=== PATIENT | female | born 1980 | race Caucasian/White ===

== ENCOUNTER 2019-10-28 11:46 | Emergency (ER) | payer SELFPAY | END 2019-10-28 14:07 | disposition home or self-care (01) | PROVIDERS: Family Provider Family Medicine | DX: H83.09 Labyrinthitis, unspecified ear (principal); I10 Essential (primary) hypertension; M19.90 Unspecified osteoarthritis, unspecified site; Z88.0 Allergy status to penicillin ==

== ENCOUNTER 2019-12-07 14:37 | Inpatient (IN) | payer OTHER, SELFPAY ==
[2019-12-07] VITALS (12 sets, daily range): BP systolic 110–148; BP diastolic 74–91; PULSE 87–94; RESP 16–18; TEMP 36.4–36.9; O2SAT 96–98; BMI 43.2
--- NOTE | 2019-12-07 14:44 | ED_ITS ---
Entered by Lupe Burrows, acting as scribe for Salma Traylor HPI - Anxiety General: Chief Complaint: Anxiety Stated Complaint: ANXIETY; SOB Time Seen by Provider: 12/07/19 14:39 Source: patient Limitations: no limitations History of Present Illness: HPI narrative: 39 yo Female presents to ED with complaint of anxiety. Pt states that she is about 6 weeks and was told to stop taking all of her medications, including Effexor, on Sunday. Pt states that she got a sharp pain in her side yesterday and then she started having increased anxiety. Pt states that she is having dizziness which is making her feel sick. MD complaint: anxiety and shortness of breath Onset (ago): day(s) Quality: intermittent Place: home History of similar episodes: No Provoking factors: medication change Relieving factors: nothing Exacerbating factors: nothing Associated symptoms: Reports nausea and short of breath; Deny chest pain, chills, confusion, diaphoresis, fever(s), headache(s), malaise, palpitations or syncope Review of Systems General: Reports: other (negative unless marked) Const: Denies: fever, chills, body aches, fatigue, malaise or diaphoresis Eyes: Denies: change in vision or blurry vision ENMT: Denies: throat pain, painful swallowing, hoarseness, ear pain, ear discharge, Change in hearing or nasal discharge Card: Denies: chest pain, palpitations, irregular heart rhythm, syncope, pre- syncope, shortness of breath on exertion or shortness of breath when lying down Resp: Reports: shortness of breath; Denies: productive cough, non-productive cough, wheezing, coughing up blood or chest congestion GI: Reports: nausea : Denies: flank pain, painful urination, urinary frequency, urinary urgency, decreased urine ouput, urinary incontinence or blood in urine Musc: Denies: neck pain, back pain, extremity pain, extremity swelling, joint pain, joint swelling, joint warmth or joint stiffness Skin/Breast: Denies: rash, skin tenderness or yellow skin Neuro: Denies: headache, numbness in extremities, weakness in extremities, changes in sensation, lack of coordination, difficulty walking, dizziness, vertigo or confusion Psych: Reports: anxiety Endo: Denies: excessive thirst, tired all the time, cold intolerance, excessive sweating, flushing or hot flashes Jasper/Lymph: Denies: easy bruising, easy bleeding, petechiae or enlarged lymph nodes All/Imm: Denies: hives, throat swelling, tongue swelling, facial swelling or acute wheezing PFSH ED PFSH: Statuses (acute, chronic, etc) shown below reflect problem list status as previously entered and may not be historically accurate Social History Smoking and tobacco status: never smoked Alcohol intake: unknown Desire information about alcohol rehabilitation?: No Substance/Drug Use: never Adopted: No Caregiver/support person: No Lives independently: Yes Household members: spouse and children Marital status: Number of children: 3 Highest education level completed: High School Graduate service: No Current occupational status: unemployed Current occupational exposures/hazards: No Pets and animals: Yes History of recent travel: No Sexually active: Yes Cherrie/Yazidi: Adventism Agree to transfusion: Yes Financial difficulty paying for basics: Somewhat Hard Physical Exam Const: COMMON NORMALS: no apparent distress, oriented x3, no limitations, healthy appearing and well nourished EXAM LIMITATIONS: no altered mental status GENERAL APPEARANCE: cooperative, well kempt and well developed ORIENTATION/CONSCIOUSNESS: Yes awake HENMT: COMMON NORMALS: normocephalic, head/scalp atraumatic, hearing grossly normal bilaterally, external ears normal, EAC's normal, external nose normal and moist oral mucous membranes HEAD & SCALP: normal to inspection, normocephalic and atraumatic FACE & SINUS: normal facial exam and face symmetric NOSE: external nose normal and nares normal EXTERNAL EAR: Yes external ears normal EXTERNAL AUDITORY CANAL: EAC's normal MOUTH: oral and palatal mucosa normal and tongue normal Eye: COMMON NORMALS: PERRL, EOMs intact bilaterally, conjunctivae normal and no scleral icterus GENERAL EYE: normal appearance of both eyes and normal light reflex CONJUNCTIVA: Yes conjunctivae normal SCLERA: sclerae normal CORNEA: Yes corneas normal PUPIL: Yes PERRL DIRECT OPHTHALMOSCOPY: Yes normal light reflex Neck/C-Spine: COMMON NORMALS: full ROM, no lymphadenopathy, supple, no meningeal signs and no JVD GENERAL: Yes normal visual inspection and Yes trachea midline CERVICAL SPINE: Yes cervical ROM normal Chest: COMMONS NORMALS: inspection of chest normal and palpation of chest normal Resp: COMMON NORMALS: normal respiratory effort, no retractions, no use of accessory muscles and clear to auscultation bilaterally EFFORT & INSPECTION: Yes able to speak in complete sentences AUSCULTATION: clear to auscultation bilaterally Cardio: COMMON NORMALS: no JVD, regular rate, regular rhythm, S1 normal heart sound, S2 normal heart sound, no gallops, no clicks, no murmurs and no rub JUGULAR VENOUS DISTENTION: no JVD RATE: regular rate RHYTHM: regular rhythm HEART SOUNDS: S1 normal and S2 normal GI: COMMON NORMALS: soft to palpation, non-tender, no hepatosplenomegaly and no masses INSPECTION: Yes normal to inspection PALPATION: Yes soft and Yes no hepatosplenomegaly : COMMON NORMALS: Yes no CVA tenderness BLADDER/KIDNEY EXAM: Yes no CVA tenderness Back/Pelvis: COMMON NORMALS: no CVA tenderness, thoracic and lumbar spine normal to inspection, no thoracic nor lumbar tenderness and thoraco-lumbar ROM normal Extremity: COMMON NORMALS: normal to inspection, full ROM, normal capillary refill, no joint enlargement, no clubbing, cyanosis or edema and no calf tenderness Neuro: COMMON NORMALS: oriented x3, CN's II-XII intact bilaterally, moves all extremities, no focal motor deficits and no sensory deficits noted MENINGEAL SIGNS: Yes no meningeal signs Psych: COMMON NORMALS: mental status grossly normal, thought process normal, cooperative, affect normal, speech normal and activity/motor behavior normal APPEARANCE: Yes well kempt SPEECH: Yes normal speech THOUGHT PROCESS: normal thought process Skin: COMMON NORMALS: no rashes or lesions noted, skin turgor normal, no jaundice, no petechiae and no mottling GENERAL SKIN EXAM: no rashes or lesions noted and turgor normal Course Vital Signs: Vital signs: Vital Signs Temperature 98.5 F 12/07/19 20:27 Pulse Rate 92 12/07/19 20:27 Respiratory Rate 18 12/07/19 20:27 Blood Pressure 146/90 12/07/19 20:27 Pulse Oximetry 96 12/07/19 20:27 MDM - Anxiety MDM Narrative: Medical decision making narrative: Mirna is a very nice 39-year-old female who comes in complaining of right lower quadrant right flank pain. Her catheter specimen shows a large amount of red cells. There was q uestionable infection on her for specimen. Appendicitis as well as kidney stone are still a possibility. I believe more likely kidney stone is the cause for her symptoms as she has had this in the past. The patient was seen and evaluated by Dr. Otero who will admit. He will follow her clinically. The patient is refused CT scan to rule valuate for appendicitis. We will continue to follow her clinically at this time. Imaging Data^: US: Radiologist's impression: [address] [place] [address] Ultrasound Report Signed Patient: Arely Valerio #: [id number] : 1980Acct#:[id number] Age/Sex: 39 / FADM Date: 12/07/19 Loc: ERRoom/Bed: Attending Dr: Ordering Provider/Ordering MD: Salma Traylor DO Date of Service: 12/07/19 Procedure(s): US pelvic with transvaginal Accession Number(s): [id number] Report Number: [id number] PROCEDURE INFORMATION: Exam: US Pelvis Complete, Transabdominal Exam date and time: 12/07/2019 2:56 PM Age: 39 years old Clinical indication: Pelvic pain; Patient HX: Patient states possible 6 weeks . No results done here yet. TECHNIQUE: Imaging protocol: Real-time transabdominal pelvic ultrasound with image documentation. Complete exam. COMPARISON: CT Abdomen/Pelvis Renal [id number] 03/04/2018 2:47 PM FINDINGS: Estimated gestational age: Gestational sac measures 5 mm with an EGA of 5 weeks and 2 days. pole not visualized. Estimated gestational age by ultrasound is 5 weeks and 2 days. Uterus/cervix: The uterus measures 10.7 x 4.9 x 5.3 cm and is normal in echogenicity. There are incidental nabothian cysts. Right adnexa: Not visualized. Left adnexa: Not visualized. Free fluid: None. Bladder: Normal. US/US pelvic with transvaginal IMPRESSION: There is an intrauterine gestational sac measuring 5 mm. EGA based on ultrasound is 5 weeks and 2 days. pole not yet visualized. Dictated By:Nisreen Zarate MD Signed By:Nisreen Zarate MDSigned Date/Time:12/07/19 1603 DD/ 1602 Other Imaging: Radiologist's impression: Ultrasound renal -no hydronephrosis, no stone visualized. No stone or bladder. Lab Data: Labs: Lab Results 12/07/19 12/07/19 12/07/19 Range/Units 15:05 15:05 15:05 WBC 8.1 (4.0-10.0) 10^3/ uL RBC 3.99 L (4.1-5.3) 10^6/u L Hgb 10.6 L (11.5-15.3) g/dL Hct 34.9 L (37.0-47.0) % MCV 87.5 (81-99) fL MCH 26.6 L (28.0-34.0) pg MCHC 30.4 (30.0-36.0) g/dL RDW 14.4 (12.1-15.1) % Plt Count 369 (130-400) 10^3/c mm MPV 8.5 (7.4-10.4) fL Neut % (Auto) 65.5 % Lymph % (Auto) 23.3 % Oldham % (Auto) 7.0 % Eos % (Auto) 3.6 % Baso % (Auto) 0.4 % Neut # (Auto) 5.3 (1.8-7.7) 10^3/u L Lymph # (Auto) 1.9 (0.8-4.8) 10^3/u L Oldham # (Auto) 0.6 (0.2-0.9) 10^3/u L Eos # (Auto) 0.3 (0.0-0.8) 10^3/u L Baso # (Auto) 0.0 (0.0-0.1) 10^3/u L Nucleated RBC % (a uto) 0 % Nucleated RBCs # 0.0 /100WBC Sodium 140 (136-145) mmol/L Potassium 3.9 (3.5-5.1) mmol/L Chloride 103 (98-107) mmol/L Carbon Dioxide 26 (22-29) mmol/L Anion Gap 14.9 (5-19) BUN 13 (6-20) mg/dL Creatinine 1.0 H (0.5-0.9) mg/dL GFR Calculation 62.4 L (90-130) mL/min Glucose 114 (65-115) mg/dL Calcium 10.1 (8.5-10.5) mg/dL Total Bilirubin 0.2 (0.15-1.2) mg/dL AST 22 (0-32) U/L ALT 25 (0-33) U/L Alkaline Phosphata se 102 (35-105) IU/L Total Protein 7.2 (6.6-8.7) g/dL Albumin 3.9 (3.5-5.2) g/dL Globulin 3.3 (1.3-4.6) g/dL Ser , Dayna i-Qnt 3067.00 mIU/mL Urine Color (Yellow) Urine Appearance (CLEAR) Urine pH (5-7) Ur Specific Gravit y (1.005-1.030) Urine Protein (Negative) Urine Glucose (UA) (Normal) Urine Ketones (Negative) Urine Occult Blood (Negative) Urine Nitrate (Negative) Urine Bilirubin (NEGATIVE) Urine Urobilinogen (Negative) mg/dL Ur Leukocyte Yee ase (Negative) Urine RBC (0-2) /hpf Urine WBC (0-5) /hpf Ur Squamous Epith Cells (0-5) Urine Bacteria (NONE) 12/07/19 12/07/19 Range/Units 15:48 17:53 WBC (4.0-10.0) 10^3/ uL RBC (4.1-5.3) 10^6/u L Hgb (11.5-15.3) g/dL Hct (37.0-47.0) % MCV (81-99) fL MCH (28.0-34.0) pg MCHC (30.0-36.0) g/dL RDW (12.1-15.1) % Plt Count (130-400) 10^3/c mm MPV (7.4-10.4) fL Neut % (Auto) % Lymph % (Auto) % Oldham % (Auto) % Eos % (Auto) % Baso % (Auto) % Neut # (Auto) (1.8-7.7) 10^3/u L Lymph # (Auto) (0.8-4.8) 10^3/u L Oldham # (Auto) (0.2-0.9) 10^3/u L Eos # (Auto) (0.0-0.8) 10^3/u L Baso # (Auto) (0.0-0.1) 10^3/u L Nucleated RBC % (a uto) % Nucleated RBCs # /100WBC Sodium (136-145) mmol/L Potassium (3.5-5.1) mmol/L Chloride (98-107) mmol/L Carbon Dioxide (22-29) mmol/L Anion Gap (5-19) BUN (6-20) mg/dL Creatinine (0.5-0.9) mg/dL GFR Calculation (90-130) mL/min Glucose (65-115) mg/dL Calcium (8.5-10.5) mg/dL Total Bilirubin (0.15-1.2) mg/dL AST (0-32) U/L ALT (0-33) U/L Alkaline Phosphata se (35-105) IU/L Total Protein (6.6-8.7) g/dL Albumin (3.5-5.2) g/dL Globulin (1.3-4.6) g/dL Ser , Dayna i-Qnt mIU/mL Urine Color Yellow Yellow (Yellow) Urine Appearance Hazy A Cloudy (CLEAR) Urine pH 7 5 (5-7) Ur Specific Gravit y 1.015 1.025 (1.005-1.030) Urine Protein Neg Neg (Negative) Urine Glucose (UA) Norm Norm (Normal) Urine Ketones Negative Negative (Negative) Urine Occult Blood 2+ H 2+ H (Negative) Urine Nitrate Negative Negative (Negative) Urine Bilirubin Neg Neg (NEGATIVE) Urine Urobilinogen Norm Norm (Negative) mg/dL Ur Leukocyte Yee ase 1+ H Negative (Negative) Urine RBC 15-25 H >100 H (0-2) /hpf Urine WBC 80-100 H 0-4 H (0-5) /hpf Ur Squamous Epith Cells 5-10 H 0-4 H (0-5) Urine Bacteria 2+ H 1+ H (NONE) Discharge Plan Discharge Admit Provider: Juan Carlos Otero Discharge Date/Time: 12/07/19 20:05 Coding Level of Care Code ED Senior Interactive Developer for Chg Fwd Exam Problem Focused The documentation recorded by the Markos veras Carmen, accurately reflects the service I personally performed and the decisions made by Kymberly desai Eli N Dec 07, 2019 14:37
--- NOTE | 2019-12-07 14:49 | USR_ITS ---
PROCEDURE INFORMATION: Exam: US Pelvis Complete, Transabdominal Exam date and time: 12/07/2019 2:56 PM Age: 39 years old Clinical indication: Pelvic pain; Patient HX: Patient states possible 6 weeks . No results done here yet. TECHNIQUE: Imaging protocol: Real-time transabdominal pelvic ultrasound with image documentation. Complete exam. COMPARISON: CT Abdomen/Pelvis Renal [id number] 03/04/2018 2:47 PM FINDINGS: Estimated gestational age: Gestational sac measures 5 mm with an EGA of 5 weeks and 2 days. pole not visualized. Estimated gestational age by ultrasound is 5 weeks and 2 days. Uterus/cervix: The uterus measures 10.7 x 4.9 x 5.3 cm and is normal in echogenicity. There are incidental nabothian cysts. Right adnexa: Not visualized. Left adnexa: Not visualized. Free fluid: None. Bladder: Normal. US/US pelvic with transvaginal IMPRESSION: There is an intrauterine gestational sac measuring 5 mm. EGA based on ultrasound is 5 weeks and 2 days. pole not yet visualized.
[2019-12-07] MEDS: metoclopramide 5 mg/mL SDV 2 mL 10 MG IV ×2 (15:08→16:04)
[2019-12-07] MEDS: morphine 4 mg/mL SDV 1 mL IVP (15:09)
[2019-12-07 15:12] LABS: Basophils % 0.4 %; Eosinophils # 0.3 10^3/uL (0.0-0.8); Eosinophils % 3.6 %; Hematocrit 34.9 % (37.0-47.0); Hemoglobin 10.6 g/dL (11.5-15.3); Lymphocytes # 1.9 10^3/uL (0.8-4.8); Lymphocytes % 23.3 %; Mean Corpuscular HGB Conc 30.4 g/dL (30.0-36.0); Mean Corpuscular Hemoglobin 26.6 pg (28.0-34.0); Mean Corpuscular Volume 87.5 fL (81-99); Mean Platelet Volume 8.5 fL (7.4-10.4); Monocytes # 0.6 10^3/uL (0.2-0.9); Neutrophils # 5.3 10^3/uL (1.8-7.7); Neutrophils % 65.5 %; Nucleated Red Blood Cells % 0 %; Platelet Count 369 10^3/cmm (130-400); Red Blood Count 3.99 10^6/uL (4.1-5.3); Red Cell Distribution Width 14.4 % (12.1-15.1); White Blood Count 8.1 10^3/uL (4.0-10.0)
[2019-12-07 15:38] LABS: Alanine Aminotransferase 25 U/L (0-33); Albumin Level 3.9 g/dL (3.5-5.2); Alkaline Phosphatase 102 IU/L (35-105); Anion Gap 14.9 (5-19); Aspartate Amino Transferase 22 U/L (0-32); Blood Urea Nitrogen 13 mg/dL (6-20); Calcium 10.1 mg/dL (8.5-10.5); Carbon Dioxide 26 mmol/L (22-29); Chloride 103 mmol/L (98-107); Globulin 3.3 g/dL (1.3-4.6); Glomerular Filtration Rate 62.4 mL/min (90-130); Glucose 114 mg/dL (65-115); Potassium 3.9 mmol/L (3.5-5.1); Sodium 140 mmol/L (136-145); Total Bilirubin 0.2 mg/dL (0.15-1.2); Total Protein 7.2 g/dL (6.6-8.7)
[2019-12-07] MEDS: acetaminophen 500 mg Tablet 1000 MG PO (16:03)
[2019-12-07 16:15] LABS: Glucose Urine UA Norm (Normal); Ketones Urine Negative (Negative); Protein Urine Neg (Negative); Specific Gravity, Urine 1.015 (1.005-1.030); Urine Appearance Hazy (CLEAR); Urine Color Yellow (Yellow); pH Urine 7 (5-7)
[2019-12-07 16:16] LABS: Bilirubin Urine Neg (NEGATIVE); Blood Urine 2+ (Negative); Leukocyte Esterase Urine 1+ (Negative); Nitrate Urine Negative (Negative); Urobilinogen Urine Norm (Negative)
[2019-12-07 16:25] LABS: Add Urine Culture? Yes; Bacteria Urine 2+; RBC Urine 15-25 /hpf (0-2); WBC Urine 80-100 /hpf (0-5)
[2019-12-07 18:44] LABS: Bacteria Urine 1+; Bilirubin Urine Neg (NEGATIVE); Blood Urine 2+ (Negative); Glucose Urine UA Norm (Normal); Ketones Urine Negative (Negative); Leukocyte Esterase Urine Negative (Negative); Nitrate Urine Negative (Negative); Protein Urine Neg (Negative); RBC Urine >100 /hpf (0-2); Specific Gravity, Urine 1.025 (1.005-1.030); Squamous Epithelial Cell Urine 0-4 (0-5); Urine Appearance Cloudy (CLEAR); Urine Color Yellow (Yellow); Urobilinogen Urine Norm (Negative); WBC Urine 0-4 /hpf (0-5); pH Urine 5 (5-7)
[2019-12-07 18:46] LABS: Add Urine Culture? No
--- NOTE | 2019-12-07 18:52 | US_ITS ---
WS: [id number] RENAL ULTRASOUND HISTORY: Rt. Flank pain, hematuria. COMPARISON: None available. TECHNIQUE: 2-D and color Doppler imaging of the kidney submitted. Right kidney: 1.5 cm x 5.3 cm x 5.3 cm. Normal echogenicity with no hydronephrosis or mass. Left kidney: 12.0 cm x 4.7 cm x 5.2 cm. Normal echogenicity with no hydronephrosis or mass. Aorta: Normal. Urinary Bladder: Normal distention. US/US renal BI with bladder IMPRESSION: Normal renal ultrasound.
--- NOTE | 2019-12-07 19:03 | PC.NURSE ---
REPORT RECEIVED FROM [facility]U SULLIVAN AND CARE TRANSFERRED TO [facility]
[2019-12-07] MEDS: cefTRIAXone 1,000 MG in sodium chloride 0.9% (plus) 50 ML 100 MG IV (19:15)
[2019-12-07] MEDS: sodium chloride 0.9% 1,000 ML 999 ML IV (19:16)
--- NOTE | 2019-12-07 19:31 | PC.NURSE ---
ULTRASOUND IN ROOM WITH PATIENT
--- NOTE | 2019-12-07 20:24 | PM.OBGYHP ---
Providers/Chief Complaint Admitting Physician: Juan Carlos Otero DO Chief Complaint: RT FLANK PAIN, HPI PARTS REPRESENTATIVE History of Present Illness Arely Valerio is a 39 year old female G5, P3 Ab1 with LMP 29 September 2001 9 ultrasound today placed her 5 weeks gestation based on size of gestational sac no yolk sac visualized. Patient presented to emergency room this evening complaining of right flank pain also states that she has had some chills denies definite fever no nausea no vomiting no headaches. On evaluation in the ED she was found to have significant number of red blood cells in her urine right flank pain with consideration that this may either represent pyelonephritis versus nephrolithiasis. I was asked by attending ED doc to admit patient. Plan at this time is to admit her to the [facility] IV hydration pain control strain urines and will ask urology to see her in the a.m. Is of note that she does have a history of right-sided nephrolithiasis in her prior requiring stenting of her right ureter. She states she did have a kidney infection in her affected by nephrolithiasis otherwise unremarkable. She has had 3 vaginal deliveries uncomplicated. Denies any history of gestational diabetes. And is she denies any vaginal bleeding no adnexal discomfort. Her pain is located in her right flank some radiation down the right gutter and towards the right inguinal region. Rates 6-06/07 Present Details Date of Last Menstrual Period: 09/29/19 Calculated Date of Delivery: 07/05/20 Gestational Age Based on Last Menstrual Period: 10 Review of Systems General: Reports: 10 or more systems reviewed and unremarkable except in HPI and below Const: Reports: chills; Denies: fever, body aches, change in appetite, fatigue or malaise Eyes: Denies: change in vision ENMT: Denies: painful swallowing Card: Denies: chest pain, palpitations, irregular heart rhythm or edema Resp: Denies: shortness of breath, productive cough or non-productive cough GI: Reports: abdominal pain; Denies: vomiting, vomiting blood, difficulty swallowing, constipation or bloating : Reports: flank pain; Denies: difficulty urinating, painful urination, urinary frequency, urinary urgency, urinary dribbling, decreased urine ouput, vaginal odor, vaginal bleeding, pelvic pain or pain during intercourse Musc: Reports: back pain; Denies: extremity pain, extremity swelling or joint pain Skin/Breast: Denies: rash Neuro: Denies: headache, numbness in extremities or weakness in extremities Psych: Reports: anxiety and depression Endo: Denies: excessive urination, excessive thirst or excessive sweating Jasper/Lymph: Denies: easy bruising or easy bleeding All/Imm: Denies: hives Medications/Allergies Home Medications Medication Instructions Recorded Confirmed Last Taken Type No Known Home Medications 12/07/19 12/07/19 Unknown History Allergies Allergy/AdvReac Type Severity Reaction Status Date / Time hydrocodone Allergy ALGY-Anaphy Verified 12/07/19 14:50 laxis oxycodone Allergy ALGY-Anaphy Verified 12/07/19 14:50 laxis Penicillins Allergy ALGY-Hives Verified 12/07/19 14:49 [facility] REPRESENTATIVE Statuses (acute, chronic, etc) shown below reflect problem list status as previously entered and may not be historically accurate Medical History (Updated 12/08/19 @ 07:45 by Antonio Golden MD) Kidney stone complicating (Acute) With last required prolonged hospitalization and her 7/8 and ninth month secondary to a stone Urolithiasis (Acute) Social History Smoking and tobacco status: never smoked Alcohol intake: unknown Desire information about alcohol rehabilitation?: No Substance/Drug Use: never Adopted: No Caregiver/support person: No Lives independently: Yes Household members: spouse and children Marital status: Number of children: 3 Highest education level completed: High School Graduate service: No Current occupational status: unemployed Current occupational exposures/hazards: No Pets and animals: Yes History of recent travel: No Sexually active: Yes Cherrie/Religious: Jehovah'S Witness Agree to transfusion: Yes Financial difficulty paying for basics: Somewhat Hard History History 5 Term 3 Miscarriages/Ectopic 1 0 Living Children 3 Vitals/I&O/Wt Last Vital Signs Temp 97.5 F L 12/07/19 14:38 Pulse 87 12/07/19 19:59 Resp 16 12/07/19 19:59 BP 129/78 12/07/19 19:59 Pulse Ox 96 12/07/19 19:59 12/07/19 12/07/19 12/07/19 06:59 14:59 22:59 Intake Total 50 / 50 Balance 50 / 50 Weight last 48 hrs Weight 117.934 kg Data : 12/08/19 05:46 12/08/19 05:46 Micro: Microbiology 12/07/19 17:55 Wet Prep - Final Vaginal Attestations Medical Necessity Statement*: pyelonephritiws vs nephrolithiasa. anticipate antibiotics for 48 h Coding Level of Care Code Acute Pelletizer for [facility]
--- NOTE | 2019-12-07 20:31 | P.HP_ITS ---
Providers/Chief Complaint Admitting Physician: Juan Carlos Otero DO Chief Complaint: RT FLANK PAIN, HPI BARIATRIC COORDINATOR History of Present Illness Arely Valerio is a 39 year old female Present Details Date of Last Menstrual Period: 09/29/19 Calculated Date of Delivery: 07/05/20 Gestational Age Based on Last Menstrual Period: 9 Medications/Allergies Home Medications Medication Instructions Recorded Confirmed Last Taken Type No Known Home Medications 12/07/19 12/07/19 Unknown History Allergies Allergy/AdvReac Type Severity Reaction Status Date / Time hydrocodone Allergy ALGY-Anaphy Verified 12/07/19 14:50 laxis oxycodone Allergy ALGY-Anaphy Verified 12/07/19 14:50 laxis Penicillins Allergy ALGY-Hives Verified 12/07/19 14:49 PFSH BARIATRIC COORDINATOR Statuses (acute, chronic, etc) shown below reflect problem list status as previously entered and may not be historically accurate Social History Smoking and tobacco status: never smoked Alcohol intake: unknown Desire information about alcohol rehabilitation?: No Substance/Drug Use: never Adopted: No Caregiver/support person: No Lives independently: Yes Household members: spouse and children Marital status: Number of children: 3 Highest education level completed: High School Graduate service: No Current occupational status: unemployed Current occupational exposures/hazards: No Pets and animals: Yes History of recent travel: No Sexually active: Yes Cherrie/Zoroastrian: Buddhism Agree to transfusion: Yes Financial difficulty paying for basics: Somewhat Hard History History 5 Term 3 Miscarriages/Ectopic 1 0 Living Children 3 Vitals/I&O/Wt Last Vital Signs Temp 98.5 F 12/07/19 20:27 Pulse 92 12/07/19 20:27 Resp 18 12/07/19 20:27 BP 146/90 12/07/19 20:27 Pulse Ox 96 12/07/19 20:27 12/07/19 12/07/19 12/07/19 06:59 14:59 22:59 Intake Total 50 / 50 Balance 50 / 50 Weight last 48 hrs Weight 117.934 kg Physical Exam Narrative: EXAM NARRATIVE: Alert and oriented no acute distress obese white female. Laying in bed in emergency department. Skin is generally clear HEENT grossly normal Neck supple nontender nodes no masses Lungs clear to auscultation Heart regular sinus rhythm Abdomen obese soft nontender good bowel sounds no guarding or rebound positive right flank tenderness Pelvic exam deferred to ED physician Extremities grossly intact no edema Extremities grossly intact Psych oriented to time place and circumstance Data : 12/07/19 15:05 12/07/19 15:05 Micro: Microbiology 12/07/19 17:55 Wet Prep - Final Vaginal Attestations Medical Necessity Statement*: Patient admitted to [facility] through emergency department for IV fluids and straining of urine as well as pain control may well require 48 hours of IV antibiotics. Time Spent in Patient Care: Greater than 35 minutes 40 Other Attestations: Spent 40 minutes emergency department with patient with evaluation observation of renal ultrasound discussion with ED physician and admission of patient. Coding Level of Care Code Acute Credit Or Loans Officer for Chg Fwd History Expanded Problem Focused Exam Expanded Problem Focused Medical Decision Making Moderate Complexity Time Spent (min) 40
[2019-12-07 20:47] LABS: Estmated Average Glucose 114; Hemoglobin A1C 5.6 % (4.0-6.0)
[2019-12-07] MEDS: lactated ringers 1,000 ML 250 ML IV (22:16)
[2019-12-08] VITALS (10 sets, daily range): BP systolic 96–142; BP diastolic 57–78; PULSE 75–89; RESP 12–20; TEMP 36.8–37.1; O2SAT 96–98; BMI 49.9
[2019-12-08] MEDS: lactated ringers 1,000 ML 250 ML IV ×5 (00:24→21:03)
[2019-12-08 05:56] LABS: Basophils % 0.4 %; Eosinophils # 0.4 10^3/uL (0.0-0.8); Eosinophils % 4.8 %; Hematocrit 29.9 % (37.0-47.0); Hemoglobin 8.9 g/dL (11.5-15.3); Lymphocytes # 2.4 10^3/uL (0.8-4.8); Lymphocytes % 32.6 %; Mean Corpuscular HGB Conc 29.8 g/dL (30.0-36.0); Mean Corpuscular Hemoglobin 26.1 pg (28.0-34.0); Mean Corpuscular Volume 87.7 fL (81-99); Mean Platelet Volume 8.5 fL (7.4-10.4); Monocytes # 0.6 10^3/uL (0.2-0.9); Monocytes % 7.9 %; Neutrophils # 3.9 10^3/uL (1.8-7.7); Nucleated Red Blood Cells % 0 %; Platelet Count 280 10^3/cmm (130-400); Red Blood Count 3.41 10^6/uL (4.1-5.3); Red Cell Distribution Width 14.5 % (12.1-15.1); White Blood Count 7.3 10^3/uL (4.0-10.0)
[2019-12-08] MEDS: cefTRIAXone 1,000 MG in sodium chloride 0.9% (plus) 50 ML 100 MG IV ×2 (05:59→17:11)
[2019-12-08 06:20] LABS: Anion Gap 14.8 (5-19); Blood Urea Nitrogen 8 mg/dL (6-20); Calcium 8.9 mg/dL (8.5-10.5); Carbon Dioxide 23 mmol/L (22-29); Chloride 104 mmol/L (98-107); Glomerular Filtration Rate 94.2 mL/min (90-130); Glucose 101 mg/dL (65-115); Osmolality Calculated 282 mOsm/kg (285-295); Potassium 3.8 mmol/L (3.5-5.1); Sodium 138 mmol/L (136-145)
--- NOTE | 2019-12-08 07:16 | PM.CONSULT ---
Providers/Reason For Consult Consulting Physican/Specialty*: Urology/Golden Reason for Consult*: (5 to 6 weeks), right flank pain, history of stones Attending Physician: Juan Carlos Otero DO History of Present Illness History of Present Illness Arely Valerio is a 39 year old female known to me for history of urolithiasis. First evaluated in January 2018 with prior history of urolithiasis and possible urinary tract infection at that time. At first evaluation she was felt to have symptoms more consistent with UTI and not a stone although she may have well passed a small stone. Was continued on antibiotics and a CT scan was requested for persistence of pain. Evaluation demonstrated a 4 mm right distal ureteral stone with minimal hydronephrosis. She ultimately passed the stone. Her symptoms resolved. Was scheduled for follow-up in August 2018 but did not keep the appointment. She has not been seen in urology since then. This hospital stay was initiated after emergency department evaluation for right lower quadrant pain and microscopic hematuria. Renal ultrasound showed no evidence of hydronephrosis. White count was 8.1 Creatinine: 1.0 Normal liver functions Urinalysis: 15-25 RBCs, 80-100 white cells, 5-10 squamous epithelial cells and 2+ bacteria but nitrite negative Differential diagnosis included: Stone, appendicitis, UTI. Admitted for further evaluation and treatment. Since admission she has remained afebrile. Vital signs are stable. In review of CT scan in February 2018 she had a small LLP stone but no other stones on the right. Symptoms this visit reminded her of prior stone but just not as severe. She had significant lower abdominal pain and to a degree milder right flank pain. She wanted to pace and move to try to find a comfortable position but could not. She also has been experiencing increased urgency and frequency acutely as well. I recommended continued IV fluids, antibiotics, strain all voids, and conservative therapy in general. Further work-up will be pending her symptoms. May require repeat ultrasound for persistence of renal colicky symptoms. Review of Systems Const: Denies: fever or chills Eyes: Denies: change in vision Card: Denies: chest pain or palpitations Resp: Denies: shortness of breath or productive cough GI: Reports: abdominal pain and nausea : Denies: painful urination Musc: Denies: deformity Skin/Breast: Denies: rash Psych: Denies: anxiety, depression or difficulty concentrating Endo: Denies: excessive thirst or excessive sweating [place]asper/Lymph: Denies: easy bleeding or enlarged lymph nodes All/Imm: Denies: hives or acute wheezing Meds/Allergies Home Medications and Allergies Home Medications Medication Instructions Recorded Confirmed Type No Known Home Medications 12/07/19 12/07/19 History Allergies Allergy/AdvReac Type Severity Reaction Status Date / Time hydrocodone Allergy ALGY-Anaphy Verified 12/07/19 14:50 laxis oxycodone Allergy ALGY-Anaphy Verified 12/07/19 14:50 laxis Penicillins Allergy ALGY-Hives Verified 12/07/19 14:49 Current Medications Current Medications Generic Name Dose Route Start Last Admin Trade Name Freq PRN Reason Stop Dose Admin Lactated Ringer's 1,000 mls @ 250 mls/hr 12/07/19 19:45 12/08/19 05:59 Lactated Ringers IV 250 mls/hr .Q4H TRENT Administration Ceftriaxone Sodium 1,000 mg/ 50 mls @ 100 mls/hr 12/08/19 06:00 12/08/19 05:59 Sodium Chloride IV 100 mls/hr Q12H TRENT Administration PFSH Acute PFSH: Statuses (acute, chronic, etc) shown below reflect problem list status as previously entered and may not be historically accurate Medical History Kidney stone complicating With last required prolonged hospitalization and her 7/8 and ninth month secondary to a stone Urolithiasis Social History Smoking and tobacco status: never smoked Alcohol intake: unknown Desire information about alcohol rehabilitation?: No Substance/Drug Use: never Adopted: No Caregiver/support person: No Lives independently: Yes Household members: spouse and children Marital status: Number of children: 3 Highest education level completed: High School Graduate service: No Current occupational status: unemployed Current occupational exposures/hazards: No Pets and animals: Yes History of recent travel: No Sexually active: Yes Cherrie/Anabaptist: Amish Agree to transfusion: Yes Financial difficulty paying for basics: Somewhat Hard Female Reproductive History: Date of last menstrual period: 09/29/19 Vitals/I&O/Wt Last Vital Signs Temp 98.8 F 12/08/19 04:00 Pulse 75 12/08/19 04:00 Resp 12 12/08/19 04:00 BP 97/57 12/08/19 04:00 Pulse Ox 96 12/08/19 04:00 12/07/19 12/08/19 12/08/19 22:59 06:59 14:59 Intake Total 530 / 530 2013.333 / 2543.333 Output Total 500 / 501 Balance 529 / 529 1513.333 / 2042.333 Weight last 48 hrs Weight 300 lb 6 oz Weight 300 lb 6 oz Weight 260 lb Physical Exam Const: COMMON NORMALS: no apparent distress, alert and well nourished GENERAL APPEARANCE: well kempt and well developed NUTRITIONAL APPEARANCE: obese ORIENTATION/CONSCIOUSNESS: not confused HENMT: COMMON NORMALS: normocephalic HEAD & SCALP: normocephalic Eye: COMMON NORMALS: no scleral icterus Neck/C-Spine: COMMON NORMALS: full ROM GENERAL: Yes normal visual inspection Resp: COMMON NORMALS: normal respiratory effort EFFORT & INSPECTION: No labored and No actively coughing Extremity: COMMON NORMALS: no clubbing, cyanosis or edema Neuro: COMMON NORMALS: no focal motor deficits SENSORIUM/ORIENTATION: Yes alert Psych: COMMON NORMALS: mental status grossly normal APPEARANCE: Yes grossly normal and Yes well kempt ATTITUDE: Yes calm and Yes engaged Skin: COMMON NORMALS: no jaundice Data Micro: Micro: Microbiology 12/07/19 17:55 Wet Prep - Final Vaginal A&P Assessment and plan (1) Flank pain with history of urolithiasis: Spontaneously passed stone in 2018. CT scan February 2018 showed the right distal ureteral stone measuring 4 mm, a very small LLP renal calculus but no other stones on the right kidney. Symptoms remind her of previous stones but without as severe intensity. No clear evidence of obstructive pyelonephritis. Recommend continued conservative management with antibiotics, pain control, hydration, strain all voids etc. If she can manage pain and there is no evidence of progressive infectious picture would consider discharge for outpatient management. I would want to see her back in about a week with a ultrasound or sooner if her symptoms increase. We discussed in detail the difficulty of dealing especially the stage of with the uncertainty and the inability to safely pursue usual diagnostic imaging. She is comfortable with conservative approach at this point. Status: Acute Code(s): R10.9 - Unspecified abdominal pain; Z87.442 - Personal history of urinary calculi Consult Attestations Medical Necessity Statement: See attending Coding Level of Care Code Acute Cardiovascular Invasive Specialist for Refugio Medrano Exam Problem Focused Diagnoses Flank pain with history of urolithiasis R10.9; Z87.442
[2019-12-08] MEDS: acetaminophen 325 mg Tablet 650 MG PO ×2 (08:34→15:05)
[2019-12-08] MEDS: ibuprofen 200 mg Tablet 400 MG PO (10:42)
--- NOTE | 2019-12-08 10:47 | PC.CHAP ---
Pastoral Care Encounter/Spiritual Assessment Type of Contact [] Declined car manager visit [] Patient/Family/Request visit [] Outpatient visit [] Follow-up visit [] Physician referral [] Code/Alert [] Routine visit [] Staff referral [] Actively dying [] Patient sleeping [] Family support [] [] Out of room [] Palliative care [] [] Receiving care in room [] Pre-surgical visit [] Trauma [] Long length of stay [] ICU visit [x] Other: follow up needed Relational/Emotional Strength [] Patient feels connected with others/family/visitors/staff [] Distress [] Loneliness/isolation [] Abandonment Spirituality of Patient [] Person of Cherrie [] Attends Adventism of their Cherrie [] Believes in Prayer [] Reads Bible or Confucianism materials [] There are Spiritual issues to be addressed Log Brander Interventions [] Prayer [] Active listening [] Non-anxious presence [] Spiritual/emotional support [] Crisis/trauma care [] Spiritual counseling [] Bereavement support [] Provided bereavement packet [] Provided Bible/devotional materials [] Provided toy/stuffed animal, coloring book to patient or family member [] Provided Communion [] Anointing/[place] [] Salvation [] Completed spiritual assessment [] Other: Impact on Illness or Injury [] Angry [] Fearful [] Anxious [] Often cries [] Exhaustion [] Unable to work [] Unable to attend scientologist [] Unable to walk/stand [] Unable to read [] Unable to drive [] Unable to eat/drink [] Unable to sleep [] Unable to be with family [] Patient intubated [] Other: Summary Pt on medicated sleep Needs follow up Log Brander Claire Zavaleta Time spent with patient 2 minutes
[2019-12-08] MEDS: prochlorperazine 10 mg Tablet 5 MG PO (11:21)
--- NOTE | 2019-12-08 19:07 | P.PN_ITS ---
CHANGE RELEASE MANAGER Subjective Subjective: Interval history: do ing well this PM, passing stones?grit. states feels like it is moving down. reviewed urology consult. appreciate consult will follow recommendations. Vitals/I&O/Wt Last Vital Signs Temp 98.2 F 12/08/19 16:00 Pulse 85 12/08/19 16:00 Resp 16 12/08/19 16:00 BP 99/65 12/08/19 16:00 Pulse Ox 98 12/08/19 16:00 12/08/19 12/08/19 12/08/19 06:59 14:59 22:59 Intake Total 2063.333 / 2593.333 2720 / 2720 797.5 / 3517.5 Output Total 500 / 501 1500 / 1500 800 / 2300 Balance 1563.333 / 2092.333 1220 / 1220 -2.5 / 1217.5 Weight last 48 hrs Weight 136.248 kg Weight 136.248 kg Weight 117.934 kg Physical Exam Narrative: EXAM NARRATIVE: Alert and oriented no acute distress laying in bed Abdomen obese soft nontender no significant flank tenderness this p.m. Extremities no calf tenderness no edema Data : 12/08/19 05:46 12/08/19 05:46 Micro: Microbiology 12/07/19 15:48 Chlamydia trachomatis (ROXANA) - Final Urine Random Neisseria gonorrhoeae (ROXANA) - Final 12/07/19 17:55 Wet Prep - Final Vaginal A&P Assessment and plan (1) Acute right flank pain: Status: Acute Code(s): R10.9 - Unspecified abdominal pain Attestations Medical Necessity Statement*: Continue IV antibiotics tonight in a.m. 12/09/2019. Anticipate discharge p.m. 12/09/2019 Time Spent in Patient Care: 16 - 35 minutes (>than 50% of time spent in counselling and/or direct pt care on unit) . Coding Level of Care Code Acute Marine Fireman for Refugio Medrano Diagnoses Acute right flank pain R10.9 Time Spent (min) 15
[2019-12-09] MEDS: lactated ringers 1,000 ML 250 ML IV ×5 (01:09→14:50)
[2019-12-09 04:00] VITALS: BP 98/62; PULSE 83; RESP 12; TEMP 37.1
[2019-12-09 05:01] VITALS: BP 105/66; PULSE 91; RESP 17; TEMP 37.4; O2SAT 98
[2019-12-09] MEDS: cefTRIAXone 1,000 MG in sodium chloride 0.9% (plus) 50 ML 100 MG IV (05:08)
--- NOTE | 2019-12-09 07:25 | US_ITS ---
WS: [id number] ULTRASOUND ABDOMEN CLINICAL INFORMATION: History of stones. BILATERAL FLANK PAIN NOW. COMPARISON: None. FINDINGS: Liver Size: Enlarged Craniocaudal length: 18.9 cm. Echogenicity: Dense with fatty infiltration Surface nodularity: None. Mass (size and location): None. Bile ducts Intrahepatic ducts: Normal. Common bile duct diameter: 0.5 mm. Gallbladder Cholelithiasis Gallstones: Present Gallbladder sludge: None. Gallbladder wall thickening: None. Pericholecystic fluid: None. Sonographic Kessler sign: Absent. Pancreas Not well seen Spleen Splenomegaly: None. Craniocaudal length: 11.0 cm. Right kidney: Normal. Hydronephrosis: None. Size: 10.1 cm x 4.9 cm x 5.7 cm Left kidney: Normal. Hydronephrosis: None. Size: 12.2 cm x 4.9 cm x 5.1 cm. Abdominal aorta and IVC Visualized portions are normal. Ascites: None. US/US abdomen complete* [id number] IMPRESSION: 1. Hepatomegaly with diffuse fatty infiltration. 2. Cholelithiasis. Gallbladder otherwise unremarkable. 3. No hydronephrosis in either kidney. 4. Normal spleen.
--- NOTE | 2019-12-09 07:27 | PM.PN ---
Subjective Subjective: Interval history: States that she feels awful this morning . Mostly complaining of a headache but she also states now that she is having both RIGHT and LEFT (new) high back pain. Thinks it reminds her of stones. She still thinks she is experiencing some withdrawal type symptoms from stopping her antidepressant medication quickly. Vital signs have been stable. She has been afebrile. We reviewed options again which would include repeating ultrasound, obtaining new lab including urinalysis, CBC, CMP. In the absence of progressive hydronephrosis or clear-cut obstructive pyelonephritis I would hold off on stenting. I will come back later today and see how she is doing and with the above information shows ADDENDUM: Lab work looks good. Abdominal ultrasound shows no evidence of developing hydronephrosis. She stated that she was feeling better this afternoon and I think with that information she can be discharged home for follow-up with me next week. Medications: Reviewed: Yes Vitals/I&O/Wt Last Vital Signs Temp 99.3 F 12/09/19 05:01 Pulse 91 12/09/19 05:01 Resp 17 12/09/19 05:01 BP 105/66 12/09/19 05:01 Pulse Ox 98 12/09/19 05:01 12/08/19 12/09/19 12/09/19 22:59 06:59 14:59 Intake Total 1327.5 / 4047.5 2298.333 / 6345.833 Output Total 800 / 2300 Balance 527.5 / 1747.5 2298.333 / 4045.833 Weight last 48 hrs Weight 300 lb 6 oz Weight 300 lb 6 oz Weight 260 lb Physical Exam Const: COMMON NORMALS: alert and well nourished GENERAL APPEARANCE: well kempt and well developed ORIENTATION/CONSCIOUSNESS: not confused HENMT: COMMON NORMALS: normocephalic and head/scalp atraumatic HEAD & SCALP: normocephalic and atraumatic Eye: COMMON NORMALS: conjunctivae normal and no scleral icterus CONJUNCTIVA: Yes conjunctivae normal Neck/C-Spine: COMMON NORMALS: full ROM GENERAL: Yes normal visual inspection Resp: COMMON NORMALS: normal respiratory effort EFFORT & INSPECTION: No labored and No actively coughing Extremity: COMMON NORMALS: no clubbing, cyanosis or edema Neuro: COMMON NORMALS: no focal motor deficits SENSORIUM/ORIENTATION: Yes alert Psych: COMMON NORMALS: mental status grossly normal APPEARANCE: Yes grossly normal and Yes well kempt ATTITUDE: Yes calm and Yes engaged Skin: COMMON NORMALS: no rashes or lesions noted and no jaundice GENERAL SKIN EXAM: no rashes or lesions noted Data : 12/09/19 08:25 12/09/19 08:25 Micro: Microbiology 12/07/19 15:48 Chlamydia trachomatis (ROXANA) - Final Urine Random Neisseria gonorrhoeae (ROXANA) - Final Attestations Medical Necessity Statement*: See attending I think she is reasonable for discharge and follow-up on outpatient basis. Coding Level of Care Code Acute Career Information Specialist for Refugio Medrano
[2019-12-09 07:47] VITALS: BP 112/73; PULSE 79; RESP 18; TEMP 37.1; O2SAT 98
[2019-12-09] MEDS: acetaminophen 325 mg Tablet 650 MG PO ×2 (08:42→14:49)
[2019-12-09 08:57] LABS: Alanine Aminotransferase 22 U/L (0-33); Albumin Level 3.4 g/dL (3.5-5.2); Alkaline Phosphatase 82 IU/L (35-105); Anion Gap 16.9 (5-19); Aspartate Amino Transferase 17 U/L (0-32); Blood Urea Nitrogen 8 mg/dL (6-20); Calcium 9.4 mg/dL (8.5-10.5); Carbon Dioxide 24 mmol/L (22-29); Chloride 104 mmol/L (98-107); Globulin 3.3 g/dL (1.3-4.6); Glomerular Filtration Rate 94.2 mL/min (90-130); Glucose 104 mg/dL (65-115); Potassium 3.9 mmol/L (3.5-5.1); Sodium 141 mmol/L (136-145); Total Bilirubin 0.2 mg/dL (0.15-1.2); Total Protein 6.7 g/dL (6.6-8.7)
[2019-12-09 09:12] LABS: Basophils % 0.4 %; Eosinophils # 0.3 10^3/uL (0.0-0.8); Eosinophils % 3.6 %; Hematocrit 32.2 % (37.0-47.0); Hemoglobin 9.9 g/dL (11.5-15.3); Lymphocytes % 23.8 %; Mean Corpuscular HGB Conc 30.7 g/dL (30.0-36.0); Mean Corpuscular Hemoglobin 27.4 pg (28.0-34.0); Mean Corpuscular Volume 89.2 fL (81-99); Mean Platelet Volume 8.7 fL (7.4-10.4); Monocytes # 0.5 10^3/uL (0.2-0.9); Monocytes % 6.4 %; Neutrophils # 5.5 10^3/uL (1.8-7.7); Neutrophils % 65.6 %; Nucleated Red Blood Cells % 0 %; Platelet Count 301 10^3/cmm (130-400); Red Blood Count 3.61 10^6/uL (4.1-5.3); Red Cell Distribution Width 14.5 % (12.1-15.1); White Blood Count 8.4 10^3/uL (4.0-10.0)
[2019-12-09] MEDS: ibuprofen 200 mg Tablet 400 MG PO (10:45)
[2019-12-09 11:15] VITALS: BP 127/75; PULSE 75; RESP 18; TEMP 36.8; O2SAT 98
--- NOTE | 2019-12-09 13:06 | PC.CHAP ---
Pastoral Care Encounter/Spiritual Assessment Type of Contact [] Declined wheelage clerk visit [] Patient/Family/Request visit [] Outpatient visit [] Follow-up visit [] Physician referral [] Code/Alert [x] Routine visit [] Staff referral [] Actively dying [] Patient sleeping [] Family support [] [] Out of room [] Palliative care [] [] Receiving care in room [] Pre-surgical visit [] Trauma [] Long length of stay [] ICU visit [] Other: Relational/Emotional Strength [x] Patient feels connected with others/family/visitors/staff [] Distress [] Loneliness/isolation [] Abandonment Spirituality of Patient [x] Person of Cherrie [x] Attends Judaism of their Cherrie [x] Believes in Prayer [] Reads Bible or Judaism materials [] There are Spiritual issues to be addressed Hydroelectric Plant Electrical Engineer Interventions [x] Prayer [x] Active listening [x] Non-anxious presence [x] Spiritual/emotional support [] Crisis/trauma care [] Spiritual counseling [] Bereavement support [] Provided bereavement packet [] Provided Bible/devotional materials [] Provided toy/stuffed animal, coloring book to patient or family member [] Provided Communion [] Anointing/[place] [] Salvation [x] Completed spiritual assessment [] Other: Impact on Illness or Injury [] Angry [] Fearful [] Anxious [] Often cries [] Exhaustion [] Unable to work [] Unable to attend hinduism [] Unable to walk/stand [] Unable to read [] Unable to drive [] Unable to eat/drink [] Unable to sleep [] Unable to be with family [] Patient intubated [] Other: Summary patient worried requarding being and kidney stones Time spent with patient 15 min
[2019-12-09 15:28] VITALS: BP 125/77; PULSE 80; RESP 18; TEMP 37.1; O2SAT 98
--- NOTE | 2019-12-09 16:43 | PM.OBGYDC ---
Discharge Providers PELLET POST INSPECTOR Date of Admission: 12/07/19 18:59 Date of Discharge: 12/09/19 Attending Provider at Admission: Juan Carlos Owusu DO Attending Provider at Discharge: Juan Carlos Owusu DO Consults: urology Dr Golden Primary PELLET POST INSPECTOR: juan carlos owusu Diagnoses at Discharge Discharge Diagnosis (1) Acute right flank pain: Status: Acute Problem details: Either secondary to pyelonephritis or nephrolithiasis. Continue with IV Rocephin this p.m. and tomorrow a.m. consider change to Keflex orally with discharge. Continue with IV hydration this p.m. patient reports good pain control with Tylenol and ibuprofen. Reason for Visit Reason for Visit: Reason For Visit: RT FLANK PAIN, Hospital Course Hospital Course: Patient is was admitted to the floor through the emergency room with diagnosis of acute flank pain question for lithiasis versus pyelonephritis. She was placed on IV Rocephin and given IV hydration pain medication. Patient responded nicely to the hydration and discharge home hospital day 2. Urology was consulted Discharge Summary: See above patient did extremely well while in in hospital status straining of her urine did produce several stones. She did undergo evaluation in consultation with Dr. Golden of urology repeat ultrasound did not show any progression of obstruction of either kidney. There was an incidental finding of gallstones. Patient discharged home on hospital day 2 on simple analgesics and Keflex follow-up with me in 2 weeks Ultrasound did show a gestational sac no obvious yolk sac. By LMP patient's approximately 5 weeks will follow-up with transvaginal ultrasound when seen in 2 weeks. Physical Exam Narrative: EXAM NARRATIVE: Alert and oriented no acute distress laying in bed. Skin clear HEENT grossly normal Lungs clear to auscultation Heart regular sinus rhythm Abdomen obese soft nontender no flank tenderness Extremities unremarkable Discharge Data Data Completed and Pending: Completed Studies During Hospitalization Category Date Time Status US abdomen comple te* [id number] Routine Ultrasound 12/09/19 07:25 Completed US pelvic with tr ansvaginal Urgent Ultrasound 12/07/19 14:49 Completed US renal BI with bladder Urgent Ultrasound 12/07/19 18:52 Completed Pending at discharge Category Date Time Status Urinalysis and Mi croscopic Routine Lab 12/09/19 14:30 Received Urine Culture Sta t Lab 12/07/19 15:48 Results Urine Culture Sta t Lab 12/07/19 17:53 Results Labs from last 24 hours 12/09/19 12/09/19 08:25 08:25 WBC 8.4 RBC 3.61 L Hgb 9.9 L Hct 32.2 L MCV 89.2 MCH 27.4 L MCHC 30.7 RDW 14.5 Plt Count 301 MPV 8.7 Neut % (Auto) 65.6 Lymph % (Auto) 23.8 [place] % (Auto) 6.4 Eos % (Auto) 3.6 Baso % (Auto) 0.4 Neut # (Auto) 5.5 Lymph # (Auto) 2.0 [place] # (Auto) 0.5 Eos # (Auto) 0.3 Baso # (Auto) 0.0 Nucleated RBC % (a uto) 0 Nucleated RBCs # 0.0 Sodium 141 Potassium 3.9 Chloride 104 Carbon Dioxide 24 Anion Gap 16.9 BUN 8 Creatinine 0.7 GFR Calculation 94.2 Glucose 104 Calcium 9.4 Total Bilirubin 0.2 AST 17 ALT 22 Alkaline Phosphata se 82 Total Protein 6.7 Albumin 3.4 L Globulin 3.3 Vitals: Last Vital Signs Temp 98.7 F 12/09/19 15:28 Pulse 80 12/09/19 15:28 Resp 18 12/09/19 15:28 BP 125/77 12/09/19 15:28 Pulse Ox 98 12/09/19 15:28 Discharge Plan Discharge Patient Disposition: Home, Self-Care Condition: Stable Prescriptions: New acetaminophen 325 mg Tablet 650 mg PO Q6H MDD 3 grams PRN (Reason: Mild/Mod Pain Or Temp >/= 101) 30 Days Qty: 90 RF: 0 ibuprofen 200 mg Tablet 400 mg PO Q6H MDD 3200mg PRN (Reason: Mild/Mod Pain Or Temp >/= 101) 30 Days Qty: 90 RF: 0 bisacodyl 5 mg Tablet,Delayed Release (Dr/Ec) 10 mg PO DAILY PRN (Reason: Constipation) 30 Days Qty: 60 RF: 0 Continued No Known Home Medications RF: 0 Discharge Orders: Discharge Order (Routine); Ordered 12/09/19 Ordered By: Juan Carlos Owusu Referrals: Juan Carlos Owusu DO [Physician] - Antonio Golden MD [Physician] - 1 week (Renal ultrasound please call dr golden for appointment [phone]) Discharge Diet: Usual diet Discharge Activity: Resume usual activity Patient Instructions: Flank Pain, Urinary Tract Infection in Women (GEN), Acute Pyelonephritis (DC), Obesity (DC) Activity Restrictions/Additional Instructions: As long as her pain is well controlled it is reasonable to continue outpatient management for possible stone during . 2 ultrasounds done while you were hospitalized showed no evidence of dilation of the kidney which we will usually see when someone has a stone. We will plan on seeing her back in my office in about 1 week with a follow-up ultrasound sooner for increasing symptoms. Please have patient strain urines Discharge Attestations PELLET POST INSPECTOR Time Spent in Discharge Care*: greater than 30 min Specific Discharge Activities: Specific discharge activities: educating patient, documenting/other paperwork and evaluating patient/reviewing data Status at Discharge: Cognitive status at discharge: cognitively intact, Behavioral status at discharge: cooperative, Functional status at discharge: independent ambulation Overall status at discharge: patient is back to baseline Coding Level of Care Code Acute Resident In Diagnostic Radiology for Refugio Fwd History Expanded Problem Focused Exam Expanded Problem Focused Medical Decision Making Moderate Complexity Diagnoses Acute right flank pain R10.9 Time Spent (min) 30
[2019-12-09 16:44] VITALS: BP 125/77; PULSE 80; RESP 18; TEMP 37.1; O2SAT 98
--- NOTE | 2019-12-09 17:23 | PC.NURSE ---
Discharge information given per physician's orders. Patient verbalized understanding and did not have any further questions.
[2019-12-09 22:18] LABS: Bilirubin Urine Neg (NEGATIVE); Blood Urine Neg (Negative); Glucose Urine UA Norm (Normal); Ketones Urine Negative (Negative); Leukocyte Esterase Urine Negative (Negative); Nitrate Urine Negative (Negative); Protein Urine Neg (Negative); Sulfosalicylic Acid Urine Negative; Urine Appearance Cloudy (CLEAR); Urine Color Yellow (Yellow); Urobilinogen Urine Norm (Negative); pH Urine 8 (5-7)
[2019-12-09 22:19] LABS: Add Urine Culture? No; Amorphous Sediment Urine 1+; Bacteria Urine 1+; RBC Urine 0-4 /hpf (0-2)
== END 2019-12-09 17:06 | disposition home or self-care (01) | DRG 832 ==
LOC: ER 19:55 → MEDSURG 19:57
PROVIDERS: Urology; Admitting Provider Obstetrics & Gynecology Female Pelvic Medicine and Reconstructive Surgery; Emergency Provider Emergency Medicine; Family Provider Family Medicine; Visit Provider Obstetrics & Gynecology Female Pelvic Medicine and Reconstructive Surgery
DX: O23.01 Infections of kidney in pregnancy, first trimester (principal); N10 Acute pyelonephritis; Z3A.01 Less than 8 weeks gestation of pregnancy; O99.211 Obesity complicating pregnancy, first trimester; E66.9 Obesity, unspecified
CPT/HCPCS: 12345; 36415; 76700; 76770; 76830; 76856; 76857; 80048; 80053; 81001; 83036; 84702; 85025; 87077; 87086; 87186; 87210; 87491; 87591; 96375; 99284; A9270; J0696; J2270; J2765; J7030; Q0164

== ENCOUNTER 2020-03-15 07:57 | Outpatient (CLI) | payer OTHER, SELFPAY ==
--- NOTE | 2020-03-15 08:02 | US_ITS ---
WS: [id number] OB ultrasound, 03/15/2020 Clinical Data: SUPERVISION OF NORMAL , MULTIPAROUS Comparison: None. Findings: There is a single intrauterine in the vertex presentation. The placenta is posterior and gr edmond 0. There is a normal amount of amnionic fluid. The heart rate is 157 beats per minute. The cervix is 3.88 cm and closed Measurements of growth and development: BPD: 4.3 cm HC: 16.8 cm AC: 14.3 cm FL: 3.1 cm The estimated weight is 301 grams or approximately 11 ounces The estimated gestational age is 19w3d with an THERESA of approximately 08/06/2020. anatomy show a normal stomach, kidneys, bladder, cord insertion, three-vessel cord, entire spin e, four-chamber heart, RVOT, LVOT, lateral cerebral ventricles, cerebellum and cisterna magna. US/US OB >= 14 weeks fetus [id number] Impression: 1. Single intrauterine in vertex presentation. 2. Estimated gestational age 19w3d with an THERESA of 08/06/2020. 3. heart rate 157 beats per minute.
== END 2020-03-15 07:58 | disposition home or self-care (01) ==
PROVIDERS: Family Provider Family Medicine; Visit Provider Family Medicine
DX: Z34.82 Encounter for supervision of other normal pregnancy, second trimester (principal); Z3A.19 19 weeks gestation of pregnancy
CPT/HCPCS: 76805

== ENCOUNTER 2020-06-16 18:32 | Outpatient (CLI) | payer OTHER, SELFPAY ==
[2020-06-16 18:48] VITALS: BP 139/73; PULSE 80
[2020-06-16 19:02] VITALS: BP 106/53; PULSE 80
[2020-06-16 19:34] VITALS: BP 111/60; PULSE 80
[2020-06-16] MEDS: lactated ringers 1,000 ML 999 ML IV (19:40)
[2020-06-16 19:43] LABS: Basophils % 0.2 %; Eosinophils # 0.2 10^3/uL (0.0-0.8); Eosinophils % 1.4 %; Hematocrit 32.6 % (37.0-47.0); Hemoglobin 10.1 g/dL (11.5-15.3); Lymphocytes # 1.8 10^3/uL (0.8-4.8); Lymphocytes % 16.8 %; Mean Corpuscular Hemoglobin 29.6 pg (28.0-34.0); Mean Corpuscular Volume 95.6 fL (81-99); Mean Platelet Volume 9.1 fL (7.4-10.4); Monocytes # 0.8 10^3/uL (0.2-0.9); Monocytes % 7.7 %; Neutrophils # 7.77 10^3/uL (1.8-7.7); Neutrophils % 73.3 %; Nucleated Red Blood Cells % 0 %; Platelet Count 211 10^3/cmm (130-400); Red Blood Count 3.41 10^6/uL (4.1-5.3); Red Cell Distribution Width 15.8 % (12.1-15.1); White Blood Count 10.6 10^3/uL (4.0-10.0)
[2020-06-16] MEDS: ondansetron 2 mg/ML SDV 2 mL 4 MG IVP (19:50)
[2020-06-16] MEDS: acetaminophen 500 mg Tablet 1000 MG PO (19:51)
[2020-06-16 19:52] VITALS: BMI 54.6
[2020-06-16 19:58] LABS: Alanine Aminotransferase 9 U/L (0-33); Alkaline Phosphatase 93 IU/L (35-105); Anion Gap 13.7 (5-19); Aspartate Amino Transferase 14 U/L (0-32); Blood Urea Nitrogen 9 mg/dL (6-20); Carbon Dioxide 23 mmol/L (22-29); Chloride 103 mmol/L (98-107); Globulin 3.1 g/dL (1.3-4.6); Glomerular Filtration Rate 93.6 mL/min (90-130); Glucose 87 mg/dL (65-115); Osmolality Calculated 277 mOsm/kg (285-295); Potassium 3.7 mmol/L (3.5-5.1); Sodium 136 mmol/L (136-145); Total Bilirubin 0.2 mg/dL (0.15-1.2); Total Protein 6.1 g/dL (6.6-8.7)
[2020-06-16 20:30] LABS: Bilirubin Urine Neg (NEGATIVE); Blood Urine Neg (Negative); Glucose Urine UA Norm (Normal); Ketones Urine Negative (Negative); Leukocyte Esterase Urine Negative (Negative); Nitrate Urine Negative (Negative); Protein Urine Neg (Negative); Specific Gravity, Urine 1.015 (1.005-1.030); Sulfosalicylic Acid Urine Negative (Negative); Urine Appearance Hazy (CLEAR); Urine Color Yellow (Yellow); Urobilinogen Urine Norm (Negative); pH Urine 7 (5-7)
[2020-06-16 20:32] LABS: RBC Urine 0-4 /hpf (0-2)
[2020-06-16 20:33] LABS: Add Urine Culture? No; Bacteria Urine TRACE
[2020-06-16 20:41] VITALS: BP 124/61; PULSE 71
[2020-06-16] MEDS: tamsulosin 0.4 mg Capsule PO (20:42)
[2020-06-16 22:43] LABS: C Reactive Protein 23.6 mg/L (0.0-4.9)
== END 2020-06-16 21:03 | disposition home or self-care (01) ==
LOC: OPOB 18:33 → OBGYN 20:56
PROVIDERS: Family Provider Family Medicine; Visit Provider Family Medicine
DX: O26.899 Other specified pregnancy related conditions, unspecified trimester (principal); R11.2 Nausea with vomiting, unspecified; R42 Dizziness and giddiness; Z3A.00 Weeks of gestation of pregnancy not specified
CPT/HCPCS: 36415; 59025; 80053; 81001; 85025; 86140; 96375; 99211; J2405

== ENCOUNTER 2020-06-24 20:45 | Emergency (ER) | payer OTHER, MEDICAID, SELFPAY ==
--- NOTE | 2020-06-24 20:53 | XR_ITS ---
WS: [id number] Portable AP upright chest, 06/24/2020 Clinical Data: Dyspnea Comparison: Portable chest, 04/22/2018. Findings: No nodules, masses or effusions are seen. The heart is normal. The pulmonary vascularity is not increased. No pneumonia or pneumothorax is seen. There are orthopedic anchors in the left joyce l head. XR/XR chest 1V portable [id number] Impression: Negative chest.
[2020-06-24 21:01] VITALS: BP 127/86; PULSE 90; RESP 21; TEMP 37.3; O2SAT 98; BMI 51.2
--- NOTE | 2020-06-24 21:37 | ED_ITS ---
Documented by User: Salma Traylor 06/24/20 23:06 HPI - General Adult General: Chief complaint: General Medical Stated complaint: covid +/ / sob Time Seen by Provider: 06/24/20 20:45 Source: patient Mode of arrival: ambulatory Limitations: no limitations History of Present Illness: HPI narrative: Arely is a 40-year-old female who comes in complaining of cough, sore throat and upper respiratory congestion. Patient states that she tested positive for COVID today. She is had her symptoms for about 4 to 5 days. She states that today she became more short of breath and her cough worsened. She denies any vomiting or diarrhea. Of note the patient is 33 weeks and 6 days with her fourth . She denies any vaginal discharge or bleeding or abdominal pain. Associated symptoms: Reports malaise; Deny chest pain, confusion, diaphoresis, dyspnea, headache(s), nausea, rash, palpitations, syncope or vomiting Review of Systems Const: Reports: chills, body aches, fatigue and malaise; Denies: fever(s) or diaphoresis Eyes: Denies: change in vision, blurry vision, photophobia, eye discomfort, eye discharge or eye redness ENMT: Reports: throat pain, nasal discharge and nasal congestion; Denies: odynophagia, hoarseness, swelling of lips/tongue, ear or mastoid pain, ear discharge or change in hearing Card: Denies: chest pain, palpitations, irregular heart rhythm, edema, lightheadedness, syncope, pre-syncope, dyspnea on exertion or orthopnea Resp: Denies: dyspnea, productive cough, non-productive cough, wheezing, hemoptysis or chest congestion GI: Denies: abdominal pain, nausea, vomiting, hematemesis, coffee ground emesis, heartburn, diarrhea, constipation, GI cramping, hematochezia or melena : Denies: flank pain, dysuria, urinary frequency, urinary urgency or hematuria Musc: Denies: neck pain, back pain, extremity pain, extremity swelling, joint pain, joint swelling, joint redness, joint warmth or joint stiffness Skin/Breast: Denies: rash, pruritus, erythema or skin tenderness Neuro: Denies: headache(s), numbness in extremities, weakness in extremities, sensory changes, lack of coordination, difficulty walking, dizziness, vertigo, confusion, Slurred speech present or seizure-like activity Jasper/Lymph: Denies: easy bruising, easy bleeding, petechiae, purpura or enlarged lymph nodes All/Imm: Denies: urticaria, throat swelling, tongue swelling, facial swelling or acute wheezing PFSH ED PFSH: Medical History Flank pain with history of urolithiasis Kidney stone complicating With last required prolonged hospitalization and her 7/8 and ninth month secondary to a stone Urolithiasis Social History Smoking and tobacco status: never smoked Alcohol intake: unknown Desire information about alcohol rehabilitation?: No Adopted: No Caregiver/support person: No Lives independently: Yes Household members: spouse and children Marital status: Number of children: 3 Highest education level completed: High School Graduate service: No Current occupational status: unemployed Current occupational exposures/hazards: No Pets and animals: Yes History of recent travel: No Sexually active: Yes Cehrrie/Alevism: Anabaptism Agree to transfusion: Yes Financial difficulty paying for basics: Somewhat Hard Female Reproductive History: Date of last menstrual period: 09/29/19 Physical Exam Const: COMMON NORMALS: no acute distress, patient oriented x3, no limitations, healthy appearing and well nourished GENERAL APPEARANCE: cooperative, well kempt and well developed HENMT: COMMON NORMALS: normocephalic, atraumatic, external ears normal, EAC's normal and Normal external nose present HEAD & SCALP: normal to inspection, normocephalic and atraumatic FACE & SINUS: normal facial exam and face symmetric NOSE: Normal external nose present and Normal nares present EXTERNAL EAR: Yes external ears normal EXTERNAL AUDITORY CANAL: EAC's normal MOUTH: Normal oral and palatal mucosa present, lip normal and tongue normal Eye: COMMON NORMALS: Equal, round and reactive pupils present and conjunctivae normal GENERAL EYE: appearance normal, both eyes and all related structures ALIGNMENT: Yes alignment normal PERIORBITAL: periorbital findings normal EYELID: eyelids normal CONJUNCTIVA: Yes conjunctivae normal SCLERA: sclerae normal PUPIL: Yes Equal, round and reactive pupils present Neck/C-Spine: COMMON NORMALS: full ROM, no lymphadenopathy, supple, no meningeal signs and no JVD GENERAL: Yes normal visual inspection and Yes trachea midline Chest: COMMONS NORMALS: normal inspection of the chest and normal palpation of entire chest wall Resp: COMMON NORMALS: normal respiratory effort, No retractions, No use of accessory muscles and clear to auscultation bilaterally EFFORT & INSPECTION: Yes able to speak in complete sentences and Yes symmetric chest movement AUSCULTATION: clear to auscultation bilaterally, no crackles, no rales, no rhonchi and no wheezes Cardio: COMMON NORMALS: no JVD, regular rate, regular rhythm, S1 normal heart sound present and S2 normal heart sound present RATE: regular rate RHYTHM: regular rhythm HEART SOUNDS: S1 normal heart sound present, S2 normal heart sound present, no click, no gallops, no murmurs, no rubs and abnormal split S2 GI: COMMON NORMALS: Soft to palpation and No hepatosplenomegaly present PALPATION: Yes Soft to palpation, No Tenderness to palpation present (GI), No Guarding due to palpation present (GI), No Rigid due to palpation, Yes No hepatosplenomegaly present, No Hernia present, No Palpable mass present, No Pulsatile mass present and Yes Other GI palpation findings present (Gravid uterus present.) : COMMON NORMALS: Yes no CVA tenderness BLADDER/KIDNEY EXAM: Yes no CVA tenderness EXTERNAL FEMALE EXAM: No Hernia present Back/Pelvis: COMMON NORMALS: no CVA tenderness, thoracic and lumbar spine normal to inspection, no thoracic nor lumbar tenderness and thoraco-lumbar ROM normal Extremity: COMMON NORMALS: normal to inspection, full ROM, capillary refill normal, no joint enlargement, no clubbing, cyanosis or edema and no calf tenderness Neuro: COMMON NORMALS: patient oriented x3, CN's II-XII intact bilaterally, moves all extremities, no focal motor deficits and no sensory deficits noted MENINGEAL SIGNS: Yes no meningeal signs SPEECH: speech normal Psych: COMMON NORMALS: mental status grossly normal, Normal thought process present, cooperative, normal affect, speech normal and activity/motor behavior normal APPEARANCE: Yes well kempt SPEECH: Yes normal speech THOUGHT PROCESS: Normal thought process present Skin: COMMON NORMALS: no rashes or lesions noted, turgor normal, no jaundice, no petechiae and no mottling GENERAL SKIN EXAM: no rashes or lesions noted and turgor normal Course Vital Signs: Vital signs: Vital Signs Temperature 99.1 F 08/27/20 21:01 Pulse Rate 86 06/25/20 01:13 Respiratory Rate 20 H 06/25/20 01:13 Blood Pressure 144/69 06/25/20 01:13 Pulse Oximetry 98 06/24/20 21:01 [facility] - General Adult Lab Data: Attestation: I reviewed the patient's lab results. Labs: Lab Results 06/24/20 06/24/20 06/24/20 Range/Units 21:40 21:40 21:40 WBC 5.4 (4.0-10.0) 10^3/ uL RBC 3.50 L (4.1-5.3) 10^6/u L Hgb 10.5 L (11.5-15.3) g/dL Hct 33.3 L (37.0-47.0) % MCV 95.1 (81-99) fL MCH 30.0 (28.0-34.0) pg MCHC 31.5 (30.0-36.0) g/dL RDW 15.8 H (12.1-15.1) % Plt Count 185 (130-400) 10^3/c mm MPV 8.7 (7.4-10.4) fL Neut % (Auto) 72.6 % Lymph % (Auto) 13.4 % [place] % (Auto) 11.8 % Eos % (Auto) 1.3 % Baso % (Auto) 0.2 % Neut # (Auto) 3.89 (1.8-7.7) 10^3/u L Lymph # (Auto) 0.7 L (0.8-4.8) 10^3/u L [place] # (Auto) 0.6 (0.2-0.9) 10^3/u L Eos # (Auto) 0.1 (0.0-0.8) 10^3/u L Baso # (Auto) 0.0 (0.0-0.1) 10^3/u L Nucleated RBC % (a uto) 0 % Nucleated RBCs # 0.0 /100WBC ESR 92 H (0-15) mm/hr D-Dimer (0-0.59) ug/mIFE U Specimen Type Sample Site ABG pH (7.35-7.45) ABG pCO2 (35-45) mmHg ABG pO2 (80.0-100.0) mmH g ABG HCO3 (22-26) mmol/L ABG Base Excess (-2.0-2.0) mmol/ L Brody Test Hematocrit (37-47) % O2 Delivery Device FiO2 % Dental Sales Representative ID Sodium 133 L (136-145) mmol/L Potassium 3.8 (3.5-5.1) mmol/L Chloride 102 (98-107) mmol/L Carbon Dioxide 21 L (22-29) mmol/L Anion Gap 13.8 (5-19) BUN 6 (6-20) mg/dL Creatinine 0.7 (0.5-0.9) mg/dL GFR Calculation 93.6 (90-130) mL/min Glucose 99 (65-115) mg/dL Calculated Osmolal ity 272 L (285-295) mOsm/k g Lactic Acid (0.5-2.2) mmol/L Calcium 8.7 (8.5-10.5) mg/dL Magnesium 2.0 (1.7-2.3) mg/dL Ferritin 19 (15-150) ng/mL Total Bilirubin 0.2 (0.15-1.2) mg/dL Direct Bilirubin (0.00-0.30) mg/d L AST 17 (0-32) U/L ALT 12 (0-33) U/L Alkaline Phosphata se 110 H (35-105) IU/L Lactate Dehydrogen ase (135-214) U/L C-Reactive Protein 23.2 H (0.0-4.9) mg/L Total Protein 6.4 L (6.6-8.7) g/dL Albumin 3.1 L (3.5-5.2) g/dL Globulin 3.3 (1.3-4.6) g/dL Influenza Type A A g (Negative) Influenza Type B A g (Negative) SARS-CoV-2 Ag (Rap id) (Negative) 06/24/20 06/24/20 06/24/20 Range/Units 21:40 21:40 21:40 WBC (4.0-10.0) 10^3/ uL RBC (4.1-5.3) 10^6/u L Hgb (11.5-15.3) g/dL Hct (37.0-47.0) % MCV (81-99) fL MCH (28.0-34.0) pg MCHC (30.0-36.0) g/dL RDW (12.1-15.1) % Plt Count (130-400) 10^3/c mm MPV (7.4-10.4) fL Neut % (Auto) % Lymph % (Auto) % [place] % (Auto) % Eos % (Auto) % Baso % (Auto) % Neut # (Auto) (1.8-7.7) 10^3/u L Lymph # (Auto) (0.8-4.8) 10^3/u L [place] # (Auto) (0.2-0.9) 10^3/u L Eos # (Auto) (0.0-0.8) 10^3/u L Baso # (Auto) (0.0-0.1) 10^3/u L Nucleated RBC % (a uto) % Nucleated RBCs # /100WBC ESR (0-15) mm/hr D-Dimer 0.87 H (0-0.59) ug/mIFE U Specimen Type Sample Site ABG pH (7.35-7.45) ABG pCO2 (35-45) mmHg ABG pO2 (80.0-100.0) mmH g ABG HCO3 (22-26) mmol/L ABG Base Excess (-2.0-2.0) mmol/ L Brody Test Hematocrit (37-47) % O2 Delivery Device FiO2 % Dental Sales Representative ID Sodium (136-145) mmol/L Potassium (3.5-5.1) mmol/L Chloride (98-107) mmol/L Carbon Dioxide (22-29) mmol/L Anion Gap (5-19) BUN (6-20) mg/dL Creatinine (0.5-0.9) mg/dL GFR Calculation (90-130) mL/min Glucose (65-115) mg/dL Calculated Osmolal ity (285-295) mOsm/k g Lactic Acid 1.0 (0.5-2.2) mmol/L Calcium (8.5-10.5) mg/dL Magnesium (1.7-2.3) mg/dL Ferritin (15-150) ng/mL Total Bilirubin (0.15-1.2) mg/dL Direct Bilirubin (0.00-0.30) mg/d L AST (0-32) U/L ALT (0-33) U/L Alkaline Phosphata se (35-105) IU/L Lactate Dehydrogen ase (135-214) U/L C-Reactive Protein (0.0-4.9) mg/L Total Protein (6.6-8.7) g/dL Albumin (3.5-5.2) g/dL Globulin (1.3-4.6) g/dL Influenza Type A A g Negative (Negative) Influenza Type B A g Negative (Negative) SARS-CoV-2 Ag (Rap id) (Negative) 06/24/20 06/24/20 06/24/20 Range/Units 21:40 22:10 22:25 WBC (4.0-10.0) 10^3/ uL RBC (4.1-5.3) 10^6/u L Hgb (11.5-15.3) g/dL Hct (37.0-47.0) % MCV (81-99) fL MCH (28.0-34.0) pg MCHC (30.0-36.0) g/dL RDW (12.1-15.1) % Plt Count (130-400) 10^3/c mm MPV (7.4-10.4) fL Neut % (Auto) % Lymph % (Auto) % [place] % (Auto) % Eos % (Auto) % Baso % (Auto) % Neut # (Auto) (1.8-7.7) 10^3/u L Lymph # (Auto) (0.8-4.8) 10^3/u L [place] # (Auto) (0.2-0.9) 10^3/u L Eos # (Auto) (0.0-0.8) 10^3/u L Baso # (Auto) (0.0-0.1) 10^3/u L Nucleated RBC % (a uto) % Nucleated RBCs # /100WBC ESR (0-15) mm/hr D-Dimer (0-0.59) ug/mIFE U Specimen Type Arterial Sample Site Brachial, right ABG pH 7.44 (7.35-7.45) ABG pCO2 31.2 L (35-45) mmHg ABG pO2 97.8 (80.0-100.0) mmH g ABG HCO3 21.4 L (22-26) mmol/L ABG Base Excess -2.1 L (-2.0-2.0) mmol/ L Brody Test Pos Hematocrit 33.0 L (37-47) % O2 Delivery Device None FiO2 21.0 % Dental Sales Representative ID [id number] Sodium (136-145) mmol/L Potassium (3.5-5.1) mmol/L Chloride (98-107) mmol/L Carbon Dioxide (22-29) mmol/L Anion Gap (5-19) BUN (6-20) mg/dL Creatinine (0.5-0.9) mg/dL GFR Calculation (90-130) mL/min Glucose (65-115) mg/dL Calculated Osmolal ity (285-295) mOsm/k g Lactic Acid (0.5-2.2) mmol/L Calcium (8.5-10.5) mg/dL Magnesium (1.7-2.3) mg/dL Ferritin (15-150) ng/mL Total Bilirubin (0.15-1.2) mg/dL Direct Bilirubin 0.20 (0.00-0.30) mg/d L AST (0-32) U/L ALT (0-33) U/L Alkaline Phosphata se (35-105) IU/L Lactate Dehydrogen ase 155 (135-214) U/L C-Reactive Protein (0.0-4.9) mg/L Total Protein (6.6-8.7) g/dL Albumin (3.5-5.2) g/dL Globulin (1.3-4.6) g/dL Influenza Type A A g (Negative) Influenza Type B A g (Negative) SARS-CoV-2 Ag (Rap id) Positive H (Negative) Imaging Data^: CXR: Attestation: I personally reviewed and interpreted this imaging study as follows: My impression: No acute cardiopulmonary findings. Discharge Plan Discharge Patient Disposition: Home Clinical Impression: , COVID-19 Condition: Stable Discharge Orders: Discharge Order (Routine); Ordered 06/25/20 Ordered By: Damien Bhatt Discharge Diet: Advance as tolerated Discharge Activity: Resume usual activity Patient Instructions: (ED) Coding Level of Care Code ED Patch Machine Operator for Chg Fwd Exam Comprehensive Documented by User: Damien Bhatt MD 06/25/20 01:19 HPI - General Adult General: Chief complaint: General Medical Stated complaint: covid +/ / sob Time Seen by Provider: 06/24/20 20:45 PFSH ED PFSH: Medical History Flank pain with history of urolithiasis Kidney stone complicating With last required prolonged hospitalization and her 7/8 and ninth month secondary to a stone Urolithiasis Social History Smoking and tobacco status: never smoked Alcohol intake: unknown Desire information about alcohol rehabilitation?: No Adopted: No Caregiver/support person: No Lives independently: Yes Household members: spouse and children Marital status: Number of children: 3 Highest education level completed: High School Graduate service: No Current occupational status: unemployed Current occupational exposures/hazards: No Pets and animals: Yes History of recent travel: No Sexually active: Yes Cherrie/Alevism: Anabaptism Agree to transfusion: Yes Financial difficulty paying for basics: Somewhat Hard Course Vital Signs: Vital signs: Vital Signs Temperature 99.1 F 06/24/20 21:01 Pulse Rate 86 06/25/20 01:13 Respiratory Rate 20 H 06/25/20 01:13 Blood Pressure 144/69 06/25/20 01:13 Pulse Oximetry 98 06/24/20 21:01 MDM - General Adult MDM Narrative: Medical decision making narrative: Patient presents here with and is COVID positive. Patient does not require any oxygen and her CT chest is clear. Patient was evaluated by L&D nurse here and is not in labor. Patient is well-appearing here and in stable for discharge. 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 She understands and agrees to plan. Lab Data: Labs: Lab Results 06/24/20 06/24/20 06/24/20 Range/Units 21:40 21:40 21:40 WBC 5.4 (4.0-10.0) 10^3/ uL RBC 3.50 L (4.1-5.3) 10^6/u L Hgb 10.5 L (11.5-15.3) g/dL Hct 33.3 L (37.0-47.0) % MCV 95.1 (81-99) fL MCH 30.0 (28.0-34.0) pg MCHC 31.5 (30.0-36.0) g/dL RDW 15.8 H (12.1-15.1) % Plt Count 185 (130-400) 10^3/c mm MPV 8.7 (7.4-10.4) fL Neut % (Auto) 72.6 % Lymph % (Auto) 13.4 % [place] % (Auto) 11.8 % Eos % (Auto) 1.3 % Baso % (Auto) 0.2 % Neut # (Auto) 3.89 (1.8-7.7) 10^3/u L Lymph # (Auto) 0.7 L (0.8-4.8) 10^3/u L [place] # (Auto) 0.6 (0.2-0.9) 10^3/u L Eos # (Auto) 0.1 (0.0-0.8) 10^3/u L Baso # (Auto) 0.0 (0.0-0.1) 10^3/u L Nucleated RBC % (a uto) 0 % Nucleated RBCs # 0.0 /100WBC ESR 92 H (0-15) mm/hr D-Dimer (0-0.59) ug/mIFE U Specimen Type Sample Site ABG pH (7.35-7.45) ABG pCO2 (35-45) mmHg ABG pO2 (80.0-100.0) mmH g ABG HCO3 (22-26) mmol/L ABG Base Excess (-2.0-2.0) mmol/ L Brody Test Hematocrit (37-47) % O2 Delivery Device FiO2 % Dental Sales Representative ID Sodium 133 L (136-145) mmol/L Potassium 3.8 (3.5-5.1) mmol/L Chloride 102 (98-107) mmol/L Carbon Dioxide 21 L (22-29) mmol/L Anion Gap 13.8 (5-19) BUN 6 (6-20) mg/dL Creatinine 0.7 (0.5-0.9) mg/dL GFR Calculation 93.6 (90-130) mL/min Glucose 99 (65-115) mg/dL Calculated Osmolal ity 272 L (285-295) mOsm/k g Lactic Acid (0.5-2.2) mmol/L Calcium 8.7 (8.5-10.5) mg/dL Magnesium 2.0 (1.7-2.3) mg/dL Ferritin 19 (15-150) ng/mL Total Bilirubin 0.2 (0.15-1.2) mg/dL Direct Bilirubin (0.00-0.30) mg/d L AST 17 (0-32) U/L ALT 12 (0-33) U/L Alkaline Phosphata se 110 H (35-105) IU/L Lactate Dehydrogen ase (135-214) U/L C-Reactive Protein 23.2 H (0.0-4.9) mg/L Total Protein 6.4 L (6.6-8.7) g/dL Albumin 3.1 L (3.5-5.2) g/dL Globulin 3.3 (1.3-4.6) g/dL Influenza Type A A g (Negative) Influenza Type B A g (Negative) SARS-CoV-2 Ag (Rap id) (Negative) 06/24/20 06/24/20 06/24/20 Range/Units 21:40 21:40 21:40 WBC (4.0-10.0) 10^3/ uL RBC (4.1-5.3) 10^6/u L Hgb (11.5-15.3) g/dL Hct (37.0-47.0) % MCV (81-99) fL MCH (28.0-34.0) pg MCHC (30.0-36.0) g/dL RDW (12.1-15.1) % Plt Count (130-400) 10^3/c mm MPV (7.4-10.4) fL Neut % (Auto) % Lymph % (Auto) % [place] % (Auto) % Eos % (Auto) % Baso % (Auto) % Neut # (Auto) (1.8-7.7) 10^3/u L Lymph # (Auto) (0.8-4.8) 10^3/u L [place] # (Auto) (0.2-0.9) 10^3/u L Eos # (Auto) (0.0-0.8) 10^3/u L Baso # (Auto) (0.0-0.1) 10^3/u L Nucleated RBC % (a uto) % Nucleated RBCs # /100WBC ESR (0-15) mm/hr D-Dimer 0.87 H (0-0.59) ug/mIFE U Specimen Type Sample Site ABG pH (7.35-7.45) ABG pCO2 (35-45) mmHg ABG pO2 (80.0-100.0) mmH g ABG HCO3 (22-26) mmol/L ABG Base Excess (-2.0-2.0) mmol/ L Brody Test Hematocrit (37-47) % O2 Delivery Device FiO2 % Dental Sales Representative ID Sodium (136-145) mmol/L Potassium (3.5-5.1) mmol/L Chloride (98-107) mmol/L Carbon Dioxide (22-29) mmol/L Anion Gap (5-19) BUN (6-20) mg/dL Creatinine (0.5-0.9) mg/dL GFR Calculation (90-130) mL/min Glucose (65-115) mg/dL Calculated Osmolal ity (285-295) mOsm/k g Lactic Acid 1.0 (0.5-2.2) mmol/L Calcium (8.5-10.5) mg/dL Magnesium (1.7-2.3) mg/dL Ferritin (15-150) ng/mL Total Bilirubin (0.15-1.2) mg/dL Direct Bilirubin (0.00-0.30) mg/d L AST (0-32) U/L ALT (0-33) U/L Alkaline Phosphata se (35-105) IU/L Lactate Dehydrogen ase (135-214) U/L C-Reactive Protein (0.0-4.9) mg/L Total Protein (6.6-8.7) g/dL Albumin (3.5-5.2) g/dL Globulin (1.3-4.6) g/dL Influenza Type A A g Negative (Negative) Influenza Type B A g Negative (Negative) SARS-CoV-2 Ag (Rap id) (Negative) 06/24/20 06/24/20 06/24/20 Range/Units 21:40 22:10 22:25 WBC (4.0-10.0) 10^3/ uL RBC (4.1-5.3) 10^6/u L Hgb (11.5-15.3) g/dL Hct (37.0-47.0) % MCV (81-99) fL MCH (28.0-34.0) pg MCHC (30.0-36.0) g/dL RDW (12.1-15.1) % Plt Count (130-400) 10^3/c mm MPV (7.4-10.4) fL Neut % (Auto) % Lymph % (Auto) % [place] % (Auto) % Eos % (Auto) % Baso % (Auto) % Neut # (Auto) (1.8-7.7) 10^3/u L Lymph # (Auto) (0.8-4.8) 10^3/u L [place] # (Auto) (0.2-0.9) 10^3/u L Eos # (Auto) (0.0-0.8) 10^3/u L Baso # (Auto) (0.0-0.1) 10^3/u L Nucleated RBC % (a uto) % Nucleated RBCs # /100WBC ESR (0-15) mm/hr D-Dimer (0-0.59) ug/mIFE U Specimen Type Arterial Sample Site Brachial, right ABG pH 7.44 (7.35-7.45) ABG pCO2 31.2 L (35-45) mmHg ABG pO2 97.8 (80.0-100.0) mmH g ABG HCO3 21.4 L (22-26) mmol/L ABG Base Excess -2.1 L (-2.0-2.0) mmol/ L Brody Test Pos Hematocrit 33.0 L (37-47) % O2 Delivery Device None FiO2 21.0 % Dental Sales Representative ID [id number] Sodium (136-145) mmol/L Potassium (3.5-5.1) mmol/L Chloride (98-107) mmol/L Carbon Dioxide (22-29) mmol/L Anion Gap (5-19) BUN (6-20) mg/dL Creatinine (0.5-0.9) mg/dL GFR Calculation (90-130) mL/min Glucose (65-115) mg/dL Calculated Osmolal ity (285-295) mOsm/k g Lactic Acid (0.5-2.2) mmol/L Calcium (8.5-10.5) mg/dL Magnesium (1.7-2.3) mg/dL Ferritin (15-150) ng/mL Total Bilirubin (0.15-1.2) mg/dL Direct Bilirubin 0.20 (0.00-0.30) mg/d L AST (0-32) U/L ALT (0-33) U/L Alkaline Phosphata se (35-105) IU/L Lactate Dehydrogen ase 155 (135-214) U/L C-Reactive Protein (0.0-4.9) mg/L Total Protein (6.6-8.7) g/dL Albumin (3.5-5.2) g/dL Globulin (1.3-4.6) g/dL Influenza Type A A g (Negative) Influenza Type B A g (Negative) SARS-CoV-2 Ag (Rap id) Positive H (Negative) Imaging Data^: CT Chest: Attestation: I personally reviewed and interpreted this imaging study as follows: Radiologist's impression: [place] [address] CT Scan Report Signed Patient: Arely Valerio Unit #: [id number] : 1980 Age/Sex: 40 / F ADM Date: 06/24/20 Loc: ER Room/Bed: Attending Dr: Ordering Provider/Ordering MD: Salma Traylor DO Date of Service: 06/24/20 Procedure(s): CT angio chest PE protcl [id number] Accession Number(s): [id number] Report Number: [id number] PROCEDURE INFORMATION: Exam: CT Angiography Chest With Contrast Exam date and time: 06/24/2020 10:08 PM Age: 40 years old Clinical indication: Shortness of breath; Patient HX: PT . Scanned twice. Best images possible; Additional info: Dyspnea/positive d-dimer TECHNIQUE: Imaging protocol: Computed tomographic angiography of the chest with intravenous contrast. 3D rendering (Not supervised by radiologist): MIP and/or 3D reconstructed images were created by the technologist. Radiation optimization: All CT scans at this facility use at least one of these dose optimization techniques: automated exposure control; mA and/or kV adjustment per patient size (includes targeted exams where dose is matched to clinical indication); or iterative reconstruction. Contrast material: VISI 320; Contrast volume: 132 ml; Contrast route: INTRAVENOUS (IV); COMPARISON: CR XR chest 1V portable [id number] 06/24/2020 9:17 PM RADIATION DOSE METRICS: Total DLP (mGy-cm): 1350.45 FINDINGS: Pulmonary arteries: Normal. No pulmonary emboli. Aorta: Unremarkable. No aortic aneurysm. No aortic dissection. Lungs: Unremarkable. No consolidation. No masses. Pleural space: Unremarkable. No pneumothorax. No pleural effusion. Heart: Unremarkable. No cardiomegaly. No pericardial effusion. Lymph nodes: Unremarkable. No enlarged lymph nodes. Bones/joints: Unremarkable. No acute fracture. Soft tissues: Unremarkable. CT/CT angio chest PE protcl [id number] IMPRESSION: No acute findings. Discharge Plan Discharge Patient Disposition: Home Clinical Impression: , COVID-19 Condition: Stable Discharge Orders: Discharge Order (Routine); Ordered 06/25/20 Ordered By: Damien Bhatt Discharge Diet: Advance as tolerated Discharge Activity: Resume usual activity Patient Instructions: (ED) Coding Level of Care Code ED Patch Machine Operator for Chg Fwd Exam Comprehensive
[2020-06-24 21:48] LABS: Basophils % 0.2 %; Eosinophils # 0.1 10^3/uL (0.0-0.8); Eosinophils % 1.3 %; Hematocrit 33.3 % (37.0-47.0); Hemoglobin 10.5 g/dL (11.5-15.3); Lymphocytes # 0.7 10^3/uL (0.8-4.8); Lymphocytes % 13.4 %; Mean Corpuscular HGB Conc 31.5 g/dL (30.0-36.0); Mean Corpuscular Volume 95.1 fL (81-99); Mean Platelet Volume 8.7 fL (7.4-10.4); Monocytes # 0.6 10^3/uL (0.2-0.9); Monocytes % 11.8 %; Neutrophils # 3.89 10^3/uL (1.8-7.7); Neutrophils % 72.6 %; Nucleated Red Blood Cells % 0 %; Platelet Count 185 10^3/cmm (130-400); Red Cell Distribution Width 15.8 % (12.1-15.1); White Blood Count 5.4 10^3/uL (4.0-10.0)
[2020-06-24 22:02] LABS: D Dimer 0.87 ug/mIFEU (0-0.59)
[2020-06-24 22:05] LABS: Alanine Aminotransferase 12 U/L (0-33); Albumin Level 3.1 g/dL (3.5-5.2); Alkaline Phosphatase 110 IU/L (35-105); Anion Gap 13.8 (5-19); Aspartate Amino Transferase 17 U/L (0-32); Blood Urea Nitrogen 6 mg/dL (6-20); Calcium 8.7 mg/dL (8.5-10.5); Carbon Dioxide 21 mmol/L (22-29); Chloride 102 mmol/L (98-107); Globulin 3.3 g/dL (1.3-4.6); Glomerular Filtration Rate 93.6 mL/min (90-130); Glucose 99 mg/dL (65-115); Osmolality Calculated 272 mOsm/kg (285-295); Potassium 3.8 mmol/L (3.5-5.1); Sodium 133 mmol/L (136-145); Total Bilirubin 0.2 mg/dL (0.15-1.2); Total Protein 6.4 g/dL (6.6-8.7)
--- NOTE | 2020-06-24 22:07 | CTR_ITS ---
PROCEDURE INFORMATION: Exam: CT Angiography Chest With Contrast Exam date and time: 06/24/2020 10:08 PM Age: 40 years old Clinical indication: Shortness of breath; Patient HX: PT . Scanned twice. Best images possible; Additional info: Dyspnea/positive d-dimer TECHNIQUE: Imaging protocol: Computed tomographic angiography of the chest with intravenous contrast. 3D rendering (Not supervised by radiologist): MIP and/or 3D reconstructed images were created by the technologist. Radiation optimization: All CT scans at this facility use at least one of these dose optimization techniques: automated exposure control; mA and/or kV adjustment per patient size (includes targeted exams where dose is matched to clinical indication); or iterative reconstruction. Contrast material: VISI 320; Contrast volume: 132 ml; Contrast route: INTRAVENOUS (IV); COMPARISON: CR XR chest 1V portable [id number] 06/24/2020 9:17 PM RADIATION DOSE METRICS: Total DLP (mGy-cm): 1350.45 FINDINGS: Pulmonary arteries: Normal. No pulmonary emboli. Aorta: Unremarkable. No aortic aneurysm. No aortic dissection. Lungs: Unremarkable. No consolidation. No masses. Pleural space: Unremarkable. No pneumothorax. No pleural effusion. Heart: Unremarkable. No cardiomegaly. No pericardial effusion. Lymph nodes: Unremarkable. No enlarged lymph nodes. Bones/joints: Unremarkable. No acute fracture. Soft tissues: Unremarkable. CT/CT angio chest PE formerly [facility] [id number] IMPRESSION: No acute findings. Radiation Dose CTDIVOL = (mGy): DLP = 1350.45 (mGy-cm)
[2020-06-24] MEDS: sodium chloride 0.9% 1,000 ML 100 ML IV (22:15)
[2020-06-24 22:23] LABS: Erythrocyte Sedimentation Rate 92 mm/hr (0-15)
[2020-06-24 22:33] LABS: ABG PCO2 31.2 mmHg (35-45); ABG PH Result 7.44 (7.35-7.45); Base Excess ABG -2.1 mmol/L (-2.0-2.0); Blood Gas Allen Test Pos; Blood Gas Sample Site Brachial, right; Blood Gas Sample Type Arterial; HCO3 ABG 21.4 mmol/L (22-26); PO2 ABG 97.8 mmHg (80.0-100.0)
[2020-06-24 22:50] LABS: SARS Covid-2 Antigen Positive (Negative)
[2020-06-24 22:50] LABS: Influenza A by IFA Negative (Negative); Influenza B by IFA Negative (Negative)
[2020-06-24] MEDS: iohexol 350 mg/mL 100 mL Btl IV (22:53)
[2020-06-24 22:55] LABS: C Reactive Protein 23.2 mg/L (0.0-4.9); Ferritin 19 ng/mL (15-150)
[2020-06-24] MEDS: iodixanol 320 mg/mL 100mL Btl IV (23:00)
[2020-06-24 23:49] LABS: Lactate Dehydrogenase 155 U/L (135-214)
[2020-06-25 01:13] VITALS: BP 144/69; PULSE 86; RESP 20
--- NOTE | 2020-06-25 03:03 | PC.NURSE ---
SVE performed at 2342 1cm 50% effaced -5 station, baby ballotable. No vaginal bleeding, No leaking fluid. SVE repeated at 0042 1cm 50% effaced -5 station, baby ballotable. No vaginal bleeding or loss of fluid.
== END 2020-06-25 01:46 | disposition home or self-care (01) ==
PROVIDERS: Emergency Medicine; Emergency Provider Emergency Medicine
DX: O98.513 Other viral diseases complicating pregnancy, third trimester (principal); U07.1 COVID-19; Z3A.33 33 weeks gestation of pregnancy
CPT/HCPCS: 12345; 36600; 71045; 71275; 80053; 82248; 82728; 82803; 83605; 83615; 83735; 85025; 85378; 85651; 86140; 87040; 87426; 87804; 96360; 96361; 99283; 99284; J7030; Q9967

== ENCOUNTER 2020-07-20 08:27 | Outpatient (CLI) | payer MEDICAID, SELFPAY ==
--- NOTE | 2020-07-20 08:39 | US_ITS ---
WS: [id number] ULTRASOUND OB LIMITED TECHNIQUE: Limited ultrasound examination of the fetus. CLINICAL INFORMATION: CORONAVIRUS INFECTION/SUPERVISION HIGH RISK-3RD TRIMESTER COMPARISON: None. FINDINGS: Cervix is long and closed. Cervix measures 3.6 cm. Single interuterine gestation. presentation is vertex Placental location is anterior. Placenta grade: 0. heart rate 176 BPM. TONY 11.4 cm Anatomy: BDP: 9.2 cm = 37w1d HC: 32.8 cm = 37w2d AC: 33.6 cm = 37w4d FEMUR LENGTH: 7.4 cm = 37w4d Estimated weight: 3217 g EGA by ultrasound: 37w3d THERESA by ultrasound: 08/07/2020 Biophysical profile 8 out of 8. breathin movement: 2 tone: 2 Amniotic fluid: 2 Normal biophysical profile 8 out of 8 US/US OB lmt w/ BPP wo NST IMPRESSION: 1. Single intrauterine gestation. 2. Placenta is anterior. 3. BPP 8 out of 8. 4. Cervix appears long and closed. 5. Normal TONY.
== END 2020-07-20 08:28 | disposition home or self-care (01) ==
LOC: US 08:34
PROVIDERS: Visit Provider Family Medicine
DX: U07.1 COVID-19 (principal); O09.93 Supervision of high risk pregnancy, unspecified, third trimester
CPT/HCPCS: 76815; 76819

== ENCOUNTER 2020-08-02 09:13 | Inpatient (IN) | payer MEDICAID, SELFPAY ==
[2020-08-02] VITALS (138 sets, daily range): BP systolic 0–166; BP diastolic 0–88; PULSE 62–93; RESP 18–20; TEMP 36.4–37.1; O2SAT 92–98; BMI 55.0
[2020-08-02 10:56] LABS: Basophils % 0.2 %; Eosinophils # 0.1 10^3/uL (0.0-0.8); Eosinophils % 1.4 %; Lymphocytes # 1.2 10^3/uL (0.8-4.8); Lymphocytes % 14.4 %; Mean Corpuscular HGB Conc 32.4 g/dL (30.0-36.0); Mean Corpuscular Hemoglobin 30.7 pg (28.0-34.0); Mean Platelet Volume 9.2 fL (7.4-10.4); Monocytes # 0.5 10^3/uL (0.2-0.9); Monocytes % 5.2 %; Nucleated Red Blood Cells % 0 %; Platelet Count 200 10^3/cmm (130-400); Red Blood Count 3.58 10^6/uL (4.1-5.3); Red Cell Distribution Width 15.1 % (12.1-15.1); White Blood Count 8.6 10^3/uL (4.0-10.0)
[2020-08-02] MEDS: dextrose 5%-lactated ringers 1,000 ML 125 ML IV (11:10)
[2020-08-02 11:11] LABS: Alanine Aminotransferase 11 U/L (0-33); Albumin Level 2.9 g/dL (3.5-5.2); Alkaline Phosphatase 191 IU/L (35-105); Anion Gap 15.5 (5-19); Aspartate Amino Transferase 16 U/L (0-32); Blood Urea Nitrogen 9 mg/dL (6-20); Calcium 9.6 mg/dL (8.5-10.5); Carbon Dioxide 21 mmol/L (22-29); Chloride 100 mmol/L (98-107); Glomerular Filtration Rate 93.6 mL/min (90-130); Glucose 128 mg/dL (65-115); Osmolality Calculated 276 mOsm/kg (285-295); Potassium 3.5 mmol/L (3.5-5.1); Sodium 133 mmol/L (136-145); Total Bilirubin 0.2 mg/dL (0.15-1.2); Total Protein 5.9 g/dL (6.6-8.7); Uric Acid 5.5 mg/dL (2.4-5.7)
[2020-08-02] MEDS: oxytocin 30 UNIT/500 ML BAG 4 UNIT IV (11:15)
[2020-08-02 11:18] LABS: Urine Creatinine 88 mg/dL (28-217); Urine Protein Random 8 mg/dL
[2020-08-02 11:28] LABS: UPRO/UCREAT Ratio 0.09 mg/mg CR
--- NOTE | 2020-08-02 16:43 | P.HP_ITS ---
Providers/Chief Complaint Admitting Physician: Kanu Eastman MD Chief Complaint: induction of labor History of Present Illness Arely Valerio is a 40 year old at 39.3 weeks gestation by 5-week ultrasound. Her is complicated by kidney stones during first trimester, frequent UTI, chronic hypertension on lisinopril until 3 weeks gestation and currently off of meds, anxiety on fluoxetine, GERD, obstructive sleep apnea, history of shoulder dystocia, history of LGA , anemia, obesity, COVID-19 positive on 06/24/2020, GBS positive. The patient presents to labor and delivery triage for induction of labor secondary to history of LGA infant and prior shoulder dystocia. I discussed the option with the patient of doing a primary low transverse section due to history of shoulder dystocia and she declined. The patient is feeling well. She has not been having any contractions, shortness of breath, chest pain, cough, fever, leakage of fluid, vaginal bleeding, dysuria. Medications/Allergies Home Medications Medication Instructions Recorded Confirmed Last Taken Type Iron (ferrous sulfate) 325 mg PO DAILY 08/02/20 08/02/20 08/02/20 07:00 History fluoxetine 20 mg PO DAILY 08/02/20 08/02/20 08/02/20 07:00 History prenat.vits,sharath,wgm-pnls-nlkag 1 tab PO DAILY 08/02/20 08/02/20 08/02/20 07:00 History Allergies Allergy/AdvReac Type Severity Reaction Status Date / Time hydrocodone Allergy ALGY-Anaphy Verified 06/28/20 09:06 laxis oxycodone Allergy ALGY-Anaphy Verified 06/28/20 09:06 laxis Penicillins Allergy ALGY-Hives Verified 06/28/20 09:06 PFSH Acute PFSH: Medical History (Updated 08/02/20 @ 16:50 by Knau Eastman MD) Flank pain with history of urolithiasis History of shoulder dystocia Kidney stone complicating With last required prolonged hospitalization and her 7/8 and ninth month secondary to a stone Urolithiasis Family History (Updated 07/23/20 @ 07:45 by Alexia Knox LPN) Mother Depression Alcoholic Hypertension Father Hypertension Heart disease Social History Smoking and tobacco status: never smoked Alcohol intake: unknown Female Reproductive History: Date of last menstrual period: 09/29/19 : 5 Vitals/I&O/Wt Last Vital Signs Temp 98.7 F 08/02/20 16:00 Pulse 75 08/02/20 16:33 Resp 20 H 08/02/20 16:00 BP 133/69 08/02/20 16:33 08/02/20 08/02/20 08/02/20 06:59 14:59 22:59 Intake Total Balance Weight last 48 hrs Weight 331 lb Physical Exam Narrative: EXAM NARRATIVE: General: Alert and oriented x3 Eyes: Pupils equal round and reactive to light and accommodation Mouth: Mucous membranes moist, pharynx non-erythematous Cardiac: Regular rate and rhythm without murmurs Lungs: Clear to auscultation bilaterally without wheezes, crackles or rhonchi Abdomen: Soft, non-tender, fundus large for gestational age Extremities: +1 pitting edema in the bilateral lower extremities Data : 08/02/20 10:30 08/02/20 10:30 A&P Assessment and plan (1) Positive GBS test: Status: Acute (2) Intrauterine : Status: Acute (3) Obesity: Status: Chronic (4) COVID-19: Status: Acute Additional A&P Information Arely Valerio is a 40 year old at 39.3 weeks gestation by 5-week ultrasound. Her is complicated by kidney stones during first trimester, frequent UTI, chronic hypertension on lisinopril until 3 weeks gestation and currently off of meds, anxiety on fluoxetine, GERD, obstructive sleep apnea, history of shoulder dystocia, history of LGA , anemia, obesity, COVID-19 positive on 06/24/2020, GBS positive. The patient was found to be 3 cm upon admission by nursing and started on IV Pitocin. The patient is colette every 2 to 3 minutes. heart tones are in the mid 130s with moderate variability and good accelerations with a category 1 tracing. The patient is not making any change at this time. Upon my personal exam the patient is 3 cm on the outer os, however has tunneling and is approximately 1.5 cm on the inner os. If she is not making any change, we will plan to stop the IV Pitocin and start Cytotec. I discussed the plan of care with the patient and she is in agreement. The patient is receiving antibiotics for GBS prophylaxis. She is not having any complications at this time. We will need to continue to watch for signs of a large infant due to her history. All questions were answered. Proceed with the current plan of care. Attestations Medical Necessity Statement*: The patient will be here for greater than 2 midnights due to routine intrapartum and management of labor and delivery. Coding Level of Care Code Acute Concrete Hopper Operator for g [place] Diagnoses Positive GBS test B95.1 Intrauterine Z34.90 Obesity E66.9 COVID-19 U07.1
[2020-08-02] MEDS: ceFAZolin 1,000 MG in sodium chloride 0.9% (plus) 50 ML 100 MG IV (18:43)
[2020-08-02] MEDS: lactated ringers 1,000 ML 999 ML IV (19:04)
--- NOTE | 2020-08-02 19:35 | P.ANESASSM_ITS ---
Pre-Anesthetic Assessment Pre-Anesthetic Assessment: Height/Weight: Height 1.65 m Weight 150.139 kg Temp Pulse Resp BP 98.7 F 69 20 H 0/0 08/02/20 16:00 08/02/20 19:19 08/02/20 16:00 08/02/20 19:33 Preop Diagnosis: labor epidural Proposed Procedure: labor epidural Was Beta Jakub taken within 24 hours: N/A Last Intake: 01:03 Social: Social History: No alcohol and No tobacco Exam: Pre-Anes Outpt Exam: alert, oriented x 3 and clear to auscultation bilaterally Airway: Submandibular: WNL Cervical ROM: WNL MP: 2 Pulmonary: Pulmonary: None reported CV/HEM: CV/HEM: HTN (with ) : : None reported Hepatic: Hepatic: None reported GI: GI: GERD Metabolic: Metabolic: DM (gestational ) Musc/skel: Musc/skel: None reported Neuropsych: Neuropsych: None reported Anesthetic Plan: ASA status: 2 Anesthesia: Anesthesia Evaluation and Regional (specify below) Meds/Allergies Current Medications: Current Medications Generic Name Dose Route Start Last Admin Trade Name Freq PRN Reason Stop Dose Admin Dextrose/Lactated Ringer's 1,000 mls @ 125 m ls/hr 08/02/20 10:45 08/02/20 11:10 Dextrose 5%-Lact ated Ringers IV 125 mls/hr .Q8H TRENT Administration Cefazolin Sodium 1 ,000 mg/ 50 mls @ 100 mls/ hr 08/02/20 10:45 08/02/20 18:43 Sodium Chloride IV 100 mls/hr Q8H TRENT Administration Protocol Oxytocin 30 unit in 500 ml s @ 4 mls/hr 08/02/20 11:15 08/02/20 13:15 Pitocin IV 20 milliunit/min .Q24H TRENT 20 mls/hr Titration Protocol 4 MILLIUNIT/MIN PFSH Anesthesia PFSH: Medical History (Updated 08/02/20 @ 16:50 by Kanu Esatman MD) Flank pain with history of urolithiasis History of shoulder dystocia Kidney stone complicating With last required prolonged hospitalization and her 7/8 and ninth month secondary to a stone Urolithiasis Family History (Updated 07/23/20 @ 07:45 by Alexia Knox LPN) Mother Depression Alcoholic Hypertension Father Hypertension Heart disease Social History Smoking and tobacco status: never smoked Alcohol intake: unknown Female Reproductive History: Date of last menstrual period: 09/29/19 : 5 Data Anesthesia CBC & Chem 7: 08/02/20 10:30 08/02/20 10:30 Other Labs: Laboratory Results - last 48 hr 08/02/20 08/02/20 08/02/20 10:30 10:30 10:30 WBC 8.6 RBC 3.58 L Hgb 11.0 L Hct 34.0 L MCV 95.0 MCH 30.7 MCHC 32.4 RDW 15.1 Plt Count 200 MPV 9.2 Neut % (Auto) 78.0 Lymph % (Auto) 14.4 [place] % (Auto) 5.2 Eos % (Auto) 1.4 Baso % (Auto) 0.2 Neut # (Auto) 6.70 Lymph # (Auto) 1.2 [place] # (Auto) 0.5 Eos # (Auto) 0.1 Baso # (Auto) 0.0 Nucleated RBC % (auto) 0 Nucleated RBCs # 0.0 Sodium 133 L Potassium 3.5 Chloride 100 Carbon Dioxide 21 L Anion Gap 15.5 BUN 9 Creatinine 0.7 GFR Calculation 93.6 Glucose 128 H Calculated Osmolality 276 L Uric Acid 5.5 Calcium 9.6 Total Bilirubin 0.2 AST 16 ALT 11 Alkaline Phosphatase 191 H Total Protein 5.9 L Albumin 2.9 L Globulin 3.0 U Random Total Protein 8 Urine Creatinine 88 Protein/Creatinin Ratio 0.09 Cardiac Studies: No Data to Display Anesthesia Procedures Epidural: Time Out Performed: Yes Consents Signed: Procedure Consent Co nsent: requested by attending/covering physician Lumbar Level: L3-L4 Epidural position: sitting Epidural procedure: sterile prep of area, 1% lidocaine to numb the area, 18 g needle (L3-l4), negative for paresthesia passed , neg for paresthesia, test dose given (3 cc), 0.2% Ropivacaine bolus ml (10 ), placed PCEA and 0.2% Ropiavacaine @ mls/hr (13 mls/hr)
--- NOTE | 2020-08-02 20:38 | P.ANESASSM_ITS ---
Pre-Anesthetic Assessment Pre-Anesthetic Assessment: Height/Weight: Height 1.65 m Weight 150.139 kg Temp Pulse Resp BP Pulse Ox 98.7 F 71 20 H 127/65 97 08/02/20 16:00 08/02/20 20:35 08/02/20 16:00 08/02/20 20:35 08/02/20 20:32 Preop Diagnosis: IUP Proposed Procedure: Labor epidural Familial anesthetic complications: denies Was Beta Jakub taken within 24 hours: N/A Last Intake: 01:00 Exam: Pre-Anes Outpt Exam: alert, oriented x 3 and clear to auscultation bilaterally Airway: Submandibular: WNL Cervical ROM: WNL MP: 2 Pulmonary: Pulmonary: Sleep apnea CV/HEM: CV/HEM: HTN : : UTI (chronic UTI's and hx of kidney stones) Hepatic: Hepatic: None reported GI: GI: GERD Metabolic: Metabolic: Morbid obesity Musc/skel: Musc/skel: None reported Neuropsych: Neuropsych: None reported Anesthetic Plan: ASA status: 2 Anesthesia: Anesthesia Evaluation and Eval. for regional block Meds/Allergies Current Medications: Current Medications Generic Name Dose Route Start Last Admin Trade Name Freq PRN Reason Stop Dose Admin Dextrose/Lactated Ringer's 1,000 mls @ 125 m ls/hr 08/02/20 10:45 08/02/20 11:10 Dextrose 5%-Lact ated Ringers IV 125 mls/hr .Q8H TRENT Administration Cefazolin Sodium 1 ,000 mg/ 50 mls @ 100 mls/ hr 08/02/20 10:45 08/02/20 18:43 Sodium Chloride IV 100 mls/hr Q8H TRENT Administration Protocol Oxytocin 30 unit in 500 ml s @ 4 mls/hr 08/02/20 11:15 08/02/20 13:15 Pitocin IV 20 milliunit/min .Q24H TRENT 20 mls/hr Titration Protocol 4 MILLIUNIT/MIN Ropivacaine 200 mg in 100 mls @ 13 mls/hr 08/02/20 19:15 08/02/20 20:18 Naropin Premix EPIDURAL 1 mls/hr .Q7H42M TRENT Administration Lactated Ringer's 1,000 mls @ 999 m ls/hr 08/02/20 19:05 08/02/20 19:04 Lactated Ringers IV 999 mls/hr .Q1H1M PRN Administration See label comment s PFSH Anesthesia PFSH: Medical History (Updated 08/02/20 @ 16:50 by Kanu Eastman MD) Flank pain with history of urolithiasis History of shoulder dystocia Kidney stone complicating With last required prolonged hospitalization and her 7/8 and ninth month secondary to a stone Urolithiasis Family History (Updated 07/23/20 @ 07:45 by Alexia Knox LPN) Mother Depression Alcoholic Hypertension Father Hypertension Heart disease Social History Smoking and tobacco status: never smoked Alcohol intake: unknown Female Reproductive History: Date of last menstrual period: 09/29/19 : 5 Data Anesthesia CBC & Chem 7: 08/02/20 10:30 08/02/20 10:30 Other Labs: Laboratory Results - last 48 hr 08/02/20 08/02/20 08/02/20 10:30 10:30 10:30 WBC 8.6 RBC 3.58 L Hgb 11.0 L Hct 34.0 L MCV 95.0 MCH 30.7 MCHC 32.4 RDW 15.1 Plt Count 200 MPV 9.2 Neut % (Auto) 78.0 Lymph % (Auto) 14.4 [place] % (Auto) 5.2 Eos % (Auto) 1.4 Baso % (Auto) 0.2 Neut # (Auto) 6.70 Lymph # (Auto) 1.2 [place] # (Auto) 0.5 Eos # (Auto) 0.1 Baso # (Auto) 0.0 Nucleated RBC % (auto) 0 Nucleated RBCs # 0.0 Sodium 133 L Potassium 3.5 Chloride 100 Carbon Dioxide 21 L Anion Gap 15.5 BUN 9 Creatinine 0.7 GFR Calculation 93.6 Glucose 128 H Calculated Osmolality 276 L Uric Acid 5.5 Calcium 9.6 Total Bilirubin 0.2 AST 16 ALT 11 Alkaline Phosphatase 191 H Total Protein 5.9 L Albumin 2.9 L Globulin 3.0 U Random Total Protein 8 Urine Creatinine 88 Protein/Creatinin Ratio 0.09 Cardiac Studies: No Data to Display Anesthesia Procedures Epidural: Time Out Performed: Yes Consents Signed: Procedure Consent Consent: requested by attending/covering physician Lumbar Level: L3-L4 E pidural position: sitting Epidural procedure: sterile prep of area, 1% lidocaine to numb the area (3 cc ), 18 g needle, negative for paresthesia passed, neg for paresthesia, test dose given (1 cc ), placed PCEA (1 ml/hr ), sterile dressing applied and 0.2% Ropiavacaine @ mls/hr (1 ml/hr ) Additional Comments: tuohy needle advanced through ligament at L3-L4 interspace, CSF noted from syringe, catheter threaded without difficulty. 1 cc test given with patient bottom going instantly numb. tubing secured. pump set at 1 ml/hr. discussed with patient the potential of postdural puncture headache and treatment (lay flat, caffeine, decreased lighting, increased fluids) discussed with Vidhi RN to clamp epidural catheter after patient delivers and leave in place for 12 hours before removing. VSS at this time see OBIX system. patient states she is comfortable at this time.
[2020-08-03] VITALS (88 sets, daily range): BP systolic 0–161; BP diastolic 0–81; PULSE 59–88; RESP 16–18; TEMP 36.1–36.9; O2SAT 94–99
[2020-08-03] MEDS: ceFAZolin 1,000 MG in sodium chloride 0.9% (plus) 50 ML 100 MG IV ×2 (02:50→10:17)
[2020-08-03] MEDS: acetaminophen 325 mg Tablet 650 MG PO ×2 (07:09→12:15)
--- NOTE | 2020-08-03 07:39 | P.PN_ITS ---
Subjective Subjective: Interval history: The patient is feeling well today overall. She does have a headache associated with some sinus congestion. Otherwise she feels well. The patient denies any chest pains or shortness of breath. Her contractions are well controlled with her epidural at this time. Vitals/I&O/Wt Last Vital Signs Temp 98.0 F 08/03/20 01:00 Pulse 63 08/03/20 07:29 Resp 20 H 08/02/20 16:00 BP 123/64 08/03/20 07:29 Pulse Ox 97 08/02/20 22:22 08/02/20 08/03/20 08/03/20 22:59 06:59 14:59 Intake Total 50 / 70 Output Total 1350 / 1350 Balance 50 / 70 -1350 / -1280 Weight last 48 hrs Weight 331 lb Physical Exam Narrative: EXAM NARRATIVE: General: Alert and oriented x3 Abdomen: Soft, non-tender, fundus large for gestational age Extremities: +1 pitting edema in the bilateral lower extremities Cervical exam: /-3 Urinary Catheter Management^: Bishop: Cath Placed During This Visit: yes Reason for Continuing Indwelling Catheter: Accurate Measurement of Urinary Output in Critically Ill Patients Urinary Catheter Date of Insertion: 08/02/20 Urinary Catheter Time of Insertion: 20:00 Data : 08/02/20 10:30 08/02/20 10:30 A&P Assessment and plan (1) Positive GBS test: Status: Acute (2) Intrauterine : Status: Acute (3) Obesity: Status: Chronic (4) COVID-19: Status: Acute Additional A&P Information Arely Valerio is a 40 year old at 39.4 weeks gestation by 5-week ultrasound. Her is complicated by kidney stones during first trim zully, frequent UTI, chronic hypertension on lisinopril until 3 weeks gestation and currently off of meds, anxiety on fluoxetine, GERD, obstructive sleep apnea, history of shoulder dystocia, history of LGA infant, anemia, obesity, COVID-19 positive on 06/24/2020, GBS positive. The patient is not making good change at this time. She is 5 cm dilated. I talked with her about the potential risk of shoulder dystocia and this being a large infant and that if after AROM she is not starting to make significant change, that we will need to consider primary low transverse section to decrease risk for shoulder dystocia. The patient is in agreement with the current plan of care. Currently heart tones are in the mid 140s with moderate variability and good accelerations with a category 1 tracing. Contractions are every 2 to 3 minutes. The patient is currently on 15 units of pit. The patient did receive an epidural overnight and unfortunately it was a wet tap. We will need to watch for signs of complications related to this. Attestations Medical Necessity Statement*: The patient will be here for greater than 2 midnights due to intrapartum and management of labor and delivery. Coding Level of Care Code Acute Tracer Bullet Section Supervisor for Chg Fwd Diagnoses Positive GBS test B95.1 Intrauterine Z34.90 Obesity E66.9 COVID-19 U07.1
--- NOTE | 2020-08-03 10:21 | PM.MISC ---
Miscellaneous Note Purpose of Documentation: pain + headache Note: Called to room for pain of contractions and headache/neck ache. Patient's pump is at 2 cc/hr and she states she had increased pain after her water was broken, but that her intrathecal catheter hadn't provided much relief even before that. I aspirated catheter and aspirated 3 cc, quite easily. The catheter doesn't appear to have moved. Per patient, the procedure was very difficult and took a long time. Patient does not want to repeat the epidural. Is is possible that her csf and ropi is leaking out around the catheter or perhaps from another unrecognized puncture site. I informed patient she may continue to get suboptimal relief given from the catheter. So far she states this is maneagable and doesn't want further intervention, to include a 1 cc bolus via her catheter as she is anxious about getting too much medicine. We will continue as is for now. Patient is in agreement.
[2020-08-03] MEDS: lactated ringers 1,000 ML 999 ML IV (12:02)
[2020-08-03] MEDS: dextrose 5%-lactated ringers 1,000 ML 125 ML IV (13:03)
[2020-08-03] MEDS: clindamycin 900 MG/50 ML PREMIX 100 MG IV (13:44)
[2020-08-03] MEDS: lactated ringers 1,000 ML 125 ML IV (13:45)
--- NOTE | 2020-08-03 13:51 | PM.MISC ---
Miscellaneous Note Note: The patient was 5 cm this morning at 7:30 AM and AROM was performed. She initially started to make change and got to approximately 8 to 9 cm by noon, however she has began to regress and she is now 6-7 cm with significant swelling of the cervix from 9:00 to 3:00. The patient is no longer making progress and this is concerning especially with her history of shoulder dystocia and large for gestational age infants. I discussed this with the patient and she is in agreement to proceed with a primary low transverse section secondary to the above. Currently heart tones are in the mid 140s with moderate variability and early decelerations. Category 1 tracing present. Contractions are every 2 to 3 minutes. The patient has also been suffering with complications of a spinal headache after receiving an epidural. This is been so significant that she has not been able to sit up at all. Anesthesia has been involved with her care regarding this. We will attempt to do a spinal for anesthesia purposes, however may need to convert to a general anesthesia. I discussed this with the patient. The patient is in agreement. The patient would like to proceed with a primary low transverse section with bilateral tubal ligation at this time. All questions were answered.
--- NOTE | 2020-08-03 15:26 | PC.NURSE ---
MARCIE AGUSTIN WOOD CARVER HAND RMOVED EPIDURAL CATHETER AND IT WAS INTACT.
--- NOTE | 2020-08-03 16:53 | PM.PACU ---
PACU note PACU note: VSS, good respiratory effort, 99% O2 saturation with nasal cannula. Post-Anesthesia Exam: awake Disposition: admitted
--- NOTE | 2020-08-03 17:30 | PC.NURSE ---
Pt to room 206 from OR via bed. Oriented to room/call light. Instructed not to get out of bed without assistance of nurse, and nothing to eat or drink until cleared by nurse.
--- NOTE | 2020-08-03 19:41 | PM.OP ---
Operative Report Date of procedure: August 03, 2020 Pre-op Diagnosis: 1. Intrauterine at 39.4 weeks gestation 2. Arrest of dilation 3. Chronic hypertension that is diet-controlled 4. Anxiety on fluoxetine 5. Obstructive sleep apnea 6. History of shoulder dystocia 7. History of large for gestational age infant 8. Anemia 9. Obesity 10. COVID-19 positive on 06/24/2020 11. GBS positive 12. Kidney stones during first trimester 13. Patient desiring sterilization Post-op Diagnosis: 1. Intrauterine status post primary low transverse section with bilateral tubal ligation at 39.4 weeks gestation 2. Arrest of dilation 3. Chronic hypertension that is diet-controlled 4. Anxiety on fluoxetine 5. Obstructive sleep apnea 6. History of shoulder dystocia 7. History of large for gestational age 8. Anemia 9. Obesity 10. COVID-19 positive on 06/24/2020 11. GBS positive 12. Kidney stones during first trimester 13. Patient desiring sterilization 14. Delivery of healthy female weighing 9 pounds 2 ounces with Apgars of 4, 6 and 9 that was in the OP position. 15. Allergic reaction to Duramorph Procedure Done: Primary low transverse section with bilateral tubal ligation Specimens removed/disposition: Placenta discarded Bilateral fallopian tube segments sent to pathology Pathology: other Pathology: Bilateral tube segments sent to pathology Surgeon: Kanu Eastman Anesthesia: General and Other (Spinal converted to general anesthesia after allergic reaction) Estimated blood loss (mL): 1,000 Complications: The patient had an allergic reaction to Duramorph placement in the spinal. 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 Condition: stable Disposition: floor Brief History: Arely Valerio is a 40 year old G5 now P4 status post primary low transverse section with bilateral tubal ligation at 39.4 weeks gestation by 5-week ultrasound. Her was complicated by kidney stones during first trimester, frequent UTI, chronic hypertension on lisinopril until 3 weeks gestation and currently off of meds, anxiety on fluoxetine, GERD, obstructive sleep apnea, history of shoulder dystocia, history of LGA , anemia, obesity, COVID-19 positive on 06/24/2020, GBS positive. The patient was admitted to labor and delivery on the morning of 08/02/2020 for induction of labor at 39.3 weeks gestation secondary to measuring large for gestational age with a history of delivering an LGA baby as well as shoulder dystocia during her first . We discussed the option of doing a section due to her history, however she declined. The patient was brought in for induction to decrease risk for complications. The patient was started on IV Pitocin and made slow change. The patient had regular contractions, however the head was ballotable and I was not able to rupture membranes until the morning of 08/03/2020 at around 7:30 AM. The patient had received an epidural on the evening of 08/02/2020 and unfortunately it was a wet tap. The patient had a spinal headache secondary to this. After AROM was performed, she initially started to make change and got to approximately 8 to 9 cm by noon on 08/03/2020, however she began to regress and was only 6-7 cm dilated with significant swelling of the cervix from 9:00 to 3:00 by 1:30 PM. Multiple position changes had been done to try and turn the infant, however this was unsuccessful. Because of the patient's history of shoulder dystocia and large for gestational age infants as well as this infant measuring large, was felt best to proceed with a primary low transverse section to avoid potential complication. The patient requested to have a bilateral tubal ligation done at the same time as she had planned to have this done. heart tones were in the mid 140s with moderate variability and early decelerations and a category 1 tracing. Contractions were every 2 to 3 minutes. Procedure: After informed consent was obtained, the patient was taken to the operating room at 1400 and the patient was prepped and draped in a normal sterile fashion in the dorsal supine position. A spinal epidural was placed however she had a severe reaction to the Duramorph that was placed that caused what seemed to be diaphragmatic paralysis leading to a quick desaturation. For this reason the patient was intubated by anesthesia and placed under general anesthesia and the procedure was started emergently. At 1430 on 08/03/2020, a Pfannenstiel skin incision was made and carried through to the underlying layer of fascia using a scalpel. The fascial incision was then extended laterally using curved Mayos. The fascia was then grasped with Bri clamps and the underlying rectus muscles were dissected off taking care to avoid injury to the underlying tissues. The peritoneum was entered bluntly with one digit. It was then bluntly. The bladder blade was placed and the vesicouterine peritoneum was well below the lower uterine segment of the uterus. The uterine incision was made in the lower uterine segment in a transverse fashion with the scalpel at 1432. The amniotic membrane was entered bluntly and a small amount of clear fluid was noted. The infant's head delivered atraumatically without difficulty at 14:32 on 08/03/2020. There was no nuchal cord. The mouth and nose were suctioned. The rest of the delivered without difficulty. The infant had good tone and took of breath immediately upon delivery. The cord was clamped and cut and the was handed to the awaiting pediatric nurses. The placenta was then manually expressed. The uterus was then exteriorized from the abdomen and a wet lap was used to clear the uterus of clots and debris. An inferior extension was noted on the right uterus. The bladder blade was reinserted and the uterine incision was closed using 0 chromic in a running locking fashion. The inferior extension was closed with 0 chromic as well in 2 layers. A second layer of the same suture was used in the same manner. Excellent hemostasis was obtained. The patient's bilateral tubes were then inspected and there were large blood vessels tracking in close proximity with the tubes. A modified Phenix technique was used to carry out the tubal ligation. The right fallopian tube was held up using Babcocks and a window was made underneath the right fallopian tube using cautery. 2-0 nylon was used to tie off the right fallopian tube segment and a portion of the tube was removed using Metzenbaums. The exposed tube was cauterized. Excellent hemostasis was noted. The left fallopian tube was removed in the same manner. Next the posterior cul-de-sac was inspected and was cleared of any blood. The uterus was then placed back into the abdomen. The uterine incision was again inspected and bleeding was noted coming from the inferior extension on the right. For this reason the uterus was again removed from the abdomen and 0 chromic was again used to obtain hemostasis in a running and locking fashion. The vesicouterine peritoneum was re-approximated using 2-0 chromic in a running fashion. Hemostasis was noted. The tube segments were again evaluated and noted to have good hemostasis. The uterus was placed back in the abdomen. The gutters were cleared of any further clots and debris and hemostasis was again noted. The subfascial tissue was inspected for hemostasis and the peritoneum was re-approximated using 2-0 plain in a running fashion. The fascia was then re-approximated using 0 Vicryl in a running fashion. The subcutaneous tissue was inspected for hemostasis. Rosa's fascia was then re-approximated using 3-0 plain in a running fashion. Good hemostasis was noted. The subcutaneous tissue was then re-approximated using a subcuticular stitch. The patient awakened from anesthesia and was recovered in stable condition. Estimated blood loss was 1000 mL. Urine in the Bishop catheter was clear.
[2020-08-03] MEDS: ketorolac 30 mg/mL INJ IVP (22:02)
[2020-08-04] MEDS: dextrose 5%-lactated ringers 1,000 ML 125 ML IV (01:03)
[2020-08-04] MEDS: ketorolac 30 mg/mL INJ IVP ×2 (05:25→13:41)
[2020-08-04 07:15] VITALS: BP 141/79; PULSE 80; RESP 16; TEMP 36.9
[2020-08-04 07:56] LABS: Hematocrit 29.7 % (37.0-47.0); Hemoglobin 9.7 g/dL (11.5-15.3); Mean Corpuscular HGB Conc 32.7 g/dL (30.0-36.0); Mean Corpuscular Hemoglobin 30.9 pg (28.0-34.0); Mean Corpuscular Volume 94.6 fL (81-99); Mean Platelet Volume 9.1 fL (7.4-10.4); Platelet Count 168 10^3/cmm (130-400); Red Blood Count 3.14 10^6/uL (4.1-5.3); White Blood Count 13.1 10^3/uL (4.0-10.0)
--- NOTE | 2020-08-04 08:41 | P.PN_ITS ---
Subjective Subjective: Interval history: The patient continues to have significant headaches especially with sitting up. They seem to calm down with lying down. The patient is at the point that she would like to discuss getting a blood patch. She is breast-feeding currently and is having some troubles with the infant maintaining her latch. She would like to talk with the absence management consultant. Her pain is well controlled in her abdomen at this time. She definitely does not want any opiates for concern of adverse reaction. She would also like to be able to get up out of bed, however she has had significant headache related to sitting up and for this reason has not been able to yet. Vitals/I&O/Wt Last Vital Signs Temp 98.5 F 08/04/20 07:15 Pulse 80 08/04/20 07:15 Resp 16 08/04/20 07:15 BP 141/79 08/04/20 07:15 Pulse Ox 95 08/03/20 22:15 08/03/20 08/04/20 08/04/20 22:59 06:59 14:59 Intake Total 1500 / 2500 Output Total 1400 / 1400 1100 / 1100 Balance 100 / 1100 -1100 / -1100 Weight last 48 hrs Weight 331 lb Physical Exam Narrative: EXAM NARRATIVE: General: Alert and oriented x3 Eyes: PERRLA, EOMI Cardiac: Regular rate and rhythm without murmurs Lungs: Clear to auscultation bilaterally. Abdomen: Soft, mild diffuse tenderness, fundus is firm, midline and low Extremities: +1 pitting edema in the bilateral lower extremities Urinary Catheter Management^: Bishop: Cath Placed During This Visit: yes Reason for Continuing Indwelling Catheter: Required Immobilization for Trauma or Surgery or Anesthesia Urinary Catheter Date of Insertion: 08/02/20 Urinary Catheter Time of Insertion: 20:00 Data : 08/04/20 07:50 08/02/20 10:30 A&P Assessment and plan (1) Positive GBS test: Status: Acute (2) Intrauterine : Status: Acute (3) Obesity: Status: Chronic (4) COVID-19: Status: Acute Additional A&P Information The patient is having complications at this time with what seems to be a spinal headache. She did have a wet tap for her epidural. She had associated headache with this. We will consult anesthesia to see the patient for consideration of blood patch while she is inpatient. We will work on trying to get the patient ambulatory, however it may be difficult until her headaches are improved. The patient cannot have any opiates at this time due to adverse reaction. Continue with NSAIDs for now. We discussed risk for infection in the incision site and ways to help keep this risk down. Besides the headache, the patient is doing well. Attestations Medical Necessity Statement*: The patient continues need inpatient therapy after having a primary low transverse section and her stay will cross 2 midnights. Coding Level of Care Code Acute Training Representative for Chg Fwd Diagnoses Positive GBS test B95.1 Intrauterine Z34.90 Obesity E66.9 COVID-19 U07.1
--- NOTE | 2020-08-04 08:48 | PC.NURSE ---
Dr. Chance from anesthesia notified of physician order for blood patch. Discussed with Dr. Chance that he could come when he had time available, which was also discussed with Dr. Eastman.
--- NOTE | 2020-08-04 10:20 | PC.NURSE ---
Anesthesia at patient bedside to perform blood patch procedure.
--- NOTE | 2020-08-04 10:30 | PC.NURSE ---
Dr. Chance, anesthesiologist, at patient bedside with Remi Rodriguez, ALYSON. Orders received for patient to lay completely flat for 30 minutes, and then no greater than 15 degrees for the next 2-3 hours. This service writer and the patient acknowledged understanding.
--- NOTE | 2020-08-04 10:56 | ANES.PROC ---
Anesthesia Procedures Procedure/Date: 08/04/20 Epidural: Time Out Performed: No Consents Signed: Procedure Consent Consent: requested by attending/covering physician, risks and benefits reviewed and patient agrees to proceed Lumbar Level: L3-L4 Epidural position: sitting Epidural procedure: sterile prep of area, 1% lidocaine to numb the area and neg for paresthesia Additional Comments: 20 ml of freshly drawn blood injected without difficulty.
[2020-08-04 11:05] VITALS: BP 135/83; PULSE 76; RESP 16; TEMP 37.1
--- NOTE | 2020-08-04 11:05 | PC.NURSE ---
Patient's head of bed elevated to 10 degrees. Patient tolerated well.
--- NOTE | 2020-08-04 13:44 | PC.NURSE ---
Increased patient's head of bed to 22 degrees. Patient tolerated well.
[2020-08-04] MEDS: fluoxetine 20 mg Capsule PO (14:10)
--- NOTE | 2020-08-04 14:11 | PC.NURSE ---
Entered patient's room and she had increased the elevation of her head of bed to 49 degrees. Patient stated her head was still feeling ok at this time.
[2020-08-04 16:04] VITALS: BP 119/78; PULSE 80; RESP 16; TEMP 36.9; O2SAT 96
[2020-08-04 22:30] VITALS: BP 122/76; PULSE 78; RESP 18; TEMP 36.9
--- NOTE | 2020-08-05 00:09 | PC.NURSE ---
Pt. was having difficulty getting baby to latch onto breast and requested to sit in a chair. Pt. was assisted to the chair with very little help. Pt. tolerated the transition from bed to chair very well. Pt. declines any changes in head or neck pain at this time.
[2020-08-05 06:00] VITALS: BP 113/72; PULSE 73; RESP 16; TEMP 36.9; O2SAT 96
--- NOTE | 2020-08-05 07:19 | ANE.PACU2 ---
Inpatient post-anesthesia follow up: Airway intact: Yes Vital signs: Temperature 98.4 F Pulse Rate 78 Respiratory Rate 18 Blood Pressure 122/76 Pulse Oximetry 96 Oxygen Delivery Me thod Room Air Oxygen Flow Rate 2 Fraction of Inspir ed Oxygen Hydration adequate: Yes Nausea and vomiting: No Pain level: 2 Mental status: Baseline Additional Comments: No signs of infection at spinal/intrathecal catheter/blood patch site, no weakness/numbness in lower extremities, no back pain, no further headaches
[2020-08-05] MEDS: acetaminophen 325 mg Tablet 650 MG PO (07:35)
[2020-08-05] MEDS: prenatal vitamin Capsule 1 CAP PO (07:36)
[2020-08-05] MEDS: ibuprofen 800 mg tablet PO ×3 (09:45→21:47)
[2020-08-05] MEDS: fluoxetine 20 mg Capsule PO (09:45)
[2020-08-05] MEDS: docusate sodium 100 mg Capsule PO ×2 (09:45→18:01)
--- NOTE | 2020-08-05 10:10 | PC.NURSE ---
Patient ambulated 2 laps in the hallway, tolerating well. Patient denies any dizziness, weakness or feeling lightheaded.
[2020-08-05 11:14] VITALS: BP 128/83; PULSE 75; RESP 16; TEMP 36.9; O2SAT 98
--- NOTE | 2020-08-05 16:44 | P.PN_ITS ---
Subjective Subjective: Interval history: Patient is starting to feel better today. Her headaches improved since receiving a blood patch. She has been able to tolerate food and liquids by mouth. She is ambulating, voiding and her bleeding is decreasing well. Her pain is currently well controlled. Vitals/I&O/Wt Last Vital Signs Temp 98.4 F 08/05/20 11:14 Pulse 75 08/05/20 11:14 Resp 16 08/05/20 11:14 BP 128/83 08/05/20 11:14 Pulse Ox 98 08/05/20 11:14 08/05/20 08/05/20 08/05/20 06:59 14:59 22:59 Intake Total 1000 / 2450 1999 Output Total 1600 / 4900 Balance -600 / -2450 1999 Physical Exam Narrative: EXAM NARRATIVE: General: Alert and oriented x3 Eyes: PERRLA, EOMI Cardiac: Regular rate and rhythm without murmurs Lungs: Clear to auscultation bilaterally. Abdomen: Soft, mild diffuse tenderness, fundus is firm, midline and low Extremities: +1 pitting edema in the bilateral lower extremities Urinary Catheter Management^: Bishop: Cath Placed During This Visit: yes, but has since been removed by the nurse Reason for Continuing Indwelling Catheter: Decision to DC Catheter Urinary Catheter Date of Insertion: 08/02/20 Urinary Catheter Time of Insertion: 20:00 Date Urinary Catheter Removed: 08/05/20 Time Urinary Catheter Discontinued: 10:10 Data : 08/04/20 07:50 08/02/20 10:30 A&P Assessment and plan (1) Positive GBS test: Status: Acute (2) Intrauterine : Status: Acute (3) Obesity: Status: Chronic (4) COVID-19: Status: Acute Additional A&P Information The patient is doing better today and we will encourage her to begin to ambulate more now that her headache is improving. We discussed the risks for infection in the incision site. We discussed routine post care. All questions were answered. Plan for discharge home tomorrow if she continues to do well. Attestations Medical Necessity Statement*: Patient continues need inpatient care as she recovers after having a section as well as a complication with the epidural with a spinal headache. Her care will cross 2 midnights. Coding Level of Care Code Acute Floor Steward/Stewardess for Chg Zaidad Diagnoses Positive GBS test B95.1 Intrauterine Z34.90 Obesity E66.9 COVID-19 U07.1
[2020-08-05 17:00] VITALS: BP 135/83; PULSE 74; RESP 16; TEMP 36.9
[2020-08-05 22:00] VITALS: BP 125/83; PULSE 73; RESP 18; TEMP 36.7
[2020-08-06 04:00] VITALS: BP 115/70; PULSE 75; RESP 17
[2020-08-06] MEDS: prenatal vitamin Capsule 1 CAP PO (10:19)
[2020-08-06] MEDS: ibuprofen 800 mg tablet PO (10:19)
[2020-08-06] MEDS: fluoxetine 20 mg Capsule PO (10:19)
[2020-08-06] MEDS: acetaminophen 325 mg Tablet 650 MG PO (11:25)
[2020-08-06 11:45] VITALS: BP 137/91; PULSE 71; RESP 18; TEMP 36.8; O2SAT 97
--- NOTE | 2020-08-06 12:35 | P.DS_ITS ---
Discharge Providers Date of Admission: 08/02/20 09:13 Date of Discharge: August 06, 2020 Attending Provider at Admission: Kanu Eastman MD Attending Provider at Discharge: Kanu Eastman MD Diagnoses at Discharge Discharge Diagnosis (1) Positive GBS test: Status: Acute (2) Intrauterine : Status: Acute (3) Obesity: Status: Chronic Problem details: Patient weighs 261 pounds recommended no more than 15 pound weight gain in (4) COVID-19: Status: Acute Reason for Visit Reason for Visit: induction of labor Hospital Course Hospital Course: Arely Valerio is a 40 year old G5 now P4 status post primary low transverse section with bilateral tubal ligation at 39.4 weeks gestation by 5-week ultrasound. Her was complicated by kidney stones during first trimester, frequent UTI, chronic hypertension on lisinopril until 3 weeks gestation and currently off of meds, anxiety on fluoxetine, GERD, obstructive sleep apnea, history of shoulder dystocia, history of LGA , anemia, obesity, COVID-19 positive on 06/24/2020, GBS positive. The patient was admitted to labor and delivery on the morning of 08/02/2020 for induction of labor at 39.3 weeks gestation secondary to measuring large for gestational age with a history of delivering an LGA baby as well as shoulder dystocia during her first . We discussed the option of doing a section due to her history, however she declined. The patient was brought in for induction to decrease risk for complications. The patient was started on IV Pitocin and made slow change. The patient had regular contractions, however the head was ballotable and I was not able to rupture membranes until the morning of 08/03/2020 at around 7:30 AM. The patient had received an epidural on the evening of 08/02/2020 and unfortunately it was a wet tap. The patient had a spinal headache secondary to this. After AROM was performed, she initially started to make change and got to approximately 8 to 9 cm by noon on 08/03/2020, however she began to regress and was only 6-7 cm dilated with significant swelling of the cervix from 9:00 to 3:00 by 1:30 PM. Multiple position changes had been done to try and turn the , however this was unsuccessful. Because of the patient's history of shoulder dystocia and large for gestational age infants as well as this infant measuring large, was felt best to proceed with a primary low transverse section to avoid potential complication. The patient requested to have a belle ateral tubal ligation done at the same time as she had planned to have this done. heart tones were in the mid 140s with moderate variability and early decelerations and a category 1 tracing. Contractions were every 2 to 3 minutes. The patient had a primary low transverse section with bilateral tubal ligation. This was complicated by a reaction to Duramorph in the spinal leading to what was likely paralysis of the diaphragm and near immediate hypoxia and apnea. The patient was quickly intubated and placed under general anesthesia. The patient did not have any other surgical related complications. The C- section went well and postoperatively the patient has done well overall with the exception of having a spinal headache. The patient did need to have a blood patch placed. As has cleared up her headache. The patient has not received any further opiates and I would recommend that she does not receive opiates in the future. We discussed post care and risks for infection. Routine instructions were given. All questions were answered. The patient is doing very well at this time and is ready for discharge home. The patient and her are in agreement with the current plan of care. Physical Exam Narrative: EXAM NARRATIVE: General: Alert and oriented x3 Cardiac: Regular rate and rhythm without murmurs Lungs: Clear to auscultation bilaterally. Abdomen: Soft, mild diffuse tenderness, fundus is firm, midline and low Extremities: +1 pitting edema in the bilateral lower extremities Urinary Catheter Management^: Bishop: Cath Placed During This Visit: yes, but has since been removed by the nurse Reason for Continuing Indwelling Catheter: Decision to DC Catheter Urinary Catheter Date of Insertion: 08/02/20 Urinary Catheter Time of Insertion: 20:00 Date Urinary Catheter Removed: 08/05/20 Time Urinary Catheter Discontinued: 10:10 Discharge Data Data Completed and Pending: Completed Studies During Hospitalization Category Date Time Status Pathology: Surgic al [PTH] Routine Pth 08/03/20 18:38 Completed Vitals: Last Vital Signs Temp 98.0 F 08/05/20 22:00 Pulse 75 08/06/20 04:00 Resp 17 08/06/20 04:00 BP 115/70 08/06/20 04:00 Pulse Ox 98 08/05/20 11:14 Discharge Plan Discharge Patient Disposition: Home Condition: Good Prescriptions: New ibuprofen 800 mg Tablet 800 mg PO TID Qty: 60 RF: 0 Continued fluoxetine 20 mg Tablet 20 mg PO DAILY RF: 0 Iron (ferrous sulfate) capsule 325 mg PO DAILY RF: 0 prenat.vits,sharath,xla-eayb-lwokz capsule 1 tab PO DAILY RF: 0 Discharge Orders: Discharge Order (Routine); Ordered 08/06/20 Ordered By: Kanu Eastman Referrals: Kanu Eastman MD [Physician] - 08/09/20 (Please call [facility] to schedule your appointment with Dr. Eastman on 08/09/20) Discharge Diet: Regular Discharge Activity: Limit activity as instructed Patient Instructions: Lanolin (On the skin), Caring for Your Baby (GEN), Breast Care for the Breast Feeding Mother (DC), Caring for Your Breastfed Baby (GEN), OB Discharge Report, OB Food/Drug Interaction Guide, OB Care at Home, Abnormal Bleeding Activity Restrictions/Additional Instructions: Do not lift anything heavier than your in the car seat for the next 3 weeks, then gradually increase. If you have any concern for infection in the incision site, please seek immediate medical evaluation. Nothing per vagina for 6 weeks. Discharge Attestations Time Spent in Discharge Care*: greater than 30 min Status at Discharge: Cognitive status at discharge: cognitively intact , Behavioral status at discharge: cooperative , Quality Metrics Clinical Quality Measures During this hospital stay, did patient experience: None Coding Level of Care Code Acute Poly Operator for Chg Fwd Diagnoses Positive GBS test B95.1 Intrauterine Z34.90 Obesity E66.9 COVID-19 U07.1
== END 2020-08-06 14:15 | disposition home or self-care (01) | DRG 785 ==
PROVIDERS: Admitting Provider Family Medicine; Visit Provider Family Medicine
PROC: 10D00Z1 Extraction of Products of Conception, Low, Open Approach (ICD-10-PCS; CPT 59514; principal; 2020-08-03 14:15)
DX: O99.824 Streptococcus B carrier state complicating childbirth (principal); Z3A.39 39 weeks gestation of pregnancy; Z37.0 Single live birth; O99.214 Obesity complicating childbirth; O99.344 Other mental disorders complicating childbirth; F41.9 Anxiety disorder, unspecified; Z86.19 Personal history of other infectious and parasitic diseases; O36.63X0 Maternal care for excessive fetal growth, third trimester, not applicable or unspecified; O61.0 Failed medical induction of labor; O74.5 Spinal and epidural anesthesia-induced headache during labor and delivery; O76 Abnormality in fetal heart rate and rhythm complicating labor and delivery; Z30.2 Encounter for sterilization; O10.92 Unspecified pre-existing hypertension complicating childbirth; O75.89 Other specified complications of labor and delivery; O9A.22 Injury, poisoning and certain other consequences of external causes complicating childbirth; T40.695A Adverse effect of other narcotics, initial encounter; Y92.234 Operating room of hospital as the place of occurrence of the external cause
CPT/HCPCS: 12345; 36415; 51702; 58611; 59025; 59409; 80053; 82570; 84156; 84550; 85025; 85027; 88302; 94618; 96375; 98960; 99211; J0330; J0690; J1885; J2274; J2370; J2704; J2795; J3490; J7030

== ENCOUNTER → 2021-03-24 09:12 | Outpatient (BNVA) | payer OTHER, SELFPAY | PROVIDERS: PCP Nurse Practitioner; Visit Provider Specialist | DX: M25.531 Pain in right wrist (principal); R20.0 Anesthesia of skin; R20.2 Paresthesia of skin | CPT/HCPCS: 95908 ==

== ENCOUNTER 2021-03-29 14:48 | Emergency (ER) | payer OTHER, SELFPAY ==
[2021-03-29 15:38] VITALS: BP 160/94; PULSE 80; RESP 18; TEMP 36.9; O2SAT 96; BMI 51.5
--- NOTE | 2021-03-29 15:59 | US_ITS ---
WS: [id number] ULTRASOUND ABDOMEN LIMITED CLINICAL INFORMATION: RUQ abd pain COMPARISON: None. FINDINGS: Liver Size: Enlarged Craniocaudal length: 19.3 cm. Echogenicity: Dense Surface nodularity: None. Mass (size and location): None. Bile ducts Intrahepatic ducts: Normal. Common bile duct diameter: 0.4 cm. Gallbladder Cholelithiasis Gallstones: Present Gallbladder sludge: None. Gallbladder wall thickening: Gallbladder is contracted. Pericholecystic fluid: None. Sonographic Kessler sign: Absent. Pancreas Not well visualized Right kidney: Normal. Hydronephrosis: None. Size: 12.3 cm x 4.6 cm x 3.9 cm. Abdominal aorta and IVC Visualized portions are normal. Ascites: None. US/US gall bladder [id number] IMPRESSION: 1. Hepatomegaly with diffuse fatty infiltration. 2. Cholelithiasis. Gallbladder is contracted with mild gallbladder wall thicke siena. No pericholecystic fluid. Normal common bile duct measuring 4.2 mm. 3. No hydronephrosis in the right kidney.
--- NOTE | 2021-03-29 18:10 | ED_ITS ---
HPI - Abdominal Pain General: Chief Complaint: Abdominal Pain Stated Complaint: POSS GALL BLADDER Time Seen by Provider: 03/29/21 17:50 History of Present Illness: HPI narrative: Complaining of midepigastric and right upper quadrant abdominal pain since about 1:00 last night they had grilled out she did not feel like she had anything significantly fatty but she did have to use the bathroom immediately after eating and this is happening more frequently. She says she has had issues in the same area and her gallbladder since she was which is about 7 months ago. She denies any right lower quadrant pain she is had a previous she has had some nausea but no vomiting says she has not really been able to eat today just feels like she got punched in the middle of her stomach. Patient is breast-feeding and does not want any significant medications at this time Related Data: Date of Last Menstrual Period: 09/29/19 Review of Systems Narrative: General: denies fatigue, fever or chills HEENT: denies ear pain, denies nasal congestion, denies vision changes, denies sore throat Neck: denies masses or pain Resp: denies cough, denies shortness of breath, denies pleuritic pain Cardio: denies chest pain, denies edema GI: + mid and RUQ abdominal pain, denies N/V/D, denies black/tarry or bloody stools : denies hematuria, denies dysuria Neuro: denies headache, denies dizziness, denies motor or sensory changes Musculoskeletal: denies pain, denies swelling Skin: denies rashes Psych: denies SI or HI Endocrine: denies thyroid symptoms, denies lymphadenopathy all over ROS reviewed and patient denies PFSH ED PFSH: Medical History Flank pain with history of urolithiasis History of shoulder dystocia Kidney stone complicating With last required prolonged hospitalization and her 7/8 and ninth month secondary to a stone Urolithiasis Family History Mother Depression Alcoholic Hypertension Father Hypertension Heart disease Social History Smoking and tobacco status: never smoked Alcohol intake: unknown Female Reproductive History: Date of last menstrual period: 09/29/19 Physical Exam Narrative: EXAM NARRATIVE: General: a/o/3, no distress Head: atraumatic HEENT: normal eyes, normal conjunctiva, normal hearing, normal external nose, normal mouth, mucous membranes moist Neck: FROM, trachea midline Chest: normal expansion, no gross deformities Resp: normal speech, no retractions, no accessory muscle use, CTA bilaterally Cardio: regular rate and rhythm and no murmur, no peripheral edema, normal peripheral pulses GI: soft, flat mid epigastric and RUQ tender, no guarding normal BS, denies RLQ pain : deferred Musculoskeletal: FROM, no pain or gross deformities Neuro: a/o appropriate for age, no gross motor or sensory deficits, CN II-XII grossly intact, normal coordination, normal speech Skin: no rashes Psych: cooperative, normal mood and effect Course Vital Signs: Vital signs: Vital Signs Temperature 98.5 F 03/29/21 15:38 Pulse Rate 80 03/29/21 15:38 Respiratory Rate 18 03/29/21 15:38 Blood Pressure 160/94 03/29/21 15:38 Pulse Oximetry 96 03/29/21 15:38 MDM - Abdominal Pain MDM Narrative: Medical decision making narrative: Ultrasound does show several gallstones however her common bile duct is normal discussed with patient medications however she really does not want anything significant since she is breast-feeding so we can try a GI cocktail and some Zofran. Patient was feeling better with the medications will do a prescription for some Zofran and then refer to general surgery Dr. Maxwell is machine operations supervisor we will give her his information that she needs to set up an appointment to discuss with him cholecystectomy she is to return in the meantime if worsens Lab Data: Labs: Lab Results 03/29/21 03/29/21 03/29/21 Range/Units 18:05 18:05 18:05 WBC 11.5 H (4.0-10.0) 10^3/ uL RBC 4.38 (4.1-5.3) 10^6/u L Hgb 13.3 (11.5-15.3) g/dL Hct 41.7 (37.0-47.0) % MCV 95.2 (81-99) fL MCH 30.4 (28.0-34.0) pg MCHC 31.9 (30.0-36.0) g/dL RDW 13.3 (12.1-15.1) % Plt Count 264 (130-400) 10^3/c mm MPV 8.9 (7.4-10.4) fL Neut % (Auto) 77.8 % Lymph % (Auto) 15.6 % [place] % (Auto) 4.1 % Eos % (Auto) 1.9 % Baso % (Auto) 0.3 % Neut # (Auto) 8.91 H (1.8-7.7) 10^3/u L Lymph # (Auto) 1.8 (0.8-4.8) 10^3/u L [place] # (Auto) 0.5 (0.2-0.9) 10^3/u L Eos # (Auto) 0.2 (0.0-0.8) 10^3/u L Baso # (Auto) 0.0 (0.0-0.1) 10^3/u L Nucleated RBC % (a uto) 0 % Nucleated RBCs # 0.0 /100WBC Sodium 138 (136-145) mmol/L Potassium 4.3 (3.5-5.1) mmol/L Chloride 102 (98-107) mmol/L Carbon Dioxide 25 (22-29) mmol/L Anion Gap 15.3 (5-19) BUN 12 (6-20) mg/dL Creatinine 0.6 (0.5-0.9) mg/dL GFR Calculation 111.9 (90-130) mL/min Glucose 108 (65-115) mg/dL Calculated Osmolal ity 286 (285-295) mOsm/k g Calcium 9.2 (8.5-10.5) mg/dL Total Bilirubin 0.3 (0.15-1.2) mg/dL AST 40 H (0-32) U/L ALT 68 H (0-33) U/L Alkaline Phosphata se 114 H (35-105) IU/L Total Protein 6.9 (6.6-8.7) g/dL Albumin 4.0 (3.5-5.2) g/dL Globulin 2.9 (1.3-4.6) g/dL Lipase 24 (13-60) U/L Urine Color Yellow (Yellow) Urine Appearance Cloudy (CLEAR) Urine pH 7 (5-7) Ur Specific Gravit y 1.010 (1.005-1.030) Urine Protein Neg (Negative) Urine Glucose (UA) Norm (Normal) Urine Ketones Negative (Negative) Urine Blood Trace H (Negative) Urine Nitrate Negative (Negative) Urine Bilirubin Neg (Negative) Urine Urobilinogen Norm (Negative) mg/dL Ur Leukocyte Yee ase Negative (Negative) Urine RBC 0-4 H (0-2) /hpf Urine WBC None (0-5) /hpf Ur Squamous Epith Cells 5-10 H (0-5) /hpf Ur Transition Epit h Cell None /hpf Ur Renal Epithelia l Cell None /hpf Amorphous Sediment 3+ /hpf Urine Bacteria 1+ H (NONE) /hpf Discharge Plan Discharge Patient Disposition: Home Clinical Impression: Gall stone Qualifiers: Cholecystitis presence: without cholecystitis Biliary obstruction: without biliary obstruction Qualified Code(s): K80.20 - Calculus of gallbladder without cholecystitis without obstruction Condition: Stable Prescriptions: New ondansetron HCl [Zofran] 4 mg tablet 4 mg PO Q6H PRN (Reason: nausea and vomiting) Qty: 15 RF: 0 No Action fluoxetine 20 mg Tablet 20 mg PO DAILY RF: 0 Discharge Orders: Discharge ED (Routine); Ordered 03/29/21 Ordered By: Lucrecia Brown Referrals: Oleg Maxwell MD [Physician] - (gallstones) Val Rossi FNP [Primary Care Provider] - Discharge Diet: Low Fat Discharge Activity: Resume usual activity Patient Instructions: Cholelithiasis Activity Restrictions/Additional Instructions: Low-fat diet Use the nausea medication as needed recommend you call Dr. Maxwell from general surgery for follow-up to discuss gallbladder removal return if worsening of symptoms fevers vomiting Thank you for choosing [facility] for your healthcare needs today. Please realize this is an emergency room and that we are providing you with a medical screening exam and this may not be complete and all inclusive of all the testing and or work up that you may need to determine your ailment or severity of your illness. It is very important that you follow up as instructed or that you return to the Emergency Department should you have concerns or if your condition changes or worsens in any way. Stand Alone Forms: Work/School Release Coding Level of Care Code ED Grand Scribe for Refugio Medrano
[2021-03-29 18:16] LABS: Basophils % 0.3 %; Eosinophils # 0.2 10^3/uL (0.0-0.8); Eosinophils % 1.9 %; Hematocrit 41.7 % (37.0-47.0); Hemoglobin 13.3 g/dL (11.5-15.3); Lymphocytes # 1.8 10^3/uL (0.8-4.8); Lymphocytes % 15.6 %; Mean Corpuscular HGB Conc 31.9 g/dL (30.0-36.0); Mean Corpuscular Hemoglobin 30.4 pg (28.0-34.0); Mean Corpuscular Volume 95.2 fL (81-99); Mean Platelet Volume 8.9 fL (7.4-10.4); Monocytes # 0.5 10^3/uL (0.2-0.9); Monocytes % 4.1 %; Neutrophils # 8.91 10^3/uL (1.8-7.7); Neutrophils % 77.8 %; Nucleated Red Blood Cells % 0 %; Platelet Count 264 10^3/cmm (130-400); Red Blood Count 4.38 10^6/uL (4.1-5.3); Red Cell Distribution Width 13.3 % (12.1-15.1); White Blood Count 11.5 10^3/uL (4.0-10.0)
[2021-03-29] MEDS: lidocaine 2% viscous 15 ML, aluminum-mag hydrox-simethicon 30 ML, sucralfate oral liq 1 GM PO (18:20)
[2021-03-29] MEDS: ondansetron 4 MG Tablet 8 MG PO (18:21)
[2021-03-29 18:38] LABS: Alanine Aminotransferase 68 U/L (0-33); Alkaline Phosphatase 114 IU/L (35-105); Anion Gap 15.3 (5-19); Aspartate Amino Transferase 40 U/L (0-32); Blood Urea Nitrogen 12 mg/dL (6-20); Calcium 9.2 mg/dL (8.5-10.5); Carbon Dioxide 25 mmol/L (22-29); Chloride 102 mmol/L (98-107); Globulin 2.9 g/dL (1.3-4.6); Glomerular Filtration Rate 111.9 mL/min (90-130); Glucose 108 mg/dL (65-115); Lipase 24 U/L (13-60); Osmolality Calculated 286 mOsm/kg (285-295); Potassium 4.3 mmol/L (3.5-5.1); Sodium 138 mmol/L (136-145); Total Bilirubin 0.3 mg/dL (0.15-1.2); Total Protein 6.9 g/dL (6.6-8.7)
[2021-03-29 18:55] LABS: Bilirubin Urine Neg (Negative); Blood Urine Trace (Negative); Glucose Urine UA Norm (Normal); Ketones Urine Negative (Negative); Leukocyte Esterase Urine Negative (Negative); Nitrate Urine Negative (Negative); Protein Urine Neg (Negative); Urine Appearance Cloudy (CLEAR); Urine Color Yellow (Yellow); Urobilinogen Urine Norm (Negative); pH Urine 7 (5-7)
[2021-03-29 18:58] LABS: Bacteria Urine 1+ /hpf; RBC Urine 0-4 /hpf (0-2)
[2021-03-29 19:01] LABS: Add Urine Culture? No; Amorphous Sediment Urine 3+ /hpf
[2021-03-29 19:42] VITALS: RESP 16
== END 2021-03-29 19:43 | disposition home or self-care (01) ==
PROVIDERS: Family Medicine; Emergency Provider Emergency Medicine; PCP Nurse Practitioner
DX: K80.20 Calculus of gallbladder without cholecystitis without obstruction (principal)
CPT/HCPCS: 76705; 80053; 81001; 83690; 85025; 99283; Q0162

== ENCOUNTER 2021-04-18 08:16 | Day surgery (SDC) | payer OTHER, SELFPAY ==
[2021-04-15 13:24] VITALS: BMI 48.4
[2021-04-18] VITALS (10 sets, daily range): BP systolic 120–164; BP diastolic 62–101; PULSE 54–78; RESP 12–20; TEMP 36.6–36.9; O2SAT 92–98
[2021-04-18 08:49] LABS: OR HCG Qualitative Urine Negative (Negative)
[2021-04-18] MEDS: sodium chloride 0.9% 1,000 ML 30 ML IV (08:59)
--- NOTE | 2021-04-18 09:30 | W.PM.OPSUD ---
Surgery/Procedure H&P Update DATE OF PROCEDURE: April 18, 2021 DATE H&P PERFORMED: 04/11/21 H&P UPDATE INFORMATION: I have reviewed H&P completed within last 30 days, I have examined patient prior to procedure and No changes to prior documentation PREOP DIAGNOSIS: cholelithiasis PLANNED PROCEDURE: Operation Date: 04/18/21 10:10 Proposed Procedures p Laparoscopic Possible Open Cholecystectomy K80.20 09389(Not Applicable) - Oleg Maxwell MD
--- NOTE | 2021-04-18 09:45 | ANES.PREANE2 ---
Pre-Anesthetic Assessment Pre-Anesthetic Assessment: Height/Weight: Height 1.68 m Weight 136.078 kg Temp Pulse Resp BP Pulse Ox 97.8 F 78 18 158/86 97 04/18/21 08:47 04/18/21 08:47 04/18/21 08:47 04/18/21 08:47 04/18/21 08:47 Preop Diagnosis: cholelithiasis Proposed Procedure: Operation Date: 04/18/21 10:10 Proposed Procedures p Laparoscopic Possible Open Cholecystectomy K80.20 27901(Not Applicable) - Oleg Maxwell MD Familial anesthetic complications: PDPH Was Beta Jakub taken within 24 hours: N/A Was Clonidine taken within 24 hours: N/A Last intake: Intake Last Liquid Date 04/17/21 Last Liquid Time 21:00 Last Solid Date 04/17/21 Last Solid Time 21:00 Social: Social History: No alcohol and No tobacco Exam: Pre-Anes Outpt Exam: alert, oriented x 3, clear to auscultation bilaterally and regular rate & rhythm Airway: Cervical ROM: WNL MP: 2 Dentition: Full Pulmonary: Pulmonary: Sleep apnea CV/HEM: CV/HEM: HTN GI: GI: GERD Metabolic: Metabolic: Morbid obesity Anesthetic Plan: ASA status: 2 Anesthesia: General Risk of > 500 ml blood loss (7ml/kg in children): No Meds/Allergies Current Medications: Current Medications Generic Name Dose Route Start Last Admin Trade Name Freq PRN Reason Stop Dose Admin Sodium Chloride 1,000 mls @ 30 ml s/hr 04/18/21 08:30 04/18/21 08:59 Sodium Chloride 0.9% IV 04/19/21 08:29 30 mls/hr .Q24H TRENT Administration PFSH Anesthesia PFSH: Medical History (Updated 04/11/21 @ 14:29 by Oleg Maxwell MD) GERD (gastroesophageal reflux disease) History of shoulder dystocia Urolithiasis Surgical History (Updated 04/11/21 @ 10:09 by Oleg Maxwell MD) H/O dilation and curettage 2002-Performed at [facility] in [place], [place] H/O foot surgery 2014- Performed in [facility] H/O shoulder surgery 2015- Performed in [facility] Left shoulder H/O wisdom tooth extraction 2000- Performed [employer] History of 07/2020 History of elbow surgery 2006- Performed at [facility] History of incision and drainage I&D of vulvar abscess, marsupialization procudure. 03/28/2012-Dx: right vulvar abscess Performed by Dr Garcia at [facility] in [place], [place] History of tonsillectomy 1993- Performed in [facility] [place] S/P ureteral stent placement 2006 Family History Mother Depression Alcoholic Hypertension Father Hypertension Heart disease Social History Smoking and tobacco status: never smoked Alcohol intake: unknown Female Reproductive History: Date of last menstrual period: 09/14/20 Data Anesthesia Other Labs: Laboratory Results - last 48 hr 04/18/21 08:48 Urine HCG, Qual Negative Cardiac Studies: No Data to Display
[2021-04-18] MEDS: levofloxacin-dextrose 5 % 750 MG/150 ML PREMIX 100 MG IV (10:44)
--- NOTE | 2021-04-18 11:59 | PM.OP ---
Operative Report Date of procedure: April 18, 2021 Pre-op Diagnosis: 1. cholelithiasis 2. Hepatomegaly Post-op Diagnosis: 1. Cholelithiasis 2. Hepatomegaly which may retraction difficult Procedure Done: Laparoscopic cholecystectomy Specimens removed/disposition: gallbladder Surgeon: Oleg Maxwell Anesthesia: General Estimated blood loss (mL): 50 Condition: stable Procedure: The patient was taken to the operating room and was intubated under general anesthesia. After the antibiotic had been administered, the abdomen was prepped and draped in a sterile manner. Using a #15 blade, a 1 centimeter infraumbilical curvilinear incision was made and using an open Fady technique the peritoneal cavity was entered. A 10 millimeter port was placed and 15 millimeters of pneumoperitoneum was created. A 10 millimeter, 30 degrees scope was then introduced. Three 5 millimeter ports were placed in the epigastric, midclavicular and the anterior axillary line two fingerbreadths below the costal margin on the right side under the direct visualization. Ratcheted forceps were introduced into the lateral most port and was used to retract the fundus of the gallbladder cephalad and using forceps the infundibulum of the gallbladder was retracted laterally. Patient had hepatomegaly which made retraction and exposure difficult. Using L-hook cautery the peritoneum overlying the Calot's triangle was opened medially and laterally until the cystic duct and the cystic artery were skeletonized. There was bleeding from the posterior branch of the cystic artery which was controlled with clips and divided. Dissection was carried along the body of the gallbladder and after ensuring critical view of safety, 4 clips applied on the cystic duct and 3 clips applied on the cystic artery and cut leaving, 3 clips on the remaining portion of the duct and 2 clips on the remaining portion of the artery. The rest of the gallbladder was dissected off the liver using L-hook cautery. There was no bleeding or bile leaking noted from the gallbladder fossa and the clips appeared to be in place. An EndoCatch bag was introduced to remove the gallbladder. All the ports were removed under direct visualization and there was no bleeding noted from the port sites. The fascia of the umbilicus was closed using [id number] 0 Vicryl sutures and the subcutaneous tissue was approximated using 3-0 Vicryl sutures. The skin at all four ports were closed using 4-0 Monocryl and Dermabond. A total of 10 millimeters of 0.5% Marcaine was infiltrated around the port sites. The patient was stable throughout the procedure.
[2021-04-18] MEDS: ondansetron 2 mg/ML SDV 2 mL 4 MG IVP ×2 (12:35→14:17)
[2021-04-18] MEDS: metoclopramide 5 mg/mL SDV 2 mL 10 MG IVP ×2 (12:38→12:47)
[2021-04-18] MEDS: acetaminophen-codeine 300-30mg Tablet 1 TAB PO (13:55)
--- NOTE | 2021-04-18 15:51 | ANE.PACU2 ---
Inpatient post-anesthesia follow up: Airway intact: Yes Vital signs: Temperature 98.3 F Pulse Rate 54 Respiratory Rate 16 Blood Pressure 136/82 Pulse Oximetry 92 Oxygen Delivery Me thod Room Air Oxygen Flow Rate 6 Fraction of Inspir ed Oxygen Hydration adequate: Yes Nausea and vomiting: No Pain level: 3 Mental status: Baseline
== END 2021-04-18 14:42 | disposition home or self-care (01) ==
PROVIDERS: Anesthesiology; PCP Nurse Practitioner; Visit Provider Surgery
PROC: 0FT44ZZ Resection of Gallbladder, Percutaneous Endoscopic Approach (ICD-10-PCS; CPT 47562; principal; 2021-04-18 10:10)
DX: K80.10 Calculus of gallbladder with chronic cholecystitis without obstruction (principal); G47.30 Sleep apnea, unspecified; I10 Essential (primary) hypertension; K21.9 Gastro-esophageal reflux disease without esophagitis; E66.01 Morbid (severe) obesity due to excess calories; Z68.42 Body mass index [BMI] 45.0-49.9, adult
CPT/HCPCS: 47562; 81025; 84703; 88304; 96365; J1100; J1956; J2405; J2704; J2710; J2765; J3010; J3490; J7030

== ENCOUNTER 2021-04-30 12:51 | Emergency (ER) | payer OTHER, SELFPAY ==
[2021-04-30] VITALS (10 sets, daily range): BP systolic 140–160; BP diastolic 81–98; PULSE 52–74; RESP 12–19; TEMP 36.6; O2SAT 96–100; BMI 45.1
--- NOTE | 2021-04-30 12:54 | XRR_ITS ---
PROCEDURE INFORMATION: Exam: XR Left Wrist Exam date and time: 04/30/2021 12:54 PM Age: 40 years old Clinical indication: Fall with blunt trauma involving the left wrist. Pain. Likely fracture. TECHNIQUE: Imaging protocol: XR Left wrist. Views: 1 or 2 views. COMPARISON: No relevant prior studies available. FINDINGS: There is a comminuted, displaced, intra-articular fracture involving the distal radius with posterior displacement of the dominant fracture fragments by approximately 1.2 cm. The carpus is displaced posteriorly with the dominant fracture fragments. There is a displaced fracture involving the ulnar styloid. The scapholunate and lunotriquetral intervals are maintained. No chondrocalcinosis. XR/XR wrist LT 2V [id number] IMPRESSION: 1. Comminuted, displaced, intra-articular fracture involving the distal radius. 2. Displaced fracture involving the ulnar styloid.
[2021-04-30] MEDS: sodium chloride 0.9% 1,000 ML 999 ML IV ×2 (13:34→16:44)
[2021-04-30 13:36] LABS: Basophils # 0.1 10^3/uL (0.0-0.1); Basophils % 0.7 %; Eosinophils # 0.4 10^3/uL (0.0-0.8); Eosinophils % 4.7 %; Hematocrit 38.8 % (37.0-47.0); Hemoglobin 12.4 g/dL (11.5-15.3); Lymphocytes # 1.7 10^3/uL (0.8-4.8); Lymphocytes % 18.4 %; Mean Corpuscular Hemoglobin 30.5 pg (28.0-34.0); Mean Corpuscular Volume 95.3 fL (81-99); Mean Platelet Volume 8.9 fL (7.4-10.4); Monocytes # 0.6 10^3/uL (0.2-0.9); Monocytes % 6.2 %; Neutrophils # 6.26 10^3/uL (1.8-7.7); Neutrophils % 69.3 %; Nucleated Red Blood Cells % 0 %; Platelet Count 248 10^3/cmm (130-400); Red Blood Count 4.07 10^6/uL (4.1-5.3); Red Cell Distribution Width 13.2 % (12.1-15.1)
[2021-04-30 13:50] LABS: HCG, Serum Qual Negative (Negative)
[2021-04-30 13:52] LABS: Alanine Aminotransferase 66 U/L (0-33); Albumin Level 3.9 g/dL (3.5-5.2); Alkaline Phosphatase 122 IU/L (35-105); Anion Gap 15.1 (5-19); Aspartate Amino Transferase 37 U/L (0-32); Blood Urea Nitrogen 16 mg/dL (6-20); Carbon Dioxide 25 mmol/L (22-29); Chloride 101 mmol/L (98-107); Globulin 2.8 g/dL (1.3-4.6); Glomerular Filtration Rate 80.3 mL/min (90-130); Glucose 118 mg/dL (65-115); Osmolality Calculated 286 mOsm/kg (285-295); Potassium 4.1 mmol/L (3.5-5.1); Sodium 137 mmol/L (136-145); Total Bilirubin 0.3 mg/dL (0.15-1.2); Total Protein 6.7 g/dL (6.6-8.7)
--- NOTE | 2021-04-30 14:01 | W.ED.EXTPRO ---
HPI - Extremity Problem General: Chief complaint: Extremity Injury, Upper Stated complaint: LEFT ARM PAIN S/P FALL FROM HORSE Time Seen by Provider: 04/30/21 12:54 History of Present Illness: HPI Narrative: The patient is a 40-year-old female who comes to the ER after falling off a horse. Injury to her left wrist. She has a makeshift splint on. Neurovascularly intact distal to injury. Denies previous medical problems. She was given a milligram Dilaudid intramuscular prior to arrival and tolerated it well despite her listed allergy to multiple narcotics. She says Dilaudid does not bother her. Complaint: joint swelling and joint pain Location: left and upper extremity Quality: sharp Associated symptoms: Reports no associated symptoms; Deny chest pain or rash Review of Systems General: Reports: 10 or more systems reviewed and unremarkable except in HPI and below Const: Denies: fatigue Eyes: Denies: change in vision, blurry vision or eye redness ENMT: Denies: throat pain, swelling of lips/tongue, ear or mastoid pain or nasal congestion Card: Denies: chest pain, palpitations, irregular heart rhythm, edema, dyspnea on exertion or orthopnea Resp: Denies: dyspnea, productive cough or non-productive cough GI: Denies: abdominal pain, diarrhea or GI cramping : Denies: flank pain, difficulty voiding, urinary frequency or urinary urgency Musc: Reports: joint pain; Denies: neck pain, back pain, extremity pain, joint redness, limited range of motion or muscle weakness Skin/Breast: Denies: rash, pruritus, erythema, skin pain or skin tenderness Neuro: Denies: headache(s), numbness in extremities, weakness in extremities, sensory changes, difficulty walking, dizziness, confusion or Slurred speech present Psych: Denies: anxiety or depression Endo: Denies: polyuria All/Imm: Denies: urticaria, throat swelling or tongue swelling PFSH ED PFSH: Medical History (Updated 04/30/21 @ 18:01 by Dionte Chaney MD) GERD (gastroesophageal reflux disease) History of shoulder dystocia Urolithiasis Surgical History (Updated 04/18/21 @ 11:58 by Oleg Maxwell MD) H/O dilation and curettage 2002-Performed at [facility] in [place], [place] H/O foot surgery 2014- Performed in [facility] H/O shoulder surgery 2016- Performed in [facility] Left shoulder H/O wisdom tooth extraction 2000- Performed [employer] History of 07/2020 History of elbow surgery 2006- Performed at [facility] History of incision and drainage I&D of vulvar abscess, marsupialization procudure. 03/28/2012-Dx: right vulvar abscess Performed by Dr Garcia at [facility] in [place], [place] History of [facility]illectomy 1993- [facility] 2006 Status post laparoscopic cholecystectomy (04/18/21) Family History Mother Depression Alcoholic Hypertension Father Hypertension Heart disease Social History Smoking and tobacco status: never smoked Alcohol intake: unknown Female Reproductive History: Date of last menstrual period: 09/14/20 Physical Exam Const: COMMON NORMALS: no acute distress, average body habitus, patient oriented x3, no limitations, healthy appearing, alert and well nourished GENERAL APPEARANCE: cooperative, comfortable, well kempt and well developed ORIENTATION/CONSCIOUSNESS: Yes awake, Yes oriented to person, Yes oriented to place and Yes oriented to time HENMT: COMMON NORMALS: normocephalic, external ears normal and Normal external nose present HEAD & SCALP: normal to inspection and normocephalic NOSE: Normal external nose present EXTERNAL EAR: Yes external ears normal MOUTH: Normal oral and palatal mucosa present THROAT: posterior oropharynx normal Eye: COMMON NORMALS: Equal, round and reactive pupils present and EOMs intact bilaterally GENERAL EYE: appearance normal, both eyes and all related structures PUPIL: Yes Equal, round and reactive pupils present Neck/C-Spine: COMMON NORMALS: full ROM, no lymphadenopathy, no meningeal signs and no JVD GENERAL: Yes normal visual inspection Lymph: LYMPHATIC: no lymphadenopathy noted Chest: COMMONS NORMALS: normal inspection of the chest and normal palpation of entire chest wall Resp: COMMON NORMALS: normal respiratory effort, No retractions, No use of accessory muscles, clear to auscultation bilaterally and percussion normal EFFORT & INSPECTION: Yes able to speak in complete sentences AUSCULTATION: clear to auscultation bilaterally PERCUSSION: percussion normal Cardio: COMMON NORMALS: no JVD, regular rate, regular rhythm, S1 normal heart sound present, S2 normal heart sound present and Peripheral pulses 2+ throughout RATE: regular rate RHYTHM: regular rhythm HEART SOUNDS: S1 normal heart sound present and S2 normal heart sound present PERIPHERAL PULSES: Peripheral pulses 2+ throughout GI: COMMON NORMALS: Normal to inspection, nondistended, normoactive bowel sounds present, Soft to palpation, non-tender and no masses INSPECTION: Yes normal to inspection PALPATION: Yes Soft to palpation : COMMON NORMALS: Yes no CVA tenderness BLADDER/KIDNEY EXAM: Yes no CVA tenderness Back/Pelvis: COMMON NORMALS: no CVA tenderness, thoracic and lumbar spine normal to inspection, no thoracic nor lumbar tenderness and thoraco-lumbar ROM normal Extremity: COMMON NORMALS: normal to inspection, full ROM, capillary refill normal, no joint enlargement and no pedal edema NARRATIVE EXTREMITY EXAM: Left forearm pain swelling and tenderness. Likely fracture underneath. Neurovascularly intact distal to injury. GENERAL: Yes normal exam except as noted Neuro: COMMON NORMALS: patient oriented x3, CN's II-XII intact bilaterally, moves all extremities, no focal motor deficits, no sensory deficits noted and gait normal SENSORIUM/ORIENTATION: Yes alert, Yes oriented to person, Yes oriented to place and Yes oriented to time MENINGEAL SIGNS: Yes no meningeal signs Psych: COMMON NORMALS: mental status grossly normal, Normal thought process present, cooperative, normal affect and speech normal APPEARANCE: Yes well kempt ATTITUDE: Yes calm SPEECH: Yes normal speech THOUGHT PROCESS: Normal thought process present Skin: COMMON NORMALS: no rashes or lesions noted GENERAL SKIN EXAM: no rashes or lesions noted Procedures Orthopedic Fracture Reduction Fracture #1: Time Out Performed: Yes Side: left Fracture Reduction Location: radius and ulna Analgesia: procedural sedation (Etomidate) Technique: direct manipulation and traction/counter-traction Post Reduction X-rays Demonstrate: acceptable reduction Post-reduction neuro exam: intact Post-reduction vascular exam: intact Splint Applied: Yes Patient Tolerated Procedure: well Course Vital Signs: Vital signs: Vital Signs Temperature 97.9 F 04/30/21 12:56 Pulse Rate 74 04/30/21 17:12 Respiratory Rate 18 04/30/21 17:57 Blood Pressure 145/81 04/30/21 17:12 Pulse Oximetry 100 04/30/21 16:00 MDM - Extremity (Nontraumatic) MDM Narrative: Medical decision making narrative: The patient came to the ER after a fall off a horse. She just fractured her distal radius and it is comminuted and displaced as well as her styloid process of her ulna. She was consented for moderate sedation and sedated with etomidate using 16 mg slow push to achieve adequate sedation. It was reduced and in better alignment. Discussed with Dr. Patel who will see her in clinic . Please case management consult to help her get this appointment. ER with worsening symptoms at any time. Offered her pain medication but she has reactions to hydrocodone, oxycodone, and codeine and she declined all of them. She tolerated Dilaudid well here in the ER. Lab Data: Labs: Lab Results 04/30/21 04/30/21 04/30/21 Range/Units 13:30 13:30 13:30 WBC 9.0 (4.0-10.0) 10^3/ uL RBC 4.07 L (4.1-5.3) 10^6/u L Hgb 12.4 (11.5-15.3) g/dL Hct 38.8 (37.0-47.0) % MCV 95.3 (81-99) fL MCH 30.5 (28.0-34.0) pg MCHC 32.0 (30.0-36.0) g/dL RDW 13.2 (12.1-15.1) % Plt Count 248 (130-400) 10^3/c mm MPV 8.9 (7.4-10.4) fL Neut % (Auto) 69.3 % Lymph % (Auto) 18.4 % [place] % (Auto) 6.2 % Eos % (Auto) 4.7 % Baso % (Auto) 0.7 % Neut # (Auto) 6.26 (1.8-7.7) 10^3/u L Lymph # (Auto) 1.7 (0.8-4.8) 10^3/u L [place] # (Auto) 0.6 (0.2-0.9) 10^3/u L Eos # (Auto) 0.4 (0.0-0.8) 10^3/u L Baso # (Auto) 0.1 (0.0-0.1) 10^3/u L Nucleated RBC % (a uto) 0 % Nucleated RBCs # 0.0 /100WBC Sodium 137 (136-145) mmol/L Potassium 4.1 (3.5-5.1) mmol/L Chloride 101 (98-107) mmol/L Carbon Dioxide 25 (22-29) mmol/L Anion Gap 15.1 (5-19) BUN 16 (6-20) mg/dL Creatinine 0.8 (0.5-0.9) mg/dL GFR Calculation 80.3 L (90-130) mL/min Glucose 118 H (65-115) mg/dL Calculated Osmolal ity 286 (285-295) mOsm/k g Calcium 9.0 (8.5-10.5) mg/dL Total Bilirubin 0.3 (0.15-1.2) mg/dL AST 37 H (0-32) U/L ALT 66 H (0-33) U/L Alkaline Phosphata se 122 H (35-105) IU/L Total Protein 6.7 (6.6-8.7) g/dL Albumin 3.9 (3.5-5.2) g/dL Globulin 2.8 (1.3-4.6) g/dL HCG, Qual Negative (Negative) Discharge Plan Discharge Patient Disposition: Home Clinical Impression: Distal radius fracture, left, Closed fracture of styloid process of left ulna Condition: Stable Prescriptions: No Action ondansetron HCl [Zofran] 4 mg tablet 4 mg PO Q6H PRN (Reason: nausea and vomiting) Qty: 20 RF: 0 Protonix 40 mg tablet,delayed release (DR/EC) 40 mg PO DAILY RF: 0 fluoxetine 20 mg Tablet 20 mg PO DAILY RF: 0 Discharge Orders: Discharge ED (Routine); Ordered 04/30/21 Ordered By: Dionte Chaney Referrals: Val Rossi FNP [Primary Care Provider] - Discharge Diet: Advance as tolerated Discharge Activity: Resume usual activity Patient Instructions: Wrist Fracture in Adults (ED), Opioid Safety Activity Restrictions/Additional Instructions: You came to the ER after you have broken your distal radius and ulna. We have reduced them to near alignment. Please follow-up with Dr. Patel in his clinic. Return to the ER at anytime with worsening symptoms or uncontrolled pain. Take Tylenol and ibuprofen for pain. You may use ice 20 minutes on 20 minutes off a few times a day to help with the swelling. Elevate the arm as well. Wear splint until you see the orthopedic surgeon. 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
[2021-04-30] MEDS: HYDROmorphone 1 mg/mL INJ 1 mL 0.5 MG IVP ×3 (15:21→17:57)
[2021-04-30] MEDS: LORazepam 2 mg/mL INJ 1 mL 0.5 MG IVP (15:21)
[2021-04-30] MEDS: lidocaine 1% INJ 20 mL SUBCUT (16:10)
--- NOTE | 2021-04-30 17:02 | XRR_ITS ---
PROCEDURE INFORMATION: Exam: XR Left Wrist Exam date and time: 04/30/2021 5:02 PM Age: 40 years old Clinical indication: Pain; Wrist; Left; Additional info: Post reduction TECHNIQUE: Imaging protocol: XR Left wrist. Views: 1 or 2 views. COMPARISON: CR (UP EXM, ) 04/30/2021 12:56 PM FINDINGS: There is a comminuted, intra-articular fracture involving the distal radius. There is improved alignment with approximately 0.3 cm residual posterior displacement of the dominant distal fracture fragments. A mildly displaced fracture involving the ulnar styloid is again seen. There is soft tissue swelling about the wrist. The scapholunate and lunotriquetral intervals are maintained. No chondrocalcinosis is seen. XR/XR wrist LT 2V [id number] IMPRESSION: 1. Comminuted, intra-articular fracture involving the distal radius. There is improved alignment with approximately 0.3 cm residual posterior displacement of the dominant distal fracture fragments. 2. A mildly displaced fracture involving the ulnar styloid is again seen. 3. Soft tissue swelling about the wrist.
--- NOTE | 2021-04-30 17:19 | PC.NURSE ---
moderate sedation took place. *2 ED physicians in room, *1 RT in room. *2 RN in room. Consent obtained prior to procedure. Pt had IV fluids hanging, on playground monitor, intact IV in place. Time out completed at 1653. vitals were as follows: 1653= 74HR, 100% on 2L, 19R, 145/81 1658= 61HR, 100% on 2L, 14R 1700= 87HR, 100% on 2L, 23R 1706= 76HR, 100% on 2L
--- NOTE | 2021-04-30 17:49 | PC.NURSE ---
Went to give the Dilaudid that Dr Chaney had ordered at 1606 which showed on my MAR. I acknowledged the med at 1745, when i went to pull it out of the [employer] , it was not there. I consulted with Dr Chaney and he said he had D'cd the med. Informed the pt was really hurting and needed pain med He will put in a New order.
[2021-04-30] MEDS: TRAMadol 50 mg Tablet 100 MG PO (19:40)
--- NOTE | 2021-05-03 09:46 | DCPLANNER ---
Addendum entered by Jordyn Jaimes 05/11/21 08:41: packaging manager called the ortho clinic, spoke with Lucretia. Called to confirm if a follow up appointment was scheduled for patient. packaging manager was told that when clinic called patient to schedule a follow up appointment that patient followed up with another provider, and did not want appointment at this time. Original Note: packaging manager had message to schedule a follow up appointment for patient with ortho for a radius fracture. packaging manager called the ortho clinic, spoke with Lucretia, gave clinic patients information. packaging manager was told that patients information would be printed and reviewed. Clinic will call patient with appointment information.
== END 2021-04-30 19:46 | disposition home or self-care (01) ==
PROVIDERS: Emergency Provider Family Medicine; PCP Nurse Practitioner
DX: S52.502A Unspecified fracture of the lower end of left radius, initial encounter for closed fracture (principal); S52.612A Displaced fracture of left ulna styloid process, initial encounter for closed fracture; V80.010A Animal-rider injured by fall from or being thrown from horse in noncollision accident, initial encounter
CPT/HCPCS: 25605; 73100; 80053; 84703; 85025; 96361; 96374; 96375; 96376; 99284; J1170; J2060; J3490; J7030

== ENCOUNTER 2022-02-16 09:18 | Outpatient (CLI) | payer OTHER, SELFPAY ==
--- NOTE | 2022-02-16 09:29 | FL_ITS ---
WS: [id number] Exam: FL upper GI w air* [id number] Date/Time of Exam: 02/16/2022 9:34 AM Reason For Exam: GASTROESOPHAEL REFLUX DZ Preliminary abdominal survey shows signs of prior cholecystectomy. Small solitary calcification super impose both kidneys and may represent renal stones. Swallowing function at the level of the oropharynx was normal. The esophagus is smooth in contour. Th e stomach is freely distensible. No sign of gastric mass or ulcer. No hiatal hernia was seen. No steve roesophageal reflux observed during fluoroscopy. The duodenal bulb is smooth in contour. Barium spill s freely into the proximal small bowel without obstruction. The duodenal C-loop is not widened or dis placed. Visualized proximal jejunal loops appear normal. FL/FL upper GI w air* [id number] IMPRESSION: 1. Unremarkable upper GI exam. 2. No obvious hiatal hernia. No gastroesophageal reflux observed during fluoros copy.
== END 2022-02-16 09:19 | disposition home or self-care (01) ==
LOC: RAD 09:21
PROVIDERS: PCP Nurse Practitioner; Visit Provider Surgery
DX: Z01.818 Encounter for other preprocedural examination (principal); K21.9 Gastro-esophageal reflux disease without esophagitis; E66.01 Morbid (severe) obesity due to excess calories; G47.33 Obstructive sleep apnea (adult) (pediatric)
CPT/HCPCS: 74246

== ENCOUNTER → 2022-08-26 10:32 | Outpatient (BNVA) | payer MEDICAID, SELFPAY | PROVIDERS: PCP Nurse Practitioner; Visit Provider Registered Nurse Neonatal Intensive Care | DX: J02.9 Acute pharyngitis, unspecified (principal); J30.89 Other allergic rhinitis | CPT/HCPCS: 87070; 87880 ==

== ENCOUNTER 2023-05-23 13:54 | Emergency (ER) | payer OTHER, SELFPAY ==
[2023-05-23 13:57] VITALS: BMI 34.6
[2023-05-23 14:03] VITALS: BP 112/72; PULSE 60; RESP 16; TEMP 36.8; O2SAT 100
[2023-05-23 15:06] LABS: Basophils % 0.5 %; Eosinophils # 0.1 10^3/uL (0.0-0.8); Eosinophils % 1.4 %; Hematocrit 38.7 % (37.0-47.0); Hemoglobin 12.3 g/dL (11.5-15.3); Lymphocytes # 1.7 10^3/uL (0.8-4.8); Lymphocytes % 19.8 %; Mean Corpuscular HGB Conc 31.8 g/dL (30.0-36.0); Mean Corpuscular Hemoglobin 28.9 pg (28.0-34.0); Mean Corpuscular Volume 91.1 fl (81-99); Mean Platelet Volume 9.7 fL (7.4-10.4); Monocytes # 0.7 10^3/uL (0.2-0.9); Monocytes % 7.6 %; Neutrophils # 6.21 10^3/uL (1.8-7.7); Neutrophils % 70.4 %; Nucleated Red Blood Cells % 0 %; Platelet Count 202 10^3/cmm (130-400); Red Blood Count 4.25 10^6/uL (4.1-5.3); Red Cell Distribution Width 13.5 % (12.1-15.1); White Blood Count 8.8 10^3/uL (4.0-10.0)
[2023-05-23 15:25] LABS: HCG, Serum Qual Negative (Negative)
[2023-05-23 15:31] LABS: Alanine Aminotransferase 215 U/L (0-33); Albumin Level 3.7 g/dL (3.5-5.2); Alkaline Phosphatase 165 U/L (35-105); Aspartate Amino Transferase 354 U/L (0-32); Blood Urea Nitrogen 11 mg/dL (6-20); Calcium 8.9 mg/dL (8.5-10.5); Carbon Dioxide 23 mmol/L (22-29); Chloride 104 mmol/L (98-107); Globulin 2.8 g/dL (1.3-4.6); Glomerular Filtration Rate 92.7 mL/min (90-130); Glucose 98 mg/dL (65-115); Lipase 23 U/L (13-60); Osmolality Calculated 285 mOsm/kg (285-295); Sodium 138 mmol/L (136-145); Total Bilirubin 0.7 mg/dL (0.15-1.2); Total Protein 6.5 g/dL (6.6-8.7)
--- NOTE | 2023-05-23 15:52 | CTR_ITS ---
PROCEDURE INFORMATION: Exam: CT Abdomen And Pelvis With Contrast Exam date and time: 05/23/2023 4:20 PM Age: 42 years old Clinical indication: Nausea; Additional info: N/v/abd pain, elevated lfts TECHNIQUE: Imaging protocol: Computed tomography of the abdomen and pelvis with contrast. Radiation optimization: All CT scans at this facility use at least one of these dose optimization techniques: automated exposure control; mA and/or kV adjustment per patient size (includes targeted exams where dose is matched to clinical indication); or iterative reconstruction. Contrast material: OMNI 350; Contrast volume: 100 ml; Contrast route: INTRAVENOUS (IV); REPORTING DATA: Count of CT and Cardiac NM exams in prior 12 months: This patient has received 0 known CTs and 0 known cardiac nuclear medicine studies in the 12 months prior to the current study. COMPARISON: CT kidney stone [id number] 03/04/2018 2:47 PM RADIATION DOSE METRICS: Total DLP (mGy-cm): 874.63 FINDINGS: Liver: Hepatic steatosis. Right hepatic lobe 16 mm low-density lesion with peripheral nodular enhancement likely reflecting a hemangioma. Focal fatty infiltration at the junction of the left and right hepatic lobes. Gallbladder and bile ducts: Cholecystectomy. Pancreas: Normal. No ductal dilation. Spleen: Normal. No splenomegaly. Adrenal glands: Normal. No mass. Kidneys and ureters: Left kidney nonobstructing punctate calyceal stone. Right kidney upper pole possible punctate nonobstructing calyceal stone. Stomach and bowel: Mildly prominent fluid in the small bowel without dilation may reflect an enteritis. Appendix: No evidence of appendicitis. Intraperitoneal space: Small amount of nonspecific fluid in the pelvis. Vasculature: Unremarkable. No abdominal aortic aneurysm. Lymph nodes: Unremarkable. No enlarged lymph nodes. Urinary bladder: Unremarkable as visualized. Reproductive: Right ovary 2.6 cm cyst, likely follicular. Fibroid uterus suspected. Bones/joints: Unremarkable. No acute fracture. Soft tissues: Unremarkable. CT/CT abdomen pelvis w con* [id number] IMPRESSION: 1. Mildly prominent fluid in the small bowel without dilation may reflect an enteritis. 2. Hepatic steatosis. 3. Left kidney nonobstructing punctate calyceal stone. Right kidney upper pole possible punctate nonobstructing calyceal stone. 4. Cholecystectomy. 5. Right hepatic lobe 16 mm low-density lesion with peripheral nodular enhancement likely reflecting a hemangioma. 6. Focal fatty infiltration at the junction of the left and right hepatic lobes. 7. Right ovary 2.6 cm cyst, likely follicular. 8. Fibroid uterus suspected. 9. Small amount of nonspecific fluid in the pelvis.
[2023-05-23] MEDS: iohexol 350 mg/mL 500 mL Btl (per mL) IV (16:25)
[2023-05-23 16:29] LABS: Glucose Urine UA Norm (Normal); Ketones Urine 1+ (Negative); Protein Urine Neg (Negative); Urine Appearance SL Hazy (CLEAR); Urine Color Yellow (Yellow); pH Urine 6 (5-7)
[2023-05-23 16:30] LABS: Add Urine Microscopic? YES; Bilirubin Urine 1+ (Negative); Blood Urine Neg (Negative); Leukocyte Esterase Urine Trace (Negative); Nitrate Urine Negative (Negative); Urobilinogen Urine 8 mg/dL (Negative)
[2023-05-23 16:31] LABS: RBC Urine 0-4 /hpf (0-2)
[2023-05-23 16:32] LABS: Add Urine Culture? No; Amorphous Sediment Urine 2+ /hpf; Bacteria Urine TRACE /hpf; Mucus Urine 3+ /hpf; Squamous Epithelial Cell Urine 25-40 /hpf (0-5)
--- NOTE | 2023-05-23 16:40 | W.ED.ABDPA2 ---
HPI - Abdominal Pain General: Chief Complaint: Abdominal Pain Stated Complaint: epigastric pain Time Seen by Provider: 05/23/23 15:52 History of Present Illness: Patient presents to the ER with complaints of abdominal pain. She describes his pain as a squeezing of her epigastric area. She had multiple of these episodes today. Lasting approximately 3 to 5 minutes each time. Patient has had nausea vomiting with these times as well as shortness of breath. Denies any symptoms at this moment. Patient does have a history of gastric bypass approximately a year ago and has had good fast weight loss since then. Patient does not have a gallbladder as she is already have it taken out. Patient says these does not feel like her gallbladder pains before she had her gallbladder taken out. Review of Systems General: Reports: 10 or more systems reviewed and unremarkable except in HPI and below PFSH ED PFSH: Medical History GERD (gastroesophageal reflux disease) History of shoulder dystocia Urolithiasis Surgical History H/O dilation and curettage 2002-Performed at [facility] in [place], [place] H/O foot surgery 2014- Performed in [facility] H/O shoulder surgery 2016- Performed in [place], [place] - Left shoulder H/O wisdom tooth extraction 2000- Performed [facility] History of 07/2020 History of elbow surgery 2006- [place] [facility] [place] of incision and drainage I&D of vulvar abscess, marsupialization procudure. 03/28/2012-Dx: right vulvar abscess Per[place] Dr Garcia [place] [facility] [place] History of open reduction and internal fixation (ORIF) procedure Left forearm at [place] History of tonsillectomy 1993- Performed in [facility] S/P ureteral stent placement 2006 Status post laparoscopic cholecystectomy (04/18/21) Family History Mother Depression Alcoholic Hypertension Father Hypertension Heart disease Social History Smoking and tobacco status: current every day smoker Alcohol intake: unknown Substance/Drug Use: never Do you think of yourself as: Straight/Heterosexual Physical Exam Const: COMMON NORMALS: no acute distress, average body habitus, patient oriented x3, no limitations, healthy appearing, alert and well nourished HENMT: COMMON NORMALS: normocephalic, atraumatic, hearing grossly normal bilaterally, external ears normal, Normal external nose present and moist oral mucous membranes HEAD & SCALP: normocephalic and atraumatic NOSE: Normal external nose present EXTERNAL EAR: Yes external ears normal Neck/C-Spine: COMMON NORMALS: full ROM, no lymphadenopathy, supple, no meningeal signs, no JVD and Thyroid normal THYROID: Thyroid normal Chest: COMMONS NORMALS: normal inspection of the chest and normal palpation of entire chest wall Resp: COMMON NORMALS: normal respiratory effort, No retractions, No use of accessory muscles and clear to auscultation bilaterally AUSCULTATION: clear to auscultation bilaterally Cardio: COMMON NORMALS: no JVD, regular rate, regular rhythm, S1 normal heart sound present, S2 normal heart sound present, No gallops present (Cardio), No clicks present (Cardio), No murmurs present (Cardio) and No rub (Cardio) RATE: regular rate RHYTHM: regular rhythm HEART SOUNDS: S1 normal heart sound present and S2 normal heart sound present GI: COMMON NORMALS: Normal to inspection, nondistended, normoactive bowel sounds present, Soft to palpation, No hepatosplenomegaly present and no masses; negative for non-tender (Due to palpation of right upper quadrant and epigastric region area.) PALPATION: Yes Soft to palpation and Yes No hepatosplenomegaly present : COMMON NORMALS: Yes no CVA tenderness BLADDER/KIDNEY EXAM: Yes no CVA tenderness Back/Pelvis: COMMON NORMALS: no CVA tenderness Neuro: COMMON NORMALS: patient oriented x3 SENSORIUM/ORIENTATION: Yes alert MENINGEAL SIGNS: Yes no meningeal signs Course Vital Signs: Vital signs: Vital Signs Temperature 98.2 F 05/23/23 14:03 Pulse Rate 60 05/23/23 14:03 Respiratory Rate 16 05/23/23 14:03 Blood Pressure 112/72 05/23/23 14:03 Pulse Oximetry 100 05/23/23 14:03 MDM - Abdominal Pain Medical Decision Making Presents to the ER with complaints of abdominal pain that spastic in nature comes and goes starting today. Patient did get mildly short of breath and have nausea and vomiting with this. Physical exam was performed lab work was obtained as well as abdomen and pelvis CT with contrast. All of which were fairly benign except for her elevated liver enzymes, her AST was 354, ALT 215, alk phos 165, total bilirubin 0.7 patient denied taking Tylenol, using and abusing alcohol, or ever having any type of viral hepatitis. These labs and findings was discussed with the patient in detail and patient will be referred back to the [place] where she gets her medical care taken. Patient actually has an appointment on Sunday and was told to tell her [facility] doc that she was here and discuss our findings. Differential Diagnosis Likely abdominal pain; Unlikely acute appendicitis, calculus of kidney, constipation, diverticulitis, endometriosis, gastroenteritis, pancreatitis or small bowel obstruction Medical Records I reviewed the patient's medical records. Lab Data I reviewed the patient's lab results. 05/23/23 14:56 05/23/23 14:56 Labs/Radiology: Radiology Impressions Abdomen/Pelvis CT 05/23/23 15:52 IMPRESSION: 1. Mildly prominent fluid in the small bowel without dilation may reflect an enteritis. 2. Hepatic steatosis. 3. Left kidney nonobstructing punctate calyceal stone. Right kidney upper pole possible punctate nonobstructing calyceal stone. 4. Cholecystectomy. 5. Right hepatic lobe 16 mm low-density lesion with peripheral nodular enhancement likely reflecting a hemangioma. 6. Focal fatty infiltration at the junction of the left and right hepatic lobes. 7. Right ovary 2.6 cm cyst, likely follicular. 8. Fibroid uterus suspected. 9. Small amount of nonspecific fluid in the pelvis. Laboratory Results WBC 8.8 10^3/uL (4.0-10.0) 05/23/23 14:56 RBC 4.25 10^6/uL (4.1-5.3) 05/23/23 14:56 Hgb 12.3 g/dL (11.5-15.3) 05/23/23 14:56 Hct 38.7 % (37.0-47.0) 05/23/23 14:56 MCV 91.1 fl (81-99) 05/23/23 14:56 MCH 28.9 pg (28.0-34.0) 05/23/23 14:56 MCHC 31.8 g/dL (30.0-36.0) 05/23/23 14:56 RDW 13.5 % (12.1-15.1) 05/23/23 14:56 Plt Count 202 10^3/cmm (130-400) 05/23/23 14:56 MPV 9.7 fL (7.4-10.4) 05/23/23 14:56 Neut % (Auto) 70.4 % 05/23/23 14:56 Lymph % (Auto) 19.8 % 05/23/23 14:56 [place] % (Auto) 7.6 % 05/23/23 14:56 Eos % (Auto) 1.4 % 05/23/23 14:56 Baso % (Auto) 0.5 % 05/23/23 14:56 Neut # (Auto) 6.21 10^3/uL (1.8-7.7) 05/23/23 14:56 Lymph # (Auto) 1.7 10^3/uL (0.8-4.8) 05/23/23 14:56 [place] # (Auto) 0.7 10^3/uL (0.2-0.9) 05/23/23 14:56 Eos # (Auto) 0.1 10^3/uL (0.0-0.8) 05/23/23 14:56 Baso # (Auto) 0.0 10^3/uL (0.0-0.1) 05/23/23 14:56 Nucleated RBC % (auto) 0 % 05/23/23 14:56 Nucleated RBCs # 0.0 /100WBC 05/23/23 14:56 Sodium 138 mmol/L (136-145) 05/23/23 14:56 Potassium 4.0 mmol/L (3.5-5.1) 05/23/23 14:56 Chloride 104 mmol/L (98-107) 05/23/23 14:56 Carbon Dioxide 23 mmol/L (22-29) 05/23/23 14:56 Anion Gap 15.0 (5-19) 05/23/23 14:56 BUN 11 mg/dL (6-20) 05/23/23 14:56 Creatinine 0.7 mg/dL (0.5-0.9) 05/23/23 14:56 GFR Calculation 92.7 mL/min (90-130) 05/23/23 14:56 Glucose 98 mg/dL (65-115) 05/23/23 14:56 Calculated Osmolality 285 mOsm/kg (285-295) 05/23/23 14:56 Calcium 8.9 mg/dL (8.5-10.5) 05/23/23 14:56 Total Bilirubin 0.7 mg/dL (0.15-1.2) 05/23/23 14:56 AST 354 U/L (0-32) H 05/23/23 14:56 ALT 215 U/L (0-33) H 05/23/23 14:56 Alkaline Phosphatase 165 U/L (35-105) H 05/23/23 14:56 Total Protein 6.5 g/dL (6.6-8.7) L 05/23/23 14:56 Albumin 3.7 g/dL (3.5-5.2) 05/23/23 14:56 Globulin 2.8 g/dL (1.3-4.6) 05/23/23 14:56 Lipase 23 U/L (13-60) 05/23/23 14:56 HCG, Qual Negative (Negative) 05/23/23 14:56 Urine Color Yellow (Yellow) 05/23/23 15:59 Urine Appearance Sl hazy (CLEAR) A 05/23/23 15:59 Urine pH 6 (5-7) 05/23/23 15:59 Ur Specific [place] 1.020 (1.005-1.030) 05/23/23 15:59 Urine Protein Neg (Negative) 05/23/23 15:59 Urine Glucose (UA) Norm (Normal) 05/23/23 15:59 Urine Ketones 1+ (Negative) H 05/23/23 15:59 Urine Blood Neg (Negative) 05/23/23 15:59 Urine Nitrate Negative (Negative) 05/23/23 15:59 Urine Bilirubin 1+ (Negative) H 05/23/23 15:59 Urine Urobilinogen 8 mg/dL (Negative) H 05/23/23 15:59 Ur Leukocyte Esterase Trace (Negative) H 05/23/23 15:59 Urine RBC 0-4 /hpf (0-2) H 05/23/23 15:59 Urine WBC 5-10 /hpf (0-5) H 05/23/23 15:59 Ur Squamous Epith Cells 25-40 /hpf (0-5) H 05/23/23 15:59 Amorphous Sediment 2+ /hpf 05/23/23 15:59 Urine Bacteria Trace /hpf (NONE) 05/23/23 15:59 Urine Mucus 3+ /hpf 05/23/23 15:59 Discharge Plan Discharge Patient Disposition: Home Clinical Impression: Elevated liver enzymes Abdominal pain Qualifiers: Abdominal location: unspecified location Qualified Code(s): R10.9 - Unspecified abdominal pain Condition: Stable Prescriptions: No Action omeprazole 10 mg capsule,delayed release(DR/EC) 10 mg PO DAILY venlafaxine 75 mg capsule,extended release 24hr 75 mg PO DAILY Qty: 30 5RF Discharge Orders: Discharge ED (Routine); Ordered 05/23/23 Ordered By: Carlos Bryan Referrals: Val Rossi FNP [Primary Care Provider] - 1 week Patient Instructions: Abdominal Pain (ED) Activity Restrictions/Additional Instructions: Please keep your appointment with your [facility] provider already scheduled. Please tell them about your appointment here to the ER and due to your elevated liver enzymes. They may want to discuss further evaluation and testing. Coding Level of Care Code ED [facility] Worker for Refugio Medrano
[2023-05-23 18:23] VITALS: BP 126/65; PULSE 51; O2SAT 94
== END 2023-05-23 18:25 | disposition home or self-care (01) ==
PROVIDERS: Physician Assistant; Emergency Provider Emergency Medicine; PCP Nurse Practitioner
DX: R10.13 Epigastric pain (principal); R94.5 Abnormal results of liver function studies
CPT/HCPCS: 36415; 74177; 80053; 81001; 83690; 84703; 85025; 99285; Q9967

== ENCOUNTER 2024-01-30 22:50 | Emergency (ER) | payer OTHER, SELFPAY ==
[2024-01-30 22:52] VITALS: BP 132/86; PULSE 75; RESP 18; TEMP 36.9; O2SAT 98; BMI 34.9
[2024-01-30 23:11] LABS: Basophils % 0.3 %; Eosinophils # 0.2 10^3/uL (0.0-0.8); Eosinophils % 1.5 %; Hematocrit 33.8 % (36-47); Lymphocytes # 1.2 10^3/uL (0.8-4.8); Lymphocytes % 11.7 %; Mean Corpuscular HGB Conc 29.9 g/dL (30-55); Mean Corpuscular Hemoglobin 24.9 pg (27-33); Mean Corpuscular Volume 83.3 fl (85-98); Mean Platelet Volume 9.4 fL (7.4-10.4); Monocytes # 0.6 10^3/uL (0.2-0.9); Monocytes % 6.1 %; Neutrophils # 7.84 10^3/uL (1.8-7.7); Neutrophils % 80.2 %; Nucleated Red Blood Cells % 0 %; Platelet Count 237 10^3/cmm (157-399); Red Blood Count 4.06 10^6/uL (3.85-5.65); Red Cell Distribution Width 15.4 % (12.1-15.1); White Blood Count 9.79 10^3/uL (3.29-11.43)
[2024-01-30 23:14] LABS: HCG Qualitative Urine. Negative (Negative)
--- NOTE | 2024-01-30 23:17 | ECG_ITS ---
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 Measurements Intervals [place] Rate: 69 P: 60 NM: 156 QRS: 73 QRSD: 91 T: 50 QT: 391 QTc: 419 Interpretive Statements SINUS RHYTHM No previous ECG available for comparison Electronically Signed On 01-31-2024 14:09:51 CDT by Cezar Tesfaye M.D. [id number]
--- NOTE | 2024-01-30 23:18 | CTR_ITS ---
PROCEDURE INFORMATION: Exam: CT Abdomen And Pelvis With Contrast Exam date and time: 01/30/2024 11:31 PM Age: 43 years old Clinical indication: Abdominal pain; Prior surgery; Surgery date: 6+ months; Surgery type: Hyst, gb, gastric bypass; Additional info: Epigastric pain, S/P gastric bypass TECHNIQUE: Imaging protocol: Computed tomography of the abdomen and pelvis with contrast. Radiation optimization: All CT scans at this facility use at least one of these dose optimization techniques: automated exposure control; mA and/or kV adjustment per patient size (includes targeted exams where dose is matched to clinical indication); or iterative reconstruction. Contrast material: OMNI 350; Contrast volume: 100 ml; Contrast route: INTRAVENOUS (IV); COMPARISON: CT abdomen pelvis w con* [id number] 05/23/2023 4:20 PM RADIATION DOSE METRICS: Total DLP (mGy-cm): 838.7 FINDINGS: Lungs: The lung bases are clear. Heart: Heart size is within normal limits. There is no pericardial effusion or pericardial thickening. Liver: 13 mm low-density lesion with peripheral nodular enhancement in the posterior right lobe of the liver, stable, and consistent with hemangioma. The liver is otherwise normal. Gallbladder and bile ducts: The gallbladder is surgically absent. There is no ductal dilatation. Pancreas: The pancreas is normal. Spleen: Borderline splenomegaly. The spleen measures 13 cm in length. Adrenal glands: The adrenal glands are normal. Kidneys and ureters: Stable 5 mm nonobstructing left lower pole renal calculus. Nonobstructing right mid renal calculus. There is no hydronephrosis. Stomach and bowel: Note is made of prior gastric bypass surgery. Mild retained colonic stool. There is no large or small bowel obstruction. There is no evidence of bowel wall thickening. Appendix: A normal appendix is identified. Intraperitoneal space: No inflammatory changes are identified. There is no free fluid or fluid collection seen. There is no pneumoperitoneum. Vasculature: The aorta is normal in course and caliber. No significant atherosclerotic calcifications are present. Lymph nodes: There are no enlarged retroperitoneal or mesenteric lymph nodes. Urinary bladder: The bladder is unremarkable. Reproductive: The uterus is absent. Bones/joints: No acute osseous abnormalities are seen. Soft tissues: The soft tissues are within normal limits. CT/CT abdomen pelvis w con* [id number] IMPRESSION: 1. No acute intra-abdominal or pelvic process. 2. Interval hysterectomy. 3. Other stable findings above.
--- NOTE | 2024-01-30 23:19 | W.ED.ABDPA2 ---
Documented by User: JANICE Mayes 01/31/24 10:06 HPI - Abdominal Pain General: Chief Complaint: Abdominal Pain Stated Complaint: epigastric pain Time Seen by Provider: 01/30/24 22:58 Source: patient Mode of arrival: ambulatory Limitations: no limitations History of Present Illness: Patient is a 43-year-old female presenting to the emergency department complaining of epigastric abdominal pain. Patient notes back in the fall 2022, she had an emergent total hysterectomy due to fibroids. Since then, she notes intermittent pain in the epigastric region. She notes that today it has been significantly worse, stating that she has had 7 episodes of sharp, stabbing, squeezing pain does not radiate. She does comment that she is having some associated nausea as well as some breathing difficulties when the pain is present. She states that she has a history of gastric bypass due to chronic GERD, and states that this pain feels different. She is on omeprazole daily. She denies any changes in bowel or bladder. No chest pains, vomiting, back pain, headaches, dizziness, or any other symptoms. No blood in her stool. She currently is not having the pain, but states she last had it on the way to the ED. Patient reports history of cholecystectomy. MD elicited complaint: abdominal pain Pertinent past history: other (History of gastric bypass and cholecystectomy) Pain Consistency: intermittent Location: Epigastric Severity: severe Quality: stabbing, sharp and other (Squeezing) Radiation: none Migration to: no migration Exacerbating factors: nothing Relieving factors: nothing Associated Symptoms: Reports nausea; Denies change in bowel habits, chills, constipation, diarrhea, dysuria, fever(s), hematochezia, hematemesis and vomiting Review of Systems General: Reports: 10 or more systems reviewed and unremarkable except in HPI and below Const: Denies: fever(s), chills, change in appetite, change in weight or diaphoresis ENMT: Denies: throat pain or hoarseness Card: Denies: chest pain, palpitations or lightheadedness Resp: Reports: dyspnea; Denies: productive cough or wheezing GI: Reports: abdominal pain and nausea; Denies: vomiting, hematemesis, diarrhea, constipation, change in bowel habits or hematochezia : Denies: flank pain, difficulty voiding, dysuria, urinary frequency or urinary urgency Musc: Denies: neck pain or back pain Skin/Breast: Denies: rash or new lesions Neuro: Denies: headache(s) or dizziness PFSH ED PFSH: Medical History GERD (gastroesophageal reflux disease) History of shoulder dystocia Urolithiasis Surgical History History of open reduction and internal fixation (ORIF) procedure Left forearm at [place] Status post laparoscopic cholecystectomy (04/18/21) History of 07/2020 S/P ureteral stent placement 2006 History of elbow surgery 2006- Performed at [facility] History of tonsillectomy 1993- Performed in [facility] H/O shoulder surgery 2015- Performed in [place], [place] - Left shoulder History of incision and drainage I&D of vulvar abscess, marsupialization procudure. 03/28/2012-Dx: right vulvar abscess Performed by Dr Garcia at [facility] in [place], [place] H/O dilation and curettage 2002-Performed at [facility] in [place], [place] H/O foot surgery 2014- Performed in [facility] H/O wisdom tooth extraction 2000- Performed [facility] Family History Mother Depression Alcoholic Hypertension Father Hypertension Heart disease Social History Smoking and tobacco/nicotine status: current every day tobacco/nicotine user Alcohol intake: unknown Substance/Drug Use: never Do you think of yourself as: Straight/Heterosexual Physical Exam Const: COMMON NORMALS: no acute distress, average body habitus, patient oriented x3, no limitations, healthy appearing, alert and well nourished GENERAL APPEARANCE: cooperative and comfortable ORIENTATION/CONSCIOUSNESS: Yes awake HENMT: COMMON NORMALS: normocephalic, atraumatic, hearing grossly normal bilaterally, external ears normal, Normal external nose present, Normal nasal mucous membranes and turbinates present and moist oral mucous membranes HEAD & SCALP: normocephalic and atraumatic NOSE: Normal external nose present and Normal nasal mucous membranes and turbinates present EXTERNAL EAR: Yes external ears normal Eye: COMMON NORMALS: Equal, round and reactive pupils present, EOMs intact bilaterally, conjunctivae normal and normal visual ramirez by confrontation CONJUNCTIVA: Yes conjunctivae normal PUPIL: Yes Equal, round and reactive pupils present Neck/C-Spine: COMMON NORMALS: full ROM, supple, no meningeal signs and no JVD Resp: COMMON NORMALS: normal respiratory effort, No retractions, No use of accessory muscles and clear to auscultation bilaterally AUSCULTATION: clear to auscultation bilaterally, no crackles, no rales, no rhonchi and no wheezes Cardio: COMMON NORMALS: no JVD, regular rate, regular rhythm, S1 normal heart sound present, S2 normal heart sound present, No gallops present (Cardio), No clicks present (Cardio), No murmurs present (Cardio), No rub (Cardio) and Peripheral pulses 2+ throughout RATE: regular rate RHYTHM: regular rhythm HEART SOUNDS: S1 normal heart sound present and S2 normal heart sound present PERIPHERAL PULSES: Peripheral pulses 2+ throughout GI: COMMON NORMALS: Normal to inspection, nondistended, normoactive bowel sounds present, Soft to palpation, non-tender, No hepatosplenomegaly present and no masses AUSCULTATION: Yes normoactive bowel sounds PALPATION: Yes Soft to palpation, No Guarding due to palpation present (GI), No Rigid due to palpation and Yes No hepatosplenomegaly present RECTAL EXAM: deferred : COMMON NORMALS: Yes no CVA tenderness BLADDER/KIDNEY EXAM: Yes no CVA tenderness Back/Pelvis: COMMON NORMALS: no CVA tenderness Extremity: COMMON NORMALS: normal to inspection and full ROM Neuro: COMMON NORMALS: patient oriented x3, moves all extremities, no focal motor deficits and no sensory deficits noted SENSORIUM/ORIENTATION: Yes alert MENINGEAL SIGNS: Yes no meningeal signs Psych: COMMON NORMALS: mental status grossly normal, cooperative and speech normal SPEECH: Yes normal speech Skin: COMMON NORMALS: no rashes or lesions noted GENERAL SKIN EXAM: no rashes or lesions noted Course Vital Signs: Vital signs: Vital Signs Temperature 98.5 F 01/31/24 01:13 Pulse Rate 70 01/31/24 01:13 Respiratory Rate 16 01/31/24 01:13 Blood Pressure 119/71 01/31/24 01:13 Pulse Oximetry 96 01/31/24 01:13 Oxygen Delivery Me thod Room Air 01/30/24 22:52 MDM - Abdominal Pain Medical Decision Making This patient was seen and evaluated today for abdominal pain that she reports having intermittently over the past several months. She noted 7 episodes today, most recent was on the way to the ED. She was pain free on examination. Vitals normal and have remained stable throughout her ED course. Exam essentially normal as the pain was not present nor was reproducible with palpation at the epigastrium. She does not a hx of GERD, in which she had a gastric bypass procedure performed due to refractory to multiple medications. She also reported a hx of recent total hysterectomy due to numerous symptomatic fibroids. I had ordered the urine preg prior to her informing me of this. Her CBC showed some evidence of mild anemia, which her Hgb seemingly normal a few months ago. She was not reporting any blood in stool or vomiting of blood. Her lipase was normal. Rest of blood work unremarkable aside from some minor elevation in her LFTs. Her UA did show some significant evidence of a urinary tract infection, however patient had not complained of any urinary symptoms. Her CT abd/pelvis was unremarkable for any acute abdominopelvic processes. EKG normal. I will treat the patient for an acute cystitis, and I did have a thorough conversation with the patient in regards to following up with her PCP for re-evaluation and to assess her drop in Hgb and elevation in LFTs. Return precautions are given and patient agrees with dc home. Lab Data 01/30/24 22:59 01/30/24 22:59 Labs/Radiology: Radiology Impressions Abdomen/Pelvis CT 01/30/24 23:18 IMPRESSION: 1. No acute intra-abdominal or pelvic process. 2. Interval hysterectomy. 3. Other stable findings above. Laboratory Results WBC 9.79 10^3/uL (3.29-11.43) 01/30/24 22:59 RBC 4.06 10^6/uL (3.85-5.65) 01/30/24 22:59 Hgb 10.10 g/dL (11.27-16.99) L 01/30/24 22:59 Hct 33.8 % (36-47) L 01/30/24 22:59 MCV 83.3 fl (85-98) L 01/30/24 22:59 MCH 24.9 pg (27-33) L 01/30/24 22:59 MCHC 29.9 g/dL (30-55) L 01/30/24 22:59 RDW 15.4 % (12.1-15.1) H 01/30/24 22:59 Plt Count 237 10^3/cmm (157-399) 01/30/24 22:59 MPV 9.4 fL (7.4-10.4) 01/30/24 22:59 Neut % (Auto) 80.2 % 01/30/24 22:59 Lymph % (Auto) 11.7 % 01/30/24 22:59 Tillman % (Auto) 6.1 % 01/30/24 22:59 Eos % (Auto) 1.5 % 01/30/24 22:59 Baso % (Auto) 0.3 % 01/30/24 22:59 Neut # (Auto) 7.84 10^3/uL (1.8-7.7) H 01/30/24 22:59 Lymph # (Auto) 1.2 10^3/uL (0.8-4.8) 01/30/24 22:59 Tillman # (Auto) 0.6 10^3/uL (0.2-0.9) 01/30/24 22:59 Eos # (Auto) 0.2 10^3/uL (0.0-0.8) 01/30/24 22:59 Baso # (Auto) 0.0 10^3/uL (0.0-0.1) 01/30/24 22:59 Nucleated RBC % (auto) 0 % 01/30/24 22:59 Nucleated RBCs # 0.0 /100WBC 01/30/24 22:59 Sodium 137 mmol/L (136-145) 01/30/24 22:59 Potassium 4.0 mmol/L (3.5-5.1) 01/30/24 22:59 Chloride 104 mmol/L (98-107) 01/30/24 22:59 Carbon Dioxide 23 mmol/L (22-29) 01/30/24 22:59 Anion Gap 14.0 (5-19) 01/30/24 22:59 BUN 16 mg/dL (6-20) 01/30/24 22:59 Creatinine 0.7 mg/dL (0.5-0.9) 01/30/24 22:59 GFR Calculation 92.2 mL/min (90-130) 01/30/24 22:59 Glucose 86 mg/dL (65-115) 01/30/24 22:59 Calculated Osmolality 284 mOsm/kg (285-295) L 01/30/24 22:59 Calcium 8.5 mg/dL (8.5-10.5) 01/30/24 22:59 Total Bilirubin 0.2 mg/dL (0.15-1.2) 01/30/24 22:59 AST 65 U/L (0-32) H 01/30/24 22:59 ALT 38 U/L (0-33) H 01/30/24 22:59 Alkaline Phosphatase 128 U/L (35-105) H 01/30/24 22:59 Total Protein 6.7 g/dL (6.6-8.7) 01/30/24 22:59 Albumin 3.8 g/dL (3.5-5.2) 01/30/24 22:59 Globulin 2.9 g/dL (1.3-4.6) 01/30/24 22:59 Lipase 51 U/L (13-60) 01/30/24 22:59 HCG, Qual Negative (Negative) 01/30/24 22:59 Urine Color Dark yellow (Yellow) 01/30/24 22:59 Urine Appearance Hazy (CLEAR) A 01/30/24 22:59 Urine pH 6 (5-7) 01/30/24 22:59 Ur Specific Franklin 1.020 (1.005-1.030) 01/30/24 22:59 Urine Protein Neg (Negative) 01/30/24 22:59 Urine Glucose (UA) Norm (Normal) 01/30/24 22:59 Urine Ketones Negative (Negative) 01/30/24 22:59 Urine Blood 2+ (Negative) H 01/30/24 22:59 Urine Nitrate Positive (Negative) H 01/30/24 22:59 Urine Bilirubin 1+ (Negative) H 01/30/24 22:59 Urine Urobilinogen 4 mg/dL (Negative) H 01/30/24 22:59 Ur Leukocyte Esterase Trace (Negative) H 01/30/24 22:59 Urine RBC 5-10 /hpf (0-2) H 01/30/24 22:59 Urine WBC 5-10 /hpf (0-5) H 01/30/24 22:59 Ur Squamous Epith Cells 25-40 /hpf (0-5) H 01/30/24 22:59 Amorphous Sediment Not Reportable 01/30/24 22:59 Urine Bacteria 4+ /hpf (NONE) H 01/30/24 22:59 Urine Mucus 3+ /hpf 01/30/24 22:59 All radiology interpretation(s) finalized by discharge Discharge Plan Discharge Patient Disposition: Home Clinical Impression: Urinary tract infection Qualifiers: Urinary tract infection type: site unspecified Hematuria presence: with hematuria Qualified Code(s): N39.0 - Urinary tract infection, site not specified Condition: Stable Prescriptions: New Cipro 500 mg tablet 500 mg PO BID 10 Days Qty: 20 0RF Pyridium 100 mg tablet 100 mg PO Q8H PRN (Reason: pain) Qty: 30 0RF No Action gabapentin 100 mg capsule 100 mg PO TID 30 Days Qty: 90 3RF meloxicam 15 mg tablet 15 mg PO DAILY 30 Days Qty: 30 3RF venlafaxine 75 mg capsule,extended release 24hr 75 mg PO DAILY 30 Days Qty: 30 3RF omeprazole 10 mg capsule,delayed release(DR/EC) 10 mg PO DAILY 30 Days Qty: 30 3RF Discharge Orders: Discharge ED (Routine); Ordered 01/31/24 Ordered By: Renzo Melendrez Referrals: Val Rossi FNP [Primary Care Provider] - Discharge Diet: Usual diet Discharge Activity: Increase activity as tolerated Patient Instructions: Urinary Tract Infection in Women (ED) Activity Restrictions/Additional Instructions: Cipro as prescribed. Pyridium as needed. Plenty fluids. Please follow-up with your primary doctor in the next couple of days to discuss labs and for reevaluation. Return with any new or concerning symptoms. Coding Level of Care Code ED Combatant Diver Qualified for Chg Fwd Documented by User: Benjie William DO 02/02/24 08:57 HPI - Abdominal Pain General: Chief Complaint: Abdominal Pain Stated Complaint: epigastric pain Time Seen by Provider: 01/30/24 22:58 PFSH ED PFSH: Medical History GERD (gastroesophageal reflux disease) History of shoulder dystocia Urolithiasis Surgical History History of open reduction and internal fixation (ORIF) procedure Left forearm at [place] Status post laparoscopic cholecystectomy (04/18/21) History of 07/2020 S/P ureteral stent placement 2006 History of elbow surgery 2006- Performed at [facility] History of tonsillectomy 1993- Performed in [facility] H/O shoulder surgery 2015- Performed in [place], [place] - Left shoulder History of incision and drainage I&D of vulvar abscess, marsupialization procudure. 03/28/2012-Dx: right vulvar abscess Performed by Dr Garcia at [facility] in [place], [place] H/O dilation and curettage 2002-Performed at [facility] in [place], [place] H/O foot surgery 2014- Performed in [facility] H/O wisdom tooth extraction 2000- Performed [facility] Family History Mother Depression Alcoholic Hypertension Father Hypertension Heart disease Social History Smoking and tobacco/nicotine status: current every day tobacco/nicotine user Alcohol intake: unknown Substance/Drug Use: never Do you think of yourself as: Straight/Heterosexual Course Vital Signs: Vital signs: Vital Signs Temperature 98.5 F 01/31/24 01:13 Pulse Rate 70 01/31/24 01:13 Respiratory Rate 16 01/31/24 01:13 Blood Pressure 119/71 01/31/24 01:13 Pulse Oximetry 96 01/31/24 01:13 Oxygen Delivery Me thod Room Air 01/30/24 22:52 MDM - Abdominal Pain Medical Decision Making This patient was seen and evaluated today for abdominal pain that she reports having intermittently over the past several months. She noted 7 episodes today, most recent was on the way to the ED. She was pain free on examination. Vitals normal and have remained stable throughout her ED course. Exam essentially normal as the pain was not present nor was reproducible with palpation at the epigastrium. She does not a hx of GERD, in which she had a gastric bypass procedure performed due to refractory to multiple medications. She also reported a hx of recent total hysterectomy due to numerous symptomatic fibroids. I had ordered the urine preg prior to her informing me of this. Her CBC showed some evidence of mild anemia, which her Hgb seemingly normal a few months ago. She was not reporting any blood in stool or vomiting of blood. Her lipase was normal. Rest of blood work unremarkable aside from some minor elevation in her LFTs. Her UA did show some significant evidence of a urinary tract infection, however patient had not complained of any urinary symptoms. Her CT abd/pelvis was unremarkable for any acute abdominopelvic processes. EKG normal. I will treat the patient for an acute cystitis, and I did have a thorough conversation with the patient in regards to following up with her PCP for re-evaluation and to assess her drop in Hgb and elevation in LFTs. Return precautions are given and patient agrees with dc home. Chart reviewed Lab Data 01/30/24 22:59 01/30/24 22:59 Labs/Radiology: Radiology Impressions Abdomen/Pelvis CT 01/30/24 23:18 IMPRESSION: 1. No acute intra-abdominal or pelvic process. 2. Interval hysterectomy. 3. Other stable findings above. Laboratory Results WBC 9.79 10^3/uL (3.29-11.43) 01/30/24 22:59 RBC 4.06 10^6/uL (3.85-5.65) 01/30/24 22:59 Hgb 10.10 g/dL (11.27-16.99) L 01/30/24 22:59 Hct 33.8 % (36-47) L 01/30/24 22:59 MCV 83.3 fl (85-98) L 01/30/24 22:59 MCH 24.9 pg (27-33) L 01/30/24 22:59 MCHC 29.9 g/dL (30-55) L 01/30/24 22:59 RDW 15.4 % (12.1-15.1) H 01/30/24 22:59 Plt Count 237 10^3/cmm (157-399) 01/30/24 22:59 MPV 9.4 fL (7.4-10.4) 01/30/24 22:59 Neut % (Auto) 80.2 % 01/30/24 22:59 Lymph % (Auto) 11.7 % 01/30/24 22:59 Tillman % (Auto) 6.1 % 01/30/24 22:59 Eos % (Auto) 1.5 % 01/30/24 22:59 Baso % (Auto) 0.3 % 01/30/24 22:59 Neut # (Auto) 7.84 10^3/uL (1.8-7.7) H 01/30/24 22:59 Lymph # (Auto) 1.2 10^3/uL (0.8-4.8) 01/30/24 22:59 Tillman # (Auto) 0.6 10^3/uL (0.2-0.9) 01/30/24 22:59 Eos # (Auto) 0.2 10^3/uL (0.0-0.8) 01/30/24 22:59 Baso # (Auto) 0.0 10^3/uL (0.0-0.1) 01/30/24 22:59 Nucleated RBC % (auto) 0 % 01/30/24 22:59 Nucleated RBCs # 0.0 /100WBC 01/30/24 22:59 Sodium 137 mmol/L (136-145) 01/30/24 22:59 Potassium 4.0 mmol/L (3.5-5.1) 01/30/24 22:59 Chloride 104 mmol/L (98-107) 01/30/24 22:59 Carbon Dioxide 23 mmol/L (22-29) 01/30/24 22:59 Anion Gap 14.0 (5-19) 01/30/24 22:59 BUN 16 mg/dL (6-20) 01/30/24 22:59 Creatinine 0.7 mg/dL (0.5-0.9) 01/30/24 22:59 GFR Calculation 92.2 mL/min (90-130) 01/30/24 22:59 Glucose 86 mg/dL (65-115) 01/30/24 22:59 Calculated Osmolality 284 mOsm/kg (285-295) L 01/30/24 22:59 Calcium 8.5 mg/dL (8.5-10.5) 01/30/24 22:59 Total Bilirubin 0.2 mg/dL (0.15-1.2) 01/30/24 22:59 AST 65 U/L (0-32) H 01/30/24 22:59 ALT 38 U/L (0-33) H 01/30/24 22:59 Alkaline Phosphatase 128 U/L (35-105) H 01/30/24 22:59 Total Protein 6.7 g/dL (6.6-8.7) 01/30/24 22:59 Albumin 3.8 g/dL (3.5-5.2) 01/30/24 22:59 Globulin 2.9 g/dL (1.3-4.6) 01/30/24 22:59 Lipase 51 U/L (13-60) 01/30/24 22:59 HCG, Qual Negative (Negative) 01/30/24 22:59 Urine Color Dark yellow (Yellow) 01/30/24 22:59 Urine Appearance Hazy (CLEAR) A 01/30/24 22:59 Urine pH 6 (5-7) 01/30/24 22:59 Ur Specific Franklin 1.020 (1.005-1.030) 01/30/24 22:59 Urine Protein Neg (Negative) 01/30/24 22:59 Urine Glucose (UA) Norm (Normal) 01/30/24 22:59 Urine Ketones Negative (Negative) 01/30/24 22:59 Urine Blood 2+ (Negative) H 01/30/24 22:59 Urine Nitrate Positive (Negative) H 01/30/24 22:59 Urine Bilirubin 1+ (Negative) H 01/30/24 22:59 Urine Urobilinogen 4 mg/dL (Negative) H 01/30/24 22:59 Ur Leukocyte Esterase Trace (Negative) H 01/30/24 22:59 Urine RBC 5-10 /hpf (0-2) H 01/30/24 22:59 Urine WBC 5-10 /hpf (0-5) H 01/30/24 22:59 Ur Squamous Epith Cells 25-40 /hpf (0-5) H 01/30/24 22:59 Amorphous Sediment Not Reportable 01/30/24 22:59 Urine Bacteria 4+ /hpf (NONE) H 01/30/24 22:59 Urine Mucus 3+ /hpf 01/30/24 22:59 Discharge Plan Discharge Patient Disposition: Home Clinical Impression: Urinary tract infection Qualifiers: Urinary tract infection type: site unspecified Hematuria presence: with hematuria Qualified Code(s): N39.0 - Urinary tract infection, site not specified Condition: Stable Prescriptions: New Cipro 500 mg tablet 500 mg PO BID 10 Days Qty: 20 0RF Pyridium 100 mg tablet 100 mg PO Q8H PRN (Reason: pain) Qty: 30 0RF No Action gabapentin 100 mg capsule 100 mg PO TID 30 Days Qty: 90 3RF meloxicam 15 mg tablet 15 mg PO DAILY 30 Days Qty: 30 3RF venlafaxine 75 mg capsule,extended release 24hr 75 mg PO DAILY 30 Days Qty: 30 3RF omeprazole 10 mg capsule,delayed release(DR/EC) 10 mg PO DAILY 30 Days Qty: 30 3RF Discharge Orders: Discharge ED (Routine); Ordered 01/31/24 Ordered By: Renzo Melendrez Referrals: Val Rossi FNP [Primary Care Provider] - Discharge Diet: Usual diet Discharge Activity: Increase activity as tolerated Patient Instructions: Urinary Tract Infection in Women (ED) Activity Restrictions/Additional Instructions: Cipro as prescribed. Pyridium as needed. Plenty fluids. Please follow-up with your primary doctor in the next couple of days to discuss labs and for reevaluation. Return with any new or concerning symptoms. Coding Level of Care Code ED Combatant Diver Qualified for Refugio Medrano
[2024-01-30 23:25] LABS: Alanine Aminotransferase 38 U/L (0-33); Albumin Level 3.8 g/dL (3.5-5.2); Alkaline Phosphatase 128 U/L (35-105); Aspartate Amino Transferase 65 U/L (0-32); Blood Urea Nitrogen 16 mg/dL (6-20); Calcium 8.5 mg/dL (8.5-10.5); Carbon Dioxide 23 mmol/L (22-29); Chloride 104 mmol/L (98-107); Creatinine Clr Calc Pharmacy 120.7179; Globulin 2.9 g/dL (1.3-4.6); Glomerular Filtration Rate 92.2 mL/min (90-130); Glucose 86 mg/dL (65-115); Lipase 51 U/L (13-60); Osmolality Calculated 284 mOsm/kg (285-295); Sodium 137 mmol/L (136-145); Total Bilirubin 0.2 mg/dL (0.15-1.2); Total Protein 6.7 g/dL (6.6-8.7)
[2024-01-30] MEDS: sodium chloride 0.9% 1,000 ML 999 ML IV (23:25)
[2024-01-30] MEDS: ondansetron 2 mg/ML SDV 2 mL 4 MG IVP (23:25)
[2024-01-30 23:34] LABS: Glucose Urine UA Norm (Normal); Ketones Urine Negative (Negative); Protein Urine Neg (Negative); Urine Appearance Hazy (CLEAR); Urine Color Dark Yellow (Yellow); pH Urine 6 (5-7)
[2024-01-30 23:35] LABS: Add Urine Culture? No; Add Urine Microscopic? YES; Bacteria Urine 4+ /hpf; Bilirubin Urine 1+ (Negative); Blood Urine 2+ (Negative); Leukocyte Esterase Urine Trace (Negative); Mucus Urine 3+ /hpf; Nitrate Urine Positive (Negative); Squamous Epithelial Cell Urine 25-40 /hpf (0-5); Urobilinogen Urine 4 mg/dL (Negative)
[2024-01-31] MEDS: iohexol 350 mg/mL 500 mL Btl (per mL) IV (00:03)
[2024-01-31 00:18] VITALS: BP 119/71; PULSE 70; RESP 16; O2SAT 96
[2024-01-31] MEDS: ciprofloxacin 500 mg Tablet PO (01:06)
[2024-01-31 01:13] VITALS: BP 119/71; PULSE 70; RESP 16; TEMP 36.9; O2SAT 96
== END 2024-01-31 01:15 | disposition home or self-care (01) ==
PROVIDERS: Emergency Provider Physician Assistant; PCP Nurse Practitioner
DX: N39.0 Urinary tract infection, site not specified (principal); Z72.0 Tobacco use
CPT/HCPCS: 74177; 80053; 81001; 81025; 83690; 85025; 93005; 96361; 96374; 99285; J2405; J7030; Q9967

== ENCOUNTER 2024-03-19 12:03 | Outpatient (CLI) | payer OTHER, SELFPAY ==
--- NOTE | 2024-03-19 | MM_ITS ---
NOTE: Report was unsigned for reason: System failure. Original Signature date and time was: 03/23/24 @6:58 pm BILATERAL 3D TOMOSYNTHESIS DIGITAL SCREENING MAMMOGRAPHY WITH CAD CLINICAL INFORMATION: SCREEN HISTORY: Screening mammogram. No current complaints. COMPARISON: Baseline TECHNIQUE: Bilateral CC and MLO views. FINDINGS: Scattered fibroglandular densities bilaterally. No suspicious focal mass, asymmetry, calcifications, or architectural distortion. No evidence of malignancy. IMPRESSION: BI-RADS: 1-Negative FOLLOW UP: 1 Year Follow-up Recommend return to annual screening mammography. RAMIREZ
== END 2024-03-19 12:04 | disposition home or self-care (01) ==
LOC: RAD 12:03
PROVIDERS: PCP Nurse Practitioner; Visit Provider Nurse Practitioner
DX: Z12.31 Encounter for screening mammogram for malignant neoplasm of breast (principal); R92.323 Mammographic fibroglandular density, bilateral breasts
CPT/HCPCS: 77063; 77067

== ENCOUNTER 2024-10-13 10:50 | Emergency (ER) | payer OTHER, SELFPAY ==
[2024-10-13 11:35] VITALS: BP 132/74; PULSE 69; RESP 18; TEMP 36.7; O2SAT 98; BMI 34.1
--- NOTE | 2024-10-13 11:45 | XRR_ITS ---
PROCEDURE INFORMATION: Exam: XR Right Elbow Exam date and time: 10/13/2024 11:59 AM Age: 44 years old Clinical indication: Right; Patient HX: RT elbow pain swelling no trauma; Additional info: Pain/swelling TECHNIQUE: Imaging protocol: Radiologic exam of the right elbow. Views: 3 or more views. COMPARISON: US soft tissue/extremity [id number] 08/11/2019 2:26 PM FINDINGS: Limitations: The elbow is slightly extended on the lateral view, limiting evaluation. Bones/joints: Coarse calcifications/ossifications adjacent to the medial epicondyle, measuring up to 1.5 cm. Normal anatomic alignment. No acutely displaced fractures. No joint dislocation. No aggressive osseous lesions. There is no evidence of a joint effusion. The bone density is normal for this patient's age. Soft tissues: No acute soft tissue findings. XR/XR elbow RT min 3V* [id number] IMPRESSION: 1. No acute fracture or dislocation. 2. Coarse calcifications/ossifications adjacent to the medial epicondyle, measuring up to 1.5 cm. 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
--- NOTE | 2024-10-13 12:18 | W.ED.EXTPRO ---
HPI - Extremity Problem General: Chief complaint: Extremity Problem,Nontraumatic Stated complaint: right arm unable to bend hot to touch Time Seen by Provider: 10/13/24 12:06 Source: patient Mode of arrival: ambulatory Limitations: no limitations History of Present Illness: Patient is a nice 44-year-old female presents to ED today with a complaint of right elbow pain. She states pain has been present well over a month. No known injury or trauma. Patient states she has been dealing with some neck issues and has been trying conservative therapies such as chiropractor care and cupping. She states she has been seeing her PCP through the [facility] and plan will eventually be for MRI cervical imaging. She states over the past month or so she has been having localized right elbow pain worse with range of motion and lifting. She does have a history of previous surgery on that elbow for nerve impingement. Patient has not noticed any swelling to the elbow. No redness or warmth. No fevers. MD Complaint: joint pain Onset (ago): month(s) Pain Consistency: constant Location: right and elbow Radiation: none Relieving factors: nothing Exacerbating factors: range of motion and other (lifting) Associated symptoms: Reports no associated symptoms; Deny fever(s) Related Data Home Medications Medication Instructions Recorded Confirmed gabapentin 100 mg capsule See Rx Instructions .Route .COMPLEX 09/17/24 09/19/24 Previous Rx's Medication Instructions Recorded estradiol 2 mg tablet 2 mg PO DAILY #90 tabs 09/17/24 ondansetron 8 mg disintegrating 8 mg PO BID PRN nausea and 09/17/24 tablet vomiting #30 tabs pantoprazole 40 mg tablet,delayed 40 mg PO DAILY #30 tabs 09/17/24 release (Protonix) venlafaxine 150 mg 150 mg PO DAILY 30 days #30 caps 09/17/24 capsule,extended release 24 hr hydrocodone 5 mg-acetaminophen 325 1 tab PO Q6H PRN pain 5 days #20 09/19/24 mg tablet tabs methocarbamol 750 mg tablet 750 mg PO Q8H #30 tabs 09/19/24 prednisone 20 mg tablet 60 mg (3 x 20 mg) PO DAILY 5 days 09/19/24 #15 tabs Allergies Allergy/AdvReac Type Severity Reaction Status Date / Time codeine Allergy Unknown Verified 09/19/24 15:44 hydrocodone Allergy ALGY-Anaphy Verified 09/19/24 15:44 laxis latex Allergy Unknown Verified 09/19/24 15:44 oxycodone Allergy ALGY-Anaphy Verified 09/19/24 15:44 laxis Penicillins Allergy ALGY-Hives Verified 09/19/24 15:44 morphine AdvReac Severe ALGY-Difficulty Verified 09/19/24 15:44 [From Duramorph (PF)] Breathing Review of Systems Const: Denies: fever(s), chills, body aches, fatigue or malaise Musc: Reports: joint pain (R elbow); Denies: neck pain, back pain, extremity pain, extremity swelling, joint swelling, joint redness, joint warmth or limited range of motion Neuro: Denies: numbness in extremities, weakness in extremities or sensory changes PFSH ED PFSH: Medical History GERD (gastroesophageal reflux disease) History of shoulder dystocia Urolithiasis Surgical History History of total hysterectomy History of open reduction and internal fixation (ORIF) procedure Left forearm at [place] Status post laparoscopic cholecystectomy (04/18/21) History of 07/2020 S/P ureteral stent placement 2006 History of elbow surgery 2006- [place] [facility] History of tonsillectomy 1993- Performed in [facility] H/O shoulder surgery 2015- Performed in [facility] Left shoulder History of incision and drainage I&D of vulvar abscess, marsupialization procudure. 03/28/2012-Dx: right vulvar abscess Performed by Dr Garcia at [facility] [place], [place] H/O dilation and curettage 2002-Performed at [facility] in [place], [place] H/O foot surgery 2015- Performed in [facility] H/O wisdom tooth extraction 2000- Performed [facility] Family History Mother Depression Alcoholic Hypertension Father Hypertension Heart disease Social History Smoking and tobacco/nicotine status: never used tobacco/nicotine Alcohol intake: unknown Substance/Drug Use: never Do you think of yourself as: Straight/Heterosexual Physical Exam Const: COMMON NORMALS: no acute distress, average body habitus, patient oriented x3, no limitations, healthy appearing, alert and well nourished Extremity: COMMON NORMALS: normal to inspection, full ROM, capillary refill normal, no joint enlargement and no clubbing, cyanosis or edema GENERAL: Yes normal exam except as noted RIGHT UPPER EXTREMITY: Yes elbow joint (full ROM but some discomfort elicited ) Right elbow: Yes inspection, Yes palpation (TTP along lateral epicondyle; pain with supination against resistance ), Yes neurovascular exam (normal) and Yes other (normal gross inspection; no edema, erythema or warmth) Neuro: COMMON NORMALS: patient oriented x3, moves all extremities, no focal motor deficits and no sensory deficits noted SENSORIUM/ORIENTATION: Yes alert Course Vital Signs: Vital signs: Vital Signs Temperature 98.1 F 10/13/24 11:35 Pulse Rate 62 10/13/24 12:32 Respiratory Rate 18 10/13/24 11:35 Blood Pressure 132/74 10/13/24 12:32 Pulse Oximetry 99 10/13/24 12:32 Oxygen Delivery Me thod Room Air 10/13/24 11:35 MDM - Extremity (Nontraumatic) Medical Decision Making XR showing no acute fracture or dislocation. She does have some calcifications adjacent to her medial epicondyle. Clinically she has tenderness more to her lateral elbow. Patient has been treating conservatively with chiropractor care, has tried steroids, and has followed up with her primary care and symptoms do not seem to be improving. I think she would benefit from orthopedic evaluation thus referral was placed for this. We talked about trying a brace for tendinitis. She would like to forego further steroids at this time. Return to ED precautions given. Lab Data Radiology Impressions Elbow X-Ray 10/13/24 11:45 IMPRESSION: 1. No acute fracture or dislocation. 2. Coarse calcifications/ossifications adjacent to the medial epicondyle, measuring up to 1.5 cm. 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 All radiology interpretation(s) finalized by discharge Discharge Plan Discharge Patient Disposition: Home Clinical Impression: Right elbow tendonitis Condition: Stable Prescriptions: No Action venlafaxine 150 mg capsule,extended release 24hr 150 mg PO DAILY 30 Days Qty: 30 5RF pantoprazole [Protonix] 40 mg tablet,delayed release (DR/EC) 40 mg PO DAILY Qty: 30 5RF gabapentin 100 mg capsule See Rx Instructions .ROUTE .COMPLEX Dose Instruction: TAKE 1 CAPSULE BY MOUTH THREE TIMES DAILY Rx Instructions: TAKE 1 CAPSULE BY MOUTH Daily ondansetron 8 mg tablet,disintegrating 8 mg PO BID PRN (Reason: nausea and vomiting) Qty: 30 0RF estradiol 2 mg tablet 2 mg PO DAILY Qty: 90 1RF hydrocodone-acetaminophen 5-325 mg tablet 1 tab PO Q6H PRN (Reason: pain) 5 Days Qty: 20 0RF prednisone 20 mg tablet 60 mg PO DAILY 5 Days Qty: 15 0RF methocarbamol 750 mg tablet 750 mg PO Q8H Qty: 30 0RF Discharge Orders: Discharge ED (Routine); Ordered 10/13/24 Ordered By: Stephani Seay Referrals: Val Rossi FNP [Primary Care Provider] - Patient Instructions: Tennis Elbow (ED) Activity Restrictions/Additional Instructions: As we discussed, I will have case management set you up with a follow-up appointment with orthopedics for further evaluation of your elbow pain. We spoke about tendinitis bracing to try to help with discomfort. Coding Level of Care Code ED Nail Kegger for Refugio eMdrano
[2024-10-13 12:32] VITALS: BP 132/74; PULSE 62; O2SAT 99
--- NOTE | 2024-10-14 07:26 | DCPLANNER ---
Message sent to ortho for follow up
== END 2024-10-13 12:33 | disposition home or self-care (01) ==
PROVIDERS: Emergency Provider Physician Assistant; PCP Nurse Practitioner
DX: M77.8 Other enthesopathies, not elsewhere classified (principal)
CPT/HCPCS: 73080; 99283

== ENCOUNTER → 2024-10-16 12:41 | Outpatient (BNVA) | payer OTHER, SELFPAY | PROVIDERS: PCP Nurse Practitioner; Referring Provider Nurse Practitioner; Visit Provider Specialist | DX: G62.9 Polyneuropathy, unspecified (principal); G56.01 Carpal tunnel syndrome, right upper limb | CPT/HCPCS: 95912 ==

== ENCOUNTER → 2024-11-06 08:14 | Outpatient (BNVA) | payer OTHER, SELFPAY | PROVIDERS: PCP Nurse Practitioner; Visit Provider Physician Assistant | DX: M25.521 Pain in right elbow (principal); G56.01 Carpal tunnel syndrome, right upper limb; M77.11 Lateral epicondylitis, right elbow | CPT/HCPCS: 20605; 20600; 73080; 99204; J3301; J3490 ==

== ENCOUNTER → 2024-12-09 12:34 | Outpatient (BNVA) | payer OTHER, SELFPAY | PROVIDERS: PCP Nurse Practitioner; Visit Provider Surgery | DX: R03.0 Elevated blood-pressure reading, without diagnosis of hypertension (principal); R10.9 Unspecified abdominal pain | CPT/HCPCS: 99204 ==

== ENCOUNTER 2024-12-11 05:38 | Day surgery (SDC) | payer OTHER, SELFPAY ==
[2024-12-11] VITALS (10 sets, daily range): BP systolic 102–138; BP diastolic 66–79; PULSE 55–70; RESP 12–18; TEMP 36.1–36.2; O2SAT 95–98
--- NOTE | 2024-12-11 06:03 | ANES.PREANE2 ---
Pre-Anesthetic Assessment Height/Weight: Height 5 ft 5 in Preop Diagnosis: Carpal tunnel syndrome Operation Date: 12/11/24 07:00 Proposed Procedures p Carpal Tunnel Release(Right) - Suraj Lea DO Was Beta Jakub taken within 24 hours: N/A Was Clonidine taken within 24 hours: N/A Social No alcohol and No tobacco Exam alert, oriented x 3, clear to auscultation bilaterally and regular rate & rhythm Airway Submandibular: within normal limits Cervical ROM: within normal limits Mallampati: Class I Dentition: full Anesthetic Plan ASA status: 2 Anesthesia: MAC Other: No prior issues with anesthesia NPO since yesterday evening History of GERD on Protonix States that she had prior JOLYNN but has since lost some weight and does not need CPAP anymore Denies any cardiac or pulmonary issues EKG sinus rhythm METs greater than 4 Plan for MAC anesthetic with local via surgeon Medications/Allergies Home Medications ?Medication ?Instructions ?Recorded ?Confirmed ?Last Taken ?Type estradiol 2 mg tablet 2 mg PO DAILY #90 tabs 09/17/24 12/11/24 12/10/24 Rx gabapentin 100 mg capsule 100 mg PO DAILY 09/17/24 12/11/24 12/10/24 History ondansetron 8 mg disintegrating 8 mg PO BID PRN nausea and 09/17/24 12/11/24 Unknown Rx tablet vomiting #30 tabs pantoprazole 40 mg tablet,delayed 40 mg PO DAILY #30 tabs 09/17/24 12/11/24 12/10/24 Rx release (Protonix) venlafaxine 150 mg 150 mg PO DAILY 30 days #30 caps 09/17/24 12/11/24 12/10/24 Rx capsule,extended release 24 hr Allergies Allergy/AdvReac Type Severity Reaction Status Date / Time codeine Allergy Unknown Verified 11/06/24 08:23 hydrocodone Allergy ALGY-Anaphy Verified 11/06/24 08:23 laxis latex Allergy Unknown Verified 11/06/24 08:23 oxycodone Allergy ALGY-Anaphy Verified 11/06/24 08:23 laxis Penicillins Allergy ALGY-Hives Verified 11/06/24 08:23 morphine (From Duramorph AdvReac Severe ALGY-Difficulty Verified 11/06/24 08:23 (PF)) Breathing [facility] Anesthesia Medical History GERD (gastroesophageal reflux disease) History of shoulder dystocia Urolithiasis Surgical History (Updated 12/09/24 @ 13:11 by Shahana Posada) History of total hysterectomy History of open reduction and internal fixation (ORIF) procedure Left forearm at [place] Status post laparoscopic cholecystectomy (04/18/21) History of 07/2020 S/P ureteral stent placement 2006 History of elbow surgery 2006- [place] [facility] of tonsillectomy 1993- Performed in [facility] H/O shoulder surgery 2015- Performed in [facility] Left shoulder History of incision and drainage I&D of vulvar abscess, marsupialization procudure. 03/28/2012-Dx: right vulvar abscess [place] [facility] H/O dilation and curettage 2002-Performed at [facility] in [place], [place] H/O foot surgery 2014- Performed in [facility] H/O wisdom tooth extraction 2000- Performed [facility] Family History Mother Depression Alcoholic Hypertension Father Hypertension Heart disease Social History Smoking and tobacco/nicotine status: never used tobacco/nicotine Alcohol intake: unknown Substance/Drug Use: never Do you think of yourself as: Straight/Heterosexual Data Anesthesia Cardiac Studies: No Data to Display
[2024-12-11] MEDS: sodium chloride 0.9% 1,000 ML 30 ML IV (06:15)
[2024-12-11] MEDS: ketorolac 30 mg/mL INJ IVP (06:17)
[2024-12-11] MEDS: acetaminophen 1,000 MG/100 ML PIGGYBACK 400 MG IV (06:17)
[2024-12-11] MEDS: scopolamine 1 mg PATCH 1 PATCH TRANSDERMA (06:22)
[2024-12-11] MEDS: clindamycin 900 MG/50 ML PREMIX 100 MG IV (07:00)
--- NOTE | 2024-12-11 07:00 | W.PM.OPSFHP ---
Same Day Surgery H&P Indication for Procedure/HPI DATE OF PROCEDURE: December 11, 2024 CHIEF COMPLAINT/INDICATIONFOR SURGICAL PROCEDURE: Right carpal tunnel syndrome PREOP DIAGNOSIS: Right carpal tunnel syndrome PLANNED PROCEDURE: Operation Date: 12/11/24 07:00 Proposed Procedures p Carpal Tunnel Release(Right) - Suraj Lea, DO Medications/Allergies* Home Medications ?Medication ?Instructions ?Recorded ?Confirmed ?Type gabapentin 100 mg capsule 100 mg PO DAILY 09/17/24 12/11/24 History Allergies/Adverse Reactions Allergy/AdvReac Type Severity Reaction Status Date / Time codeine Allergy Unknown Verified 11/06/24 08:23 hydrocodone Allergy ALGY-Anaphy Verified 11/06/24 08:23 laxis latex Allergy Unknown Verified 11/06/24 08:23 oxycodone Allergy ALGY-Anaphy Verified 11/06/24 08:23 laxis Penicillins Allergy ALGY-Hives Verified 11/06/24 08:23 morphine (From Duramorph AdvReac Severe ALGY-Difficulty Verified 11/06/24 08:23 (PF)) Breathing Current Medications: Generic Name Dose Route Start Last Admin Trade Name Freq PRN Reason Stop Dose Admin Sodium Chloride 1,000 mls @ 30 mls/hr 12/11/24 06:00 12/11/24 06:15 Sodium Chloride 0.9% IV 12/12/24 05:59 30 mls/hr .Q24H TRENT Administration Pertinent History/Comorbid Conditions* Medical History (Updated 11/06/24 @ 08:59 by JANICE Bourne) GERD (gastroesophageal reflux disease) History of shoulder dystocia Urolithiasis Surgical History (Updated 09/17/24 @ 10:26 by AMANDA Cerrato) History of total hysterectomy History of open reduction and internal fixation (ORIF) procedure Left forearm at [place] Status post laparoscopic cholecystectomy (04/18/21) History of 07/2020 S/P ureteral stent placement 2006 History of elbow surgery 2006- [place] [facility] [place] of tonsillectomy 1993- Performed in [facility] H/O shoulder surgery 2015- Performed in [place], [place] - Left shoulder History of incision and drainage I&D of vulvar abscess, marsupialization procudure. 03/28/2012-Dx: right vulvar abscess [place] Dr Garcia [place] [facility] H/O dilation and curettage 2002-Performed at [facility] in [place], [place] H/O foot surgery 2014- Performed in [facility] H/O wisdom tooth extraction 2000- Performed [facility] [employer] [facility] Family History (Updated 07/23/20 @ 07:45 by Alexia Knox LPN) Depression Mother Alcoholic Heart disease Father Hypertension Mother Father Social History Smoking and tobacco/nicotine status: never used tobacco/nicotine Alcohol intake: unknown Substance/Drug Use: never Do you think of yourself as: Straight/Heterosexual Pertinent Exam Findings alert, oriented x 3, operative site marked and procedure specific exam findings Please refer to detailed orthopedic examination on 11/06/2024: Right Elbow- -Full ROM of elbow, but endorses some pain with end Range of motion. -Point tenderness at the ECRB-lateral epicondyles -Pain with pronation supination of forearm -following maneuvers exacerbate pain at lateral epicondyle resisted wrist extension with elbow fully extended resisted extension of the long fingers -No intrinsic muscle weakness Right Hand -Positive Tinels sign and positive Phalens. No thenar muscle atrophy and no thenar muscle strength intact. Recommendations Surgery/Procedure today Other Plans: Of plan proceed to the OR today for right carpal tunnel release patient understands and outs procedure risk-benefit complication alternatives surgery through shared decision-making elects receive surgical invention. All questions answered at this time Coding Level of Care Code Acute Code for Keving Mitchell
[2024-12-11] MEDS: lidocaine-epi 1% 20 mL INJ INJECTION (07:25)
[2024-12-11] MEDS: ROPivacaine 0.5% SDV 30 mL 150 MG INJECTION (07:25)
--- NOTE | 2024-12-11 07:31 | W.PM.BPON ---
Date of Procedure: 12/11/2024 Surgeon: Suraj Lea DO Bone Drier Operator(s): None Procedure(s) performed: Right carpal tunnel release Findings of the procedure(s): Patient found to have right carpal tunnel syndrome underwent procedure as planned without issues or complications Estimated blood loss: 2 cc Specimen(s) removed: None Post-operative diagnosis: Right carpal tunnel syndrome
--- NOTE | 2024-12-11 07:33 | PM.OP ---
Operative Report Date of procedure: December 11, 2024 Surgeon: Suraj Lea DO Procedure: Preop Diagnosis: Right Carpal Tunnel Syndrome Post-op diagnosis: Same Procedure done: 1. Right carpal tunnel release Surgeon: Suraj Lea DO Anesthesia: MAC (Local) Estimated blood loss: 2 mL Tourniquet time 6 minutes IV fluids: See anesthesia record Complications: None Findings: See operative report narrative Condition: stable Disposition: same day Brief History: Patient is a pleasant 44 year-old female with right carpal tunnel syndrome. Patient has been worked up in the outpatient setting findings and physical examination consistent with this. Patient nerve conduction studies consistent with carpal tunnel syndrome. We detailed out patient's risk benefits complication alternatives with surgical and nonsurgical treatment options. Through shared decision making, patient agrees to proceed with surgical intervention of the right carpal tunnel release . Patient understands and agrees with current plan. All questions answered. Patient elects to proceed with surgical intervention with carpal tunnel release. Procedure: Patient seen and evaluated in the preoperative holding area. Consent was reviewed and signed with patient. Correct extremity was marked. Patient was seen evaluated by the anesthesia department once cleared for surgery was brought back to the operative suite. Patient was kept on [facility] in supine position all bony prominences were well-padded patient properly secured to the bed. Right upper extremity was then placed onto an armboard. A nonsterile tourniquet was applied to the Right upper arm. Patient underwent anesthesia per the anesthesia department. Patient's Right upper extremity was then prepped and draped in standard orthopedic fashion. Final timeout performed. Patient received appropriate preoperative antibiotics. Under sterile aseptic technique patient received local anesthesia over the preplanned carpal tunnel incision site. Esmarch was used to exsanguinate the Right upper extremity and tourniquet was insufflated to 250 mmHg. A standard mini open Right carpal tunnel incision was made. Starting distally at Garcia's cardinal line in line with the fourth ray extending proximally distal to the wrist crease centered over the carpal tunnel. Sharp scalpel incision was made through skin and subcutaneous tissue. Self-retaining retractor was placed and the palmar fascia was identified. This was then split longitudinally and direct visualization of the transverse carpal ligament was then made. I then utilizing scalpel feathered through the transverse carpal ligament until I entered the floor of the transverse carpal tunnel ligament into the carpal tunnel. Next I switched to dissection scissors and completed my release of the transverse carpal ligament distally with care to protect the recurrent motor branch. I completely released into the palmar fat and until no entrapment was noted distally. Care was made to protect the superficial palmar arch during my distal dissection. Next I utilized a nasal speculum placed on top of the transverse carpal ligament and utilize this to retract the subcutaneous fat and tissue and under direct loupe magnification was able to identify the transverse carpal ligament. Next I then protected the contents of the carpal tunnel and subsequently utilizing dissection scissors under loupe magnification completely released the transverse carpal ligament proximally into the antebrachial fascia. Care was made to protect the palmar cutaneous branch by keeping my scissors curved ulnarly. Once completely released, I then placed my Surrency and had appropriate decompression of the carpal tunnel proximally as well as distally. I then inspected the contents of the carpal tunnel which showed an hourglass shape of the median nerve showing its compression. No masses were noted. Tendons appeared healthy. Wound was then thoroughly irrigated. Tourniquet deflated. Hemostasis satisfactory with bipolar electrocautery. I then closed the incision with interrupted nylon stitches. Xeroform 4 x 4's and a bulky soft dressing was applied. Patient was then awakened from anesthesia and taken to PACU in stable condition. Patient tolerated procedure without complications. Disposition: Patient taken to PACU in stable condition recovering well. Dressing clean dry and intact. Patient will receive appropriate discharge instructions as well as pain medication postoperatively. Patient to follow-up with me in the office in 2 weeks. They understand they may be weightbearing as tolerated to the right hand. Patient should keep incision clean dry and intact. Patient understands if any questions or concerns may contact the office.
--- NOTE | 2024-12-11 07:50 | P.PCN_ITS ---
PACU note Narrative: Patient is a 44-year-old female just underwent a right carpal tunnel release. Patient transferred to PACU in stable condition. Pain is well controlled. Dressing on hand is dry and in place. Patient's fingers are warm and well- perfused. Patient is able to wiggle fingers. Patient can wiggle fingers. normal cap refill under 2 seconds. Patient has normal elbow range of motion. Sensation to fingers intact. Exam: awake Disposition: discharged
--- NOTE | 2024-12-11 09:30 | ANE.PACU2 ---
Inpatient post-anesthesia follow up: Airway intact: Yes Vital signs: Temperature 97.0 F Pulse Rate 55 Respiratory Rate 18 Blood Pressure 106/70 Pulse Oximetry 98 Oxygen Delivery Me thod Room Air Oxygen Flow Rate Fraction of Inspir ed Oxygen Hydration adequate: Yes Nausea and vomiting: No Pain level: 1 Mental status: Baseline
== END 2024-12-11 09:30 | disposition home or self-care (01) ==
PROVIDERS: PCP Nurse Practitioner; Visit Provider Student in an Organized Health Care Education/Training Program
PROC: (CPT 64721; principal; 2024-12-11 07:00)
DX: G56.01 Carpal tunnel syndrome, right upper limb (principal); K21.9 Gastro-esophageal reflux disease without esophagitis; Z79.899 Other long term (current) drug therapy; Z88.5 Allergy status to narcotic agent; Z88.2 Allergy status to sulfonamides; Z91.040 Latex allergy status
CPT/HCPCS: 64721; J0131; J1885; J2250; J2704; J2795; J3010; J3490; J7030

== ENCOUNTER 2024-12-18 10:30 | Day surgery (SDC) | payer OTHER, SELFPAY ==
[2024-12-18 10:55] VITALS: BP 127/85; PULSE 73; RESP 17; TEMP 36.1; O2SAT 98; BMI 34.9
--- NOTE | 2024-12-18 11:20 | W.PM.OPSUD ---
Surgery/Procedure H&P Update DATE OF PROCEDURE: December 18, 2024 DATE H&P PERFORMED: 12/09/24 H&P UPDATE INFORMATION: I have reviewed H&P completed within last 30 days, I have examined patient prior to procedure, No changes to prior documentation and H&P is in [facility] [place] on date indicated PLANNED PROCEDURE: Operation Date: 12/18/24 12:10 Proposed Procedures p EGD 00679, R10.9(Not Applicable) - Renzo Henriquez MD
--- NOTE | 2024-12-18 11:59 | P.ANESASSM_ITS ---
Pre-Anesthetic Assessment Height/Weight: Height 1.65 m Weight 95.254 kg Temp Pulse Resp BP Pulse Ox O2 Del Method 97.0 F L 73 17 127/85 98 Room Air 12/18/24 10:55 12/18/24 10:55 12/18/24 10:55 12/18/24 10:55 12/18/24 10:55 12/18/24 10:55 Preop Diagnosis: Abdominal Pain Operation Date: 12/18/24 12:10 Proposed Procedures p EGD 06373, R10.9(Not Applicable) - Renzo Henriquez MD Familial anesthetic complications: none Was Beta Jakub taken within 24 hours: N/A Was Clonidine taken within 24 hours: N/A Last intake: Intake Last Liquid Date 12/17/24 Last Liquid Time 19:00 Last Solid Date 12/17/24 Last Solid Time 19:00 Social No alcohol and No tobacco Exam alert, oriented x 3, clear to auscultation bilaterally and regular rate & rhythm Airway Submandibular: within normal limits Cervical ROM: within normal limits Mallampati: Class II Dentition: full Pulmonary None reported CV/HEM Anemia None reported Hepatic elevated liver enzymes patient atributes elevated levels to previous cholecystectomy with stone blockage. GI Gastroesophageal Reflux Disease previous gastric bypass procedure. Metabolic None reported Musc/skel None reported Neuropsych None reported Anesthetic Plan ASA status: 2 Anesthesia: MAC Medications/Allergies Home Medications ?Medication ?Instructions ?Recorded ?Confirmed ?Last Taken ?Type estradiol 2 mg tablet 2 mg PO DAILY #90 tabs 09/1712/18/24 12/17/24 Rx gabapentin 100 mg capsule 100 mg PO DAILY 09/17/2412/17/24 History ondansetron 8 mg disintegrating 8 mg PO BID PRN nausea and 09/17/24 12/18/24 12/17/24 Rx tablet vomiting #30 tabs pantoprazole 40 mg tablet,delayed 40 mg PO DAILY #30 t abs 09/17/24 12/18/24 12/17/24 Rx release (Protonix) venlafaxine 150 mg 150 mg PO DAILY 30 days #30 caps 09/17/24 12/18/24 12/17/24 Rx capsule,extended release 24 hr tramadol 50 mg tablet 50 mg PO Q6H PRN pain #20 ta bs 12/11/24 12/18/24 12/16/24 Rx Allergies Allergy/AdvReac Type Severity Reaction Status Date / Time codeine Allergy Unknown Verified 12/15/24 10:42 hydrocodone Allergy ALGY-Anaphy Verified 12/15/24 10:42 laxis latex Allergy Unknown Verified 12/15/24 10:42 oxycodone Allergy ALGY-Anaphy Verified 12/15/24 10:42 laxis Penicillins Allergy ALGY-Hives Verified 12/15/24 10:42 morphine (From Duramorph AdvReac Severe ALGY-Difficulty Verified 12/15/24 10:42 (PF)) Breathing [facility] Anesthesia Medical History GERD (gastroesophageal reflux disease) History of shoulder dystocia Urolithiasis Surgical History (Updated 12/09/24 @ 13:11 by Shahana Posada) History of total hysterectomy History of open reduction and internal fixation (ORIF) procedure Left forearm at [place] Status post laparoscopic cholecystectomy (04/18/21) History of 07/2020 S/P ureteral stent placement 2006 History of elbow surgery 2006- Per[place] [facility] [place] History of tonsillectomy 1993- Performed in [facility] H/O shoulder surgery 2015- Performed in [facility] Left shoulder History of incision and drainage I&D of vulvar abscess, marsupialization procudure. 03/28/2012-Dx: right vulvar abscess Performed by Dr Garcia at [facility] [place], [place] H/O dilation and curettage 2002-Performed at [facility] in [place], [place] H/O foot surgery 2014- Performed in [facility] H/O wisdom tooth extraction 2000- Performed [facility] Family History Mother Depression Alcoholic Hypertension Father Hypertension Heart disease Social History Smoking and tobacco/nicotine status: never used tobacco/nicotine Alcohol intake: unknown Substance/Drug Use: never Do you think of yourself as: Straight/Heterosexual Data Anesthesia Cardiac Studies: No Data to Display
[2024-12-18 12:53] VITALS: BP 85/43; PULSE 55; RESP 16; TEMP 36.1; O2SAT 98
[2024-12-18] MEDS: sodium chloride 0.9% 500 ML 15 ML IV (13:05)
[2024-12-18 13:09] VITALS: BP 84/47; PULSE 52; RESP 16; O2SAT 100
[2024-12-18 13:20] VITALS: BP 94/57; PULSE 57; RESP 16; O2SAT 100
[2024-12-18 13:35] VITALS: BP 94/59; PULSE 64; RESP 16; O2SAT 100
[2024-12-18 13:46] VITALS: BP 97/55; PULSE 62; RESP 16; O2SAT 98
--- NOTE | 2024-12-18 14:06 | PC.NURSE ---
Post procedure pt was hypotensive. Administered 500 ml saline bolus as ordered by ALYSON Bruce. Advised Dr. Larsen, who administered epinephrine 10 mg IVP, Dr. Larsen ok with discharging patient after instructing her to rest today. See vitals documented.
--- NOTE | 2024-12-18 14:16 | ANE.PACU2 ---
Inpatient post-anesthesia follow up: Airway intact: Yes Vital signs: Temperature 97.0 F Pulse Rate 62 Respiratory Rate 16 Blood Pressure 97/55 Pulse Oximetry 98 Oxygen Delivery Me thod Room Air Oxygen Flow Rate 2 Fraction of Inspir ed Oxygen Hydration adequate: Yes Nausea and vomiting: No Pain level: 1 Mental status: Baseline
== END 2024-12-18 14:16 | disposition home or self-care (01) ==
PROVIDERS: PCP Nurse Practitioner; Visit Provider Surgery
PROC: 0DJ08ZZ Inspection of Upper Intestinal Tract, Via Natural or Artificial Opening Endoscopic (ICD-10-PCS; principal; 2024-12-18 12:10)
DX: K44.9 Diaphragmatic hernia without obstruction or gangrene (principal); D64.9 Anemia, unspecified; K21.9 Gastro-esophageal reflux disease without esophagitis; Z98.84 Bariatric surgery status; Z90.49 Acquired absence of other specified parts of digestive tract; Z79.899 Other long term (current) drug therapy; Z88.2 Allergy status to sulfonamides; Z88.5 Allergy status to narcotic agent; Z91.040 Latex allergy status; Z90.710 Acquired absence of both cervix and uterus
CPT/HCPCS: 43239; 88305; J2704; J3490; J7040

== ENCOUNTER → 2024-12-24 14:58 | Outpatient (BNVA) | payer OTHER, SELFPAY | PROVIDERS: PCP Nurse Practitioner; Visit Provider Physician Assistant | DX: Z98.890 Other specified postprocedural states (principal) | CPT/HCPCS: 99024 ==

== ENCOUNTER → 2024-12-31 14:12 | Outpatient (BNVA) | payer OTHER, SELFPAY | PROVIDERS: PCP Nurse Practitioner; Visit Provider Surgery | DX: K44.9 Diaphragmatic hernia without obstruction or gangrene (principal); K22.2 Esophageal obstruction | CPT/HCPCS: 99214 ==

== ENCOUNTER → 2025-01-12 10:04 | Outpatient (BNVA) | payer OTHER, SELFPAY | PROVIDERS: PCP Nurse Practitioner; Visit Provider Nurse Practitioner Family | DX: R20.2 Paresthesia of skin (principal); L57.8 Other skin changes due to chronic exposure to nonionizing radiation; D22.39 Melanocytic nevi of other parts of face; L81.4 Other melanin hyperpigmentation; D48.5 Neoplasm of uncertain behavior of skin | CPT/HCPCS: 11104; 99203 ==

== ENCOUNTER 2025-02-02 10:06 | Outpatient (CLI) | payer OTHER, SELFPAY ==
--- NOTE | 2025-02-02 11:00 | FL_ITS ---
WS: [id number] Exam: FL barium swallow [id number] Date/Time of Exam: 02/02/2025 10:37 AM Reason For Exam: Fluoroscopy time: 2min [id number] minutes # of spot films: 7 Oropharyngeal phase of swallowing was normal. The esophagus is smooth in contour. No sign of esophageal mass or stricture. No motility disorder noted. The esophagus is not displaced. There may be a very small hiatal hernia. Signs of partial gastrectomy. FL/FL barium swallow [id number] IMPRESSION: 1. Probable small hiatal hernia. No gastroesophageal reflux noted. 2. No sign of esophageal stricture, mass or motility disorder. Status post steve sobeida surgery.
== END 2025-02-02 10:07 | disposition home or self-care (01) ==
PROVIDERS: PCP Nurse Practitioner; Visit Provider Surgery
DX: K44.9 Diaphragmatic hernia without obstruction or gangrene (principal); K22.4 Dyskinesia of esophagus; Z98.890 Other specified postprocedural states
CPT/HCPCS: 74220

== ENCOUNTER 2025-05-13 16:24 | Inpatient (IN) | payer OTHER, SELFPAY ==
--- OUTSIDE RECORDS SUMMARY | 2024-04-21 07:00 | XMS_ITS ---
Author Organization [address] [place] [address] [facility] Address [address] [place] [id number] Care Team Providers Care Supervisor Parking Lot Name Role Phone Non 1st Choice Provider, Provider Primary Care P wanda Unavailable POC, [address] [place] [address] Healthcare Unavailable Juan Carlos Baker [phone] REASON FOR VISIT est, has orders in chart for x-ray Encounters Encounter Location Date Provider Diagnosis [address] [place] [address] Healthcare POC [address] [id number] 04/21/2024 Juan Carlos Baker Plan Of Treatment No Information Progress Notes * Arely PETER MDOB:1980 ([age] yo F)Acc No.[id number]:04/21/2024 FaceToFace Patient: Arely SPENCER Provider: Janette Baker MD Case Label: Date Of Injury: :1980 A ge:43 Y S ex:Female Date:04/21/2024 Address:[address] [place], [place] [id number] Pcp:Provider Non [facility] Choice Provider Patient's Default Facility:[address] [place] [address] Subjective: * Chief Complaints: * 1 . Est, has orders in chart for x-ray. * Medical History: Objective: * Vitals: Assessment: Plan: * Treatment: Care Plan: * Problems: * Billing Information: * Visit Code: * Procedure Codes: * Electronic signature of Taye Baker MD on 05/13/2025 at 04:39 PM CDT Sign off status: Pending * Provider: Janette Baker MD Date: 0 04/21/2024 Generated for Tiana mckinley/Brandt/Cinthia on: 0 05/13/2025 04:39 PM CDT
--- OUTSIDE RECORDS SUMMARY | 2024-05-28 09:00 | XMS_ITS | Encounter Summary ---
Author Name [facility] [place] [facility] [place] Organization [facility] [place] [facility] [place] Address [address] [place] [address] Care Team Providers Care Early Childhood Assistant Name Role Phone ADELE ARAMBULA Primary Care Provider Unavail able Selected Encounter This section includes the information on record at [place] for the Encounter. Date/Time Encounter Type Encounter Description Reason Provider Source May 28, 2024 02:00 PM PSYTX W PT 60 [facility]ES [facility] - IND ICD-10-CM F43.10 Post-traumatic stress disorder, unspecified TERESE PUTNAM Gustavo Encounter Template Text not used by [place] Assessments - Encounter Diagnoses This section includes the primary and secondary diagnoses documented for the Encounter. Date/Time Primary/Secondary Diagnosis Diagnosis Name Provider Source May 28, 2024 02:48 PM PRIMARY Post-traumatic stress disorder, unspecified TERESE PUTNAM [facility] Plan of Treatment: Future Appointments (+ 6 months) and Future Tests (+/- 45 days) The Plan of Treatment section includes future care activities for the patient from all [place] treatmentfacilities. This section includes future appointments and future orders which are active, pending or scheduled. Future Appointments This section includes appointments that were scheduled to occur 6 months from the date of the Encounter, up to a maximum of 20 appointments. The data comes from all [place] treatment facilities. Appointment Date/Time Appointment Type Appointme nt Facility Name Jun 03, 2024 10:00 AM AMBULATORY - MEDICINE [facility] Jul 07, 2024 08:30 AM AMBULATORY - [facility]RY [facility] Jul 25, 2024 09:30 AM AMBULATORY - [facility]CHIATRY [facility] Jul 28, 2024 04:00 PM AMBULATORY - NONE [facility] Aug 04, 2024 11:00 AM AMBULATORY - MEDICINE [facility] Aug 05, 2024 10:30 AM [facility]ORY [facility]IATRY [facility] Aug 18, 2024 01:58 PM AMBULATORY - MEDICINE [facility] Aug 25, 2024 10:30 AM [facility] Sep 01, 2024 08:30 AM AMBULATORY - PSYCHIATRY [facility] Sep 15, 2024 08:30 AM [facility]ATORY - [facility]IATRY [facility] Sep 19, 2024 11:00 AM AMBULATORY - NONE [facility] Sep 24, 2024 11:00 AM AMBULATORY - MEDICINE [facility] Oct 16, 2024 01:00 PM AMBULATORY - MEDICINE [facility] Nov 06, 2024 08:00 AM AMBULATORY - MEDICINE [facility] Nov 17, 2024 02:40 PM AMBULATORY - MEDICINE [facility] [facility] Nov 24, 2024 09:30 AM AM[facility]ULATORY - PS[facility]CHIATRY [facility] Nov 24, 2024 03:30 PM AMBULATORY - MEDICINE [facility] Social History: Smoking Status (Most current) and Tobacco Use (All prior to encounter date) This section includes the most current, and the historical, smoking and tobacco- related health factors from the [place] facility where the Encounter took place. Current Smoking Status This section includes the most current smoking, or tobacco-related health factor, from the [place] facility where the Encounter took place. Date/Time Current Smoking Status Comment Skylar rocha Feb 04, 2024 09:30 AM VA-TOBACCO NEVER USED [facility] Tobacco Use History This section includes a history of the smoking, or tobacco-related health factors, that were collected on or before the date of the Encounter. The data comes from the [place] facility where the Encounter took place. Date/Time Smoking Status/Tobacco Use Comment F acility Nov 03, 2022 11:30 AM VA-TOBACCO NEVER USED [facility] Sep 29, 2021 01:30 PM VA-TOBACCO NEVER USED [facility] Oct 27, 2020 01:03 PM VA-TOBACCO NEVER USED [facility] Aug 27, 2019 01:48 PM VA-TOBACCO NEVER USED [facility] Sep 17, 2018 01:31 PM VA-TOBACCO NEVER USED [facility] Sep 09, 2009 02:32 PM LIFETIME NON-USER OF TOBACCO [facility] Sep 14, 2008 10:18 AM LIFETIME NON-USER OF TOBACCO [facility] Encounter Notes: All associated encounter notes This section contains the clinical notes associated to the Encounter. Date/Time Encounter Note(s) Provider Source May 28, 2024 02:04 PM TELEHEALTH NOTE: LOCAL TITLE: [facility] VA VIDEO CONNECT/VIDEO TO HOME STANDARD TITLE: TELEHEALTH NOTE DATE OF NOTE: MAY 28, 2024@14:04 ENTRY DATE: MAY 28, 2024@14:04:16 AUTHOR: TERESE PUTNAM COSIGNER: URGENCY: STATUS: COMPLETED VA Video Connect (VVC)/Video to home template v1.5 Visit conducted by synchronous telehealth. [place] Location/emergency number confirmed. Environment surveyed and all participants identified. Virtual conference room locked. VVC/Video to home appointment information: The following items were reviewed: - The nature of telehealth, its benefits, and risks. - Confidentiality and its limits. - The importance of having a confidential location for the service. - The emergency plan. - The appointment should be treated like an in person appointment (no smoking or driving during session, showing up fully dressed, etc.) *The Virtual Medical Room was locked for this encounter. *A survey of the environment was conducted and it is appropriate to conduct a VVC appointment. *Confirmed [place]'s Non-VA location for this appointment: 's Home [address] [place] [id number] Address and phone number verified with [place]. Address: Phone: does not have an emergency contact. *[place] was notified of right to decline Telehealth services and eligibility for other options. consented to be seen via VVC. EMERGENCY PLAN In the event of an emergency, the or family will call emergency services, if capable. The Teleprovider will remain in the virtual medical room until emergency response arrives and handoff to emergency services is complete. If is unable to make emergency call, the Teleprovider is to call the [employer] E911 service at [phone] and ask to be connected to emergency services for the [place]'s location. 's Crisis Line: Dial 988 then press 1, or text [phone] Office of Connected Care Helpdesk (OCC): [phone] or [phone] Verified Provider's location and contact information for this appointment: [facility] [address] [place] [address] x [phone] PATIENT: DELMI PETER GENDER: FEMALE AGE: 43 DATE OF : May Service Connected: Yes (30%) SNAP (Strengths, Needs, Abilities,Preferences) STRENGTHS Supportive family, Hope NEEDS Learn about my illness, Learn positive coping skills ABILITIES Listens to adults, Attends to activities of daily living (ADLs), Skills in reading, writing, Asks for help, Capacity to learn, Learns from errors, Articulates goals MEDICATION RECONCILIATION SW is a non-prescribing provider. PREFERENCES Specific therapeutic Modalities: individual VISIT DATE: Apr Relevant Changes in Mental Status: None MENTAL STATUS EVALUATION APPEARANCE Neat SPEECH Normal BEHAVIOR Appropriate, Cooperative MOOD AFFECT Appropriate THOUGHT CONTENT/DELUSIONS Normal (Logical) HALLUCINATIONS Not evident SUICIDAL (POSITIVE RESPONSE TO ONE OF THESE REQUIRES SUICIDE RISK ASSESSMENT) Denied HOMICIDAL: Patient has exhibited these warning signs: Denied COGNITION Oriented to Person, Oriented to Place, Oriented to Time, Oriented to Purpose, Alert, Normal Concentration, Normal , Insight/Judgment, Normal Memory, Normal Intelligence, Normal Abstraction, Literate Intervention/Treatment Provided(required): Provider met with for individual psychotherapy. Provided supportive and cognitive-based psychotherapy, Provided supportive and solution-focused psychotherapy. reported she had to have her son arrested on April 30. [place] described the incidents that led up to having to call the police. Provider processed veterans thoughts and emotions. felt like a shitty mom. reported she is preparing to move into a 42 foot camper so she can find some land to build on. We discussed her thoughts and emotions surrounding making the decision to move out of her home. GOAL(S)ADDRESSED IN THIS SESSION (required): Reduction of trauma symptoms No clinically significant SI/HI: [place] denies Homicidal ideation/behavior present: denies Child/elder abuse present: denies PROGRESS OF SESSION OR THERAPY TO DATE (required): Minimal progress RECOMMENDATIONS/PLAN (required): will return to clinic for individual therapy session. [place] will attend appointments for medication management. will take medications as prescribed. CHANGES IN TREATMENT PLAN: None CHANGES IN DIAGNOSIS: None DIAGNOSIS TREATED THIS VISIT: PTSD TIME SPENT WITH PATIENT: 53-67 minutes, Ind. Psychotherapy, [id number] /es/ TERESE PUTNAM Signed: 05/28/2024 16:25 TERESE PUTNAM [facility]
--- OUTSIDE RECORDS SUMMARY | 2024-06-03 05:00 | XMS_ITS | Encounter Summary ---
Author Name [facility] [place] [facility] [place] Address [address] [place] [address] Care Team Providers Care Wine Cellar Stock Clerk Name Role Phone ADELE ARAMBULA Primary Care Provider Unavail able Selected Encounter This section includes the information on record at [place] for the Encounter. Date/Time Encounter Type Encounter Description Reason Provider Source Jun 03, 2024 10:00 AM OFF/OP EST FEBRUARY X REQ PHY/QHP PRIMARY CARE/MEDICINE ICD-10-CM M79.674 Pain in right toe(s) JEFFEYR RAVI Gustavo Encounter Template Text not used by [place] Assessments - Encounter Diagnoses This section includes the primary and secondary diagnoses documented for the Encounter. Date/Time Primary/Secondary Diagnosis Diagnosis Name Provider Source Jun 03, 2024 03:43 PM PRIMARY Pain in right toe(s) JEFFERY RAVI [facility] Plan of Treatment: Future Appointments (+ 6 months) and Future Tests (+/- 45 days) The Plan of Treatment section includes future care activities for the patient from all [place] treatmentfacilities. This section includes future appointments and future orders which are active, pending or scheduled. Future Appointments This section includes appointments that were scheduled to occur 6 months from the date of the Encounter, up to a maximum of 20 appointments. The data comes from all [place] treatment facilities. Appointment Date/Time Appointment Type Appointme nt Facility Name Jul 07, 2024 08:30 AM AMBULATORY - PS[facility]CHIATRY [facility] Jul 25, 2024 09:30 AM [facility] Jul 28, 2024 04:00 PM AMBULATORY - NONE [facility] Aug 04, 2024 11:00 AM AMBULATORY - MEDICINE [facility] Aug 05, 2024 10:30 AM [facility] Aug 18, 2024 01:58 PM AMBULATORY - MEDICINE [facility] Aug 25, 2024 10:30 AM AMBULATORY - MEDICINE [facility] Sep 01, 2024 08:30 AM [facility] Sep 15, 2024 08:30 AM [facility] Sep 19, 2024 11:00 AM AMBULATORY - NONE [facility] Sep 24, 2024 11:00 AM AMBULATORY - MEDICINE [facility] Oct 16, 2024 01:00 PM AMBULATORY - MEDICINE [facility] Nov 06, 2024 08:00 AM AMBULATORY - MEDICINE [facility] [facility] Nov 17, 2024 02:40 PM AMBULATORY - MEDICINE [facility] Nov 24, 2024 09:30 AM [facility] Nov 24, 2024 03:30 PM AMBULATORY - MEDICINE [facility] Vital Signs: All taken on the encounter date This section contains inpatient and outpatient Vital Signs collected on the date of the Encounter. Date/Time Temperature Pulse Blood Pressure Respiratory Rate SP02 Pain Height Weight Body Mass Index Source Jun 03, 2024 01:14 PM 98 72 122/64 18 [facility] Social History: Smoking Status (Most current) and Tobacco Use (All prior to encounter date) This section includes the most current, and the historical, smoking and tobacco- related health factors from the [place] facility where the Encounter took place. Current Smoking Status This section includes the most current smoking, or tobacco-related health factor, from the [place] facility where the Encounter took place. Date/Time Current Smoking Status Comment Skylar rocha Feb 04, 2024 09:30 AM VA-TOBACCO NEVER USED [facility] Tobacco Use History This section includes a history of the smoking, or tobacco-related health factors, that were collected on or before the date of the Encounter. The data comes from the [place] facility where the Encounter took place. Date/Time Smoking Status/Tobacco Use Comment F acility Nov 03, 2022 11:30 AM VA-TOBACCO NEVER USED [facility] Sep 29, 2021 01:30 PM VA-TOBACCO NEVER USED [facility] Oct 27, 2020 01:03 PM VA-TOBACCO [facility] US[facility] Aug 27, 2019 01:48 PM VA-TOBACCO NEVER USED [facility] Sep 17, 2018 01:31 PM VA-TOBACCO NEVER USED [facility] Sep 09, 2009 02:32 PM LIFETIME NON-USER OF TOBACCO [facility] Sep 14, 2008 10:18 AM LIFETIME NON-USER OF TOBACCO [facility] Encounter Notes: All associated encounter notes This section contains the clinical notes associated to the Encounter. Date/Time Encounter Note(s) Provider Source Jun 03, 2024 01:13 PM NURSING PROGRESS N OTE: LOCAL TITLE: NURSING NOTE PB STANDARD TITLE: NURSING PROGRESS NOTE DATE OF NOTE: JUN 03, 2024@13:13 ENTRY DATE: JUN 03, 2024@13:14:01 AUTHOR: JEFFERY RAVI EXP COSIGNER: URGENCY: STATUS: COMPLETED NURSING NOTE PB Has ADDENDA Blood Pressure: 122/64 Pulse: 72 Respiratory Rate: 18 Temperature: 98 F (36.7 C) Pulse Oximetry: 98% CC: presents to walk in clinic for evaluation of right great toe joint. Subjective: (1) [place] states surgery to right great toe joint, now having increased pain and discomfort. Presents today to start process for consult to podiatry. Requesting [facility] consult locally if possible. (2) also states history of bariatric surgery and feels like her iron is very low as she feels symptomatic ie. fatigued. Denies shortness of breath or dizziness. (3) requesting PACT TECHNOLOGY OFFICER to send all prescriptions to [facility] [place] [facility] as [place] and it is cheaper for to fill privately. Meds requested: ONDANSETRON TAB,ORAL DISINTEGRATING 4MG TAKE ONE TABLET UNDER THE TONGUE EVERY EIGHT(8) HOURS NEEDED Quantity: 30 Refills: 3 Non-VA AMITRIPTYLINE TAB 10MG TAKE ONE TABLET BY MOUTH AT BEDTIME. Non-VA ESTRADIOL TAB 2MG TAKE ONE TABLET BY MOUTH ONCE A DAY Indication: FOR VASOMOTOR SYMPTOMS IN MENOPAUSE Non-VA GABAPENTIN (LOWER DOSE) CAP,ORAL 100MG TAKE 1 CAPSULE BY MOUTH THREE TIMES A DAY NEEDED Non-VA PANTOPRAZOLE TAB,EC 20MG TAKE ONE TABLET BY MOUTH TWICE A DAY on-VA VENLAFAXINE 24HR CAP,SA 150MG TAKE 1 CAPSULE BY MOUTH ONCE A DAY O/A: Right great toe joint assessed. No redness, swelling, or heat palpated at joint. [place] describes pain as aching sensation. Able to move great toe. Circulation normal with brisk capillary refill. Plan/ Intervention: Will discuss with DEWAYNE Arambula about podiatry consult. Will also alert her of RX request, and renewal at [facility]. Will call with any further recommendations. Encouraged to rest foot when able, use well fitting shoes. Elevate lower extremity when able and apply ice PRN pain. Reports understanding. RTC: As scheduled and as needed. /ward/ JEFFERY MILLER, CHU NEEDMORE CBKRISTIN Signed: 06/03/2024 15:40 Receipt Acknowledged By: 06/04/2024 14:35 /jorge Arambula FURNITURE DETAILERUniversity of Maryland Rehabilitation & Orthopaedic InstituteTHOMAS 06/04/2024 ADDENDUM STATUS: COMPLETED Prescriptions called in with one month supply with 11 refills except for zofran and it was @30 with 3 refills to [facility]. Prescriptions called as listed above. /AMANDA KhanUniversity of Maryland Rehabilitation & Orthopaedic InstituteTHOMAS Signed: 06/04/2024 14:36 JEFFERY RAVI [facility] THOMAS
--- OUTSIDE RECORDS SUMMARY | 2024-07-25 04:30 | XMS_ITS | Encounter Summary ---
Author Name [facility] [place] Organization [facility] [place] Address [address] [place] [address] Care Team Providers Care Steel Wheel Engraver Name Role Phone ADELE ARAMBULA Primary Care Provider Unavail able Selected Encounter This section includes the information on record at [place] for the Encounter. Date/Time Encounter Type Encounter Description Reason Provider Source Jul 25, 2024 09:30 AM PSYTX W PT 45 MINUTES [facility] - [facility] ICD-10-CM F43.10 Post-traumatic stress disorder, unspecified TERESE PUTNAM Gustavo Encounter Template Text not used by [place] Assessments - Encounter Diagnoses This section includes the primary and secondary diagnoses documented for the Encounter. Date/Time Primary/Secondary Diagnosis Diagnosis Name Provider Source Jul 25, 2024 09:57 AM PRIMARY Post-traumatic stress disorder, unspecified [facility] P[facility] Plan of Treatment: Future Appointments (+ 6 months) and Future Tests (+/- 45 days) The Plan of Treatment section includes future care activities for the patient from all [place] treatmentfacilities. This section includes future appointments and future orders which are active, pending or scheduled. Future Appointments This section includes appointments that were scheduled to occur 6 months from the date of the Encounter, up to a maximum of 20 appointments. The data comes from all [place] treatment facilities. Appointment Date/Time Appointment Type Appointme nt Facility Name Jul 28, 2024 04:00 PM AMBULATORY - NONE [facility] Aug 04, 2024 11:00 AM AMBULATORY - MEDICINE [place] [facility] Aug 05, 2024 10:30 AM AMBULATORY - PSYCHIATRY [facility] Aug 18, 2024 01:58 PM AMBULATORY - [place]IC[place] [facility] Aug 25, 2024 10:30 AM AMBULATORY - MEDICINE [facility] Sep 01, 2024 08:30 AM AMBULATORY - PSYCHIATRY [facility] Sep 15, 2024 08:30 AM AMBULATORY - PSYCHIATRY [facility] Sep 19, 2024 11:00 AM AMBULATORY - NONE [place] [facility] Sep 24, 2024 11:00 AM AMBULATORY - MEDICINE [facility] Oct 16, 2024 01:00 PM AMBULATORY - MEDICINE [place] [facility] Nov 06, 2024 08:00 AM AMBULATORY - MEDICINE [place] [facility] Nov 17, 2024 02:40 PM AMBULATORY - MEDICINE [place] [facility] Nov 24, 2024 09:30 AM AMBULATORY - PSYCHIATRY [facility] Nov 24, 2024 03:30 PM AMBULATORY - MEDICINE [facility] Dec 09, 2024 01:00 PM AMBULATORY - MEDICINE [place] [facility] Dec 11, 2024 08:00 AM AMBULATORY - MEDICINE [place] [facility] Dec 22, 2024 03:00 PM AMBULATORY - NONE [place] [facility] Dec 23, 2024 03:45 PM AMBULATORY - MEDICINE [place] [facility] Jan 03, 2025 10:48 AM AMBULATORY - MEDICINE [place] [facility] Jan 12, 2025 10:00 AM AMBULATORY - MEDICINE [place] [facility] Social History: Smoking Status (Most current) and Tobacco Use (All prior to encounter date) This section includes the most current, and the historical, smoking and tobacco- related health factors from the [place] facility where the Encounter took place. Current Smoking Status This section includes the most current smoking, or tobacco-related health factor, from the [place] facility where the Encounter took place. Date/Time Current Smoking Status Comment Skylar rocha Feb 04, 2024 09:30 AM VA-TOBACCO NEVER USED [facility] Tobacco Use History This section includes a history of the smoking, or tobacco-related health factors, that were collected on or before the date of the Encounter. The data comes from the [place] facility where the Encounter took place. Date/Time Smoking Status/Tobacco Use Comment F acility Nov 03, 2022 11:30 AM VA-TOBACCO NEVER USED [facility] Sep 29, 2021 01:30 PM VA-TOBACCO NEVER USED [facility] Oct 27, 2020 01:03 PM [...] the Encounter. Date/Time Encounter Note(s) Provider Source Jul 25, 2024 09:35 AM TELEHEALTH NOTE: LOCAL TITLE: VVC VA VIDEO CONNECT/VIDEO TO HOME STANDARD TITLE: TELEHEALTH NOTE DATE OF NOTE: JUL 25, 2024@09:35 ENTRY DATE: JUL 25, 2024@09:35:59 AUTHOR: TERESE PUTNAM COSIGNER: URGENCY: STATUS: COMPLETED VA Video Connect (VVC)/Video to home template v1.5 Visit conducted by synchronous telehealth. Location/emergency number confirmed. Environment surveyed and all [...] appropriate to conduct a VVC appointment. *Confirmed [facility] Non-[facility] location for this appointment: [facility] [address] [place] [id number] Address and phone number verified with [facility]. Address: Phone: [facility] does not have an emergency contact. * was notified of right to decline Telehealth services and eligibility for other options. consented to be seen via VVC. EMERGENCY PLAN In the event of an emergency, the or family will call emergency services, if capable. The Teleprovider will remain in the virtual medical room until emergency response arrives and handoff to emergency services is complete. If [facility] is unable to make emergency call, the Teleprovider is to call the national E911 service at [phone] and ask to be connected to emergency services for the [facility] location. [facility] Crisis Line: Dial 988 then press 1, or text [phone] Office of Connected [facility] Helpdesk (OCC): [phone] or [phone] Verified Provider's location and contact information for this appointment: [facility] [address] [place] [address] x [id number] PATIENT: DELMI PETER GENDER: FEMALE AGE: 44 DATE OF : May Service Connected: Yes (60%) SNAP (Strengths, Needs, Abilities,Preferences) STRENGTHS Supportive family, Hope NEEDS Learn about my illness, Learn positive coping skills ABILITIES Listens to adults, Attends to activities of daily living (ADLs), Skills in reading, writing, Asks for help, Capacity to learn, Learns from errors, Articulates goals MEDICATION RECONCILIATION SW is a non-prescribing provider. PREFERENCES Specific therapeutic Modalities: individual VISIT DATE: Jun Relevant Changes in Mental Status: None MENTAL [...] cognitive-based psychotherapy, Provided supportive and solution-focused psychotherapy. reports she has moved into their camper and downsized from what they were living in. [place] reports her mood has been pretty depressed, feeling overwhelmed with everything. reports it is hard for her to destress, her body hurts and has little to no interest as her physical pain really drains her. We discussed her PTSD symptoms. [place] reports, it is going crazy, the medications help however when the extra things occur it is harder for me handle. We discussed what she does on the days when she has to go to work and if she addresses the things that make it harder for her to manage. [place] reports there is an emotional distance between us right now. We discussed what led to her feeling like there is distance. [place] reported, His response is he doesn't care what I do. GOAL(S)ADDRESSED IN THIS SESSION (required): Reduction of trauma symptoms No clinically significant SI/HI: [place] denies Homicidal ideation/behavior present: denies Child/elder abuse present: denies PROGRESS OF SESSION OR THERAPY TO DATE (required): Minimal progress RECOMMENDATIONS/PLAN (required): will return to clinic for individual therapy session. will attend appointments for medication management. [facility] will take medications as prescribed. CHANGES IN TREATMENT PLAN: None CHANGES IN DIAGNOSIS: None DIAGNOSIS TREATED THIS VISIT: PTSD TIME SPENT WITH PATIENT: 38-52 minutes, Ind. Psychotherapy, [id number] [facility] Psychotherapy Tracking Today's psychotherapy session was part of a standardized episode of Other PTSD Psychotherapy (e.g. supportive therapy): Other: Supportive therapy Measurement Based Care (MBC): MBC Share During today's session we discussed the clinical symptoms and/or functioning measures collected as part of: measurement-based care, with focus on how the information reflects the [facility] experience in treatment and discussed changes in reported outcomes. MBC Act Following discussion of [facility] reported outcomes, we discussed the impact on treatment goals. As a result the treatment plan will remain the same. /ward/ TERESE PUTNAM Signed: 07/25/2024 13:45 TERESE PUTNAM [facility]
--- OUTSIDE RECORDS SUMMARY | 2024-08-05 05:30 | XMS_ITS | Encounter Summary ---
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 Date/Time Encounter Type Encounter Description Reason Pro vider Source Aug 05, 2024 10:30 AM Outpatient Encounter [facility] Encounter Template Text not used by [place] Plan of Treatment: Future Appointments (+ 6 months) and Future Tests (+/- 45 days) The Plan of Treatment section includes future care activities for the patient from all [place] treatmentfacilities. This section includes future appointments and future orders which are active, pending or scheduled. Future Appointments This section includes appointments that were scheduled to occur 6 months from the date of the Encounter, up to a maximum of 20 appointments. The data comes from all [place] treatment facilities. Appointment Date/Time Appointment Type Appointme nt Facility Name Aug 18, 2024 01:58 PM AMBULATORY - MEDICINE [facility] Aug 25, 2024 10:30 AM AMBULATORY - MEDICINE [facility] Sep 01, 2024 08:30 AM AMBULATORY - PSYCHIATRY [facility] Sep 15, 2024 08:30 AM AMBULATORY - PSYCHIATRY [facility] Sep 19, 2024 11:00 AM AMBULATORY - NONE [facility] [facility] Sep 24, 2024 11:00 AM [facility] [place] [facility] [facility] Oct 16, 2024 01:00 PM AMBULATORY - [place]IC[place] [facility] Nov 06, 2024 08:00 AM AMBULATORY - MEDICINE [place] [facility] Nov 17, 2024 02:40 PM AMBULATORY - MEDICINE [place] [facility] Nov 24, 2024 09:30 AM AMB[facility]ATORY - [facility] Nov 24, 2024 03:30 PM [facility] Dec 09, 2024 01:00 PM AMBULATORY - MEDICINE [place] [facility] Dec 11, 2024 08:00 AM AMBULATORY - MEDICINE [place] [facility] Dec 22, 2024 03:00 PM AMBULATORY - NONE [place] [facility] Dec 23, 2024 03:45 PM AMBULATORY - MEDICINE [place] [facility] Jan 03, 2025 10:48 AM AMBULATORY - MEDICINE [place] [facility] Jan 12, 2025 10:00 AM AMBULATORY - [place]ICINE [place] [facility] Jan 13, 2025 09:00 AM AMBULATORY - MEDICINE [place] [facility] Jan 27, 2025 09:30 AM AMBULATORY - MEDICINE [place] [facility] Social History: Smoking Status (Most current) and Tobacco Use (All prior to encounter date) This section includes the most current, and the historical, smoking and tobacco- related health factors from the [place] facility where the Encounter took place. Current Smoking Status This section includes the most current smoking, or tobacco-related health factor, from the [place] facility where the Encounter took place. Date/Time Current Smoking Status Comment Skylar ity Feb 04, 2024 09:30 AM VA-TOBACCO NEVER USED [facility] Tobacco Use History This section includes a history of the smoking, or tobacco-related health factors, that were collected on or before the date of the Encounter. The data comes from the [place] facility where the Encounter took place. Date/Time Smoking Status/Tobacco Use Comment F acility Nov 03, 2022 11:30 AM VA-TOBACCO NEVER USED [facility] Sep 29, 2021 01:30 PM VA-TOBACCO [place] USED [facility] Oct 27, 2020 01:03 PM VA-TOBACCO [place] USED [facility] Aug 27, 2019 01:48 PM [place] [facility] Sep 17, 2018 01:31 PM VA-TOBACCO NEVER USED [facility] Sep 09, 2009 02:32 PM LIFETIME NON-USER OF [place]BACCO [facility] [facility] Sep 14, 2008 10:18 AM LIFETIME NON-USER OF TOBACCO [facility] Encounter Notes: All associated encounter notes This section contains the clinical notes associated to the Encounter. Date/Time Encounter Note(s) Provider Source Aug 05, 2024 04:05 PM PRIMARY CARE NOTE: LOCAL TITLE: NO SHOW FOLLOW-UP PB STANDARD TITLE: PRIMARY CARE NOTE DATE OF NOTE: AUG 05, 2024@16:05 ENTRY DATE: AUG 05, 2024@16:06 AUTHOR: TERESE PUTNAM EXP COSIGNER: URGENCY: STATUS: COMPLETED NO SHOW FOLLOW-UP PB Has ADDENDA The patient failed to appear as scheduled. Provider contacted who acknowledged missed appointment due to having tooth pulled earlier this morning and unable to talk. /ward/ TERESE PUTNAM Signed: 08/05/2024 16:07 08/07/2024 ADDENDUM STATUS: COMPLETED Attempted to contact to reschedule appointment. Unable to leave voicemail. Letter mailed. /ward/ [facility] Signed: 08/07/2024 10:12 08/19/2024 ADDENDUM STATUS: COMPLETED C2, left voicemail. /ward/ [facility] Signed: 08/19/2024 16:05 TERESE PUTNAM [facility]
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
--- OUTSIDE RECORDS SUMMARY | 2024-08-25 05:30 | XMS_ITS | Encounter Summary ---
Author Name [facility] [place] [facility] [place] Address [address] [place] [address] Care Team Providers Care Director Of Medicare Name Role Phone ADELE ARAMBULA Primary Care Provider Unavail able Selected Encounter This section includes the information on record at [place] for the Encounter. Date/Time Encounter Type Encounter Description Reason Provider Source Aug 25, 2024 10:30 AM OFF/OP EST FEBRUARY X REQ PHY/QHP PRIMARY CARE/MEDICINE ICD-10-CM M54.2 Cervicalgia CUSTJEFFERY KIM Gustavo Encounter Template Text not used by [place] Assessments - Encounter Diagnoses This section includes the primary and secondary diagnoses documented for the Encounter. Date/Time Primary/Secondary Diagnosis Diagnosis Name Provider Source Aug 25, 2024 02:37 PM PRIMARY Cervicalgia JEFFERY RAVI [facility] Plan of Treatment: Future Appointments (+ 6 months) and Future Tests (+/- 45 days) The Plan of Treatment section includes future care activities for the patient from all [place] treatmentfacilities. This section includes future appointments and future orders which are active, pending or scheduled. Future Appointments This section includes appointments that were scheduled to occur 6 months from the date of the Encounter, up to a maximum of 20 appointments. The data comes from all [place] treatment facilities. Appointment Date/Time Appointment Type Appointme nt Facility Name Sep 01, 2024 08:30 AM AMBULATORY - PSYCHIATRY [facility] Sep 15, 2024 08:30 AM AMBULATORY [facility]ATRY [facility] Sep 19, 2024 11:00 AM AMBULATORY - NONE [facility] Sep 24, 2024 11:00 AM AMBULATORY - MEDICINE [facility] Oct 16, 2024 01:00 PM AMBULATORY - MEDICINE [facility] [facility] Nov 06, 2024 08:00 AM AMBULATORY - MEDICINE [facility] [facility] Nov 17, 2024 02:40 PM AMBULATORY - MEDICINE [facility] Nov 24, 2024 09:30 AM AMBULATORY - PS[facility]CHIATRY [facility] Nov 24, 2024 03:30 PM AMBULATORY - MEDICINE [facility] Dec 09, 2024 01:00 PM AMBULATORY - MEDICINE [place] Dec 11, 2024 08:00 AM AMBULATORY - MEDICINE [facility] [facility] Dec 22, 2024 03:00 PM AMBULATORY - NONE [facility] Dec 23, 2024 03:45 PM AMBULATORY - MEDICINE [facility] [facility] Jan 03, 2025 10:48 AM AMBULATORY - MEDICINE [facility] [facility] Jan 12, 2025 10:00 AM AMBULATORY - MEDICINE [place] Jan 13, 2025 09:00 AM AMBULATORY - MEDICINE [place] Jan 27, 2025 09:30 AM AMBULATORY - MEDICINE [place] Feb 09, 2025 10:36 AM AMBULATORY - MEDICINE [place] Vital Signs: All taken on the encounter date This section contains inpatient and outpatient Vital Signs collected on the date of the Encounter. Date/Time Temperature Pulse Blood Pressure Respiratory Rate SP02 Pain Height Weight Body Mass Index Source Aug 25, 2024 02:26 PM 97.8 72 116/79 [facility] Social History: Smoking Status (Most current) and Tobacco Use (All prior to encounter date) This section includes the most current, and the historical, smoking and tobacco- related health factors from the [place] facility where the Encounter took place. Current Smoking Status This section includes the most current smoking, or tobacco-related health factor, from the [place] facility where the Encounter took place. Date/Time Current Smoking Status John rocha Feb 04, 2024 09:30 AM VA-TOBACCO NEVER USED [facility] Tobacco Use History This section includes a history of the smoking, or tobacco-related health factors, that were collected on or before the date of the Encounter. The data comes from the [place] facility where the Encounter took place. Date/Time Smoking Status/Tobacco Use Comment F acility Nov 03, 2022 11:30 AM [place]BACCO [place] USED [facility] [place] [facility] Sep 29, 2021 01:30 PM VA-TOBACCO [place] USED [facility] [place] [place] [facility] Oct 27, 2020 01:03 PM VA-TOBACCO [place] USED [facility] [place] [facility] Aug 27, 2019 01:48 PM VA-TOBACCO [place] USED [facility] [place] [facility] Sep 17, 2018 01:31 PM VA-TOBACCO NEVER USED [facility] Sep 09, 2009 02:32 PM LIFETIME NON-USER OF TOBACCO [facility] [place] [facility] Sep 14, 2008 10:18 AM LIFETIME NON-USER OF TOBACCO [place] [facility] Radiology Reports: +/- 30 days of the encounter Radiology Reports For cases when an order for radiology services may have been completed prior to the date of the Encounter, the report list includes the Radiology Reports that were completed up to 30 days before dateof the Encounter. For cases when an order for radiology services may have been completed after the date of the Encounter, the report list also includes the Radiology Reports that were completed up to30 days after date of the Encounter. The data comes from all [place] treatment facilities. Date/Time Radiology Report Provider Source Sep 24, 2024 11:59 AM SPINE CERVICAL MIN 4 OR 5 VIEWS: DELMI PETER [id number] -1980 F Exm Date: SEP 24, 2024@11:59 Req Phys: ADELE ARAMBULA Loc: PB-DEEPA PACT JANETTE HAMMER ADJUSTER WH (Req Img Loc: PB-XRAY [place] Service: Unknown Screen: [place] [address] (Case [id number] COMPLETE) SPINE CERVICAL MIN 4 OR 5 VIEWS (RAD Detailed) CPT:34758 Reason for Study: cervicalgia with radiculopathy down right arm Clinical History: Report Status: Verified Date Reported: SEP 24, 2024 Date Verified: SEP 24, 2024 Hammer Adjuster E-Sig: Report: AP, lateral, oblique and odontoid views of the cervical spine reveal reversal of midcervical lordosis, compatible with paraspinous muscle spasm. There is no acute osseous abnormality. The intervertebral disc spaces and neural foramina are normal. Impression: 1. Paraspinous muscle spasm 2. No acute osseous abnormality Primary Interpreting Staff: ARTEMIO CHAO, RADIOLOGIST (Hammer Adjuster, no e-sig) /ARTEMIO [place] [facility] Encounter Notes: All associated encounter notes This section contains the clinical notes associated to the Encounter. Date/Time Encounter Note(s) Provider Source Aug 25, 2024 02:25 PM NURSING PROGRESS N OTE: LOCAL TITLE: NURSING NOTE PB STANDARD TITLE: NURSING PROGRESS NOTE DATE OF NOTE: AUG 25, 2024@14:25 ENTRY DATE: AUG 25, 2024@14:26:04 AUTHOR: JEFFERY RAVI EXP COSIGNER: URGENCY: STATUS: COMPLETED Blood Pressure: 116/79 Pulse: 72 Temperature: 97.8 F (36.6 C) Pulse Oximetry: 99% Active Outpatient Medications: Active Outpatient Medications (including Supplies): Active Outpatient Medications Status 1) BARIATRIC MULTIVITAMINS W/IRON CAP TAKE 1 CAPSULE BY ACTIVE MOUTH ONCE A DAY FOR VITAMIN SUPPLEMENTATION (NOTE CHANGE IN PRODUCT/DOSE - 1 CAPSULE PER DAY) 2) LIDOCAINE HCL 2% VISCOUS LIQUID TAKE 5 ML BY MOUTH ACTIVE FOUR TIMES A DAY NEEDED FOR ORAL PAIN SWISH AND SWALLOW 3) ONDANSETRON 4MG ORAL DISINTEGRATING TAB TAKE ONE [...] 75MG BY MOUTH ACTIVE ONCE A DAY CC: [place] reports to walk in clinic for muscle pain after massage. Subjective: [place] reports she has been having increased soreness and muscle stiffness in neck after massage and care aide. Reports some radiation of pain in right arm. States massage therapist told her she may benefit from a muscle relaxer. O/A: [place] is alert and oriented. Neck visualized and no gross anomalies noted. No tenderness on palpation. Able to do all range of motion exercises without difficulty. Plan/ Intervention: Discussed with PACT UTILITY PORTER [place]. New prescription for cyclobenzaprine written. Immediate need form also given to for pharmacy. Educated to also apply heat/ice to neck prn pain. Use tylenol extra strength as needed for pain. May use topical pain releiving gel to area also. States understanding of all instructions. states she had right foot xray during compensation evaluation and wanted to know if it was forwarded to PACT team for review. I educated that comp evals rarely get to PACT team. I do not see right foot xray. [place] reporting pain and has requested xray right foot. Will forward request to PACt UTILITY PORTER for review of appropriateness. We can call if recommended. RTC: As scheduled and as needed /ward/ JEFFERY MILLER, [facility] Signed: 08/25/2024 14:36 Receipt Acknowledged By: 08/25/2024 16:31 /ward/ AMANDA Lazcano-MICHAEL [place] TORRI J [facility] THOMAS
--- OUTSIDE RECORDS SUMMARY | 2024-09-01 03:30 | XMS_ITS | Encounter Summary ---
Author Name [facility] [place] Organization [place] Address [address] [place] [address] Care Team Providers Care Blue Crabber Name Role Phone ADELE ARAMBULA Primary Care Provider Unavail able Selected Encounter This section includes the information on record at [place] for the Encounter. Date/Time Encounter Type Encounter Description Reason Provider Source Sep 01, 2024 08:30 AM PSYTX W PT 60 MINUTES [facility] - IND ICD-10-CM F43.10 Post-traumatic stress disorder, unspecified TERESE PUTNAM Gustavo Encounter Template Text not used by [place] Assessments - Encounter Diagnoses This section includes the primary and secondary diagnoses documented for the Encounter. Date/Time Primary/Secondary Diagnosis Diagnosis Name Provider Source Sep 01, 2024 12:13 PM PRIMARY Post-traumatic stress disorder, unspecified TERESE PUTNAM ASHCAMPArmaan [facility] Plan of Treatment: Future Appointments (+ 6 months) and Future Tests (+/- 45 days) The Plan of Treatment section includes future care activities for the patient from all [place] treatmentfacilities. This section includes future appointments and future orders which are active, pending or scheduled. Future Appointments This section includes appointments that were scheduled to occur 6 months from the date of the Encounter, up to a maximum of 20 appointments. The data comes from all [place] treatment facilities. Appointment Date/Time Appointment Type Appointme nt Facility Name Sep 15, 2024 08:30 AM AMBULATORY - PS[facility]CHIATRY [facility] Sep 19, 2024 11:00 AM AMBULATORY - NONE [place] [facility] Sep 24, 2024 11:00 AM AMBULATORY - MEDICINE [facility] Oct 16, 2024 01:00 PM AMBULATORY - [place]IC[place] [facility] Nov 06, 2024 08:00 AM AMBULATORY - [place]IC[place] [facility] Nov 17, 2024 02:40 PM AMBULATORY [place] [facility] Nov 24, 2024 09:30 AM AMBULATORY - [place]IATRY [facility] [place] [place] [facility] Nov 24, 2024 03:30 PM AMBULATORY - MEDICINE [facility] Dec 09, 2024 01:00 PM AMBUL[place]ORY - [place]IC[place] [facility] Dec 11, 2024 08:00 AM AMBULATORY - [place] [facility] Dec 22, 2024 03:00 PM AMBULATORY - NONE [place] [facility] Dec 23, 2024 03:45 PM AMBULATORY - [place]IC[place] [facility] Jan 03, 2025 10:48 AM AMBULATORY [place] [facility] Jan 12, 2025 10:00 AM AMBULATORY - MEDICINE [facility] Jan 13, 2025 09:00 AM AMBUL[place]ORY - [place] [facility] Jan 27, 2025 09:30 AM AMBULATORY - [place] [facility] Feb 09, 2025 10:36 AM AMBULATORY - MEDICINE [facility] Social History: Smoking Status (Most current) and Tobacco Use (All prior to encounter date) This section includes the most current, and the historical, smoking and tobacco- related health factors from the [place] facility where the Encounter took place. Current Smoking Status This section includes the most current smoking, or tobacco-related health factor, from the [place] facility where the Encounter took place. Date/Time Current Smoking Status Comment Skylar ity Feb 04, 2024 09:30 AM VA-TOBACCO NEVER USED [facility] Tobacco Use History This section includes a history of the smoking, or tobacco-related health factors, that were collected on or before the date of the Encounter. The data comes from the [place] facility where the Encounter took place. Date/Time Smoking Status/Tobacco Use Comment F acility Nov 03, 2022 11:30 AM VA-TOBACCO NEVER USED [facility] Sep 29, 2021 01:30 PM VA-TOBACCO NEVER USED [facility] Oct 27, 2020 01:03 PM VA-[place] USED [place] [facility] Aug 27, 2019 01:48 PM VA-TOBACCO [place] USED [place] [facility] Sep 17, 2018 01:31 PM [place]-TOBACCO [place] USED [place] [facility] Sep 09, 2009 02:32 PM LIFETIME NON-USER OF [place]BACCO [place] [facility] Sep 14, 2008 10:18 AM LIFETIME NON-USER OF TOBACCO [facility] Radiology Reports: +/- 30 days of [...] the Encounter. The data comes from all [place] treatment facilities. Date/Time Radiology Report Provider Source Sep 24, 2024 11:59 AM SPINE CERVICAL MIN 4 OR 5 VIEWS: DELMI PETER [id number] -1980 F Exm Date: SEP 24, 2024@11:59 Req Phys: ADELE ARAMBULA Pat Loc: PB-DEEPA PACT [employer]RO[employer]ENTRAL SUPPLY CLERK WH (Req Img Loc: PB-XRAY [place] Service: Unknown Screen: [place] [address] (Case [id number] COMPLETE) SPINE CERVICAL MIN 4 OR 5 VIEWS (RAD Detailed) CPT:16630 Reason for Study: cervicalgia with radiculopathy down right arm Clinical History: Report Status: Verified Date Reported: SEP 24, 2024 Date Verified: SEP 24, 2024 Biofuels Engineering Manager E-Sig: Report: AP, lateral, oblique and odontoid views of the cervical spine reveal reversal of midcervical lordosis, compatible with paraspinous muscle spasm. There is no acute osseous abnormality. The intervertebral disc spaces and neural foramina are normal. Impression: 1. Paraspinous muscle spasm 2. No acute osseous abnormality Primary Interpreting Staff: ARTEMIO CHAO, RADIOLOGIST (Biofuels Engineering Manager, no e-sig) /ARTEMIO Lowery [facility] Encounter Notes: All associated encounter notes This section contains the clinical notes associated to the Encounter. Date/Time Encounter Note(s) Provider Source Oct 02, 2024 03:35 PM TELEPHONE ENCOUNTE R NOTE: LOCAL TITLE: TELEPHONE NOTE STANDARD TITLE: TELEPHONE ENCOUNTER NOTE DATE OF NOTE: OCT 02, 2024@15:35 ENTRY DATE: OCT 02, 2024@15:35:53 AUTHOR: TERESE PUTNAM EXP COSIGNER: URGENCY: STATUS: COMPLETED Provider contacted via telephone to discuss him being out of the office the month of September. reported she was okay to wait until her next scheduled appointment. [place] verbalized understanding that if she needed to be seen prior to she has the option to: Come into the clinic as a same-day access, call and set up VVC appointment with a different provider, or utilize the crisis line. /ward/ TERESE PUTNAM Signed: 10/02/2024 15:37 TERESE PUTNAM [facility] Sep 01, 2024 12:12 PM SOCIAL WORK NOTE: LOCAL TITLE: SOCIAL WORK GENERAL NOTE PB STANDARD TITLE: SOCIAL WORK NOTE DATE OF NOTE: SEP 01, 2024@12:12 ENTRY DATE: SEP 01, 2024@12:12:07 AUTHOR: TERESE PUTNAM EXP COSIGNER: URGENCY: STATUS: COMPLETED PATIENT: DELMI PETER GENDER: FEMALE AGE: 44 [...] PREFERENCES Specific therapeutic Modalities: individual VISIT DATE: Aug Relevant Changes in Mental Status: None MENTAL [...] cognitive-based psychotherapy, Provided supportive and solution-focused psychotherapy. Shiva reported July was a pretty rough month for her due to being sick and not able to take her Effexor. Shiva reports she was ready to quit her job get a divorce and moved in with her dad. We discussed how this sounds very manic and reported it had returned to normal after taking her medication for a couple days. Shiva reports she is going back in and redoing some of her disability with the [employer] and it has caused some things to come up that she had thought she dealt with. We discussed being able to process through her trauma when she is able to regulate her emotions. Shiva did reports she has good self talk and provider encouraged her to use her self talk whenever she would self sabotage or feel like the other shoe is going to drop. GOAL(S)ADDRESSED IN THIS SESSION (required): Reduction of trauma symptoms No clinically significant SI/HI: [place] denies Homicidal ideation/behavior present: [place] denies Child/elder abuse present: denies PROGRESS OF SESSION OR THERAPY TO DATE (required): Minimal progress RECOMMENDATIONS/PLAN (required): [place] will return to clinic for individual therapy session. will attend appointments for medication management. [place] will take medications as prescribed. CHANGES IN TREATMENT PLAN: None CHANGES IN DIAGNOSIS: None DIAGNOSIS TREATED THIS VISIT: PTSD TIME SPENT WITH PATIENT: 53-67 minutes, Ind. Psychotherapy, [id number] /es/ TERESE PUTNAM Signed: 09/01/2024 12:44 TERESE PUTNAM [facility] Sep 01, 2024 08:55 AM SUICIDE PREVENTION NOTE: LOCAL TITLE: [place]-SUICIDE SEVERITY RATING SCALE STANDARD TITLE: SUICIDE PREVENTION NOTE DATE OF NOTE: SEP 01, 2024@08:55 ENTRY DATE: SEP 01, 2024@08:55:44 AUTHOR: TERESE PUTNAM EXP COSIGNER: URGENCY: STATUS: COMPLETED [place]-Suicide Severity Rating Scale (C-SSRS Screener) 1. Over the past month, have you wished you were or wished you could go to sleep and not wake up? Yes 2. Over the past month, have you [...] went to the roof but didn't jump)? Yes 8. If YES, was this within the past 3 months? No I have reviewed the results of the Mental Health screens and have evaluated the patient. Based on the evaluation, the following disposition plan will be implemented: Already receiving needed treatment. Contact information and instructions for accessing emergency services provided. /ward/ TERESE PUTNAM Signed: 09/01/2024 12:45 TERESE PUTNAM [facility] Sep 01, 2024 08:34 AM PRIMARY CARE NOTE: LOCAL TITLE: DEPRESSION SCREEN PHQ9 STANDARD TITLE: PRIMARY CARE NOTE DATE OF NOTE: SEP 01, 2024@08:34 ENTRY DATE: SEP 01, 2024@08:34:49 AUTHOR: TERESE PUTNAM EXP COSIGNER: URGENCY: STATUS: COMPLETED PHQ-9 A PHQ-9 screen was performed. The score was 21 which is suggestive of severe depression. 1. Little interest or pleasure in doing things Nearly every day 2. Feeling down, depressed, or hopeless Nearly every day 3. Trouble falling or staying asleep, or sleeping too much Nearly every day 4. Feeling tired or having little energy Nearly every day 5. Poor appetite or overeating Not at all 6. Feeling bad about yourself or that you are a failure or have let yourself or your family down Nearly every day 7. Trouble concentrating on things, such as reading the newspaper or watching television Nearly every day 8. Moving or speaking so slowly that other people could have noticed. Or the opposite being so fidgety or restless that you have been moving around a lot more than usual Nearly every day 9. Thoughts that you would be better off or of hurting yourself in some way Not at all 10. If you checked off any problems, how DIFFICULT have these problems made it for you to do your work, take care of things at home or get along with other people? Extremely difficult /es/ TERESE PUTNAM Signed: 09/01/2024 12:45 TERESE PUTNAM [facility]
--- OUTSIDE RECORDS SUMMARY | 2024-09-24 06:00 | XMS_ITS | Encounter Summary ---
Author Name [facility] [place] [facility] [place] [facility] [place] Address [address] [place] [address] Care Team Providers Care Reservations Agent Name Role Phone ADELE ARAMBULA Primary Care Provider Unavail able Selected Encounter This section includes the information on record at [place] for the Encounter. Date/Time Encounter Type Encounter Description Reason Provider Source Sep 24, 2024 11:00 AM OFFICE O/P EST MOD 30 MIN PRIMARY CARE/MEDICINE ICD-10-CM M79.601 Pain in right arm DAX ARAMBULA Gustavo Encounter Template Text not used by [place] Assessments - Encounter Diagnoses This section includes the primary and secondary diagnoses documented for the Encounter. Date/Time Primary/Secondary Diagnosis Diagnosis Name Provider Source Sep 25, 2024 07:39 PM PRIMARY Pain in right arm DAX ARAMBULA [facility] Plan of Treatment: Future Appointments (+ 6 months) and Future Tests (+/- 45 days) The Plan of Treatment section includes future care activities for the patient from all [place] treatmentfacilities. This section includes future appointments and future orders which are active, pending or scheduled. Future Appointments This section includes appointments that were scheduled to occur 6 months from the date of the Encounter, up to a maximum of 20 appointments. The data comes from all [place] treatment facilities. Appointment Date/Time Appointment Type Appointme nt Facility Name Oct 16, 2024 01:00 PM AMBULATORY - MEDICINE [facility] Nov 06, 2024 08:00 AM AMBULATORY - MEDICINE [facility] Nov 17, 2024 02:40 PM AMBULATORY - [place]ICINE [facility] Nov 24, 2024 09:30 AM AM[facility]ATORY [facility]RY [facility] Nov 24, 2024 03:30 PM AMBULATORY - MEDICINE [facility] Dec 09, 2024 01:00 PM AMBULATORY - MEDICINE [facility] Dec 11, 2024 08:00 AM AMBULATORY - [facility]ICINE [facility] Dec 22, 2024 03:00 PM AMBULATORY - NONE [facility] Dec 23, 2024 03:45 PM AMBULATORY - MEDICINE [facility] Jan 03, 2025 10:48 AM AMBULATORY - MEDICINE [facility] Jan 12, 2025 10:00 AM AMBULATORY - MEDICINE [facility] Jan 13, 2025 09:00 AM AMBULATORY - MEDICINE [facility] Jan 27, 2025 09:30 AM AMBULATORY - MEDICINE [facility] Feb 09, 2025 10:36 AM AMBULATORY - MEDICINE [facility] March 10, 2025 05:58 PM AMBULATORY - MEDICINE [facility] Vital Signs: All taken on the encounter date This section contains inpatient and outpatient Vital Signs collected on the date of the Encounter. Date/Time Temperature Pulse Blood Pressure Respiratory Rate SP02 Pain Height Weight Body Mass Index Source Sep 24, 2024 11:39 AM 97.7 80 117/74 18 98 215 36 [facility] Social History: Smoking Status (Most current) and Tobacco Use (All prior to encounter date) This section includes the most current, and the historical, smoking and tobacco- related health factors from the [place] facility where the Encounter took place. Current Smoking Status This section includes the most current smoking, or tobacco-related health factor, from the [place] facility where the Encounter took place. Date/Time Current Smoking Status Comment Skylar lucasy Feb 04, 2024 09:30 AM [place]-TOBACCO NEVER USED [facility] Tobacco Use History This section includes a history of the smoking, or tobacco-related health factors, that were collected on or before the date of the Encounter. The data comes from the [place] facility where the Encounter took place. Date/Time Smoking Status/Tobacco Use Comment F acility Nov 03, 2022 11:30 AM [facility]-TOBACCO NEVER USED [facility] Sep 29, 2021 01:30 PM VA-TOBACCO NEVER USED [facility] Oct 27, 2020 01:03 PM VA-TOBACCO NEVER USED [facility] Aug 27, 2019 01:48 PM VA-TOBACCO NEVER USED [facility] Sep 17, 2018 01:31 PM VA-TOBACCO NEVER USED [facility] Sep 09, 2009 02:32 PM LIFETIME NON-USER OF TOBACCO [facility] Sep 14, 2008 10:18 AM LIFETIME NON-USER OF [place]BACCO [facility] Radiology Reports: +/- 30 days [...] the Encounter. The data comes from all [place] treatment facilities. Date/Time Radiology Report Provider Source Sep 24, 2024 11:59 AM SPINE CERVICAL MIN 4 OR 5 VIEWS: DELMI PETER [id number] [id number] [phone] Exm Date: SEP 24, 2024@11:59 Req Phys: ADELE ARAMBULA Loc: [facility] PACT [employer] [facility] (Req Img Loc: [facility]-XRAY [place] Service: Unknown Screen: [place] [address] (Case [id number] COMPLETE) SPINE CERVICAL MIN 4 OR 5 VIEWS (RAD Detailed) CPT:38742 Reason for Study: cervicalgia with radiculopathy down right arm Clinical History: Report Status: Verified Date Reported: SEP 24, 2024 Date Verified: SEP 24, 2024 Carpenter Prototype E-Sig: Report: AP, lateral, oblique and odontoid views of the cervical spine reveal reversal of midcervical lordosis, compatible with paraspinous muscle spasm. There is no acute osseous abnormality. The intervertebral disc spaces and neural foramina are normal. Impression: 1. Paraspinous muscle spasm 2. No acute osseous abnormality Primary Interpreting Staff: ARTEMIO CHAO, RADIOLOGIST (Carpenter Prototype, no e-sig) /ARTEMIO Lowery [facility] Encounter Notes: All associated encounter notes This section contains the clinical notes associated to the Encounter. Date/Time Encounter Note(s) Provider Source Oct 13, 2024 01:45 PM PHARMACY NOTE: LOCAL TITLE: MEDICATION REFILL/RENEWAL PHARMACY USE PB STANDARD TITLE: PHARMACY NOTE DATE OF NOTE: OCT 13, 2024@13:45 ENTRY DATE: OCT 13, 2024@13:45:41 AUTHOR: SHIV ROCHE COSIGNER: URGENCY: STATUS: COMPLETED PHARMACY MEDICATION REFILL/RENEWAL CLINIC DELMI PETER has contacted the pharmacy and is requesting that the following prescription(s) be renewed. The patient reports that he/she is currently LOW on his/her supply of medication. He/she is requesting a new supply be mailed by Sep. Last visit: Future visits: 10/16/24 1:00 pm [facility] [id number] 11/24/24 9:30 am -[facility] IND [phone] MEDICATION REQUESTED: Drug Name VENLAFAXINE HCL 150MG 24HR SA CAP Issue Date 04/10/2024 SIG TAKE ONE CAPSULE BY MOUTH ONCE A DAY FOR DEPRESSION WITH FOOD. DO NOT ABRUPTLY DISCONTINUE MEDICATION. Facility: [facility] Drug Name ESTRADIOL 2MG TAB Issue Date 04/10/2024 SIG TAKE ONE TABLET BY MOUTH ONCE A DAY FOR VASOMOTOR SYMPTOMS IN MENOPAUSE Facility: [facility] Drug Name PANTOPRAZOLE NA 40MG EC TAB Issue Date 04/10/2024 SIG TAKE ONE TABLET BY MOUTH ONCE A DAY FOR GASTROESOPHAGEAL REFLUX DISEASE TAKE 30 MINUTES BEFORE MEAL(S) Facility: [facility] Drug Name AMITRIPTYLINE HCL 10mg Tab SIG TAKE ONE TABLET BY MOUTH AT BEDTIME Active Medications: Active Outpatient Medications (including Supplies): Active Outpatient Medications Status 1) ONDANSETRON 4MG ORAL DISINTEGRATING TAB TAKE ONE [...] 75MG BY MOUTH ACTIVE ONCE A DAY 7 Total Medications /es/ SHIV ROCHE LPN Signed: 10/13/2024 13:46 Receipt Acknowledged By: 10/15/2024 17:10 /ward/ AMANDA Lazcano[facility], [facility] SHIV ROCHE [facility] Sep 24, 2024 11:45 AM PRIMARY CARE PROGR ESS NOTE: LOCAL TITLE: PRIMARY CARE CLINIC PROGRESS NOTE PB STANDARD TITLE: PRIMARY CARE PROGRESS NOTE DATE OF NOTE: SEP 24, 2024@11:45 ENTRY DATE: SEP 24, 2024@11:45:12 AUTHOR: ADELE ARAMBULA EXP COSIGNER: URGENCY: STATUS: COMPLETED PROVIDER ASSESSMENT DATE & TIME:Aug@11:45 CHIEF COMPLAINT: Right arm nerve pain. HISTORY OF PRESENT ILLNESS: Woodrow has some right arm nerve pain starting at the elbow and going down to the right wrist. She had an ulnar nerve surgery on this arm in the past. This does not feel like the same pain and is a constant burning. 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 states that it stays on the top of her arm. We will do an xray and nerve conduction test and refer to ortho after results. also had a chiropractor mention this pain could be coming from her neck as neuropathy but it does not go through her shoulder. We will obtain a cervical xray today. 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: 1) OCD - Obsessive-compulsive disorder (SNOMED CT 167519490) 2) Benign hypertension (SNOMED CT 97802775) 3) Neck pain (SNOMED CT 60183965) 4) Hyperlipidemia 5) Arthralgia 6) Anxiety 7) Allergic rhinitis 8) Depression 9) Posttraumatic stress disorder 10) Asthma 11) Suicide attempt 12) Adjustment disorder with depressed mood 13) Supraspinatus tear 14) Pain in left knee 15) Obesity (SNOMED CT 527386184) 16) Varicose veins of lower extremity 17) Chronic rhinitis 18) Chronic sinusitis 19) Cyst of ovary 20) Cavernous hemangioma of liver 21) Steatosis of liver 22) History of hysterectomy for benign disease 23) Exposure to potentially hazardous substance Active Outpatient Medications (including Supplies): Active Outpatient [...] ACTIVE ONCE A DAY 8 Total Medications REVIEW OF SYSTEMS: MUSCULOSKELETAL:right arm nerve pain. SKIN: No rash, lesions, or infection PSYCH: No Depression or Anxiety. Not suicidal. PHYSICAL ASSESSMENT: VITAL SIGNS Pulse: 80 (09/24/2024 11:39) Blood Pressure: 117/74 (09/24/2024 11:39) Respiratory Rate: 18 (09/24/2024 11:39) Temperature: 97.7 F [36.5 C] (09/24/2024 11:39) Weight: 215 lb [97.52 kg] (09/24/2024 11:39) Height: 65 in [165.1 cm] (10/08/2023 13:06) Pain: 4 (08/18/2024 14:10) CARDIAC: Regular rate and rhythm without murmur. No edema. RESPIRATORY: CTA, BEBS MUSCULOSKELETAL:Right arm nerve pain from top of elbow radiating down top of right arm to right wrist. FROM. Negative Phalens. Slightly decreased primary grade teacher strength right hand compared to left. SKIN: [place] without rash or lesions. NEUROLOGICAL: The Woodrow is alert and oriented without distress. Affect appropriate. IMPRESSION: Right Arm Pain-current PLAN: Cervical Xray today. Will order nerve conduction study. Will refer to Ortho after nerve conduction study if cervical xray normal. Patient is advised this primary care clinic has open access and he can make a same day appointment anytime a problem/concern arises. Patient further advised he can be seen on a walk-in basis as needed. Patient is provided clinic contact information. Medications reviewed and reconciled. Discussed diet and exercise as relevant to patient conditions. Treatment plan as noted above and the After Visit Summary was reviewed with Woodrow; opportunity provided to report concerns and ask question regarding aspects of care or treatment or services; concurrence reached and verbalized understanding. Please refer to addendum or follow up lab letter for plan of care/changes related to lab/test results not available at conclusion of appointment, if any. Discussed with patient that in the event of community imaging / testing being ordered in the future, once the imaging / testing has been completed, please notify PACT of within 1 week by a [facility] PACT member; this is due to intermittent lapses in notification of imaging completion within CPRS. All questions answered; agrees to plan of care. Follow up as listed above, annually, and as needed. Keep all completion at outside facility if not called with results appointments. Medications Reconciled. Time spent 30 minutes. /ward/ YAJAIRA Lazcano [facility] Signed: 09/25/2024 19:39 ADELE ARAMBULA Sep 24, 2024 11:40 AM PRIMARY CARE NURSI XAVI NOTE: LOCAL TITLE: PRIMARY CARE NURSING PROGRESS NOTE (TEXT) NURSING P STANDARD TITLE: PRIMARY CARE NURSING NOTE DATE OF NOTE: SEP 24, 2024@11:40 ENTRY DATE: SEP 24, 2024@11:40:39 AUTHOR: ANGEL DEY EXP COSIGNER: URGENCY: STATUS: COMPLETED Established Patient DELMI PETER IS A 44 YEAR OLD FEMALE BEING SEEN IN CLINIC SEP 24, 2024. = = REASON FOR VISIT: Woodrow requested appt Are you receiving care any where other than the [facility]? No HEALTH AND SURGICAL HISTORY: Does patient report using home oxygen? No CURRENT ACTIVE MEDICATIONS FOR REVIEW: Allergies/ADRs (Tool #5) FACILITY ALLERGY/ADR -------- [facility] PENIC[facility]IN [facility] LATEX GLOVES [facility] OXYCODONE [facility] PENICILLIN Med. Reconciliation (Tool #1) INCLUDED IN THIS LIST: Alphabetical list of active outpatient prescriptions dispensed from this [place] (local) and dispensed from another [place] or [facility] facility (remote) as well as inpatient orders (local pending and active), local clinic medications, locally documented non-VA medications, and local prescriptions that have or been discontinued in the past 90 days. Non-VA Meds Last Documented On: May 25, 2024 NOTE The display of VA prescriptions dispensed from another [place] or [facility] facility (remote) is limited to active outpatient prescription entries matched to National Drug File at the originating site and may not include some items such as investigational drugs, compounds, etc. NOT INCLUDED IN THIS LIST: Medications self-entered by the patient into personal health records (i.e. [facility]) are NOT included in this list. Non-VA medications documented outside this [place], remote inpatient orders (regardless of status) and [...] PRODUCT/DOSE - 1 CAPSULE PER DAY) Rx# [id number] Last Released: 04/10/24 Qty/Days Supply: Rx Expiration Date: 10/11/24 Refills Remainin Indication: FOR VITAMIN SUPPLEMENTATION Non-VA ESTRADIOL 2MG TAB TAKE ONE TABLET BY MOUTH ONCE A DAY VA RX: Non-VA medication recommended by VA provider Indication: FOR VASOMOTOR SYMPTOMS IN MENOPAUSE Non-VA GABAPENTIN 100MG CAP TAKE 1 CAPSULE BY MOUTH THREE TIMES A DAY NEEDED VA RX: Non-VA medication recommended by [place] provider Indication: FOR POSTHERPETIC NEURALGIA OUTPT LIDOCAINE HCL 2% VISCOUS LIQUID (Status = ) TAKE 5 ML BY MOUTH FOUR TIMES A DAY NEEDED FOR ORAL PAIN SWISH AND SWALLOW Rx# [id number] Last Released: 08/18/24 Qty/Days Supply: Rx Expiration Date: 09/17/24 Refills Remainin Indication: FOR ORAL PAIN OUTPT ONDANSETRON 4MG ORAL DISINTEGRATING TAB (Status = Active) TAKE ONE TABLET UNDER THE TONGUE EVERY EIGHT(8) HOURS NEEDED FOR NAUSEA/VOMITING Rx# [id number] Last Released: 09/17/24 Qty/Days Supply: 27/08 Rx Expiration Date: 04/11/25 Refills Remainin Indication: FOR NAUSEA/VOMITING Non-VA PANTOPRAZOLE NA 20MG EC TAB TAKE ONE TABLET BY MOUTH TWICE A DAY VA RX: Non-VA medication recommended by [place] provider Indication: FOR GASTROESOPHAGEAL REFLUX DISEASE Non-VA VENLAFAXINE HCL 150MG 24HR SA CAP TAKE 1 CAPSULE BY MOUTH ONCE A DAY VA RX: Non-VA medication recommended by VA provider Indication: FOR DEPRESSION Non-VA VENLAFAXINE HCL 75MG 24HR SA TAB TAKE ONE TABLET BY MOUTH ONCE A DAY Non-VA medication not recommended by VA provider Indication: FOR DEPRESSION SUPPLIES PHARMACY TERMS AND POSSIBLE PATIENT ACTIONS INPT = [place] inpatient order IV = [place] intravenous medication OUTPT = [place] outpatient prescription PHARMACY POSSIBLE PATIENT TERMS EXPLANATION ACTIONS -------- ---- ACTIVE A prescription that can be If you have refills, filled at the local VA pharmacy. you may request a refill of this prescription from your VA pharmacy. CLINIC A medication you received during If you have questions a visit to a VA clinic or about this medication emergency department. contact your VA healthcare team. DISCONTINUED A prescription your provider has Contact your VA stopped. It is no longer healthcare team if you available to be sent to you or need more of this picked up at the [place] pharmacy medication. window. A prescription which is too old Contact your VA to fill. This does not refer to healthcare team if you the expiration date of the need more of this medication in the container. medication. NON-VA A medication that came from If this medication someplace other than a VA information is pharmacy. This may be a incorrect or out of prescription from either the VA date, please tell your or non VA providers that was VA healthcare team. filled outside the VA. Or, it may be an [id number] (OTC), herbal, dietary supplements or sample medication. ON HOLD An active prescription that will Contact your VA not be filled until pharmacy pharmacy when you need resolves the issue. [...] An active prescription that is Contact your VA not scheduled to be filled yet. pharmacy if you need You should receive it before this medication now. you run out. Patient reports taking medications as IS PATIENT TAKING ANY OVER THE COUNTER MEDICATIONS, SUCH VITAMINS OR HERBAL SUPPLEMENTS, INCLUDING ANY MEDICATIONS PRESCRIBED BY ANOTHER PHYSICIAN? No ALLERGIES/ADVERSE REACTIONS: PENICILLIN, OXYCODONE, LATEX GLOVES Does patient have any new allergies to report since last visit? NO VITALS: TEMPERATURE: 97.7 F [36.5 C] (09/24/2024 11:39) BP: 117/74 (09/24/2024 11:39) RESP: 18 (09/24/2024 11:39) PULSE: 80 (09/24/2024 11:39) HT: 65 in [165.1 cm] (10/08/2023 13:06) WT: 215 lb [97.52 kg] (09/24/2024 11:39) BMI: 35.9 PAIN ASSESSMENT: (Most Recent Pain Score in Vitals Package: 4 (08/18/2024 14:10) ) The patient indicated that they and their close contacts have not traveled outside of the [place] in the past 21 days. The patient reports the following symptoms: No symptoms present The patient is not immunocompromised. The patient does not report having a history of Multi Drug Resistant Organism (MDRO) within the last five years. The patient does not report having been exposed to measles, chickenpox, or zoster in last 30 days. Patient reports no pain at this visit. Pain Score = 0. STRESS: Thank you for your service. Now let us serve you. At the [facility], we strive to provide you with exceptional health care that improves your health and well-being. Are you feeling sad, empty, or depressed? No Do you need to talk about things in your life that worry you or cause you stress? No Do you need to talk about personal problems, family problems, alcohol use, drug use, or mental or emotional illness? No SUICIDE SCREENING: The patient was asked, Over the past two weeks, how often have you been bothered by thoughts that you would be better off or of hurting yourself in some way? Not At All SPIRITUAL ASSESSMENT: Are there mormonism practices or spiritual concerns you want the auto specialty services manager, your physician, and other health care team members to immediately know about? No Patient advised to call the clinic for any concerns, questions, or symptoms. Patient and/or caregiver verbalized understanding of plan of care. /ward/ CHU Eagle, [facility] Signed: 09/24/2024 11:42 ANGEL DEY [facility]
--- OUTSIDE RECORDS SUMMARY | 2024-11-24 04:30 | XMS_ITS | Encounter Summary ---
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 Date/Time Encounter Type Encounter Description Reason Provider Source Nov 24, 2024 09:30 AM PSYTX W PT 60 MINUTES [facility] - [facility] ICD-10-CM F43.10 Post-traumatic stress disorder, unspecified TERESE PUTNAM Gustavo Encounter Template Text not used by [place] Assessments - Encounter Diagnoses This section includes the primary and secondary diagnoses documented for the Encounter. Date/Time Primary/Secondary Diagnosis Diagnosis Name Provider Source Nov 24, 2024 04:04 PM PRIMARY Post-traumatic stress disorder, unspecified [facility] P[facility] Plan of Treatment: Future Appointments (+ 6 months) and Future Tests (+/- 45 days) The Plan of Treatment section includes future care activities for the patient from all [place] treatmentfacilities. This section includes future appointments and future orders which are active, pending or scheduled. Future Appointments This section includes appointments that were scheduled to occur 6 months from the date of the Encounter, up to a maximum of 20 appointments. The data comes from all [place] treatment facilities. Appointment Date/Time Appointment Type Appointme nt Facility Name Dec 09, 2024 01:00 PM AMBULATORY - MEDICINE [place] [facility] Dec 11, 2024 08:00 AM AMBULATORY - MEDICINE [place] [facility] Dec 22, 2024 03:00 PM AMBULATORY - NONE [place] [facility] Dec 23, 2024 03:45 PM AMBULATORY - [place]IC[place] [facility] Jan 03, 2025 10:48 AM AMBULATORY - MEDICINE [place] [facility] Jan 12, 2025 10:00 AM AMBULATORY - MEDICINE [place] [facility] Jan 13, 2025 09:00 AM AMBULATORY - MEDICINE [place] [facility] Jan 27, 2025 09:30 AM AMBULATORY - MEDICINE [place] [facility] Feb 09, 2025 10:36 AM AMBULATORY - MEDICINE [place] [facility] March 10, 2025 05:58 PM AMBULATORY - MEDICINE [place] [facility] May 06, 2025 08:00 AM AMBULATORY - MEDICINE [place] [facility] May 11, 2025 10:00 AM AMBULATORY - MEDICINE [facility] May 20, 2025 08:00 AM AMBULATORY - MEDICINE [place] [facility] Active, Pending, and Scheduled Orders This section includes a listing of several types of active, pending, and scheduled orders, including clinic medications orders, diagnostic test orders, procedure orders and consult orders; where the start date of the order is 45 days before the date of the Encounter or 45 days after the date of theEncounter. The data comes from all [place] treatment facilities. Test Date/Time Test Type Test Details Facility Name Nov 23, 2024 12:00 AM Laboratory - Chemistry Order VITAMIN D, 25-HYDROXY GOLD/RED SST SERUM [facility] Nov 23, 2024 12:00 AM Laboratory - Chemistry Order URINALYSIS (STL-PB) URINE MARBLED [facility] Nov 23, 2024 12:00 AM Laboratory - Chemistry Order TSH (MA-PB) GOLD/RED SST SERUM [facility] Nov 23, 2024 12:00 AM Laboratory - Chemistry Order CBC BLOOD [facility] Nov 23, 2024 12:00 AM Laboratory - Chemistry Order [id number] BLOOD [facility] Nov 23, 2024 12:00 AM Laboratory - Chemistry Order CHOLESTEROL PANEL (PB) GREEN LI/HEP BLD/PLAS PLASMA [facility] Nov 23, 2024 12:00 AM Laboratory - Chemistry Order COMPREHENSIVE METABOLIC PANEL GREEN LI/HEP BLD/PLAS PLASMA SP [facility] Nov 24, 2024 04:03 PM Consult Order [facility]-DERMATOLOGY [id number] Cons Spray Machine Loader's Choice [facility] Dec 09, 2024 08:34 AM Consult Order [facility]-ORTHOPEDICS [id number] Cons Spray Machine Loader's Choice [place] [facility] Vital Signs: All taken on the encounter date This section contains inpatient and outpatient Vital Signs collected on the date of the Encounter. Date/Time Temperature Pulse Blood Pressure Respiratory Rate SP02 Pain Height Weight Body Mass Index Source Nov 24, 2024 03:51 PM 98 59 117/71 18 99 217.2 36 [facility] Social History: Smoking Status (Most current) and Tobacco Use (All prior to encounter date) This section includes the most current, and the historical, smoking and tobacco- related health factors from the [place] facility where the Encounter took place. Current Smoking Status This section includes the most current smoking, or tobacco-related health factor, from the [place] facility where the Encounter took place. Date/Time Current Smoking Status Comment Skylar ity Feb 04, 2024 09:30 AM VA-TOBACCO NEVER USED [facility] Tobacco Use History This section includes a history of the smoking, or tobacco-related health factors, that were collected on or before the date of the Encounter. The data comes from the [place] facility where the Encounter took place. Date/Time Smoking Status/Tobacco Use Comment F acpepper Nov 03, 2022 11:30 AM VA-TOBACCO NEVER [...] NON-USER OF TOBACCO [facility] Radiology Reports: +/- 30 days [...] the Encounter. The data comes from all [place] treatment facilities. Date/Time Radiology Report Provider Source Dec 22, 2024 03:09 PM MRI SPINE CERVICAL W/O CONT: DELMI PETER [id number] -[id number] F Exm Date: DEC 22, 2024@15:09 Req Phys: ADELE ARAMBULA Loc: [facility] PACT FOXROJAS PEST CONTROLLER WH (Req Img Loc: [facility]-MOBILE MRI Service: Unknown Screen: Patient answered no STEPHEN HEDYEVIN [facility] [place] [place] [address] (Case [id number] COMPLETE) MRI SPINE CERVICAL W/O CONT (MRI Detailed) CPT:55140 Reason for Study: cervicalgia with radiculopathy down right arm Clinical History: Reason for exam: radiculopathy down right arm Does the patient have: Pacemaker? NO Cochlear implants? NO Aneurysm Clip? NO Any metallic prosthesis? NO Neurotransmitter? NO Weigh over 350 lbs? NO (Note: Weight limit 350lbs but shoulder and abominal girth also a a limiting factor) Female patient: ? NO IUD? NO Is this an Urgent Request? Are you ordering more than two MRI procedures for this patient? Report Status: Verified Date Reported: DEC 22, 2024 Date Verified: DEC 22, 2024 Welding Pantograph Operator E-Sig:/ES/Vamsi Hernandez M.D. Report: EXAM: MRI of the cervical spine without contrast. FINDINGS: There is no evidence of acute osseous injury involving the cervical spine. There is very mild reversal of the normal lordosis in the upper portion of the cervical spine which may be secondary to positioning or which could indicate muscle spasm. The spinal cord has a normal diameter and normal signal intensity pattern. There is no Chiari malformation. There are osseous degenerative changes. There is a small hemangioma in the T1 vertebral body. At the C2-3 level there is no disc bulging, disc herniation, or neural impingement. At the C3-4 level there is disc bulging with a small disc herniation in the lateral aspect of the left paracentral portion of the posterior disc which is lateral to the left side of the spinal cord. The midportion of the posterior aspect of the disc may abut the anterior margin of the spinal cord but does not appear to produce impingement of the spinal cord. There are osseous degenerative changes. The left neural canal is narrowed however both the right and left C4 nerve roots appear to exit without impingement. At the C4-5 level there is very mild disc bulging with osseous degenerative change which produces no neural impingement. At the C5-6 level there is mild disc bulging with osseous degenerative change which produces no neural impingement At the C6-7 level there is very mild disc bulging with a very small area of asymmetrical bulging or broad-based disc herniation along the posterior aspect of the disc centered slightly to the left midline which produces no impingement of the spinal cord. There is very mild osseous degenerative change. The C7 nerve roots exit without impingement. At the C7-T1 there is minimal disc bulging with no disc herniation or neural impingement. Impression: 1. Degenerative changes involving the cervical spine with areas of disc bulging, asymmetrical disc bulging, disc herniation, osseous degenerative change, and neural canal narrowing as described above however there was no neural impingement identified in the cervical spine. Primary Interpreting Staff: Vamsi Hernandez M.D., Radiology (Welding Pantograph Operator) /VAMSI ARORA [facility] Encounter Notes: All associated encounter notes This section contains the clinical notes associated to the Encounter. Date/Time Encounter Note(s) Provider Source Nov 24, 2024 09:50 AM TELEHEALTH NOTE: LOCAL TITLE: VVC [facility] VIDEO CONNECT/VIDEO TO HOME STANDARD TITLE: TELEHEALTH NOTE DATE OF NOTE: NOV 24, 2024@09:50 ENTRY DATE: NOV 24, 2024@09:50:54 AUTHOR: TERESE PUTNAM COSIGNER: URGENCY: STATUS: COMPLETED VA Video Connect (VVC)/Video to home template v1.5 Visit conducted by synchronous telehealth. [place] Location/emergency number confirmed. Environment surveyed and all [...] appropriate to conduct a VVC appointment. *Confirmed Hatch's Non-VA location for this appointment: 's Home [address] [place], [place] [address] Address and phone number verified with Hatch. Address: Phone: does not have an emergency contact. *Hatch was notified of right to decline Telehealth services and eligibility for other options. Hatch consented to be seen via VVC. EMERGENCY PLAN In the event of an emergency, the Hatch or family will call emergency services, if capable. The Teleprovider will remain in the virtual medical room until emergency response arrives and handoff to emergency services is complete. If Hatch is unable to make emergency call, the Teleprovider is to call the [employer] service at [phone] and ask to be connected to emergency services for the 's location. 's Crisis Line: Dial 988 then press 1, or text [phone] Office of Connected Care Helpdesk (OCC): [phone] or [phone] Verified Provider's location and contact information for this appointment: [facility] [address] [place] [address] x [phone] PATIENT: DELMI PETER GENDER: FEMALE AGE: 44 [...] PREFERENCES Specific therapeutic Modalities: individual VISIT DATE: Oct Relevant Changes in Mental Status: None MENTAL [...] cognitive-based psychotherapy, Provided supportive and solution-focused psychotherapy. Hatch reported having had her C&P exam for her PTSD and was not asked questions or felt that she was given proper representation. reported they did not evaluate how her MST continues to effect her daily. We discussed the impact it continues to have in her marriage and how understanding her is in helping her through those difficult moments and their intimate life. GOAL(S)ADDRESSED IN THIS SESSION (required): Reduction of trauma symptoms No clinically significant SI/HI: denies Homicidal ideation/behavior present: H[place] denies Child/elder abuse present: denies PROGRESS OF SESSION OR THERAPY TO DATE (required): Minimal progress RECOMMENDATIONS/PLAN (required): will return to clinic for individual therapy session. Hatch will attend appointments for medication management. will take medications as prescribed. CHANGES IN TREATMENT PLAN: None CHANGES IN DIAGNOSIS: None DIAGNOSIS TREATED THIS VISIT: PTSD TIME SPENT WITH PATIENT: 53-67 minutes, Ind. Psychotherapy, [id number] /es/ TERESE PUTNAM Signed: 11/24/2024 16:04 TERESE PUTNAM [facility]
--- OUTSIDE RECORDS SUMMARY | 2024-11-24 10:30 | XMS_ITS | Encounter Summary ---
Author Name Department of [facility] ([place]) Organization [facility] ([place]) Address [address] [place] [address] Care Team Providers Care Bottom Brusher Name Role Phone ADELE ARAMBULA Primary Care Provider Unavail able Selected Encounter This section includes the information on record at [place] for the Encounter. Date/Time Encounter Type Encounter Description Reason Provider Source Nov 24, 2024 03:30 PM OFFICE O/P EST MOD 30 MIN PRIMARY CARE/MEDICINE ICD-10-CM N64.4 Mastodynia RAUL ARAMBULA Gustavo Encounter Template Text not used by [place] Assessments - Encounter Diagnoses This section includes the primary and secondary diagnoses documented for the Encounter. Date/Time Primary/Secondary Diagnosis Diagnosis Name Provider Source Dec 03, 2024 02:50 PM PRIMARY Mastodynia RAUL ARAMBULA [place] [facility] Dec 03, 2024 02:50 PM SECONDARY Cervicalgia RAUL ARAMBULA [place] [facility] Dec 03, 2024 02:50 PM SECONDARY Disorder of the skin and subcutaneous tissue, unspecified RAUL ARAMBULA [place] [facility] Dec 03, 2024 02:50 PM SECONDARY Gastro-esophageal reflux disease without esophagitis RAUL ARAMBULA [place] [facility] Plan of Treatment: Future Appointments (+ 6 months) and Future Tests (+/- 45 days) The Plan of Treatment section includes future care activities for the patient from all [facility] treatmentfacilities. This section includes future appointments and future orders which are active, pending or scheduled. Future Appointments This section includes appointments that were scheduled to occur 6 months from the date of the Encounter, up to a maximum of 20 appointments. The data comes from all [facility]. Appointment Date/Time Appointment Type Appointme nt Facility Name Dec 09, 2024 01:00 PM AMBULATORY - [place]IC[place] [facility] Dec 11, 2024 08:00 AM [facility] [place] [facility] Dec 22, 2024 03:00 PM AMBULATORY - NONE [place] [facility] Dec 23, 2024 03:45 PM [facility] [place]IC[place] [facility] Jan 03, 2025 10:48 AM [facility]ATORY [place] [facility] Jan 12, 2025 10:00 AM [facility]ORY [place] [facility] Jan 13, 2025 09:00 AM [facility]ORY [place] [facility] Jan 27, 2025 09:30 AM AMB[facility]ATORY - [place]IC[place] [facility] Feb 09, 2025 10:36 AM [facility]ATORY - [place]IC[place] [facility] March 10, 2025 05:58 PM AMBULATORY - [place]IC[place] [facility] May 06, 2025 08:00 AM AM[facility]ATORY - [place]IC[place] [facility] May 11, 2025 10:00 AM AMBULATORY - MEDICINE [facility] May 20, 2025 08:00 AM [facility]ORY - [place]IC[place] [facility] Active, Pending, and Scheduled Orders This section includes a listing of several types of active, pending, and scheduled orders, including clinic medications orders, diagnostic test orders, procedure orders and consult orders; where the start date of the order is 45 days before the date of the Encounter or 45 days after the date of theEncounter. The data comes from all [facility]. Test Date/Time Test Type Test Details Facility Name Nov 23, 2024 12:00 AM Laboratory - Chemistry Order URINALYSIS (STL-PB) URINE [facility] Nov 23, 2024 12:00 AM Laboratory - Chemistry Order TSH (MA-PB) GOLD/RED SST [facility] Nov 23, 2024 12:00 AM Laboratory - Chemistry Order VITAMIN D, 25-HYDROXY GOLD/RED SST [facility] Nov 23, 2024 12:00 AM Laboratory - Chemistry Order CBC BLOOD [place] [facility] Nov 23, 2024 12:00 AM Laboratory - Chemistry Order [id number] BLOOD SP [place] [facility] Nov 23, 2024 12:00 AM Laboratory - Chemistry Order CHOLESTEROL PANEL (PB) GREEN LI/HEP BLD/PLAS PLASMA SP [place] [facility] Nov 23, 2024 12:00 AM Laboratory - Chemistry Order COMPREHENSIVE METABOLIC PANEL GREEN LI/HEP BLD/PLAS PLASMA SP [place] [facility] Nov 24, 2024 04:03 PM Consult Order COMMUNITY CARE-DERMATOLOGY 657A4 Cons Online Tutor's Choice [place] [facility] Dec 09, 2024 08:34 AM Consult Order COMMUNITY CARE-ORTHOPEDICS 657A4 Cons Online Tutor's Choice [place] [facility] Vital Signs: All taken on the encounter date This section contains inpatient and outpatient Vital Signs collected on the date of the Encounter. Date/Time Temperature Pulse Blood Pressure Respiratory Rate SP02 Pain Height Weight Body Mass Index Source Nov 24, 2024 03:51 PM 98 59 117/71 18 99 217.2 36 [facility] Social History: Smoking Status (Most current) and Tobacco Use (All prior to encounter date) This section includes the most current, and the historical, smoking and tobacco- related health factors from the [place] facility where the Encounter took place. Current Smoking Status This section includes the most current smoking, or tobacco-related health factor, from the [place] facility where the Encounter took place. Date/Time Current Smoking Status Comment Skylar ity Feb 04, 2024 09:30 AM VA-TOBACCO NEVER USED [place] [facility] Tobacco Use History This section includes a history of the smoking, or tobacco-related health factors, that were collected on or before the date of the Encounter. The data comes from the [place] facility where the Encounter took place. Date/Time [...] 02:32 PM LIFETIME NON-USER OF TOBACCO [place] [facility] Sep 14, 2008 10:18 AM LIFETIME NON-USER OF TOBACCO [facility] Radiology Reports: +/- 30 days of [...] the Encounter. The data comes from all [place] treatment facilities. Date/Time Radiology Report Provider Source Dec 22, 2024 03:09 PM MRI SPINE CERVICAL W/O CONT: DELMI PETER [id number] -1980 F Exm Date: DEC 22, 2024@15:09 Req Phys: ADELE ARAMBULA Pat Loc: PB-DEEPA PACT JANETTE AMIN WH (Req Img Loc: PB-MOBILE MRI Service: Unknown Screen: Patient answered no STEPHEN NATHANAEL [facility] [place] [address] (Case [id number] COMPLETE) MRI SPINE CERVICAL W/O CONT (MRI Detailed) CPT:49801 Reason for Study: cervicalgia with radiculopathy down [...] 22, 2024 Date Verified: DEC 22, 2024 Die Cast Technician E-Sig:/ES/Vamsi Hernandez M.D. Report: EXAM: MRI of [...] Primary Interpreting Staff: Vamsi Hernandez M.D., Radiology (Die Cast Technician) /VAMSI ARORA [facility] Encounter Notes: All associated encounter notes This section contains the clinical notes associated to the Encounter. Date/Time Encounter Note(s) Provider Source Feb 04, 2025 03:52 PM ADDENDUM: LOCAL TITLE: Addendum STANDARD TITLE: ADDENDUM DATE OF NOTE: FEB 04, 2025@15:52:50 ENTRY DATE: FEB 04, 2025@15:52:51 AUTHOR: ANGEL DEY COSIGNER: URGENCY: STATUS: COMPLETED Message is already assigned to another user: SHIV ROCHE [employer] Preferences Help Contact Us View Message Reply Select Move Folder Move Message to Folder... Sent 04 Feb 2025 @ 1255 ET From [place] DELMI GIO (SSN: [id number], : 1980) To Marco, [facility] Subject Medication: Dissolvable Zofran Message ID [id number] Message Can I get a refill of the dissolvable Zofran? As much and at least an 8 mg please! /ward/ Angel Dey RN [facility], [facility] Signed: 02/04/2025 15:53 Receipt Acknowledged By: 02/04/2025 18:34 /es/ Adele Arambula, [facility] --- Original Document --- 02/04/25 TELEPHONE NOTE: Attemtped to contact Zenia to review test result letter. NO answer. Left BRADEN. /ward/ Angel Dey RN [place], [facility] Signed: 02/04/2025 08:41 ANGEL DEY [facility] [place] Feb 04, 2025 08:41 AM TELEPHONE ENCOUNTE R NOTE: LOCAL TITLE: TELEPHONE NOTE STANDARD TITLE: TELEPHONE ENCOUNTER NOTE DATE OF NOTE: FEB 04, 2025@08:41 ENTRY DATE: FEB 04, 2025@08:41:31 AUTHOR: ANGEL DEY RE EXP COSIGNER: URGENCY: STATUS: COMPLETED TELEPHONE NOTE Has ADDENDA Attemtped to contact to review test result letter. NO answer. Left . /ward/ Angel Dey RN [facility], [facility] Signed: 02/04/2025 08:41 02/04/2025 ADDENDUM STATUS: COMPLETED Message is already assigned to another user: SHIV ROCHE Secure Messaging Preferences Help Contact Us View Message Reply Select Move Folder Move Message to Folder... Sent 04 Feb 2025 @ 1255 ET From DELMI PETER (SSN: [id number], : 1980) To EthanEliseomango, [facility] Subject Medication: Dissolvable Zofran Message ID [id number] Message Can I get a refill of the dissolvable Zofran? As much and at least an 8 mg please! /ward/ Angel Dey RN [facility], [facility] Signed: 02/04/2025 15:53 Receipt Acknowledged By: * AWAITING SIGNATURE * ADELE ARAMBULA JEANNIE RENEE [facility] Jan 27, 2025 11:02 AM NURSING PROGRESS N OTE: LOCAL TITLE: NURSING NOTE PB STANDARD TITLE: NURSING PROGRESS NOTE DATE OF NOTE: JAN 27, 2025@11:02 ENTRY DATE: JAN 27, 2025@11:02:34 AUTHOR: ANGEL DEY EXP COSIGNER: URGENCY: STATUS: COMPLETED Zenia in clinic requesting immediate need for methocarbamol that was prescribed yesterday by provider for her neck pain. stated that neck pain is affecting her sleep. Reviewed with Provider. Provider advised that she will call out a short supply to [facility]. /ward/ Angel Dey RN [facility], [facility] Signed: 01/27/2025 11:04 Receipt Acknowledged By: 01/27/2025 11:06 /ward/ Adele Arambula, [facility], [facility] ANGEL DEY [facility] Jan 26, 2025 10:55 AM NURSING PROGRESS N OTE: LOCAL TITLE: NURSING NOTE PB STANDARD TITLE: NURSING PROGRESS NOTE DATE OF NOTE: JAN 26, 2025@10:55 ENTRY DATE: JAN 26, 2025@10:55:41 AUTHOR: ANGEL DEY EXP COSIGNER: URGENCY: STATUS: COMPLETED [facility] Osvaldo Sethi ordered labs and requesting results faxed to [phone] /ward/ Angel Dey RN [place] [facility], [facility] Signed: 01/26/2025 10:56 Receipt Acknowledged By: 01/27/2025 11:07 /es/ ANGEL RAMEY [facility] Dec 30, 2024 01:05 PM NURSING PROGRESS N OTE: LOCAL TITLE: NURSING NOTE PB STANDARD TITLE: NURSING PROGRESS NOTE DATE OF NOTE: DEC 30, 2024@13:05 ENTRY DATE: DEC 30, 2024@13:05:10 AUTHOR: ANGEL DEY EXP COSIGNER: URGENCY: STATUS: COMPLETED Contacted and reviewed C-Spine MRI Zenia advised that she would like to see a neurosurgeon she stated that she would like the soonest appt in [facility] or [facility]. I advised I will alert the PCP. 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 = = REASON FOR VISIT: Zenia requested appt to discuss upper Gi issues, abd pain, and neck pain Are you receiving care any where other than the PA? No HEALTH AND SURGICAL HISTORY: Does patient report using home oxygen? No CURRENT ACTIVE MEDICATIONS FOR REVIEW: Allergies/ADRs (Tool #5) FACILITY ALLERGY/ADR -------- [facility] MEDICAL [facility] DIVISION LATEX GLOVES [facility] DIVISION OXYCODONE [facility] DIVISION PENICILLIN Med. Reconciliation (Tool #1) INCLUDED IN THIS LIST: Alphabetical list of active outpatient prescriptions dispensed from this PA (local) and dispensed from another PA or [facility] facility (remote) as well as inpatient orders (local pending and active), local clinic medications, locally documented non-VA medications, and local prescriptions that have or been discontinued in the past 90 days. Non-VA Meds Last Documented On: May 25, 2024 NOTE The display of VA prescriptions dispensed from another PA or [facility] facility (remote) is limited to active outpatient prescription entries matched to National Drug File at the originating site and may not include some items such as investigational drugs, compounds, etc. NOT INCLUDED IN THIS LIST: Medications self-entered by the patient into personal health records (i.e. [employer]) are NOT included in this list. Non-VA medications documented outside this PA, remote inpatient orders (regardless of status) and remote clinic medications are NOT included in this list. The patient and provider must always discuss medications the patient is taking, regardless of where the medication was dispensed or obtained. OUTPT AMITRIPTYLINE HCL 10MG TAB (Status = Active) TAKE ONE TABLET BY MOUTH AT BEDTIME FOR DEPRESSION Rx# [id number] Last Released: 10/17/24 Qty/Days Supply: Rx Expiration Date: 10/16/25 Refills Remainin Indication: FOR DEPRESSION OUTPT BARIATRIC MULTIVITAMINS W/IRON CAP (Status = Discontinued) TAKE 1 CAPSULE BY MOUTH ONCE A DAY FOR VITAMIN SUPPLEMENTATION (NOTE CHANGE IN PRODUCT/DOSE - 1 CAPSULE PER DAY) Rx# [id number] Last Released: 04/10/24 Qty/Days Supply: Rx Expiration Date: 10/11/24 Refills Remainin Indication: FOR VITAMIN SUPPLEMENTATION OUTPT BARIATRIC MULTIVITAMINS W/IRON CAP (Status = Active) TAKE 1 CAPSULE BY MOUTH ONCE A DAY FOR VITAMIN SUPPLEMENTATION (NOTE CHANGE IN PRODUCT/DOSE - 1 CAPSULE PER DAY) Rx# [id number] Last Released: 10/15/24 Qty/Days Supply: Rx Expiration Date: 10/14/25 Refills Remainin Indication: FOR VITAMIN SUPPLEMENTATION OUTPT ESTRADIOL 2MG TAB (Status = Active) TAKE ONE TABLET BY MOUTH ONCE A DAY FOR VASOMOTOR SYMPTOMS IN MENOPAUSE Rx# [id number] Last Released: 10/16/24 Qty/Days Supply: Rx Expiration Date: 10/16/25 Refills Remainin Indication: FOR VASOMOTOR SYMPTOMS IN MENOPAUSE Non-VA GABAPENTIN 100MG CAP TAKE 1 CAPSULE BY MOUTH THREE TIMES A DAY NEEDED VA RX: Non-VA medication recommended by VA provider Indication: FOR POSTHERPETIC NEURALGIA OUTPT LIDOCAINE HCL 2% VISCOUS LIQUID (Status = ) TAKE 5 ML BY MOUTH FOUR TIMES A DAY NEEDED FOR ORAL PAIN SWISH AND SWALLOW Rx# [id number] Last Released: 08/18/24 Qty/Days Supply: Rx Expiration Date: 09/17/24 Refills Remainin Indication: FOR ORAL PAIN OUTPT ONDANSETRON 4MG ORAL DISINTEGRATING TAB (Status = Active) TAKE ONE TABLET UNDER THE TONGUE EVERY EIGHT(8) HOURS NEEDED FOR NAUSEA/VOMITING Rx# [id number] Last Released: 10/08/24 Qty/Days Supply: 27/08 Rx Expiration Date: 04/11/25 Refills Remainin Indication: FOR NAUSEA/VOMITING OUTPT PANTOPRAZOLE NA 40MG EC TAB (Status = Active) TAKE ONE TABLET BY MOUTH EVERY MORNING BEFORE A MEAL FOR GASTROESOPHAGEAL REFLUX DISEASE TAKE 30 MINUTES BEFORE MEAL(S) Rx# [id number] Last Released: 10/17/24 Qty/Days Supply: Rx Expiration Date: 10/16/25 Refills Remainin Indication: FOR GASTROESOPHAGEAL REFLUX DISEASE OUTPT VENLAFAXINE HCL 150MG 24HR SA CAP (Status = Active) TAKE ONE CAPSULE BY MOUTH ONCE A DAY FOR DEPRESSION WITH FOOD. DO NOT ABRUPTLY DISCONTINUE MEDICATION. Rx# [id number] Last Released: 10/17/24 Qty/Days Supply: Rx Expiration Date: 10/16/25 Refills Remainin Indication: FOR DEPRESSION SUPPLIES PHARMACY TERMS AND POSSIBLE PATIENT ACTIONS INPT = PA inpatient order IV = PA intravenous medication OUTPT = PA outpatient prescription PHARMACY POSSIBLE PATIENT TERMS EXPLANATION ACTIONS -------- ---- ACTIVE A prescription that can be If you have refills, filled at the local PA pharmacy. you may request a refill of this prescription from your PA pharmacy. CLINIC A medication you received during If you have questions a visit to a PA clinic or about this medication emergency department. contact your PA healthcare team. DISCONTINUED A prescription your provider has Contact your PA stopped. It is no longer healthcare team if you available to be sent to you or need more of this picked up at the PA pharmacy medication. window. A prescription which is [...] the VA. Or, it may be an caaj-lia-frhxhea (OTC), herbal, dietary supplements or sample medication. [...] An active prescription that is Contact your PA not scheduled to be filled yet. pharmacy if you need You should receive it before this medication now. you run out. Patient reports taking medications as ordered. IS PATIENT TAKING ANY OVER THE COUNTER MEDICATIONS, SUCH VITAMINS OR HERBAL SUPPLEMENTS, INCLUDING ANY MEDICATIONS PRESCRIBED BY ANOTHER PHYSICIAN? No ALLERGIES/ADVERSE REACTIONS: PENICILLIN, OXYCODONE, LATEX GLOVES Does patient have any new allergies to report since last visit? NO VITALS: TEMPERATURE: 98 F [36.7 C] (11/24/2024 15:51) BP: 117/71 (11/24/2024 15:51) RESP: 18 (11/24/2024 15:51) PULSE: 59 (11/24/2024 15:51) HT: 65 in [165.1 cm] (10/08/2023 13:06) WT: 217.2 lb [98.52 kg] (11/24/2024 15:51) BMI: 36.2 PAIN ASSESSMENT: (Most Recent Pain Score in [...] Now let us serve you. At the [facility], we strive to provide you with exceptional [...] Not At All SPIRITUAL ASSESSMENT: Are there orthodox practices or spiritual concerns you want the associate product manager, your physician, and other health care team members to immediately know about? No Patient advised to call the clinic for any concerns, questions, or symptoms. Patient and/or caregiver verbalized understanding of plan of care. Suicide Screen - V: C-SSRS Screening Steele Suicide Severity Rating Scale (C-SSRS) screener 1. [...] required due to responses to other questions. Alcohol Use Screen (AUDIT-C) - V: Alcohol Screen: SCREEN FOR ALCOHOL (AUDIT-C) An alcohol screening test (AUDIT-C) was negative (score=0). 1. How often did you have a drink containing alcohol in the past year? Consider a drink to be a 12 ounce can or bottle of regular beer, 8 ounces of malt liquor, a 5 ounce glass of table wine, or a 1.5 ounce shot of liquor (like scotch, gin, or vodka). Never 2. How many drinks containing alcohol did you have on a typical day when you were drinking in the past year? Response not required due to responses to other questions. 3. How often did you have 4 or more drinks on one occasion in the past year? Response not required due to responses to other questions. Weight Control/Nutrition Counseling: * The patient received the following counseling at this encounter: Patient was encouraged to restrict fat, especially saturated fats, in a normal diet. Benefit of a diet high in fiber was discussed. Patient was advised to include 5 or more servings of fruit and vegetables and six or more servings of grains as a well balanced diet. Sexual Orientation - CP,L,N,P,PH,PS,S,U: The patient thinks of their sexual orientation as: Straight or Heterosexual /es/ Angel Dey RN [facility], [facility] Signed: 11/24/2024 16:00 ANGEL DEY [facility] Nov 24, 2024 03:49 PM PRIMARY CARE PROGR ESS NOTE: LOCAL TITLE: PRIMARY CARE CLINIC PROGRESS NOTE PB STANDARD TITLE: PRIMARY CARE PROGRESS NOTE DATE OF NOTE: NOV 24, 2024@15:49 ENTRY DATE: NOV 24, 2024@15:49:15 AUTHOR: ADELE ARAMBULA COSIGNER: URGENCY: STATUS: COMPLETED PROVIDER ASSESSMENT DATE & TIME:Oct@15:49 CHIEF COMPLAINT: Need for EGD, Neck Pain, Derm consult and request for breast reduction. HISTORY OF PRESENT ILLNESS: Shiva is being seen for a request for an EGD. 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 Shiva states that she had her bypass surgery 3 years ago and has not had a scope since then. She states it is often very painful. She also states that she continues to have some right arm radiculopathy. She is having carpal tunnel surgery next week and they think her right elbow pain is tendonitis but they are not sure. Her chiropractor feels like it is coming from her neck. He is requesting an MRI. Shiva has multiple skin lesions on her face that are irritated and one is in her hairline that is black. Shiva has a lesion on her left mid back that she would like removed also that is irrriated by her bra line. Shiva would like a referral for a breast reduction. She has large pendulous breasts that cause an increase in her back and neck pain. She has rash underneath her breasts that worsens during the summer. She uses an anti-fungal cream under it mostly. She wears a size 36 DDD bra. She has indentions in her bilateral shoulders today from her bra straps. Shiva has seen chiropractic services for her neck and back pain, dry needling, massage therapy and has taken antiflammatory medications. Shiva will be referred for consideration. 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: 1) OCD - Obsessive-compulsive disorder (SNOMED CT 298199223) 2) Benign hypertension (SNOMED CT 17793373) 3) Neck pain (SNOMED CT 98973188) 4) Hyperlipidemia 5) Arthralgia 6) Anxiety 7) Allergic rhinitis 8) Depression 9) Posttraumatic stress disorder 10) Asthma 11) Suicide attempt 12) Adjustment disorder with depressed mood 13) Supraspinatus tear 14) Pain in left knee 15) Obesity (SNOMED CT 260579122) 16) Varicose veins of lower extremity 17) Chronic rhinitis 18) Chronic sinusitis 19) Cyst of ovary 20) Cavernous hemangioma of liver 21) Steatosis of liver 22) History of hysterectomy for benign disease 23) Exposure to potentially hazardous substance Active Outpatient Medications (including Supplies): Active Outpatient Medications Status 1) AMITRIPTYLINE HCL 10MG TAB TAKE ONE TABLET BY MOUTH AT ACTIVE BEDTIME Indication: FOR DEPRESSION 2) BARIATRIC MULTIVITAMINS W/IRON CAP TAKE 1 CAPSULE BY MOUTH ACTIVE ONCE A DAY (NOTE CHANGE IN PRODUCT/DOSE - 1 CAPSULE PER DAY) Indication: FOR VITAMIN SUPPLEMENTATION 3) ESTRADIOL 2MG TAB TAKE ONE TABLET BY MOUTH ONCE A DAY ACTIVE Indication: FOR VASOMOTOR SYMPTOMS IN MENOPAUSE 4) ONDANSETRON 4MG ORAL DISINTEGRATING TAB TAKE ONE TABLET ACTIVE UNDER THE TONGUE EVERY EIGHT(8) HOURS NEEDED Indication: FOR NAUSEA/VOMITING 5) PANTOPRAZOLE NA 40MG EC TAB TAKE ONE TABLET BY MOUTH EVERY ACTIVE MORNING BEFORE A MEAL TAKE 30 MINUTES BEFORE MEAL(S) Indication: FOR GASTROESOPHAGEAL REFLUX DISEASE 6) VENLAFAXINE HCL 150MG 24HR SA CAP TAKE ONE CAPSULE BY MOUTH ACTIVE ONCE A DAY WITH FOOD. DO NOT ABRUPTLY DISCONTINUE MEDICATION. Indication: FOR DEPRESSION Active Non-VA Medications Status 1) Non-VA GABAPENTIN 100MG CAP 100MG BY MOUTH THREE TIMES A DAY ACTIVE NEEDED Indication: FOR POSTHERPETIC NEURALGIA 7 Total Medications REVIEW OF SYSTEMS: HEENT: No Headache. No blurry vision, vision loss, eye pain, red eyes, or foreign body. No runnynose, congestion, or nose bleed. No hearing loss, ringing in the ears, or vertigo. No sore throat or dental pain. RESPIRATORY: No cough, SOA, wheezing, or sputum production. CARDIOVASCULAR: No chest pain, palpitations, tachycardia, PND, or orthopnea. GI: No nausea, vomiting, diarrhea, constipation, melena, or hematochezia. positive abdominal pain. : No dysuria, hematuria, urinary frequency, weak stream, or post-void dribbling. MUSCULOSKELETAL:No muscle or joint pain. chronic back and neck pain. SKIN: No rash, lesions, or infection PSYCH: No Depression or Anxiety. Not suicidal. PHYSICAL ASSESSMENT: VITAL SIGNS Pulse: 80 (09/24/2024 11:39) Blood Pressure: 117/74 (09/24/2024 11:39) Respiratory Rate: 18 (09/24/2024 11:39) Temperature: 97.7 F [36.5 C] (09/24/2024 11:39) Weight: 215 lb [97.52 kg] (09/24/2024 11:39) Height: 65 in [165.1 cm] (10/08/2023 13:06) Pain: 4 (08/18/2024 14:10) HEENT:PERRL, EOMI, Fundi benign, TM's clear, Pharynx not red and without exudate, tonsils normal size. NECK: Supple, no lymhadenopathy, thyroid normal. CARDIAC: Regular rate and rhythm without murmur. No edema. RESPIRATORY: CTA, BEBS GI: Abdomen soft,with ABS, no HSM, no guarding or rebound. MUSCULOSKELETAL:Chronic back and neck pain. Positive shoulder pain from mastodynia. SKIN: Erythremic fungal rash under bilateral breasts. Multiple, various flesh colored, raised, irritated skin lesions, less than 1cm diameter, on face. One black, slightly raised, irregular skin lesion on left upper hair line. Multiple various skin lesions on back, flat and brown. One skin lesion on left, mid back, slightly raised and irritated. All measure less than 1cm diameter. NEUROLOGICAL: The is alert and oriented without distress. Affect appropriate. IMPRESSION: Mastodynia-current GERD-chronic Low Back Pain-current Skin Lesion-current PLAN: Increase water intake. Continue current medications. Will place derm consult. Will place GI consult. Will place plastic surgery consult. Continue current medications. RTC as previously scheduled. Patient is advised this primary care clinic [...] the After Visit Summary was reviewed with Zenia; opportunity provided to report concerns and ask [...] 30 minutes. /ward/ YAJAIRA Lazcano CBOC Signed: 12/03/2024 14:48 ADELE ARAMBULA
--- OUTSIDE RECORDS SUMMARY | 2025-01-03 05:48 | XMS_ITS ---
Author Name [facility] [place] Organization [facility] [place] Address [address] [place] [address] Care Team Providers Care Technical Manager [employer] Name Role Phone ADELE ARAMBULA Primary Care Provider Unavail able Selected Encounter This section includes the information on record at [place] for the Encounter. Date/Time Encounter Type Encounter Description Reason Provider Source Jan 03, 2025 10:48 AM OFFICE O/P EST LOW 20 MIN URGENT CARE ICD-10-CM L03.031 Cellulitis of right toe MARRY,ISELA D IHE Encounter Template Text not used by [place] Assessments - Encounter Diagnoses This section includes the primary and secondary diagnoses documented for the Encounter. Date/Time Primary/Secondary Diagnosis Diagnosis Name Provider Source Jan 03, 2025 01:35 PM PRIMARY Cellulitis of right toe MARRY,ISELA D [place] [facility] Jan 03, 2025 01:35 PM SECONDARY Acute upper respiratory infection, unspecified MARRY,ISELA D [facility] [facility] Plan of Treatment: Future Appointments (+ 6 months) and Future Tests (+/- 45 days) The Plan of Treatment section includes future care activities for the patient from all [place] treatmentfacilities. This section includes future appointments and future orders which are active, pending or scheduled. Future Appointments This section includes appointments that were scheduled to occur 6 months from the date of the Encounter, up to a maximum of 20 appointments. The data comes from all [place] treatment facilities. Appointment Date/Time Appointment Type Appointme nt Facility Name Jan 12, 2025 10:00 AM AMBULATORY - MEDICINE [place] [facility] Jan 13, 2025 09:00 AM AMBULATORY - MEDICINE [place] [facility] Jan 27, 2025 09:30 AM AMBULATORY - MEDICINE [place] [facility] Feb 09, 2025 10:36 AM AMBULATORY - MEDIC[place] [facility] March 10, 2025 05:58 PM AMBULATORY - MEDICINE [place] [facility] May 06, 2025 08:00 AM AMBULATORY - MEDICINE [place] [facility] May 11, 2025 10:00 AM AMBULATORY - MEDICINE [facility] May 20, 2025 08:00 AM AMBULATORY - MEDICINE [place] [facility] May 29, 2025 02:00 PM AMBULATORY - PSYCHIATRY [facility] Active, Pending, and Scheduled Orders This section includes a listing of several types of active, pending, and scheduled orders, including clinic medications orders, diagnostic test orders, procedure orders and consult orders; where the start date of the order is 45 days before the date of the Encounter or 45 days after the date of theEncounter. The data comes from all [facility] facilities. Test Date/Time Test Type Test Details Facility Name Nov 23, 2024 12:00 AM Laboratory - Chemistry Order TSH (MA-PB) GOLD/RED SST SERUM [facility] Nov 23, 2024 12:00 AM Laboratory - Chemistry Order URINALYSIS (STL-PB) URINE MARBLED [facility] Nov 23, 2024 12:00 AM Laboratory - Chemistry Order VITAMIN D, 25-HYDROXY GOLD/RED SST SERUM [facility] Nov 23, 2024 12:00 AM Laboratory - Chemistry Order HGA1C BLOOD [facility] Nov 23, 2024 12:00 AM Laboratory - Chemistry Order CHOLESTEROL PANEL (PB) GREEN LI/HEP BLD/PLAS PLASMA [facility] Nov 23, 2024 12:00 AM Laboratory - Chemistry Order CBC BLOOD [facility] Nov 23, 2024 12:00 AM Laboratory - Chemistry Order COMPREHENSIVE METABOLIC PANEL GREEN LI/HEP BLD/PLAS PLASMA [facility] Nov 24, 2024 04:03 PM Consult Order [facility]-DERMATOLOGY [id number] Cons [place] Supervisor's Choice [facility] Dec 09, 2024 08:34 AM Consult Order [facility] [id number] Cons [place] Supervisor's Choice [place] [facility] Feb 09, 2025 12:00 AM Laboratory - Chemistry Order DRUG SCREEN URINE-inhouse (PB) URINE,RANDOM SP LILLIAN MENDO[facility] Lab Results: +/- 30 days of the encounter This section includes the Chemistry and Hematology Lab Results on record with [place] for the patient. Radiology Reports and Pathology Reports are provided separately, in subsequent sections. Lab Results This section contains the Chemistry/Hematology Results that were resulted 30 days before or 30 daysafter the date of the Encounter. Date/Time Source Result Type Result - Unit Interpretation Reference Range Specimen Type Comment Jan 26, 2025 10:57 AM [facility] CRP PLASMA Specimen Type: PLASMA No comment entered. Ordering Provider: ADELE ARAMBULA Report Released Date/Time: Jan 26, 2025 10:55 AM Reporting Lab: [place] [facility] [address] [place] [address] Performing Lab: [place] [facility] [address] [place] [address] CRP 0.59 mg/dL H 0-0.5 Jan 26, 2025 10:57 AM [facility] ESR,ISED-PB BLOOD Specimen Typ e: BLOOD No comment entered. Ordering Provider: ADELE ARAMBULA Report Released Date/Time: Jan 26, 2025 10:55 AM Reporting Lab: [place] [facility] [address] [place] [address] Performing Lab: [place] [facility] [address] [place] [address] ESR,ISED-PB 39 mm/h H 0-19 Jan 26, 2025 10:57 AM [facility] COMPREHENSIVE METABOLIC PANEL PLASMA Specimen Type: PLASMA No comment entered. Ordering Provider: ADELE ARAMBULA Report Released Date/Time: Jan 26, 2025 10:55 AM Reporting Lab: [place] [facility] [address] [place] [address] Performing Lab: [place] [facility] [address] [place] [address] CREATININE 0.72 mg/dL 0.6-1.1 UREA NITROGEN 14 mg/dL 9-25 GLUCOSE 95 mg/dL 72-99 SODIUM 141 meq/L 136-145 POTASSIUM 4.1 meq/L 3.5-5 CHLORIDE 108 meq/L H 98-107 CARBON DIOXIDE 23 meq/L 22-31 CALCIUM 8.9 mg/dL 8.4-10.4 PROTEIN 6.8 g/dL 6-8.6 ALBUMIN 3.9 g/dL 3.4-5 TOTAL BILIRUBIN 0.3 mg/dL 0.2-1.2 ALKALINE PHOSPHATASE 101 U/L 40-150 AST/SGOT 21 U/L 5-34 ALT/SGPT 14 U/L 8-40 EGFR (CKD-EPI 2020) 107 Jan 26, 2025 10:57 AM [facility] CBC BLOOD Specimen Type: BLOOD No comment entered. Ordering Provider: ADELE ARAMBULA Report Released Date/Time: Jan 26, 2025 10:55 AM Reporting Lab: [place] [facility] [address] [facility] [address] Performing Lab: [place] [facility] [address] [facility] [address] WBC 5.2 10*3/uL 3.6-11.2 RBC 4.14 10*6/uL 3.60-5.00 HGB 10.1 g/dL L 11.0-14.9 HCT 34.2 32.6-43.4 MCV 82.6 fL 80.0-100.0 MCH 24.4 pg L 27.0-34.0 MCHC 29.5 g/dL L 33.0-36.0 PLT 334 10*3/uL 150-400 MPV 8.8 fL 7.5-11.2 RDW 16.0 H 11.8-15.1 LYMPHOCYTES, AUTO % 29.3 MONOCYTES, AUTO % 7.8 NEUTROPHILS, AUTO % 58.6 EOSINOPHILS, AUTO % 3.3 BASOPHILS, AUTO % 0.8 LYMPHOCYTES, ABSOLUTE 1.51 10*3/uL 0.77- 4.50 MONOCYTES, ABSOLUTE 0.40 10*3/uL 0.19-0. 8 NEUTROPHILS, ABSOLUTE 3.03 10*3/uL 2.10- 8.00 EOSINOPHILS, ABSOLUTE 0.17 10*3/uL 0.00- 0.60 BASOPHILS, ABSOLUTE 0.04 10*3/uL 0.00-0. 20 IMMATURE GRANS, AUTO % 0.2 IMMATURE GRANS, AUTO ABS 0.01 10*3/uL 0. 00-0.05 Jan 03, 2025 11:05 AM [facility] COVID-19 DIAGNOSTIC (CEPHEID) NASOPHARYNX Specimen Type: NASOPHARYNX Comment: A Negative result does not preclude infection with SARS-CoV-2 and should not be used as the sole basis for treatment or other patient management decisions. Positive results do not rule out bacterial infection or co-infection with other viruses. All results must be combined with clinical observations, patient history and epidemiological information for final interpretation. A POSITIVE result is considered a positive test for COVID-19. This indicates that RNA from SARS-CoV-2 (formerly 2019-nCoV) was detected, and the patient is infected with the virus and presumed to be contagious. If requested by public health authority, specimen will be sent for additional testing. Ordering Provider: ISELA WALKER Report Released Date/Time: Jan 03, 2025 11:06 AM Reporting Lab: [facility] [address] [facility] [address] Performing Lab: [facility] [address] [facility] [address] COVID-19 (Cepheid) Negative Negative Flu A(Cepheid) Negative Negative Flu B(Cepheid) Negative Negative RSV (Cepheid) Negative Negative Vital Signs: All taken on the encounter date This section contains inpatient and outpatient Vital Signs collected on the date of the Encounter. Date/Time Temperature Pulse Blood Pressure Respiratory Rate SP02 Pain Height Weight Body Mass Index Source Jan 03, 2025 10:53 AM 97.3 65 124/84 16 99 7 210.0 35 [facility] Radiology Reports: +/- 30 days of the [...] the Encounter. The data comes from all [facility] facilities. Date/Time Radiology Report Provider Source Jan 03, 2025 11:25 AM FOOT,RIGHT,3 VIEWS OR MORE: DELMI PETER [id number] -[id number] F Exm Date: JAN 03, 2025@11:25 Req Phys: ISELA WALKER Loc: PB-UC CONTRACT (Req'g Loc) Img Loc: PB-RADIOLOGY Service: Unknown Screen: Patient answered no [facility] [place] [address] (Case [id number] COMPLETE) FOOT,RIGHT,3 VIEWS OR MORE (RAD Detailed) CPT:49429 Proc Modifiers : RIGHT Reason for Study: pain, erythema, swelling right third toe Clinical History: Report Status: Verified Date Reported: JAN 03, 2025 Date Verified: JAN 03, 2025 Security Ambassador E-Sig: Report: FOOT,RIGHT,3 VIEWS OR MORE HISTORY: pain, erythema, swelling right third toe COMPARISON: None TECHNIQUE: 3 view(s) of the right foot, submitted to the [place] National Teleradiology Program (NTP) for interpretation. FINDINGS: No acute displaced fracture. Postsurgical and/or post traumatic changes of the fifth metatarsal with the distal margin irregularly corticated, without lucency or periosteal reaction to suggest osteomyelitis. Disarticulation at the fifth MTP joint. Impression: No acute findings. Postsurgical and/or posttraumatic changes of the fifth metatarsal with disarticulation of the fifth MTP joint. READING PHYSICIAN: Mario Blankenship M.D. -[id number] 01/03/2025 10:13 [facility] National Teleradiology Program [phone] (For Medical Practitioner Use Only) Attention Patients / Veterans: If you have questions or concerns about these test results, please contact your ordering provider or primary care team. Primary Interpreting Staff: RADIOLOGY,OUTSIDE SERVICE, Staff Physician / RADIOLOGY,OUTSIDE SERVICE [place] [facility] Dec 22, 2024 03:09 PM MRI SPINE CERVICAL W/O CONT: DELMI PETER [id number] -[id number] F Exm Date: DEC 22, 2024@15:09 Req Phys: ADELE ARAMBULA Loc: PB-DEEPA PACT [place]RO[place]AS PLATT (Req Img Loc: PB-MOBILE MRI Service: Unknown Screen: Patient answered no [place] [address] (Case [id number] COMPLETE) MRI SPINE CERVICAL W/O CONT (MRI Detailed) CPT:44962 Reason for Study: cervicalgia with radiculopathy down [...] 22, 2024 Date Verified: DEC 22, 2024 Security Ambassador E-Sig:/ES/Vamsi Hernandez M.D. Report: EXAM: MRI of [...] Primary Interpreting Staff: Vamsi Hernandez M.D., Radiology (Security Ambassador) /VAMSI ARORA [facility] Encounter Notes: All associated encounter notes This section contains the clinical notes associated to the Encounter. Date/Time Encounter Note(s) Provider Source Jan 03, 2025 10:58 AM URGENT CARE NOTE: LOCAL TITLE: URGENT CARE PROVIDER GENERAL NOTE PB STANDARD TITLE: URGENT CARE NOTE DATE OF NOTE: JAN 03, 2025@10:58 ENTRY DATE: JAN 03, 2025@10:58:11 AUTHOR: ISELA WALKER EXP COSIGNER: URGENCY: STATUS: COMPLETED CHIEF COMPLAINT: right 3rd toe red & swollen; head congestion HISTORY OF PRESENT ILLNESS: right 3rd toe ?broken (did not get it xrayed) in October, stepped off a chair and twisted this toe wrong, 2 weeks red and swollen, worse, red and hot, painful; head congestion for a while , last night it was worse, 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, runny nose, ear congestion, cough, headache Active Problems: 1) OCD - Obsessive-compulsive disorder (SNOMED CT 212496793) 2) Benign hypertension (SNOMED CT 22222127) 3) Cervicalgia (SNOMED CT 45579436) 4) Hyperlipidemia 5) Arthralgia 6) Anxiety 7) Allergic rhinitis 8) Depression 9) Posttraumatic stress disorder 10) Asthma 11) Suicide attempt 12) Adjustment disorder with depressed mood 13) Supraspinatus tear 14) Pain in left knee 15) Obesity (SNOMED CT 562078036) 16) Varicose veins of lower extremity 17) Chronic rhinitis 18) Chronic sinusitis 19) Cyst of ovary 20) Cavernous hemangioma of liver 21) Steatosis of liver 22) History of hysterectomy for benign disease 23) Exposure to potentially hazardous substance ALLERGIES: PENICILLIN, OXYCODONE, LATEX GLOVES MEDICATIONS: MRT1 - Med Reconciliation INCLUDED IN THIS LIST: Alphabetical list of active outpatient prescriptions dispensed from this [place] (local) and dispensed from another [place] or [facility] facility (remote) as well as inpatient orders (local pending and active), local clinic medications, locally documented non-VA medications, and local prescriptions that have or been discontinued in the past 90 days. Non-VA Meds Last Documented On: May 25, 2024 NOTE The display of VA prescriptions dispensed from another [place] or [facility] facility (remote) is limited to active outpatient prescription entries matched to National Drug File at the originating site and may not include some items such as investigational drugs, compounds, etc. NOT INCLUDED IN THIS LIST: Medications self-entered by the patient into personal health records (i.e. [email or web address]) are NOT included in this list. Non-VA medications documented outside this [place], remote inpatient orders (regardless of status) and remote clinic medications are NOT included in this list. The patient and provider must always discuss medications the patient is taking, regardless of where the medication was dispensed or obtained. OUTPT AMITRIPTYLINE HCL 10MG TAB (Status = Active) TAKE ONE TABLET BY MOUTH AT BEDTIME FOR DEPRESSION Rx# [id number] Last Released: 12/24/24 Qty/Days Supply: Rx Expiration Date: 10/16/25 Refills Remainin Indication: FOR DEPRESSION OUTPT BARIATRIC MULTIVITAMINS W/IRON CAP (Status = Discontinued) TAKE 1 CAPSULE BY MOUTH ONCE A DAY FOR VITAMIN SUPPLEMENTATION (NOTE CHANGE IN PRODUCT/DOSE - 1 CAPSULE PER DAY) Rx# [id number] Last Released: 04/10/24 Qty/Days Supply: Rx Expiration Date: 10/11/24 Refills Remainin Indication: FOR VITAMIN SUPPLEMENTATION OUTPT BARIATRIC MULTIVITAMINS W/IRON CAP (Status = Active) TAKE 1 CAPSULE BY MOUTH ONCE A DAY FOR VITAMIN SUPPLEMENTATION (NOTE CHANGE IN PRODUCT/DOSE - 1 CAPSULE PER DAY) Rx# [id number] Last Released: 12/24/24 Qty/Days Supply: Rx Expiration Date: 10/14/25 Refills Remainin Indication: FOR VITAMIN SUPPLEMENTATION OUTPT ESTRADIOL 2MG TAB (Status = Active) TAKE ONE TABLET BY MOUTH ONCE A DAY FOR VASOMOTOR SYMPTOMS IN MENOPAUSE Rx# [id number] Last Released: 12/23/24 Qty/Days Supply: Rx Expiration Date: 10/16/25 Refills Remainin Indication: FOR VASOMOTOR SYMPTOMS IN MENOPAUSE Non-VA GABAPENTIN 100MG CAP TAKE 1 CAPSULE BY MOUTH THREE TIMES A DAY NEEDED VA RX: Non-VA medication recommended by VA provider Indication: FOR POSTHERPETIC NEURALGIA OUTPT ONDANSETRON 4MG ORAL DISINTEGRATING TAB (Status = Active) TAKE ONE TABLET UNDER THE TONGUE EVERY EIGHT(8) HOURS NEEDED FOR NAUSEA/VOMITING Rx# [id number] Last Released: 10/08/24 Qty/Days Supply: 27/08 Rx Expiration Date: 04/11/25 Refills Remainin Indication: FOR NAUSEA/VOMITING OUTPT PANTOPRAZOLE NA 40MG EC TAB (Status = Active) TAKE ONE TABLET BY MOUTH EVERY MORNING BEFORE A MEAL FOR GASTROESOPHAGEAL REFLUX DISEASE TAKE 30 MINUTES BEFORE MEAL(S) Rx# [id number] Last Released: 12/23/24 Qty/Days Supply: Rx Expiration Date: 10/16/25 Refills Remainin Indication: FOR GASTROESOPHAGEAL REFLUX DISEASE OUTPT VENLAFAXINE HCL 150MG 24HR SA CAP (Status = Active) TAKE ONE CAPSULE BY MOUTH ONCE A DAY FOR DEPRESSION WITH FOOD. DO NOT ABRUPTLY DISCONTINUE MEDICATION. Rx# [id number] Last Released: 12/27/24 Qty/Days Supply: Rx Expiration Date: 10/16/25 Refills Remainin Indication: FOR DEPRESSION SUPPLIES PHARMACY TERMS AND POSSIBLE PATIENT ACTIONS INPT = [place] inpatient order IV = [place] intravenous medication OUTPT = [place] outpatient prescription PHARMACY POSSIBLE PATIENT TERMS EXPLANATION ACTIONS -------- ---- ACTIVE A prescription that can be If you have refills, filled at the local [place] pharmacy. you may request a refill of this prescription from your VA pharmacy. CLINIC A medication you received during If you have questions a visit to a [place] clinic or about this medication emergency department. contact your [place] healthcare team. DISCONTINUED A prescription your provider has Contact your [place] stopped. It is no longer healthcare team if you available to be sent to you or need more of this picked up at the [place] pharmacy medication. window. A prescription which is [...] the VA. Or, it may be an rywo-aep-exrtscj (OTC), herbal, dietary supplements or sample medication. [...] An active prescription that is Contact your [place] not scheduled to be filled yet. pharmacy if you need You should receive it before this medication now. you run out. PHYSICAL EXAM: VITALS: BP: 124/84 (01/03/2025 10:53) Pulse: 65 (01/03/2025 10:53) Resp: 16 (01/03/2025 10:53) Weight: 210.0 lb [95.25 kg] (01/03/2025 10:53) HEAD: normocephalic, facial features symmetric without ptosis or edema. EYES/EARS/THROAT: sclera clear, no visual disturbance; ears clear bilateral, TM pearly denis, cone of light and landmarks noted, no canal erythema; throat slightly red, no exudates. Neck: Adequate range of motion. Lungs: No respiratory distress noted. CVS: Regular rate and rhythm. Abdomen: no complaints Extremities: Adequate ROM of all extremities. Psychiatric: Normal mood and affect. CASH PROCESSOR: Oriented x 4. Sensory and motor system intact. GAIT & STANCE: normal Skin: Skin in warm, dry and intact without rashes or lesions. Appropriate color for ethnicity. Nailbeds pink with no cyanosis or clubbing. *Toradol 30mg/Solumedrol 125mg IM given in UC. Sent to radiology, ambulatory. FOOT,RIGHT,3 VIEWS OR MORE (RAD Detailed) CPT:37222 Proc Modifiers : RIGHT Reason for Study: pain, erythema, swelling right third toe Clinical History: Report Status: Verified Date Reported: JAN 03, 2025 Date Verified: JAN 03, 2025 Security Ambassador E-Sig: Report: FOOT,RIGHT,3 VIEWS OR MORE HISTORY: pain, erythema, swelling right third toe COMPARISON: None TECHNIQUE: 3 view(s) of the right foot, submitted to the [place] National Teleradiology Program (NTP) for interpretation. FINDINGS: No acute displaced fracture. Postsurgical and/or post traumatic changes of the fifth metatarsal with the distal margin irregularly corticated, without lucency or periosteal reaction to suggest osteomyelitis. Disarticulation at the fifth MTP joint. Impression: No acute findings. COVID-19 DIAGNOSTIC (CEPHEID) NASOPHARYNGEAL SWAB NASOPHARYNX STAT WC ONCE LB #[id number] Collection time: Jan 03, 2025@11:05 Test Name Result Units Range --------- ------ ----- ----- COVID-19 (Cepheid) Negative Ref: Negative Flu A(Cepheid) Negative Ref: Negative Flu B(Cepheid) Negative Ref: Negative RSV (Cepheid) Negative Ref: Negative ASSESSMENT AND PLAN: Cellulitis of right toe - CLINDAMYCIN HCL CAP,ORAL 150MG TAKE THREE CAPSULES BY MOUTH EVERY 6 HOURS FOR SKIN OR SOFT TISSUE INFECTION TAKE UNTIL GONE UNLESS OTHERWISE DIRECTED. Quantity: 120 Refills: 0 Indication: FOR SKIN OR SOFT TISSUE INFECTION - ACETAMINOPHEN TAB 500MG TAKE TWO TABLETS BY MOUTH EVERY EIGHT(8) HOURS NEEDED CAUTION: DO NOT EXCEED 4000mg PER DAY ACETAMINOPHEN (APAP) FROM ALL MEDS. Quantity: 100 Refills: 0 Indication: FOR PAIN - vibration engineer consult placed Acute URI - CETIRIZINE (OTC) TAB 10MG TAKE ONE TABLET BY MOUTH ONCE A DAY NEEDED Quantity: 90 Refills: 0 Indication: FOR ALLERGY SYMPTOMS - FLUTICASONE SOLN,NASAL 50MCG/SPRAY INSTILL 1 SPRAY IN NOSTRIL(S) ONCE A DAY (MUST BE USED DIRECTED FOR MINIMUM OF 21 DAYS TO PROVIDE ADEQUATE BENEFITS) Quantity: 1 Refills: 0 Indication: FOR RHINITIS RETURN TO CLINIC: [place] instructed to return to clinic as needed. . /ward/ YANELI Wilkins [facility] Urgent Care Signed: 01/03/2025 14:15 Receipt Acknowledged By: 01/05/2025 10:16 /ward/ YAJAIRA Lazcano [place], ISELA BURT [facility] Jan 03, 2025 10:55 AM URGENT CARE TRIAGE NOTE: LOCAL TITLE: URGENT CARE DEPARTMENT TRIAGE NOTE STANDARD TITLE: URGENT CARE TRIAGE NOTE DATE OF NOTE: JAN 03, 2025@10:55 ENTRY DATE: JAN 03, 2025@10:55:05 AUTHOR: GRANT REED EXP COSIGNER: URGENCY: STATUS: COMPLETED URGENT CARE DEPARTMENT TRIAGE NOTE Has ADDENDA Emergency Department/Urgent Care Center Triage Patient age:44 Sex in chart: FEMALE Mode of Arrival: Private vehicle Mode of Mobility: * Walk Chief Complaint: head congestion, neck pain and toe redness and pain since healed toe fracture shoe shiner Note (Subjective/Objective): alert and oriented Level of Consciousness (AVPU): Alert = Appears aware of and responsive to the environment on their own. Follows commands, opens eyes spontaneously, and tracks objects. Vital Signs: Vital signs previously recorded this visit: Date Vital Measurement Qualifiers 01/03/2025 10:53 Temp F (C) 97.3 (36.3) Pulse 65 Respir 16 BP 124/84 Wt lbs (kg)[BMI] 210.0 (95.25)[35*] Pain 7 POx (L/Min)(%) 99 Pain: DVPRS Scale Location: neck Defense and Veterans Pain Rating Scale (DVPRS): 7 Focus of attention, prevents doing daily activities Patient's acceptable pain goal: Suicide Screen: [place] Suicide Severity Rating Scale (C-SSRS) screener 1. [...] required due to responses to other questions. Emergency Severity Index (AASHISH) level: Level 4 Previously documented allergies: PENICILLIN, OXYCODONE, LATEX GLOVES Current Problems: 1) OCD - Obsessive-compulsive disorder (SNOMED CT 561368100) 2) Benign hypertension (SNOMED CT 37543929) 3) Cervicalgia (SNOMED CT 41516190) 4) Hyperlipidemia 5) Arthralgia 6) Anxiety 7) Allergic rhinitis 8) Depression 9) Posttraumatic stress disorder 10) Asthma 11) Suicide attempt 12) Adjustment disorder with depressed mood 13) Supraspinatus tear 14) Pain in left knee 15) Obesity (SNOMED CT 388167870) 16) Varicose veins of lower extremity 17) Chronic rhinitis 18) Chronic sinusitis 19) Cyst of ovary 20) Cavernous hemangioma of liver 21) Steatosis of liver 22) History of hysterectomy for benign disease 23) Exposure to potentially hazardous substance U R G E N T C A R E A S S E S S M E N T Preferred language discussion for health care: ARMENIAN Other communication methods needed: (Patient's current age: 44) Is Patient over 52 years of age? No MENSTRUAL CYCLE: Date of last period: NA AIRWAY: Patent BREATHING: Regular, Non-Labored CIRCULATION:Palpable Palpable SKIN: Normal NEURO: Awake, alert, oriented to time, person and , place, Moves all extremities equally, purposefully , without tremors or weakness, Speech clear and appropriate, Responds appropriately to environmental stimuli, Gait steady Does patient use tobacco products? No Does patient use alcohol? No - PAIN ASSESSMENT: .. This patient's last pain assessment score was: 7 (01/03/2025 10:53). A detailed pain assessment showed the following: Location of current pain Neck Patient's self identified pain goal: 0 Are you experiencing any stressors in your life that you would like assistance with? Patient does not voice any stressors at this time. 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 Pt advised to follow up with primary provider as directed. Pt instructed to return to urgent care as needed if condition worsens or persists. Pt voiced understanding of all dc instructions given and then left in stable condition from . Mode of travel from u/c upon d'c: Ambulatory ( x) Wheelchair ( ) Stretcher ( ) Per [facility] Directive 1605.06, wristband documentation: Patient wristband was removed and destroyed by (staff name) janell starkey and placed in the designated [employer] [address]. /ward/ GRANT REED Signed: 01/03/2025 13:24 GRANT REED [facility]
--- OUTSIDE RECORDS SUMMARY | 2025-02-09 05:36 | XMS_ITS | Encounter Summary ---
Author Name [facility] Organization [facility] Address [address] [place] [address] Care Team Providers Care Junior Network Administrator Name Role Phone ADELE ARAMBULA Primary Care Provider Unavail able Selected Encounter This section includes the information on record at [place] for the Encounter. Date/Time Encounter Type Encounter Description Reason Provider Source Feb 09, 2025 10:36 AM OFFICE O/P EST LOW 20 MIN URGENT CARE ICD-10-CM S92.351A Disp fx of fifth metatarsal bone, right foot, init MARRYPATRICIA CLARKNA D IHE Encounter Template Text not used by [place] Assessments - Encounter Diagnoses This section includes the primary and secondary diagnoses documented for the Encounter. Date/Time Primary/Secondary Diagnosis Diagnosis Name Provider Source Feb 09, 2025 12:13 PM PRIMARY Disp fx of fifth metatarsal bone, right foot, init MARRYPATRICIAISELA D [place] [facility] Plan of Treatment: Future Appointments (+ 6 months) and Future Tests (+/- 45 days) The Plan of Treatment section includes future care activities for the patient from all [place] treatmentfacilities. This section includes future appointments and future orders which are active, pending or scheduled. Future Appointments This section includes appointments that were scheduled to occur 6 months from the date of the Encounter, up to a maximum of 20 appointments. The data comes from all [place] treatment facilities. Appointment Date/Time Appointment Type Appointme nt Facility Name March 10, 2025 05:58 PM AMBULATORY - [facility]IC[facility] [place] [facility] May 06, 2025 08:00 AM [facility] [place] [facility] May 11, 2025 10:00 AM [facility] - MEDICINE [facility] May 20, 2025 08:00 AM [facility] [facility] May 29, 2025 02:00 PM AMBULATORY - [facility]CHIATRY [facility] Active, Pending, and Scheduled Orders This section includes a listing of several types of active, pending, and scheduled orders, including clinic medications orders, diagnostic test orders, procedure orders and consult orders; where the start date of the order is 45 days before the date of the Encounter or 45 days after the date of theEncounter. The data comes from all [place] treatment facilities. Test Date/Time Test Type Test Details Facility Name Feb 09, 2025 12:00 AM Laboratory - Chemi stry Order DRUG SCREEN URINE-inhouse (PB) URINE,[facility] Lab Results: +/- 30 days of the encounter This section includes the Chemistry and Hematology Lab Results on record with [place] for the patient. Radiology Reports and Pathology Reports are provided separately, in subsequent sections. Lab Results This section contains the Chemistry/Hematology Results that were resulted 30 days before or 30 daysafter the date of the Encounter. Date/Time Source Result Type Result - Unit Interpretation Reference Range Specimen Type Comment Jan 26, 2025 10:57 AM [facility] CRP PLASMA Specimen Type: PLASMA No comment entered. Ordering Provider: ADELE ARAMBULA Report Released Date/Time: Jan 26, 2025 10:55 AM Reporting Lab: [facility] [facility] [address] [place] [address] Performing Lab: [facility] [facility] [address] [place] [address] CRP 0.59 mg/dL H 0-0.5 Jan 26, 2025 10:[address] [facility] ESR,ISED-PB BLOOD Specimen Typ e: BLOOD No comment entered. Ordering Provider: ADELE ARAMBULA Report Released Date/Time: Jan 26, 2025 10:55 AM Reporting Lab: [facility] [facility] [address] [place] [address] Performing Lab: [facility] [facility] [address] [place] [address] ESR,ISED-PB 39 mm/h H 0-19 Jan 26, 2025 10:57 AM [facility] COMPREHENSIVE METABOLIC PANEL PLASMA Specimen Type: PLASMA No comment entered. Ordering Provider: ADELE ARAMBULA Report Released Date/Time: Jan 26, 2025 10:55 AM Reporting Lab: [facility] [place] [facility] [address] [place] [facility] Performing Lab: [facility] [facility] [address] [place] [address] CREATININE 0.72 mg/dL 0.6-1.1 UREA NITROGEN 14 [...] 2020) 107 Jan 26, 2025 10:57 AM [facility] CBC BLOOD Specimen Type: BLOOD No comment entered. Ordering Provider: ADELE ARAMBULA Report Released Date/Time: Jan 26, 2025 10:55 AM Reporting Lab: [facility] [facility] [address] [place] [facility] Performing Lab: [place] [facility] [address] [place] [address] WBC 5.2 10*3/uL 3.6-11.2 RBC 4.14 10*6/uL [...] GRANS, AUTO ABS 0.01 10*3/uL 0. 00-0.05 Vital Signs: All taken on the encounter date This section contains inpatient and outpatient Vital Signs collected on the date of the Encounter. Date/Time Temperature Pulse Blood Pressure Respiratory Rate SP02 Pain Height Weight Body Mass Index Source Feb 09, 2025 10:44 AM 8 202 34 [facility] Feb 09, 2025 10:38 AM 97.8 87 106/66 16 98 6 [facility] Radiology Reports: +/- 30 days of [...] the Encounter. The data comes from all [place] treatment facilities. Date/Time Radiology Report Provider Source Feb 09, 2025 10:56 AM FOOT,RIGHT,3 VIEWS OR MORE: DELMI GALLEGOS [id number] -1980 F Exm Date: FEB 09, 2025@10:56 Req Phys: ISELA TUTTLE Loc: PB-NUVIA AGUIRRE (Req'g Loc) Img Loc: PB-RADIOLOGY Service: Unknown Screen: Patient answered no STEPHEN HUFFMAN [facility] LOLY [place] [id number] (Case [id number] COMPLETE) FOOT,RIGHT,3 VIEWS OR MORE (RAD Detailed) CPT:89483 Proc Modifiers : RIGHT Reason for Study: pain in right foot, fractured? from incident over weekend Clinical History: had xray at [facility] in [place], now wanting to be seen through [place] system Report Status: Verified Date Reported: FEB 09, 2025 Date Verified: FEB 09, 2025 Economic Specialist E-Sig:/ES/CLAUDINE VAN Report: Right foot 3 views. There is a fractures mild displacement proximal fifth metatarsal. Postop changes with absence of the distal fifth metatarsal head. There are early degenerative changes first metatarsal phalangeal joint. Spur plantar aspect calcaneus. Impression: 1. Fracture with mild displacement proximal fifth metatarsal 2. Postop changes with absence fifth metatarsal head 3. Suggest podiatry consult Primary Interpreting Staff: CLAUDINE VAN, RADIOLOGIST (Economic Specialist) /CLAUDINE Church [place] [facility] Encounter Notes: All associated encounter notes This section contains the clinical notes associated to the Encounter. Date/Time Encounter Note(s) Provider Source Feb 09, 2025 12:06 PM ORTHOTICS PROSTHET ICS EDUCATION NOTE: LOCAL TITLE: NURSING PROSTHETIC ITEM PATIENT EDUCATION NOTE PB STANDARD TITLE: ORTHOTICS PROSTHETICS EDUCATION NOTE DATE OF NOTE: FEB 09, 2025@12:06 ENTRY DATE: FEB 09, 2025@12:06:49 AUTHOR: KATIE CASTILLO COSIGNER: URGENCY: STATUS: COMPLETED Prosthetic Patient Education Learner: Patient Method: Individual Evaluation of Learning: Able to Perform/Verbalize Items: CAM Walking Boot size med Fitting Instructions: -Based on the 's shoe size. Get appropriate size boot that matches shoe size. -Apply the boot cuff first. Make sure the heel is all the way at the back of the bootie and the toes are beneath the tongue. -Secure the cuff. Wrap foam section around the leg tucking in the long end and bringing the other end around to secure it. Trim with scissors if cuff is too long. -Apply the actual Boot. Keep the plastic covers on roxi uprights while applying the boot. Slip foot into the boot positioning the foot with the ankle bones centered between the uprights. Make sure knee is at 90 degree angle and foot is flat on the floor. -Secure the uprights. Make sure knee is at 90 degree and foot is forward and flat in boot bearing weight through it. Align uprights with the sides of the leg parellel to the leg/ankle bones. When the uprights are properly aligned, pull the plastic off and press the uprights firmly against sides of the leg to attach. -Secure the forefoot strap. While standing, wrap the forefoot straps over the top of the foot, through the D-rings and pull back to tension. Trim excess strap length with scissors if needed. - Adjust the rear plate. If necessary, reapply the plastic plate containing the straps so that the top of the plate is positioned about an inch below the top edge of the foam cuff. Make sure plate is centered on the cuff at the back of the calf. The straps should remain attached to the plate. -Secure the Leg straps. Start at the ankle and wrap both strap ends firmly forward to engage the straps with the hook material on the outside of the uprights. Loop the end of the strap through the D-ring and pull back to tension. Press hook end to strap to engage. Repeat this for the remaining straps. -Inflate the air bladder. Locate the quick pump bulb on the front of the inner liner of the boot. Press the bulb to pump air into the bladder. After 2 pumps check the patient's ankle to see how it is fitting. The patient can also do this to get to proper fit. Do not overinflate the bladder as it may stop blood circulation to the patient's foot. You can deflate the bladder if needed by pressing the release button above the air pump bulb. When to alert PC: -Typically to be worn with weight bearing activities when trying to take pressure off the foot and ankle. - Wear as recommended by MD or specialist and until they discontinue use of it. Safety: -Do not overinflate air bladder. If foot goes numb or circulation feels cut off, deflate the air bladder as it is too tight. -If a blister, skin wound, or redness occur, contact PCP. - Complete a skin check every 20 minutes for the first 4 hours of wearing the brace and if no skin issues, can check once for every 4 hours of wearing. Care of brace: -May hand wash the inner foam piece in warm soapy water and let air dry. Refer to instructions with boot for further details. A copy of this document was provided to the patient. /ward/ [facility] Signed: 02/09/2025 12:07 KATIE CASTILLO [facility] Feb 09, 2025 11:51 AM ACCOUNTING OF DISC LOSURES NOTE: LOCAL TITLE: STATE PRESCRIPTION DRUG MONITORING PROGRAM STANDARD TITLE: ACCOUNTING OF DISCLOSURES NOTE DATE OF NOTE: FEB 09, 2025@11:51:21 ENTRY DATE: FEB 09, 2025@11:51:21 AUTHOR: ISELA TUTTLE EXP COSIGNER: URGENCY: STATUS: COMPLETED This PDMP query was submitted by Isela Tuttle WILLOW MACHINE TENDER. The clinical justification for this PDMP query is to review controlled substances prescribed outside of the [facility], and any additional information that may become available, as an important component of standard clinical care, and in accordance with [facility] policy. Patient information was shared with the PDMP Appriss Stuart. Prescription(s) filled outside the [facility] in the last 90 days are noted. However, they do not raise significant safety concerns and do not influence the treatment plan at this time. /ward/ YANELI Wilkins [facility] Signed: 02/09/2025 13:14 ISELA TUTTLE [facility] Feb 09, 2025 10:56 AM URGENT CARE NOTE: LOCAL TITLE: URGENT CARE PROVIDER GENERAL NOTE PB STANDARD TITLE: URGENT CARE NOTE DATE OF NOTE: FEB 09, 2025@10:56 ENTRY DATE: FEB 09, 2025@10:56:33 AUTHOR: ISELA TUTTLE EXP COSIGNER: URGENCY: STATUS: COMPLETED CHIEF COMPLAINT: fractured right foot HISTORY OF PRESENT ILLNESS: was in Sunday and stepped wrong, immediate pain in right foot, went to local ER and was told it was fractured; has it in a splint, wants to have re-xrayed and care through [facility] with referral Active Problems: 1) OCD - Obsessive-compulsive disorder (SNOMED CT 526064223) 2) Benign hypertension (SNOMED CT 21695622) 3) Cervicalgia (SNOMED CT 53290741) 4) Hyperlipidemia 5) Arthralgia 6) Anxiety 7) Allergic rhinitis 8) Depression 9) Posttraumatic stress disorder 10) Asthma 11) Suicide attempt 12) Adjustment disorder with depressed mood 13) Supraspinatus tear 14) Pain in left knee 15) Obesity (SNOMED CT 188715325) 16) Varicose veins of lower extremity 17) Chronic rhinitis 18) Chronic sinusitis 19) Cyst of ovary 20) Cavernous hemangioma of liver 21) Steatosis of liver 22) History of hysterectomy for benign disease 23) Exposure to potentially hazardous substance ALLERGIES: PENICILLIN, OXYCODONE, LATEX GLOVES MEDICATIONS: MRT1 - Med Reconciliation INCLUDED IN THIS LIST: Alphabetical list of active outpatient prescriptions dispensed from this [place] (local) and dispensed from another [place] or [facility] facility (remote) as well as inpatient orders (local pending and active), local clinic medications, locally documented non-VA medications, and local prescriptions that have or been discontinued in the past 90 days. Non-VA Meds Last Documented On: May 25, 2024 NOTE The display of VA prescriptions dispensed from another [place] or [facility] facility (remote) is limited to active outpatient prescription entries matched to National Drug File at the originating site and may not include some items such as investigational drugs, compounds, etc. NOT INCLUDED IN THIS LIST: Medications self-entered by the patient into personal health records (i.e. [employer]) are NOT included in this list. Non-VA medications documented outside this [place], remote inpatient orders (regardless of status) and remote clinic medications are NOT included in this list. The patient and provider must always discuss medications the patient is taking, regardless of where the medication was dispensed or obtained. OUTPT ACETAMINOPHEN 500MG TAB (Status = ) TAKE TWO TABLETS BY MOUTH EVERY EIGHT(8) HOURS NEEDED FOR PAIN CAUTION: DO NOT EXCEED 4000MG PER DAY ACETAMINOPHEN (APAP) FROM ALL MEDS. Rx# [id number] Last Released: 01/03/25 Qty/Days Supply: Rx Expiration Date: 02/02/25 Refills Remainin Indication: FOR PAIN OUTPT AMITRIPTYLINE HCL 10MG TAB (Status = Active/Suspended) TAKE ONE TABLET BY MOUTH AT BEDTIME FOR DEPRESSION Rx# [id number] Last Released: 12/24/24 Qty/Days Supply: Rx Expiration Date: 10/16/25 Refills Remainin Indication: FOR DEPRESSION OUTPT BARIATRIC MULTIVITAMINS W/IRON CAP (Status = Active) TAKE 1 CAPSULE BY MOUTH ONCE A DAY FOR VITAMIN SUPPLEMENTATION (NOTE CHANGE IN PRODUCT/DOSE - 1 CAPSULE PER DAY) Rx# [id number] Last Released: 12/24/24 Qty/Days Supply: Rx Expiration Date: 10/14/25 Refills Remainin Indication: FOR VITAMIN SUPPLEMENTATION OUTPT CETIRIZINE HCL 10MG TAB (Status = Active) TAKE ONE TABLET BY MOUTH ONCE A DAY NEEDED FOR ALLERGY SYMPTOMS Rx# [id number] Last Released: 01/05/25 Qty/Days Supply: Rx Expiration Date: 04/03/25 Refills Remainin Indication: FOR ALLERGY SYMPTOMS OUTPT CLINDAMYCIN HCL 150MG CAP (Status = ) TAKE THREE CAPSULES BY MOUTH EVERY 6 HOURS FOR SKIN OR SOFT TISSUE INFECTION TAKE UNTIL GONE UNLESS OTHERWISE DIRECTED. Rx# [id number] Last Released: 01/03/25 Qty/Days Supply: 120/10 Rx Expiration Date: 02/02/25 Refills Remainin Indication: FOR SKIN OR SOFT TISSUE INFECTION OUTPT DOXYCYCLINE HYCLATE 100MG TAB (Status = Active) TAKE ONE TABLET BY MOUTH TWICE A DAY TAKE UNTIL FINISHED. AVOID SUN EXPOSURE WHILE TAKING. LAST OFFICE VISIT:[id number] Rx# [id number] Last Released: 02/04/25 Qty/Days Supply: 17/08 Rx Expiration Date: 03/01/25 Refills Remainin OUTPT ESTRADIOL 2MG TAB (Status = Active/Suspended) TAKE ONE TABLET BY MOUTH ONCE A DAY FOR VASOMOTOR SYMPTOMS IN MENOPAUSE Rx# [id number] Last Released: 12/23/24 Qty/Days Supply: Rx Expiration Date: 10/16/25 Refills Remainin Indication: FOR VASOMOTOR SYMPTOMS IN MENOPAUSE OUTPT FLUTICASONE PROP 50MCG 120D NASAL INHL (Status = ) INSTILL 1 SPRAY IN NOSTRIL(S) ONCE A DAY FOR RHINITIS (MUST BE USED DIRECTED FOR MINIMUM OF 21 DAYS TO PROVIDE ADEQUATE BENEFITS) Rx# [id number] Last Released: 01/03/25 Qty/Days Supply: 11/27 Rx Expiration Date: 02/02/25 Refills Remainin Indication: FOR RHINITIS Non-VA GABAPENTIN 100MG CAP TAKE 1 CAPSULE BY MOUTH THREE TIMES A DAY NEEDED VA RX: Non-VA medication recommended by VA provider Indication: FOR POSTHERPETIC NEURALGIA OUTPT ONDANSETRON 4MG ORAL DISINTEGRATING TAB (Status = Discontinued) TAKE ONE TABLET UNDER THE TONGUE EVERY EIGHT(8) HOURS NEEDED FOR NAUSEA/VOMITING Rx# [id number] Last Released: 10/08/24 Qty/Days Supply: 27/08 Rx Expiration Date: 04/11/25 Refills Remainin Indication: FOR NAUSEA/VOMITING OUTPT ONDANSETRON 8MG ORAL DISINTEGRATING TAB (Status = Active) TAKE ONE TABLET UNDER THE TONGUE EVERY EIGHT(8) HOURS NEEDED FOR NAUSEA/VOMITING Rx# [id number] Last Released: 02/09/25 Qty/Days Supply: Rx Expiration Date: 02/05/26 Refills Remainin Indication: FOR NAUSEA/VOMITING OUTPT PANTOPRAZOLE NA 40MG EC TAB (Status = Active/Suspended) TAKE ONE TABLET BY MOUTH EVERY MORNING BEFORE A MEAL FOR GASTROESOPHAGEAL REFLUX DISEASE TAKE 30 MINUTES BEFORE MEAL(S) Rx# [id number] Last Released: 12/23/24 Qty/Days Supply: Rx Expiration Date: 10/16/25 Refills Remainin Indication: FOR GASTROESOPHAGEAL REFLUX DISEASE OUTPT TRAMADOL HCL 50MG TAB (Status = Active) TAKE 1 TABLET BY MOUTH EVERY 4 TO 6 HOURS NEEDED FOR PAIN Rx# [id number] Last Released: 01/26/25 Qty/Days Supply: 27/03 Rx Expiration Date: 02/25/25 Refills Remainin OUTPT VENLAFAXINE HCL 150MG 24HR SA CAP (Status = Active/Suspended) TAKE ONE CAPSULE BY MOUTH ONCE A DAY FOR DEPRESSION WITH FOOD. DO NOT ABRUPTLY DISCONTINUE MEDICATION. Rx# [id number] Last Released: 12/27/24 Qty/Days Supply: 90/90 Rx Expiration Date: 10/16/25 Refills Remainin Indication: FOR DEPRESSION SUPPLIES PHARMACY TERMS AND POSSIBLE PATIENT ACTIONS INPT = [place] inpatient order IV = [place] intravenous medication OUTPT = [place] outpatient prescription PHARMACY POSSIBLE PATIENT TERMS EXPLANATION ACTIONS -------- ---- ACTIVE A prescription that can be If you have refills, filled at the local [place] pharmacy. you may request a refill of this prescription from your [place] pharmacy. CLINIC A medication you received during If you have questions a visit to a [place] clinic or about this medication emergency department. contact your [place] healthcare team. DISCONTINUED A prescription your provider has Contact your [place] stopped. It is no longer healthcare team if you available to be sent to you or need more of this picked up at the [place] pharmacy medication. window. A prescription which is [...] the [facility]. Or, it may be an imfc-bhj-lvmcnrf (OTC), herbal, dietary supplements or sample medication. [...] you run out. PHYSICAL EXAM: VITALS: BP: 106/66 (02/09/2025 10:38) Pulse: 87 (02/09/2025 10:38) Resp: 16 (02/09/2025 10:38) Weight: 202 lb [91.63 kg] (02/09/2025 10:44) HEAD: normocephalic, facial features symmetric without ptosis or edema. EYES: sclera white Neck: Adequate range of motion. Lungs: No respiratory distress noted. CVS: Regular rate and rhythm. Abdomen: no complaints Extremities: Adequate ROM of all extremities, pain in right foot, outer aspect; wore in a splint with angelo wrap Psychiatric: Normal mood and affect. ANESTHESIOLOGIST ASSISTANT CERTIFIED: Oriented x 4. Sensory and motor system intact. GAIT & STANCE: normal Skin: Skin in warm, dry and intact without rashes or lesions. Appropriate color for ethnicity. Nailbeds pink with no cyanosis or clubbing. FOOT,RIGHT,3 VIEWS OR MORE (RAD Detailed) CPT:94370 Proc Modifiers : RIGHT Reason for Study: pain in right foot, fractured? from incident over weekend Clinical History: had xray at [facility] in [place], now wanting to be seen through [place] system Report Status: Verified Date Reported: FEB 09, 2025 Date Verified: FEB 09, 2025 Economic Specialist E-Sig:/ES/CLAUDINE VAN Report: Right foot 3 views. There is a fractures mild displacement proximal fifth metatarsal. Postop changes with absence of the distal fifth metatarsal head. There are early degenerative changes first metatarsal phalangeal joint. Spur plantar aspect calcaneus. Impression: 1. Fracture with mild displacement proximal fifth metatarsal 2. Postop changes with absence fifth metatarsal head 3. Suggest podiatry consult ASSESSMENT AND PLAN: Displaced fracture of fifth metatarsal bone, right foot - podiatry consult placed - walking boot and knee scooter ordered through prosthetics and dispensed in - ACETAMINOPHEN/HYDROCODONE TAB HYDROCODONE 5MG/ACETAMINOPHEN 325MG TAB TAKE ONE TABLET BY MOUTH EVERY 6 HOURS NEEDED CAUTION: DO NOT EXCEED 4000mg PER DAY ACETAMINOPHEN (APAP) FROM ALL MEDS. Quantity: 12 Refills: 0 Indication: FOR PAIN - NALOXONE RESCUE SOLN,SPRAY,NASAL 4MG/SPRAY RETURN TO CLINIC: instructed to return to clinic as needed. . Linked Records Name ID Gender Address Delmi Gallegos 1980 [address] [place] [address] Delmi Eidy 1980 4 Female [address] [place] [address] Delmi Salcido [place] 1980 5 Female [address] [place] [address] Delmi El 1980 4 Female [age] [place] [address] Report Criteria First Name Last Name Delmi Gallegos 1980 Summary Summary Total Prescriptions: 5 Total Prescribers: 5 Total Pharmacies: 4 Narcotics* (excluding Buprenorphine) Current Qty: 9 Current MME/day: 13.50 30 Day Avg MME/day: 10.90 Buprenorphine* Current Qty: 0 Current mg/day: 0.00 30 Day Avg mg/day: 0.00 Prescriptions Prescriptions Total Prescriptions: 5 Total Private Pay: 2 Fill Date ID Written Drug Qty Days Prescriber Rx # Pharmacy Refill Daily Dose * Pymt Type CAR RENTAL SERVICE ATTENDANT 02/08/2025 2 02/07/2025 Acetaminophen-Cod #3 Tablet 15.00 5 Andreea Calderon [id number] [facility] ([id number]) 0 13.50 MME Private Pay [place] 01/26/2025 3 01/26/2025 Tramadol Hcl 50 Mg Tablet 30.00 5 Kristian Ferris [id number] [facility] ([id number]) 0 60.00 MME /[place] 12/11/2024 4 12/11/2024 Tramadol Hcl 50 Mg Tablet 20.00 5 Andreea Carlene [id number] [facility] (1945) 0 40.00 MME Comm Ins [place] 09/19/2024 4 09/19/2024 Hydrocodone-Acetamin 5-325 Mg 20.00 5 So Bro [id number] [facility] ([id number]) 0 20.00 [place]ME [place] 06/05/2024 1 06/04/2024 Hydrocodone-Acetamin 7.5-325 10.00 2 Ma Eliseo [id number] [facility] ([id number]) 0 37.50 MME Private Pay [place] *Per CDC guidance, the MME conversion factors prescribed or provided as part of the medication-assisted treatment for opioid use disorder should not be used to benchmark against dosage thresholds meant for opioids prescribed for pain. Buprenorphine products have no agreed upon morphine equivalency, and as partial opioid agonists, are not expected to be associated with overdose risk in the same dose-dependent manner as doses for full agonist opioids. MME = morphine milligram equivalents. mg = dose in milligrams. Providers Total Providers: 5 Name Address [facility] Zipcode Phone Alonzo Dobbins MD [address] [place] [address] - Mino Antunez, [address] [place] [address] - Pedro Sethi DPM [address] [place] [address] - Stephen Lea [address] [place] [facility] [place] [address] - Kim Manriquez-Gerlick [address] [place] [facility] [place] [address] - Pharmacies Total Pharmacies: 4 Controlled Substances Prescribing: Opioids Renewal Opioid Prescription - more than 1 RX in the past 90 days SPDMP completed Prog Note DT Title Author Last Syd DT 01/26/2025 STATE PRESCRIPTION DRUG BELKIS GARCIA MONITORING PROGRAM SLT - Lab Tests Selected No data available for: CANNABINOIDS METHADONE OXYCODONE ([id number]) AMPHET/METHAMPHETAMINE FENTANYL (STL) BENZODIAZEPINES (STL) COCAINE METABOLITES BARBITURATES (MA) PHENCYCLIDINE(MA) OPIATES BUPRENORPHINE (STL-PB-MA) Order UDS. Patient consents to initial and ongoing urine and serum drug testing (need to check annually) Opioid Informed Consent Cohort: Computed Finding: [facility]-Progress Note 07/21/2014@10:26:06 value - CONSENT FOR LONG-TERM OPIOIDS FOR PAIN; Author: DARLENE GARCIA last fill: Last Naloxone fill date Order Naloxone. Reviewed the risk factors associated with opioid use and clinical benefit justify this prescription. Yes RTC: Follow up appointment already scheduled. /ward/ YANELI Wilkins [facility] Urgent Care Signed: 02/10/2025 07:59 ISELA TUTTLE POPLAR BLUFF [place] [facility] Feb 09, 2025 10:42 AM URGENT CARE TRIAGE NOTE: LOCAL TITLE: URGENT CARE DEPARTMENT TRIAGE NOTE STANDARD TITLE: URGENT CARE TRIAGE NOTE DATE OF NOTE: FEB 09, 2025@10:42 ENTRY DATE: FEB 09, 2025@10:42:08 AUTHOR: TERRI REDDING EXP COSIGNER: URGENCY: STATUS: COMPLETED URGENT CARE DEPARTMENT TRIAGE NOTE Has ADDENDA Emergency Department/Urgent Care Center Triage Patient age:44 Sex in chart: FEMALE Mode of Arrival: Private vehicle Self Other Mode: spouse brought in Mode of Mobility: * Wheelchair 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 I went to [facility] and got xrays, it's broke. I have a missing bone so the foot is not stable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
--- OUTSIDE RECORDS SUMMARY | 2025-03-10 12:58 | XMS_ITS ---
Author Name [facility] Organization [facility] Address [address] [place] [address] Care Team Providers Care Bed Placement Coordinator Name Role Phone ADELE ARAMBULA Primary Care Provider Unavail able Selected Encounter This section includes the information on record at [facility] for the Encounter. Date/Time Encounter Type Encounter Description Reason Provider Source March 10, 2025 05:58 PM OFFICE O/P EST LOW 20 MIN URGENT CARE ICD-10-CM L03.111 Cellulitis of right axilla MARCE PILLAI Gustavo Encounter Template Text not used by [place] Assessments - Encounter Diagnoses This section includes the primary and secondary diagnoses documented for the Encounter. Date/Time Primary/Secondary Diagnosis Diagnosis Name Provider Source March 10, 2025 06:11 PM PRIMARY Cellulitis of right axilla MARCE PILLAI [facility] Plan of Treatment: Future Appointments (+ 6 months) and Future Tests (+/- 45 days) The Plan of Treatment section includes future care activities for the patient from all [place] treatmentfacilities. This section includes future appointments and future orders which are active, pending or scheduled. Future Appointments This section includes appointments that were scheduled to occur 6 months from the date of the Encounter, up to a maximum of 20 appointments. The data comes from all [place] treatment facilities. Appointment Date/Time Appointment Type Appointme nt Facility Name May 06, 2025 08:00 AM AMBULATORY - MEDICINE [place] ALEXSANDRA MENDOZA [facility] May 11, 2025 10:00 AM AMBULATORY - MEDICINE [facility] May 20, 2025 08:00 AM AMBULATORY - MEDICINE [facility] May 29, 2025 02:00 PM AMBULATORY - PSYCHIATRY [facility] Active, Pending, and Scheduled Orders This section includes a listing of several types of active, pending, and scheduled orders, including clinic medications orders, diagnostic test orders, procedure orders and consult orders; where the start date of the order is 45 days before the date of the Encounter or 45 days after the date of theEncounter. The data comes from all [place] treatment facilities. Test Date/Time Test Type Test Details Facility Name Feb 09, 2025 12:00 AM Laboratory - Chemi stry Order DRUG SCREEN URINE-inhouse (PB) URINE,[facility]OM SP [facility] Lab Results: +/- 30 days of the encounter This section includes the Chemistry and Hematology Lab Results on record with [facility] for the patient. Radiology Reports and Pathology Reports are provided separately, in subsequent sections. Lab Results This section contains the Chemistry/Hematology Results that were resulted 30 days before or 30 daysafter the date of the Encounter. Date/Time Source Result Type Result - Unit Interpretation Reference Range Specimen Type Comment March 13, 2025 10:17 AM [facility] COMPREHENSIVE METABOLIC PANEL PLASMA Specimen Type: PLASMA No comment entered. Ordering Provider: JEAN ARAMBULA Report Released Date/Time: March 13, 2025 10:10 AM Reporting Lab: [facility] [address] [facility] [address] Performing Lab: [facility] [address] [address] CREATININE 0.74 mg/dL 0.6-1.1 UREA NITROGEN 14 mg/dL 9-25 GLUCOSE 82 mg/dL 72-99 SODIUM 141 meq/L 136-145 POTASSIUM 4.5 meq/L 3.5-5 CHLORIDE 107 meq/L 98-107 CARBON DIOXIDE 26 meq/L 22-31 CALCIUM 8.8 mg/dL 8.4-10.4 PROTEIN 6.7 g/dL 6-8.6 ALBUMIN 3.9 g/dL 3.4-5 TOTAL BILIRUBIN 0.2 mg/dL 0.2-1.2 ALKALINE PHOSPHATASE 104 U/L 40-150 AST/SGOT 20 U/L 5-34 ALT/SGPT 11 U/L 8-40 EGFR (CKD-EPI 2020) 104 March 13, 2025 10:17 AM [facility] CBC BLOOD Specimen Type: BLOOD No comment entered. Ordering Provider: ADELE ARAMBULA Report Released Date/Time: March 13, 2025 10:10 AM Reporting [facility]: [facility] [address] [place] [address] Performing Lab: [facility] [address] [facility] [address] WBC 5.9 10*3/uL 3.6-11.2 RBC 4.14 10*6/uL 3.60-5.00 HGB 10.2 g/dL L 11.0-14.9 HCT 33.7 32.6-43.4 MCV 81.4 fL 80.0-100.0 MCH 24.6 pg L 27.0-34.0 MCHC 30.3 g/dL L 33.0-36.0 PLT 357 10*3/uL 150-400 MPV 9.2 fL 7.5-11.2 RDW 16.1 H 11.8-15.1 LYMPHOCYTES, AUTO % 31.1 MONOCYTES, AUTO % 6.7 NEUTROPHILS, AUTO % 57.9 EOSINOPHILS, AUTO % 3.4 BASOPHILS, AUTO % 0.7 LYMPHOCYTES, ABSOLUTE 1.85 10*3/uL 0.77- 4.50 MONOCYTES, ABSOLUTE 0.40 10*3/uL 0.19-0. 8 NEUTROPHILS, ABSOLUTE 3.44 10*3/uL 2.10- 8.00 EOSINOPHILS, ABSOLUTE 0.20 10*3/uL 0.00- 0.60 BASOPHILS, ABSOLUTE 0.04 10*3/uL 0.00-0. 20 IMMATURE GRANS, AUTO % 0.2 IMMATURE GRANS, AUTO ABS 0.01 10*3/uL 0. 00-0.05 Vital Signs: All taken on the encounter date This section contains inpatient and outpatient Vital Signs collected on the date of the Encounter. Date/Time Temperature Pulse Blood Pressure Respiratory Rate SP02 Pain Height Weight Body Mass Index Source March 10, 2025 06:02 PM 97.7 82 121/84 16 100 7 222.4 37 [facility] Radiology Reports: +/- 30 days of the [...] the Encounter. The data comes from all [place] treatment facilities. Date/Time Radiology Report Provider Source Feb 09, 2025 10:56 AM FOOT,RIGHT,3 VIEWS OR MORE: DELMI PETER [id number] -[phone] F Exm Date: FEB 09, 2025@10:56 Req Phys: ISELA TUTTLE Pat Loc: PB-NUVIA AGUIRRE (Req'g Loc) Img Loc: PB-RADIOLOGY Service: Unknown Screen: Patient answered no STEPHEN HUFFMAN [facility] LOLY MATA [id number] (Case [id number] COMPLETE) FOOT,RIGHT,3 VIEWS OR MORE (RAD Detailed) CPT:40184 Proc Modifiers : RIGHT Reason for Study: pain in right foot, fractured? from incident over weekend Clinical History: had xray at [facility] in [place], now wanting to be seen through [place] system Report Status: Verified Date Reported: FEB 09, 2025 Date Verified: FEB 09, 2025 Rigging Loft Repairer E-Sig:/WARD/CLAUDINE VAN Report: Right foot 3 views. There [...] consult Primary Interpreting Staff: CLAUDINE VAN, RADIOLOGIST (Rigging Loft Repairer) /CLAUDINE Church [facility] Encounter Notes: All associated encounter notes This section contains the clinical notes associated to the Encounter. 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 Calm and cooperative Level of Consciousness (AVPU): Alert = Appears aware of and responsive to the environment on their own. Follows commands, opens eyes spontaneously, and tracks objects. Vital Signs: Vital signs previously recorded this visit: Date Vital Measurement Qualifiers 03/10/2025 18:02 Temp F (C) 97.7 (36.5) Oral Pulse 82 Left Respir 16 Spontaneous, Sitting BP 121/84 R Arm, Sitting Wt lbs (kg)[BMI] 222.4 (100.88)[37*]Standing Pain 7 POx (L/Min)(%) 100 National Early Warning Score (NEWS): The NEWS total is 0. 1. Temperature (C/F): Score = 0 36.1 - 38.0 C (96.9 - 100.4 F) 2. Pulse: Score = 0 51-90 3. Respirations: Score = 0 12-20 4. Blood Pressure (Only Systolic BP, mmHg): Score = 0 111-219 5. Pulse Oximetry: Score = 0 96% or greater 6. Supplemental oxygen in use: Score = 0 No 7. AVPU: Score = 0 Alert Action/Interventions Taken: Repeat NEWS scoring with next vital signs Patient Status: Remains on unit Pain: DVPRS Scale Location: back [employer] and Veterans Pain Rating Scale (DVPRS): 7 Focus of attention, prevents doing daily activities Patient's acceptable pain goal: Suicide Screen: Rufe Suicide Severity Rating Scale (C-SSRS) screener 1. [...] 1) OCD - Obsessive-compulsive disorder (SNOMED CT 159489168) 2) Benign hypertension (SNOMED CT 29840367) 3) Cervicalgia (SNOMED CT 44940490) 4) Hyperlipidemia 5) Arthralgia 6) Anxiety 7) Allergic rhinitis 8) Depression 9) Posttraumatic stress disorder 10) Asthma 11) Suicide attempt 12) Adjustment disorder with depressed mood 13) Supraspinatus tear 14) Pain in left knee 15) Obesity (SNOMED CT 879922307) 16) Varicose veins of lower extremity 17) Chronic rhinitis 18) Chronic sinusitis 19) Cyst of ovary 20) Cavernous hemangioma of liver 21) Steatosis of liver 22) History of hysterectomy for benign disease 23) Exposure to potentially hazardous substance /es/ CHU MCCORMICK [facility] Signed: 03/10/2025 18:05 03/10/2025 ADDENDUM STATUS: COMPLETED U R G E N T C A R E A S S E S S M E N T Preferred language discussion for health care: MICRONESIAN Other communication methods needed: (Patient's current age: 44) Is Patient over 52 years of age? No MENSTRUAL CYCLE: Date of last period: NA AIRWAY: Patent BREATHING: Regular, Non-Labored, Speaks in full sentences CIRCULATION:Palpable Palpable SKIN: Normal, Warm, Dry NEURO: Awake, alert, oriented to time, person and , Moves all extremities equally, purposefully , without [...] problems identified? No - PAIN ASSESSMENT: .. Patient's self identified pain goal: 0 Are you experiencing any stressors in your life that you would like assistance with? Patient does not voice any stressors at this time. INTERVENTIONS: DISPOSITION: Exam Room 1 // CHU MCCORMICKMDXAVI [facility] Signed: 03/10/2025 18:07 03/10/2025 ADDENDUM STATUS: COMPLETED Per [facility] Directive 1605.06, wristband documentation: Patient wristband was removed and destroyed by (staff name) YANELI Brady and placed in the designated ME911ed-[employer] bin. Pt is reexamined by YANELI Ovalle and is then ordered new medication. 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 Pt instructed to return to urgent care as needed if condition worsens or persists. Pt voiced understanding of all dc instructions given and then left in stable condition from . Mode of travel from u/ upon d'c: Ambulatory (x) Wheelchair ( ) Stretcher ( ) /ward/ CHU MCCORMICK [facility] Signed: 03/10/2025 18:11 KATIE VENEGAS [facility] March 10, 2025 06:00 PM URGENT CARE NOTE: LOCAL TITLE: URGENT CARE PROVIDER GENERAL NOTE PB STANDARD TITLE: URGENT CARE NOTE DATE OF NOTE: MARCH 10, 2025@18:00 ENTRY DATE: MARCH 10, 2025@18:00:43 AUTHOR: MARCE PILLAI EXP COSIGNER: URGENCY: STATUS: COMPLETED CHIEF COMPLAINT: rash bilateral axilla Date of last visit: HISTORY OF PRESENT ILLNESS: Pt presenting stating she has shingles. Pt has rash to bilateral axilla, palpable nodules under the skin with various other areas that appear to be insect bites. Pt states she has had shingles and has scars from them to the lower abd. Pt also states her daughter has impetigo and has been swimming in their hottub which she has also been in. No blistering of the skin noted. Multipe areases of the body with red raised maculopapular rash. Active Problems: 1) OCD - Obsessive-compulsive disorder (SNOMED CT 413842980) 2) Benign hypertension (SNOMED CT 19711859) 3) Cervicalgia (SNOMED CT 16110030) 4) Hyperlipidemia 5) Arthralgia 6) Anxiety 7) Allergic rhinitis 8) Depression 9) Posttraumatic stress disorder 10) Asthma 11) Suicide attempt 12) Adjustment disorder with depressed mood 13) Supraspinatus tear 14) Pain in left knee 15) Obesity (SNOMED CT 747852999) 16) Varicose veins of lower extremity 17) [...] of active outpatient prescriptions dispensed from this [place] (local) and dispensed from another [place] or [facility] facility (remote) as well as inpatient orders (local pending and active), local clinic medications, locally documented non-VA medications, and local prescriptions that have or been discontinued in the past 90 days. Non-VA Meds Last Documented On: May 25, 2024 NOTE The display of VA prescriptions dispensed from another MS or [facility] facility (remote) is limited to active outpatient prescription entries matched to National Drug File at the originating site and may not include some items such as investigational drugs, compounds, etc. NOT INCLUDED IN THIS LIST: Medications self-entered by the patient into personal health records (i.e. [employer]) are NOT included in this list. Non-VA medications documented outside this MS, remote inpatient orders (regardless of status) and [...] DAY ACETAMINOPHEN (APAP) FROM ALL MEDS. Rx# [id number] Last Released: 01/03/25 Qty/Days Supply: Rx Expiration Date: 02/02/25 Refills Remainin Indication: FOR PAIN OUTPT AMITRIPTYLINE HCL 10MG TAB (Status = Active/Suspended) TAKE ONE TABLET BY MOUTH AT BEDTIME FOR DEPRESSION Rx# [id number] Last Released: 12/24/24 Qty/Days Supply: Rx Expiration Date: 10/16/25 Refills Remainin Indication: FOR DEPRESSION OUTPT BARIATRIC MULTIVITAMINS W/IRON CAP (Status = Active) TAKE 1 CAPSULE BY MOUTH ONCE A DAY FOR VITAMIN SUPPLEMENTATION (NOTE CHANGE IN PRODUCT/DOSE - 1 CAPSULE PER DAY) Rx# [id number] Last Released: 12/24/24 Qty/Days Supply: Rx Expiration Date: 10/14/25 Refills Remainin Indication: FOR VITAMIN SUPPLEMENTATION OUTPT CETIRIZINE HCL 10MG TAB (Status = Active) TAKE ONE TABLET BY MOUTH ONCE A DAY NEEDED FOR ALLERGY SYMPTOMS Rx# [id number] Last Released: 01/05/25 Qty/Days Supply: Rx Expiration Date: 04/03/25 Refills Remainin Indication: FOR ALLERGY SYMPTOMS OUTPT CLINDAMYCIN HCL 150MG CAP (Status = ) TAKE THREE CAPSULES BY MOUTH EVERY 6 HOURS FOR SKIN OR SOFT TISSUE INFECTION TAKE UNTIL GONE UNLESS OTHERWISE DIRECTED. Rx# [id number] Last Released: 01/03/25 Qty/Days Supply: 120/10 Rx Expiration Date: 02/02/25 Refills Remainin Indication: FOR SKIN OR SOFT TISSUE INFECTION OUTPT DOXYCYCLINE HYCLATE 100MG TAB (Status = ) TAKE ONE TABLET BY MOUTH TWICE A DAY TAKE UNTIL FINISHED. AVOID SUN EXPOSURE WHILE TAKING. LAST OFFICE VISIT:[id number] Rx# [id number] Last Released: 02/04/25 Qty/Days Supply: 17/08 Rx Expiration Date: 03/01/25 Refills Remainin OUTPT ESTRADIOL 2MG TAB (Status = Active/Suspended) TAKE ONE TABLET BY MOUTH ONCE A DAY FOR VASOMOTOR SYMPTOMS IN MENOPAUSE Rx# [id number] Last Released: 12/23/24 Qty/Days Supply: Rx Expiration Date: 10/16/25 Refills Remainin Indication: FOR VASOMOTOR SYMPTOMS IN MENOPAUSE OUTPT FLUTICASONE PROP 50MCG 120D NASAL INHL (Status = ) INSTILL 1 SPRAY IN NOSTRIL(S) ONCE A DAY FOR RHINITIS (MUST BE USED DIRECTED FOR MINIMUM OF 21 DAYS TO PROVIDE ADEQUATE BENEFITS) Rx# [id number] Last Released: 01/03/25 Qty/Days Supply: 11/27 Rx Expiration Date: 02/02/25 Refills Remainin Indication: FOR RHINITIS Non-VA GABAPENTIN 100MG CAP TAKE 1 CAPSULE BY MOUTH THREE TIMES A DAY NEEDED VA RX: Non-VA medication recommended by MS provider Indication: FOR POSTHERPETIC NEURALGIA OUTPT HYDROCODONE 5MG/ACETAMINOPHEN 325MG TAB (Status = Discontinued) TAKE 1 TABLET BY MOUTH EVERY 6 HOURS NEEDED FOR PAIN CAUTION: DO NOT EXCEED 4000MG PER DAY ACETAMINOPHEN (APAP) FROM ALL MEDS. Rx# [id number] Last Released: 02/09/25 Qty/Days Supply: 09/30 Rx Expiration Date: 03/11/25 Refills Remainin Indication: FOR PAIN OUTPT NALOXONE HCL 4MG/SPRAY SOLN NASAL SPRAY (Status = Active) USE 1 SPRAY (4MG) INTO ONE NOSTRIL ONLY ONE-TIME FOR OPIOID OVERDOSE DO NOT PRIME NASAL SPRAY. SPRAY ONE DOSE IN ONE NOSTRIL, GIVE ADDITIONAL DOSE IF PATIENT DOES NOT START BREATHING WITHIN 2-3 MINUTES OR STOPS BREATHING AGAIN. CALL 911. IF USED, NOTIFY PROVIDER. Rx# [id number] Last Released: 03/04/25 Qty/Days Supply: 11/29 Rx Expiration Date: 02/10/26 Refills Remainin Indication: FOR OPIOID OVERDOSE OUTPT ONDANSETRON 4MG ORAL DISINTEGRATING TAB (Status = Discontinued) TAKE ONE TABLET UNDER THE TONGUE EVERY EIGHT(8) HOURS NEEDED FOR NAUSEA/VOMITING Rx# [id number] Last Released: 10/08/24 Qty/Days Supply: 27/08 Rx Expiration Date: 04/11/25 Refills Remainin Indication: FOR NAUSEA/VOMITING OUTPT ONDANSETRON 8MG ORAL DISINTEGRATING TAB (Status = Active) TAKE ONE TABLET UNDER THE TONGUE EVERY EIGHT(8) HOURS NEEDED FOR NAUSEA/VOMITING Rx# [id number] Last Released: 03/05/25 Qty/Days Supply: Rx Expiration Date: 02/05/26 Refills Remainin Indication: FOR NAUSEA/VOMITING OUTPT PANTOPRAZOLE NA 40MG EC TAB (Status = Active/Suspended) TAKE ONE TABLET BY MOUTH EVERY MORNING BEFORE A MEAL FOR GASTROESOPHAGEAL REFLUX DISEASE TAKE 30 MINUTES BEFORE MEAL(S) Rx# [id number] Last Released: 12/23/24 Qty/Days Supply: 90 Rx Expiration Date: 10/16/25 Refills Remainin Indication: FOR GASTROESOPHAGEAL REFLUX DISEASE OUTPT TRAMADOL HCL 50MG TAB (Status = ) TAKE 1 TABLET BY MOUTH EVERY 4 TO 6 HOURS NEEDED FOR PAIN Rx# [id number] Last Released: 01/26/25 Qty/Days Supply: 27/03 Rx Expiration Date: 02/25/25 Refills Remainin OUTPT TRAMADOL HCL 50MG TAB (Status = Active) TAKE 1 TABLET BY MOUTH TWICE DAILY NEEDED FOR PAIN Rx# [id number] Last Released: 03/03/25 Qty/Days Supply: Rx Expiration Date: 03/27/25 Refills Remainin Indication: FOR PAIN OUTPT VENLAFAXINE HCL 150MG 24HR SA CAP (Status = Active/Suspended) TAKE ONE CAPSULE BY MOUTH ONCE A DAY FOR DEPRESSION WITH FOOD. DO NOT ABRUPTLY DISCONTINUE MEDICATION. Rx# [id number] Last Released: 12/27/24 Qty/Days Supply: Rx Expiration Date: 10/16/25 Refills Remainin Indication: FOR DEPRESSION SUPPLIES PHARMACY TERMS AND POSSIBLE PATIENT ACTIONS INPT = MS inpatient order IV = MS intravenous medication OUTPT = MS outpatient prescription PHARMACY POSSIBLE PATIENT TERMS EXPLANATION ACTIONS -------- ---- ACTIVE A prescription that can be If you have refills, filled at the local [place] pharmacy. you may request a refill of this prescription from your MS pharmacy. CLINIC A medication you received during If you have questions a visit to a [place] clinic or about this medication emergency department. contact your [facility] healthcare team. DISCONTINUED A prescription your provider has Contact your [facility] stopped. It is no longer healthcare team if you available to be sent to you or need more of this picked up at the MS pharmacy medication. window. A prescription which is [...] the VA. Or, it may be an [id number] (OTC), herbal, dietary supplements or sample medication. [...] An active prescription that is Contact your [facility] not scheduled to be filled yet. pharmacy [...] complaints Extremities: Adequate ROM of all extremities. Pt has rash to bilateral axilla, palpable nodules under the skin with various other areas that appear to be insect bites. Pt states she has had shingles and has scars from them to the lower abd. Pt also states her daughter has impetigo and has been swimming in their hottub which she has also been in. No blistering of the skin noted. Multipe areases of the body with red raised maculopapular rash. Psychiatric: Normal mood and affect. OBSTETRICS TECH: Oriented x 4. Sensory and motor system intact. GAIT & STANCE: normal Skin: Skin in warm, dry and intact. Appropriate color for ethnicity. Nailbeds pink with no cyanosis or clubbing. ASSESSMENT AND PLAN: Possible bacterial infection bactrim Pt to return if rash develops blisters or contact pcp RETURN TO CLINIC: instructed to return to clinic as needed. /ward/ YANELI Fonseca [facility] Signed: 03/11/2025 06:59 MARCE PILLAI [place] REJI SALCIDO [facility]
--- OUTSIDE RECORDS SUMMARY | 2025-04-10 05:30 | XMS_ITS | Encounter Summary ---
Author Name [facility] [place] Address [address] [place] [address] Care Team Providers Care Commercial Sales Consultant Name Role Phone ADELE ARAMBULA Primary Care Provider Unavail able Selected Encounter This section includes the information on record at [place] for the Encounter. Date/Time Encounter Type Encounter Description Reason Provider Source Apr 10, 2025 10:30 AM Outpatient Encounter ADMIN PAT ACTIVTIES (MASNONCT) LARISSA CLEMENTS Encounter Template Text not used by [place] Plan of Treatment: Future Appointments (+ 6 months) and Future Tests (+/- 45 days) The Plan of Treatment section includes future care activities for the patient from all [place] treatmentfacilities. This section includes future appointments and future orders which are active, pending or scheduled. Future Appointments This section includes appointments that were scheduled to occur 6 months from the date of the Encounter, up to a maximum of 20 appointments. The data comes from all [place] treatment facilities. Appointment Date/Time Appointment Type Appointme nt Facility Name May 06, 2025 08:00 AM [facility] May 11, 2025 10:00 AM [facility] May 20, 2025 08:00 AM AMBULATORY - MEDICINE [facility] May 29, 2025 02:00 PM AMBULATORY - PSYCHIATRY [facility] Active, Pending, and Scheduled Orders This section includes a listing of several types of active, pending, and scheduled orders, including clinic medications orders, diagnostic test orders, procedure orders and consult orders; where the start date of the order is 45 days before the date of the Encounter or 45 days after the date of theEncounter. The data comes from all [place] treatment facilities. Test Date/Time Test Type Test Details Facility Name May 07, 2025 08:13 AM Consult Order [facility] 657A4 [employer] Electrician's Choice [place] [facility] May 07, 2025 01:04 PM Consult Order [facility]ORTHOPEDICS [id number] [employer] Electrician[facility] Choice [place] [facility] May 11, 2025 10:35 AM Consult Order [facility]HEMATOLOGY OUTPT [id number] [employer] Electrician[facility] Choice [facility] [place] [facility] Lab Results: +/- 30 days of the encounter This section includes the Chemistry and Hematology Lab Results on record with [place] for the patient. Radiology Reports and Pathology Reports are provided separately, in subsequent sections. Lab Results This section contains the Chemistry/Hematology Results that were resulted 30 days before or 30 daysafter the date of the Encounter. Date/Time Source Result Type Result - Unit Interpretation Reference Range Specimen Type Comment May 05, 2025 09:36 AM [facility] IRON PLASMA Specimen Type: PLASMA No comment entered. Ordering Provider: ADELE ARAMBULA Report Released Date/Time: May 05, 2025 09:36 AM Reporting Lab: [place] [facility] [address] [place] [address] Performing Lab: [place] [facility] [address] [place] [address] IRON 24 ug/dL L 50-170 May 05, 2025 09:36 AM [facility] FERRITIN SERUM Specimen Typ e: SERUM No comment entered. Ordering Provider: ADELE ARAMBULA Report Released Date/Time: May 05, 2025 09:36 AM Reporting Lab: [place] [facility] [address] [place] [address] Performing Lab: [place] [facility] [address] [place] [address] FERRITIN 5 ng/mL L 10-204 May 05, 2025 09:36 AM [facility] FOLATE (PB) SERUM Specimen Typ e: SERUM No comment entered. Ordering Provider: ADELE ARAMBULA Report Released Date/Time: May 05, 2025 09:36 AM Reporting Lab: [place] [facility] [address] [place] [address] Performing Lab: [place] [facility] [address] [place] [facility] FOLATE (PB) 12.5 ng/mL 7-20 May 05, 2025 09:36 AM [facility] CBC BLOOD Specimen Type: BLOOD No comment entered. Ordering Provider: ADELE ARAMBULA Report Released Date/Time: May 05, 2025 09:36 AM Reporting Lab: [place] [facility] [address] [place] [address] Performing Lab: [place] [facility] [address] [place] [facility] WBC 5.5 10*3/uL 3.6-11.2 RBC 4.06 10*6/uL 3.60-5.00 HGB 9.7 g/dL L 11.0-14.9 HCT 32.8 32.6-43.4 MCV 80.8 fL 80.0-100.0 MCH 23.9 pg L 27.0-34.0 MCHC 29.6 g/dL L 33.0-36.0 PLT 360 10*3/uL 150-400 MPV 9.3 fL 7.5-11.2 RDW 15.4 H 11.8-15.1 LYMPHOCYTES, AUTO % 32.1 MONOCYTES, AUTO % 7.5 NEUTROPHILS, AUTO % 55.5 EOSINOPHILS, AUTO % 4.0 BASOPHILS, AUTO % 0.9 LYMPHOCYTES, ABSOLUTE 1.76 10*3/uL 0.77- 4.50 MONOCYTES, ABSOLUTE 0.41 10*3/uL 0.19-0. 8 NEUTROPHILS, ABSOLUTE 3.05 10*3/uL 2.10- 8.00 EOSINOPHILS, ABSOLUTE 0.22 10*3/uL 0.00- 0.60 BASOPHILS, ABSOLUTE 0.05 10*3/uL 0.00-0. 20 IMMATURE GRANS, AUTO % 0.0 IMMATURE GRANS, AUTO ABS 0.00 10*3/uL 0. 00-0.05 March 13, 2025 10:17 AM [facility] COMPREHENSIVE METABOLIC PANEL PLASMA Specimen Type: PLASMA No comment entered. Ordering Provider: ADELE ARAMBULA Report Released Date/Time: March 13, 2025 10:10 AM Reporting Lab: [place] [facility] [address] [place] [address] Performing Lab: [place] [facility] [address] [place] [address] CREATININE 0.74 mg/dL 0.6-1.1 UREA NITROGEN 14 [...] 2020) 104 March 13, 2025 10:17 AM [facility] CBC BLOOD Specimen Type: BLOOD No comment entered. Ordering Provider: ADELE ARAMBULA Report Released Date/Time: March 13, 2025 10:10 AM Reporting Lab: [place] [facility] [address] [place] [address] Performing Lab: [place] [facility] [address] [place] [facility] WBC 5.9 10*3/uL 3.6-11.2 RBC 4.14 10*6/uL [...] GRANS, AUTO ABS 0.01 10*3/uL 0. 00-0.05 Encounter Notes: All associated encounter notes This section contains the clinical notes associated to the Encounter. Date/Time Encounter Note(s) Provider Source Apr 10, 2025 10:30 AM TELEHEALTH NOTE: LOCAL TITLE: TELE EMERGENCY CARE BOX ICER NOTE STANDARD TITLE: TELEHEALTH NOTE DATE OF NOTE: APR 10, 2025@10:30 ENTRY DATE: APR 10, 2025@10:48:28 AUTHOR: LARISSA CLEMENTS EXP COSIGNER: URGENCY: STATUS: COMPLETED referred from: [facility]'s name, last 4, and were verified. Encounter/Visit Type: Telephone 's Phone Number, Address, Email Address and Contact Information Patient Address: [address] [place] [id number] Patient Email - [email or web address] Emergency Contact: CON - Patient Contacts Patient Phone Numbers: Cell: No data available Home: No data available Work: No data available Emergency Contact: Name: RIA RIZVI Relationship: EXTENDED FAMILY MEMBER Secondary Emergency Contact: Name: No data available Relationship: No data available Phone: No data available Secondary Next of Kin Contact Name: No data available Relationship: No data available Phone: No data available Age: 44 years old Gender: FEMALE 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 Able to speak complete sentences with ease. Skin Assessment: Chief Complaint: 44yo , dizziness for a few weeks. hx of low iron, 4 in January. 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 also, states baseline hr in 50's and often her apple watch will be elevated hr. reports syncopal episode 3 weeks ago, denies injuries. she refused ER eval, was calling for pcp appt. agreed to speak with [facility] provider. connected with Dr. Moon for further eval. Safety Assessment: Are you living in a safe environment? Yes Are you carrying any weapons or contraband? No Past Medical History/Active Problems: RIVERA - Active Problems 23 Active Problems PROBLEM LAST MOD PROVIDER OCD - Obsessive-compulsive disorder (SNOMED CT 09/30/2015 JONATHAN KUHN [id number]) Benign hypertension (SNOMED CT 50281068) 09/25/2017 DAX ARAMBULA Cervicalgia 12/03/2024 DAX ARAMBULA Hyperlipidemia 11/22/2015 TERESE BAUMAN Joint pain 11/18/2015 TERESE BAUMAN Anxiety 11/18/2015 TERESE BAUMAN Allergic rhinitis 02/09/2016 TERESE BAUMAN Depressive disorder 08/09/2016 JONATHAN KUHN Posttraumatic stress disorder 10/12/2016 JONATHAN KUHN Asthma 09/13/2017 TERESE BAUMAN Suicide attempt 04/22/2018 HOLLY KAY Adjustment disorder with depressed mood 07/08/2018 GRANT GARCIA Supraspinatus tear 07/15/2019 DAX ARAMBULA Pain in left knee 03/18/2019 RALF,DAX Obesity, unspecified 09/24/2020 DAX ARAMBULA Varicose veins of lower extremity 07/15/2019 RALF,DAX Chronic rhinitis 11/03/2022 RALF,CARRIEERI Chronic sinusitis 11/03/2022 RALF,CARRIEERI Cyst of ovary 05/30/2023 RALF,DAX Cavernous hemangioma of liver 05/30/2023 RALF,DAX Steatosis of liver 05/30/2023 RALF,DAX History of hysterectomy for benign disease 09/16/2023 DAX ARAMBULA Exposure to potentially hazardous substance 01/03/2024 ARAMBULA,CATHERI Allergies/Adverse Reactions No allergy(ies) or New allergy(ies) reported by at this time. Current Medications: Active Outpatient Medications (including Supplies): AMITRIPTYLINE HCL 10MG TAB TAKE ONE TABLET BY MOUTH AT ACTIVE BEDTIME Indication: FOR DEPRESSION BARIATRIC MULTIVITAMINS W/IRON CAP TAKE 1 CAPSULE BY MOUTH ACTIVE ONCE A DAY (NOTE CHANGE IN PRODUCT/DOSE - 1 CAPSULE PER DAY) Indication: FOR VITAMIN SUPPLEMENTATION ESTRADIOL 2MG TAB TAKE ONE TABLET BY MOUTH ONCE A DAY ACTIVE Indication: FOR VASOMOTOR SYMPTOMS IN MENOPAUSE NALOXONE HCL 4MG/SPRAY SOLN NASAL SPRAY USE 1 SPRAY (4MG) ACTIVE INTO ONE NOSTRIL ONLY ONE-TIME DO NOT PRIME NASAL SPRAY. SPRAY ONE DOSE IN ONE NOSTRIL, GIVE ADDITIONAL DOSE IF PATIENT DOES NOT START BREATHING WITHIN 2-3 MINUTES OR STOPS BREATHING AGAIN. CALL 911. IF USED, NOTIFY PROVIDER. Indication: FOR OPIOID OVERDOSE ONDANSETRON 8MG ORAL DISINTEGRATING TAB TAKE ONE TABLET ACTIVE UNDER THE TONGUE EVERY EIGHT(8) HOURS NEEDED Indication: FOR NAUSEA/VOMITING OXYCODONE HCL 5MG TAB TAKE ONE TABLET BY MOUTH EVERY 6 ACTIVE HOURS MAY CAUSE CONSTIPATION Indication: FOR POST-OPERATIVE PAIN PANTOPRAZOLE NA 40MG EC TAB TAKE ONE TABLET BY MOUTH EVERY ACTIVE MORNING BEFORE A MEAL TAKE 30 MINUTES BEFORE MEAL(S) Indication: FOR GASTROESOPHAGEAL REFLUX DISEASE VENLAFAXINE HCL 150MG 24HR SA CAP TAKE ONE CAPSULE BY ACTIVE MOUTH ONCE A DAY WITH FOOD. DO NOT ABRUPTLY DISCONTINUE MEDICATION. Indication: FOR DEPRESSION Non-VA GABAPENTIN 100MG CAP 100MG BY MOUTH THREE TIMES A ACTIVE DAY NEEDED Indication: FOR POSTHERPETIC NEURALGIA 9 Total Medications Vital Signs (Historical/Last 3): Measurement DT TEMP RESP PULSE BP POx F(C) (L/MIN)(%) 03/10/2025 18:02 97.7(36.5) 16 82 121/84 100 02/09/2025 10:44 02/09/2025 10:38 97.8(36.6) 16 87 106/66 98 Measurement DT PAIN WEIGHT HEIGHT LB(KG)[BMI] IN(CM) 03/10/2025 18:02 7 222.4(100.88)[37*] 02/09/2025 10:44 8 202(91.63)[34*] 02/09/2025 10:38 6 Emergency Severity Index (AASHISH) level: Level 3 Disposition: Transferred to Tele Emergency Care Provider Time Spent: 16minutes /es/ LARISSA JONES RN REGISTERED NURSE Signed: 04/10/2025 10:53 LARISSA CLEMENTS [facility]
--- OUTSIDE RECORDS SUMMARY | 2025-05-06 10:21 | XMS_ITS | Encounter Summary ---
Author Name Department of [place] Organization [place] Address [address] [place] [address] Care Team Providers Care Wardrobe Mistress Name Role Phone ADELE ARAMBULA Primary Care Provider Unavail able Selected Encounter This section includes the information on record at [place] for the Encounter. Date/Time Encounter Type Encounter Description Reason Pro vider Source May 06, 2025 03:21 PM Outpatient Encounter PRIMARY CARE/MEDICINE IHE Encounter Template Text not used by [place] Plan of Treatment: Future Appointments (+ 6 months) and Future Tests (+/- 45 days) The Plan of Treatment section includes future care activities for the patient from all [place] treatmentfacilities. This section includes future appointments and future orders which are active, pending or scheduled. Future Appointments This section includes appointments that were scheduled to occur 6 months from the date of the Encounter, up to a maximum of 20 appointments. The data comes from all [place] treatment facilities. Appointment Date/Time Appointment Type Appointme nt Facility Name May 11, 2025 10:00 AM AMBULATORY - MEDICINE [facility] May 20, 2025 08:00 AM AMBULATORY - MEDICINE [facility] May 29, 2025 02:00 PM AMBULATORY - PSYCHIATRY [facility] Active, Pending, and Scheduled Orders This section includes a listing of several types of active, pending, and scheduled orders, including clinic medications orders, diagnostic test orders, procedure orders and consult orders; where the start date of the order is 45 days before the date of the Encounter or 45 days after the date of theEncounter. The data comes from all [place] treatment facilities. Test Date/Time Test Type Test Details Facility Name May 07, 2025 08:13 AM Consult Order [facility] [id number] Cons Concrete Worker's Choice [place] [facility] May 07, 2025 01:04 PM Consult Order [facility]OR[facility] [id number] Cons Concrete Worker's Choice [place] [facility] May 11, 2025 10:35 AM Consult Order [facility]HEMATOLOG[facility] OUTPT [id number] Cons [employer] Worker's [facility] Lab Results: +/- 30 days of the encounter This section includes the Chemistry and Hematology Lab Results on record with [place] for the patient. Radiology Reports and Pathology Reports are provided separately, in subsequent sections. Lab Results This section contains the Chemistry/Hematology Results that were resulted 30 days before or 30 daysafter the date of the Encounter. Date/Time Source Result Type Result - Unit Interpretation Reference Range Specimen Type Comment May 05, 2025 09:36 AM [facility] IRON PLASMA Specimen Type: PLASMA No comment entered. Ordering Provider: ADELE ARAMBULA Report Released Date/Time: May 05, 2025 09:36 AM Reporting Lab: [place] [facility] [address] [place] [address] Performing Lab: [place] [facility] [address] [place] [address] IRON 24 ug/dL L 50-170 May 05, 2025 09:[address] [facility] FOLATE (PB) SERUM Specimen Typ e: SERUM No comment entered. Ordering Provider: ADELE ARAMBULA Report Released Date/Time: May 05, 2025 09:36 AM Reporting Lab: [place] [facility] [address] [place] [address] Performing Lab: [place] [facility] [address] [place] [address] FOLATE (PB) 12.5 ng/mL 7-20 May 05, 2025 09:36 AM [facility] FERRITIN SERUM Specimen Typ e: SERUM No comment entered. Ordering Provider: ADELE ARAMBULA Report Released Date/Time: May 05, 2025 09:36 AM Reporting Lab: [place] [facility] [address] [place] [address] Performing Lab: [place] [facility] [address] [place] [address] FERRITIN 5 ng/mL L 10-204 May 05, 2025 09:36 AM [facility] CBC BLOOD Specimen Type: BLOOD No comment entered. Ordering Provider: ADELE ARAMBULA Report Released Date/Time: May 05, 2025 09:36 AM Reporting Lab: [place] [facility] [address] [place] [address] Performing Lab: [place] [facility] [address] [place] [address] WBC 5.5 10*3/uL 3.6-11.2 RBC 4.06 10*6/uL [...] GRANS, AUTO ABS 0.00 10*3/uL 0. 00-0.05 Encounter Notes: All associated encounter notes This section contains the clinical notes associated to the Encounter. Date/Time Encounter Note(s) Provider Source May 06, 2025 03:21 PM PRIMARY CARE SECUR E MESSAGING: LOCAL TITLE: PRIMARY CARE SECURE MESSAGING STANDARD TITLE: PRIMARY CARE SECURE MESSAGING DATE OF NOTE: MAY 06, 2025@15:21 ENTRY DATE: MAY 06, 2025@14:21:20 AUTHOR: JATINDER PALMER EXP COSIGNER: URGENCY: STATUS: COMPLETED ------Original Message ----- Sent: 05/06/2025 01:21 PM ET From: DELMI PETER To: Marco, [facility] [place] Subject: Medication:GLP-1 I am interested in trying a weight loss medication. Since having my breast reduction surgery, I have had a crazy appetite!!!! I have gained at least 15 pounds. I am also extremely tired all the time and I think that has to do with my iron levels. ------Original Message ----- Sent: 05/06/2025 03:21 PM ET From: JATINDER PALMER To: DELMI PETER Subject: Medication:GLP-1 Rommel Mcgee afternoon. I'm contacting you to see if I can get you set up with an appointment to discuss the process to start this new medication with Ms. Neal. If you would like to give me a call my number is [phone] ext. [phone]. That is my direct extension and I can get you scheduled expeditiously. She has availability next week. In Partnership and Collaboration, Jatinder Palmer [employer] /ward/ Jatinder Palmer [employer] Signed: 05/06/2025 14:21 JATINDER PALMER [facility]
--- OUTSIDE RECORDS SUMMARY | 2025-05-07 08:01 | XMS_ITS | Encounter Summary ---
Author Name [facility] [place] Address [address] [place] [address] Care Team Providers Care Vending Machine Assembler Name Role Phone ADELE ARAMBULA Primary Care Provider Unavail able Selected Encounter This section includes the information on record at [place] for the Encounter. Date/Time Encounter Type Encounter Description Reason Pro vider Source May 07, 2025 01:01 PM Outpatient Encounter COMMUNITY CARE CONSULT IHE Encounter Template Text not used by [place] Plan of Treatment: Future Appointments (+ 6 months) and Future Tests (+/- 45 days) The Plan of Treatment section includes future care activities for the patient from all [place] treatmentfacilities. This section includes future appointments and future orders which are active, pending or scheduled. Future Appointments This section includes appointments that were scheduled to occur 6 months from the date of the Encounter, up to a maximum of 20 appointments. The data comes from all [place] treatment facilities. Appointment Date/Time Appointment Type Appointme nt Facility Name May 11, 2025 10:00 AM AMBULATORY - MEDICINE [facility] May 20, 2025 08:00 AM AMBULATORY - MEDICINE KASHIF MENDOZA [facility] May 29, 2025 02:00 PM AM[facility]ATORY [facility]RY [facility] Active, Pending, and Scheduled Orders This section includes a listing of several types of active, pending, and scheduled orders, including clinic medications orders, diagnostic test orders, procedure orders and consult orders; where the start date of the order is 45 days before the date of the Encounter or 45 days after the date of theEncounter. The data comes from all [place] treatment facilities. Test Date/Time Test Type Test Details Facility Name May 07, 2025 08:13 AM Consult Order [facility]-GI GENERAL 657A4 Cons It Technical Support Specialist's Choice [place] [facility] May 07, 2025 01:04 PM Consult Order [facility]-ORTHOPEDICS 657A4 Cons It Technical Support Specialist's Choice [place] [facility] May 11, 2025 10:35 AM Consult Order [facility]-HEMATOLOGY OUTPT 657A4 Cons It Technical Support Specialist's Choice [facility] Lab Results: +/- 30 days of the encounter This section includes the Chemistry and Hematology Lab Results on record with [place] for the patient. Radiology Reports and Pathology Reports are provided separately, in subsequent sections. Lab Results This section contains the Chemistry/Hematology Results that were resulted 30 days before or 30 daysafter the date of the Encounter. Date/Time Source Result Type Result - Unit Interpretation Reference Range Specimen Type Comment May 05, 2025 09:36 AM [facility] IRON PLASMA Specimen Type: PLASMA No comment entered. Ordering Provider: ADELE ARAMBULA Report Released Date/Time: May 05, 2025 09:36 AM Reporting Lab: [place] [facility] [address] [place] [address] Performing Lab: [place] [facility] [address] [place] [address] IRON 24 ug/dL L 50-170 May 05, 2025 09:36 AM [facility] FOLATE (PB) SERUM Specimen Typ e: SERUM No comment entered. Ordering Provider: ADELE ARAMBULA Report Released Date/Time: May 05, 2025 09:36 AM Reporting Lab: [place] [facility] [address] [place] [address] Performing Lab: [place] [facility] [address] [place] [address] FOLATE (PB) 12.5 ng/mL 7-20 May 05, 2025 09:36 AM [facility] FERRITIN SERUM Specimen Typ e: SERUM No comment entered. Ordering Provider: ADELE ARAMBULA Report Released Date/Time: May 05, 2025 09:36 AM Reporting Lab: [place] [facility] [address] [place] [address] Performing Lab: [place] [facility] [address] [place] [address] FERRITIN 5 ng/mL L 10-204 May 05, 2025 09:36 AM [facility] CBC BLOOD Specimen Type: BLOOD No comment entered. Ordering Provider: ADELE ARAMBULA Report Released Date/Time: May 05, 2025 09:36 AM Reporting Lab: [place] [facility] [address] [place] [address] Performing Lab: [place] [facility] [address] [place] [address] WBC 5.5 10*3/uL 3.6-11.2 RBC 4.06 10*6/uL [...] Encounter. Date/Time Encounter Note(s) Provider Source May 07, 2025 01:04 PM LETTERS: LOCAL TITLE: [facility]-REQUEST FOR SERVICES (RFS) LETTER PB STANDARD TITLE: LETTERS DATE OF NOTE: MAY 07, 2025@13:04 ENTRY DATE: MAY 07, 2025@13:04:08 AUTHOR: ALFRED MCKEON EXP COSIGNER: URGENCY: STATUS: COMPLETED [facility] [address] [place] [address] PH: [phone] FX: [phone] Dear Provider, [place] Information: Patient Name: Arely Peter Date of : 1980 [facility] has received the request for continuation of care. Upon review, the following determination has been made: A new process is in place and the consult has to be reviewed by the RCI team to determine the necessity of the request. Once the consult has been signed and processed a new authorization will be faxed to the appropriate office. No further action is required from you at this time. It is recommended no further appointments be scheduled until the consult has been placed. If you have not received the authorization within 14 days, please resend RFS or call to check status. Should you have questions, please contact us at [phone]. [phone] to speak with a patient sales and service technician. As a reminder, if applicable, return medical records within 30 days for routine services. Sincerely, ANGELA Armstrong, RN As of 05/09/21, I have been advised that no RFS will be processed unless it is signed and includes medical documentation, if documentation has previously been sent please note upon this RFS. Please fax all RFS's to [phone]. ALFRED MCKEON [facility] May 07, 2025 01:02 PM NONVA NOTE: LOCAL TITLE: [facility]-REQUEST FOR SERVICE NOTE PB STANDARD TITLE: NONVA NOTE DATE OF NOTE: MAY 07, 2025@13:02 ENTRY DATE: MAY 07, 2025@13:02:52 AUTHOR: ALFRED MCKEON EXP COSIGNER: URGENCY: STATUS: COMPLETED [facility] CARE-REQUEST FOR SERVICE NOTE PB Has ADDENDA Request for Services (RFS) documentation has been sent for scanning to [employer] [facility] Community Care Consult: COMMUNITY [id number] Consult Number: [id number] Authorization Number: [id number] Date sent to scanning: Apr A Request for Service (RFS) form [id number] has been received which includes the following: Care Requested: RFS received from Dr. Suraj Lea, [facility] for continuation of care. DX: M67.823 Other Specified disorders of Tendon, Rt Elbow, M25.529 Elbow pain. Next scheduled appointment 05/20/25. Date VA received request: Apr Date service required (PID): Apr Requesting [facility] Provider Information: [facility] [address] [place] [address] PH: [phone] FX: [phone] /ward/ ANGELA DEMARCO, RN Care in the Community Signed: 05/07/2025 13:03 05/11/2025 ADDENDUM STATUS: COMPLETED [facility] Scanned Document - Addendum. Request for Services (RFS) documentation has been sent for scanning to [facility] Care Consult: COMMUNITY [id number] Consult Number: [id number] Authorization Number: [id number] Date sent to scanning: Apr SCANNED DOCUMENT SIGNATURE NOT REQUIRED Electronically Filed: 05/11/2025 by: ALFRED Reveles [facility]
--- OUTSIDE RECORDS SUMMARY | 2025-05-08 08:49 | XMS_ITS | Encounter Summary ---
Author Name [facility] [place] [facility] [place] Address [address] [place] [address] Care Team Providers Care Stave Cutting Supervisor Name Role Phone ADELE ARAMBULA Primary Care Provider Unavail able Selected Encounter This section includes the information on record at [place] for the Encounter. Date/Time Encounter Type Encounter Description Reason Pro vider Source May 08, 2025 01:49 PM Outpatient Encounter COMMUNITY CARE CONSULT IHE Encounter Template Text not used by [place] Plan of Treatment: Future Appointments (+ 6 [...] 11, 2025 10:00 AM AMBULATORY - MEDICINE [facility] May 20, 2025 08:00 AM AMBULATORY - MEDICINE KASHIF MENDOZA [facility] May 29, 2025 02:00 PM AMBULATORY - PS[facility]CHIATRY [facility] Active, Pending, and Scheduled Orders This section includes a listing of several types of active, pending, and scheduled orders, including clinic medications orders, diagnostic test orders, procedure orders and consult orders; where the start date of the order is 45 days before the date of the Encounter or 45 days after the date of theEncounter. The data comes from all [place] treatment facilities. Test Date/Time Test Type Test Details Facility Name May 07, 2025 08:13 AM Consult Order [facility]-GI GENERAL 657A4 Cons Appointment Specialist's Choice [place] [facility] May 07, 2025 01:04 PM Consult Order [facility]-ORTHOPEDICS [id number] Cons Appointment Specialist's Choice [place] [facility] May 11, 2025 10:35 AM Consult Order [facility]-HEMATOLOGY OUTPT [id number] Cons Appointment Specialist's Choice [facility] [place] [facility] Lab Results: +/- 30 days of the encounter This section includes the Chemistry and Hematology Lab Results on record with [place] for the patient. Radiology Reports and Pathology Reports are provided separately, in subsequent sections. Lab Results This section contains the Chemistry/Hematology Results that were resulted 30 days before or 30 daysafter the date of the Encounter. Date/Time Source Result Type Result - Unit Interpretation Reference Range Specimen Type Comment May 05, 2025 09:36 AM [facility] IRON PLASMA Specimen Type: PLASMA No comment entered. Ordering Provider: ADELE ARAMBULA Report Released Date/Time: May 05, 2025 09:36 AM Reporting Lab: [place] [facility] [address] [place] [address] Performing Lab: [place] [facility] [address] [place] [address] IRON 24 ug/dL L 50-170 May 05, 2025 09:36 AM [facility] FOLATE (PB) SERUM Specimen Typ e: SERUM No comment entered. Ordering Provider: ADELE ARAMBULA Report Released Date/Time: May 05, 2025 09:36 AM Reporting Lab: [place] [facility] [address] [place] [address] Performing Lab: [place] [facility] [address] [place] [address] FOLATE (PB) 12.5 ng/mL 7-20 May 05, 2025 09:36 AM [facility] FERRITIN SERUM Specimen Typ e: SERUM No comment entered. Ordering Provider: ADELE ARAMBULA Report Released Date/Time: May 05, 2025 09:36 AM Reporting Lab: [place] [facility] [address] [place] [address] Performing Lab: [place] [facility] [address] [place] [address] FERRITIN 5 ng/mL L 10-204 May 05, 2025 09:36 AM [facility] CBC BLOOD Specimen Type: BLOOD No comment entered. Ordering Provider: ADELE ARAMBULA Report Released Date/Time: May 05, 2025 09:36 AM Reporting Lab: [place] [facility] [address] [place] [address] Performing Lab: [place] [facility] [address] [place] [address] WBC 5.5 10*3/uL 3.6-11.2 RBC 4.06 10*6/uL [...] Encounter. Date/Time Encounter Note(s) Provider Source May 08, 2025 01:49 PM LETTERS: LOCAL TITLE: [facility] CARE-REFERRAL PB (AUTO-PRINT) STANDARD TITLE: LETTERS DATE OF NOTE: MAY 08, 2025@13:49:42 ENTRY DATE: MAY 08, 2025@13:49:43 AUTHOR: JOAQUINA OHSEA COSIGNER: URGENCY: STATUS: COMPLETED Arely Peter [address] [place], [place] [address] Dear ARELY PETER, Your VA provider has referred you to a provider within the community for care. Your medical care for GASTROENTEROLOGY has been authorized with the Community Care Provider listed below. DO NOT REPORT TO THE [place] [facility] Provider info: An appointment has been scheduled for you on: Office Name: [employer] Address: [address] [facility] [address] Address: [place] [address] Phone Number: P: [phone] Auth #: [id number] Referral Issue Date: 05/06/2025 Expiration Date: 05/06/2025 If you are unable to keep this appointment or the appointment is no longer needed, please contact the community provider above for notification/rescheduling and then call the [place] Community Care Office at [phone] [address] [phone] [place] [phone]. If you need additional care/services not mentioned above, please contact your primary care provider for a new referral. Co-Payments: If you are required to pay a VA co-payment, you will be billed by the VA for each authorized visit that you attend. However, you are NOT REQUIRED to make co-payments to a Community Provider. Prescriptions: Your community provider may write a prescription related to the authorized care. If there is an immediate need for your prescriptions from your community care visit, you may be able to get up to a 14-day fill of your prescription at your own expense for the cost of the medication, and may seek reimbursement from the VA. If you require more than a 14-day supply or if the prescribed medication is not immediately needed, your community provider will send a prescription to a VA pharmacy so that the VA can provide you with your routine medication. In-network locations can be found at https://www.va.gov/find-locati ons/ Medical Devices: Your community provider may recommend that medical devices, adapted equipment, or other items be provided for the treatment or rehabilitation of your medical condition. Veterans are generally required to obtain these items through the Prosthetics and Sensory Aids Service (PSAS) in your referring facility. Emergency/Inpatient Services: You, your community provider, or your family must provide notification within 72hr or ER visit and/or admission by [phone]. Thank you for the opportunity to serve you and for your service to our great nation! Joaquina Montalvohing [facility] Care in the Community [address] [facility] [place] [address] JOAQUINA OSHEA [facility]
--- OUTSIDE RECORDS SUMMARY | 2025-05-08 09:56 | XMS_ITS | Encounter Summary ---
Author Name [facility] [place] Address [address] [place] [address] Care Team Providers Care Histology Technician Name Role Phone ADELE ARAMBULA Primary Care Provider Unavail able Selected Encounter This section includes the information on record at [place] for the Encounter. Date/Time Encounter Type Encounter Description Reason Pro vider Source May 08, 2025 02:56 PM Outpatient Encounter COMMUNITY CARE CONSULT IHE Encounter Template Text not used by [place] Plan of Treatment: Future Appointments (+ 6 months) and Future Tests (+/- 45 days) The Plan of Treatment section includes future care activities for the patient from all [place] treatmentfacilities. This section includes future appointments and future orders which are active, pending or scheduled. Future Appointments This section includes appointments that were scheduled to occur 6 months from the date of the Encounter, up to a maximum of 20 appointments. The data comes from all [place] treatment facilities. Appointment Date/Time Appointment Type Appointme nt Facility Name May 11, 2025 10:00 AM AMBULATORY - MEDICINE [facility] May 20, 2025 08:00 AM AMBULATORY - MEDICINE KASHIF MENDOZA [facility] May 29, 2025 02:00 PM AMBULATORY - PS[facility]CHIATRY [facility] Active, Pending, and Scheduled Orders This section includes a listing of several types of active, pending, and scheduled orders, including clinic medications orders, diagnostic test orders, procedure orders and consult orders; where the start date of the order is 45 days before the date of the Encounter or 45 days after the date of theEncounter. The data comes from all [place] treatment facilities. Test Date/Time Test Type Test Details Facility Name May 07, 2025 08:13 AM Consult Order [facility]-GI GENERAL 657A4 Cons Vamp Throater's Choice [place] [facility] May 07, 2025 01:04 PM Consult Order [facility]-ORTHOPEDICS [id number] Cons Vamp Throater's Choice [place] [facility] May 11, 2025 10:35 AM Consult Order [facility]-HEMATOLOGY OUTPT [id number] Cons Vamp Throater's Choice [facility] [place] [facility] Lab Results: +/- 30 days of the encounter This section includes the Chemistry and Hematology Lab Results on record with [place] for the patient. Radiology Reports and Pathology [...] 09:36 AM Reporting Lab: [place] [facility] [address] [place] [address] Performing Lab: [place] [facility] [address] [place] [address] IRON 24 ug/dL L 50-170 May 05, 2025 09:36 AM [facility] FERRITIN SERUM Specimen Typ e: SERUM No comment entered. Ordering Provider: ADELE ARAMBULA Report Released Date/Time: May 05, 2025 09:36 AM Reporting Lab: [place] [facility] [address] [place] [address] Performing Lab: [place] [facility] [address] [place] [address] FERRITIN 5 ng/mL L 10-204 May 05, 2025 09:36 AM [facility] FOLATE (PB) SERUM Specimen Typ e: SERUM No comment entered. Ordering Provider: ADELE ARAMBULA Report Released Date/Time: May 05, 2025 09:36 AM Reporting Lab: [place] [facility] [address] [place] [address] Performing Lab: [place] [facility] [address] [place] [address] FOLATE (PB) 12.5 ng/mL 7-20 May 05, 2025 09:36 AM [facility] CBC BLOOD Specimen Type: BLOOD No comment entered. Ordering Provider: ADELE ARAMBULA Report Released Date/Time: May 05, 2025 09:36 AM Reporting Lab: [place] [facility] [address] [place] [address] Performing Lab: [place] [facility] [address] [place] [address] WBC 5.5 10*3/uL 3.6-11.2 RBC 4.06 10*6/uL [...] Encounter Note(s) Provider Source May 08, 2025 02:56 PM LETTERS: LOCAL TITLE: [facility] CARE-REFERRAL PB (AUTO-PRINT) STANDARD TITLE: LETTERS DATE OF NOTE: MAY 08, 2025@14:56:34 ENTRY DATE: MAY 08, 2025@14:56:36 AUTHOR: EZIO GRIMM COSIGNER: URGENCY: STATUS: COMPLETED Arely Loly Peter [address] [place], [place] [address] Dear ARELY PETER, Your VA provider has referred you to a provider within the community for care. Your medical care for ORTHOPEDICS has been authorized with the Community Care Provider listed below. DO NOT REPORT TO THE [facility] Provider info: An appointment has been scheduled for you on: Office Name: [facility] Address: [address] [facility] Address: [place] [address] Auth #: [id number] Referral Issue Date: 05/08/2025 Expiration Date: 11/16/2025 If you are unable to keep this appointment or the appointment is no longer needed, please contact the community provider above for notification/rescheduling and then call the [place] Community Care Office at [phone] Ext [phone]. If you need additional care/services not mentioned [...] medication. In-network locations can be found at https://www.va.gov/find-loc ations/ Medical Devices: Your community provider may recommend [...] 72hr or ER visit and/or admission by [phone]. Thank you for the opportunity to serve you and for your service to our great nation! EZIO Gutierrez [facility] Care in the Community [address] [facility] [address] EZIO GRIMM [facility]
--- OUTSIDE RECORDS SUMMARY | 2025-05-11 05:00 | XMS_ITS | Encounter Summary ---
Author Name [facility] [place] [facility] [place] Organization [facility] [place] [facility] [place] Address [address] [place] [address] Care Team Providers Care Apprentice Electrician Name Role Phone ADELE ARAMBULA Primary Care Provider Unavail able Selected Encounter This section includes the information on record at [place] for the Encounter. Date/Time Encounter Type Encounter Description Reason Pro vider Source May 11, 2025 10:00 AM Outpatient Encounter PRIMARY CARE/MEDICINE IHE Encounter Template Text not used by [place] [...] Appointment Type Appointme nt Facility Name May 20, 2025 08:00 AM AMBULATORY - MEDICINE KASHIF MENDOZA [facility] May 29, 2025 02:00 PM AMBULATORY - [facility]ATRY [facility] Active, Pending, and Scheduled Orders This section includes a listing of several types of active, pending, and scheduled orders, including clinic medications orders, diagnostic test orders, procedure orders and consult orders; where the start date of the order is 45 days before the date of the Encounter or 45 days after the date of theEncounter. The data comes from all [place] treatment facilities. Test Date/Time Test Type Test Details Facility Name May 07, 2025 08:13 AM Consult Order [facility]-GI GENERAL 657A4 Cons Sweeper Cleaner [employer] [facility] [place] [facility] May 07, 2025 01:04 PM Consult Order [facility]-ORTHOPEDICS 657A4 Cons Sweeper Cleaner [employer] [place] [facility] May 11, 2025 10:35 AM Consult Order [facility]-HEMATOLOGY OUTPT 657A4 Cons Sweeper Cleaner [facility] [place] [facility] Lab Results: +/- 30 days of the encounter This section includes the Chemistry and Hematology Lab Results on record with [place] for the patient. Radiology Reports and Pathology Reports are provided separately, in subsequent sections. Lab Results This section contains the Chemistry/Hematology Results that were resulted 30 days before or 30 daysafter the date of the Encounter. Date/Time Source Result Type Result - Unit Interpretation Reference Range Specimen Type Comment May 05, 2025 09:36 AM [facility] IRON PLASMA Specimen Type: PLASMA No comment entered. Ordering Provider: ADELE ARAMBULA Report Released Date/Time: May 05, 2025 09:36 AM Reporting Lab: [place] [facility] [address] [place] [address] Performing Lab: [place] [facility] [address] [place] [address] IRON 24 ug/dL L 50-170 May 05, 2025 09:36 AM [facility] FOLATE (PB) SERUM Specimen Typ e: SERUM No comment entered. Ordering Provider: ADELE ARAMBULA Report Released Date/Time: May 05, 2025 09:36 AM Reporting Lab: [place] [facility] [address] [place] [address] Performing Lab: [place] [facility] [address] [place] [address] FOLATE (PB) 12.5 ng/mL 7-20 May 05, 2025 09:36 AM [facility] FERRITIN SERUM Specimen Typ e: SERUM No comment entered. Ordering Provider: ADELE ARAMBULA Report Released Date/Time: May 05, 2025 09:36 AM Reporting Lab: [place] [facility] [address] [place] [address] Performing Lab: [place] [facility] [address] [place] [address] FERRITIN 5 ng/mL L 10-204 May 05, 2025 09:36 AM [facility] CBC BLOOD Specimen Type: BLOOD No comment entered. Ordering Provider: ADELE ARAMBULA Report Released Date/Time: May 05, 2025 09:36 AM Reporting Lab: [facility] [address] [place] [address] Performing Lab: [place] [facility] [address] [place] [address] WBC 5.5 10*3/uL 3.6-11.2 RBC 4.06 10*6/uL [...] Encounter. Date/Time Encounter Note(s) Provider Source May 12, 2025 07:09 PM ACCOUNTING OF DISC LOSURES NOTE: LOCAL TITLE: STATE PRESCRIPTION DRUG MONITORING PROGRAM STANDARD TITLE: ACCOUNTING OF DISCLOSURES NOTE DATE OF NOTE: MAY 12, 2025@19:09:16 ENTRY DATE: MAY 12, 2025@19:09:16 AUTHOR: ADELE ARAMBULA EXP COSIGNER: URGENCY: STATUS: COMPLETED This PDMP query was submitted by Adele Arambula ANIMAL TRAPPER. The clinical justification for this PDMP query is to review controlled substances prescribed outside of the [facility], and any additional information that may become available, as an important component of standard clinical care, and in accordance with [facility] policy. Patient information was shared with the PDMP [employer] [place]. Prescription(s) filled outside the [facility] in the last 90 days are noted. Safety concerns will be discussed with the patient and documented as part of ongoing treatment planning. Multiple prescriptions from providers noted and viviana was a one time prescription for her foot. This ongoing prescription has not been discussed. I will not agree to refill at this time. /ward/ AMANDA Lazcano-THOMAS Newman Signed: 05/12/2025 19:09 ADELE ARAMBULA [place] THOMAS
--- OUTSIDE RECORDS SUMMARY | 2025-05-11 05:00 | XMS_ITS | Encounter Summary ---
Author Name [facility] [place] Organization [facility] [place] Address [address] [place] [address] Care Team Providers Care Managed Care Nurse Name Role Phone ADELE ARAMBULA Primary Care Provider Unavail able Selected Encounter This section includes the information on record at [place] for the Encounter. Date/Time Encounter Type Encounter Description Reason Provider Source May 11, 2025 10:00 AM Outpatient Encounter PRIMARY CARE/MEDICINE JEAN ARAMBULA Encounter Template Text not used by [place] Plan of Treatment: Future Appointments (+ 6 months) and Future Tests (+/- 45 days) The Plan of Treatment section includes future care activities for the patient from all [place] treatmentfacilities. This section includes future appointments and future orders which are active, pending or scheduled. Future Appointments This section includes appointments that were scheduled to occur 6 months from the date of the Encounter, up to a maximum of 20 appointments. The data comes from all [place] treatment facilities. Appointment Date/Time Appointment Type Appointme nt Facility Name May 20, 2025 08:00 AM AMBULATORY - MEDICINE KASHIF MENDOZA [facility] May 29, 2025 02:00 PM AMBULATORY - PS[facility]CHIATRY [facility] Active, Pending, and Scheduled Orders This section includes a listing of several types of active, pending, and scheduled orders, including clinic medications orders, diagnostic test orders, procedure orders and consult orders; where the start date of the order is 45 days before the date of the Encounter or 45 days after the date of theEncounter. The data comes from all [place] treatment facilities. Test Date/Time Test Type Test Details Facility Name May 07, 2025 08:13 AM Consult Order [facility]-GI GENERAL [id number] Cons Digital Account Manager[facility] [place] [facility] May 07, 2025 01:04 PM Consult Order [facility]-ORTHOPEDICS [id number] Cons Digital Account [facility] [place] [facility] May 11, 2025 10:35 AM Consult Order [facility]-HEMATOLOGY OUTPT 657A4 Cons Digital Account [facility] [place] [place] [place] [facility] Lab Results: +/- 30 days of the encounter This section includes the Chemistry and Hematology Lab Results on record with [place] for the patient. Radiology Reports and Pathology Reports are provided separately, in subsequent sections. Lab Results This section contains the Chemistry/Hematology Results that were resulted 30 days before or 30 daysafter the date of the Encounter. Date/Time Source Result Type Result - Unit Interpretation Reference Range Specimen Type Comment May 05, 2025 09:36 AM [facility] [facility] IRON PLASMA Specimen Type: PLASMA No comment entered. Ordering Provider: ADELE ARAMBULA Report Released Date/Time: May 05, 2025 09:36 AM Reporting Lab: [place] [facility] [address] [place] [address] Performing Lab: [place] [facility] [address] [place] [address] IRON 24 ug/dL L 50-170 May 05, 2025 09:36 AM [facility] FERRITIN SERUM Specimen Typ e: SERUM No comment entered. Ordering Provider: ADELE ARAMBULA Report Released Date/Time: May 05, 2025 09:36 AM Reporting Lab: [place] [facility] [address] [place] [address] Performing Lab: [place] [facility] [address] [place] [address] FERRITIN 5 ng/mL L 10-204 May 05, 2025 09:36 AM [facility] FOLATE (PB) SERUM Specimen Typ e: SERUM No comment entered. Ordering Provider: ADELE ARAMBULA Report Released Date/Time: May 05, 2025 09:36 AM Reporting Lab: [place] [facility] [address] [place] [address] Performing Lab: [place] [facility] [address] [place] [address] FOLATE (PB) 12.5 ng/mL 7-20 May 05, 2025 09:36 AM [facility] CBC BLOOD Specimen Type: BLOOD No comment entered. Ordering Provider: ADELE ARAMBULA Report Released Date/Time: May 05, 2025 09:36 AM Reporting Lab: LILLIAN MENDOZA [facility] [address] [facility] [facility] [address] Performing Lab: [place] [facility] [address] [place] [address] WBC 5.5 10*3/uL 3.6-11.2 RBC 4.06 10*6/uL [...] GRANS, AUTO ABS 0.00 10*3/uL 0. 00-0.05 Vital Signs: All taken on the encounter date This section contains inpatient and outpatient Vital Signs collected on the date of the Encounter. Date/Time Temperature Pulse Blood Pressure Respiratory Rate SP02 Pain Height Weight Body Mass Index Source May 11, 2025 10:04 AM 98.3 F 81 /min 117/79 mm[Hg] 18 /min 99 % 220 lb 37 [facility] Social History: Smoking Status (Most current) and Tobacco Use (All prior to encounter date) This section includes the most current, and the historical, smoking and tobacco- related health factors from the [place] facility where the Encounter took place. Current Smoking Status This section includes the most current smoking, or tobacco-related health factor, from the [place] facility where the Encounter took place. Date/Time Current Smoking Status Comment Skylar ity Feb 04, 2024 09:30 AM [facility] NEVER USED [facility] Tobacco Use History This section includes a history of the smoking, or tobacco-related health factors, that were collected on or before the date of the Encounter. The data comes from the [place] facility where the Encounter took place. Date/Time [...] Encounter. Date/Time Encounter Note(s) Provider Source May 11, 2025 10:09 AM PRIMARY CARE NURSI NG NOTE: LOCAL TITLE: PRIMARY CARE NURSING PROGRESS NOTE (TEXT) NURSING P STANDARD TITLE: PRIMARY CARE NURSING NOTE DATE OF NOTE: MAY 11, 2025@10:09 ENTRY DATE: MAY 11, 2025@10:09:59 AUTHOR: ANGEL DEY EXP COSIGNER: URGENCY: STATUS: COMPLETED Established Patient DELMI PETER IS A 44 YEAR OLD FEMALE BEING SEEN IN CLINIC MAY 11, 2025. = = REASON FOR VISIT: Fatigue and to discuss weight loss options. Are you receiving care any where other than the [place]? No HEALTH AND SURGICAL HISTORY: Does patient report using home oxygen? No CURRENT ACTIVE MEDICATIONS FOR REVIEW: If the list for review does not include a component, then it was not applicable to this patient. Allergies/ADRs (Tool #5) FACILITY ALLERGY/ADR -------- [facility] LATEX GLOVES [facility] OXYCODONE [facility] PENICILLIN Med. Reconciliation (Tool #1) INCLUDED IN THIS LIST: Alphabetical list of active outpatient prescriptions dispensed from this [place] (local) and dispensed from another [place] or [facility] facility (remote) as well as inpatient orders (local pending and active), local clinic medications, locally documented non-VA medications, and local prescriptions that have or been discontinued in the past 90 days. Non-VA Meds Last Documented On: May 25, 2024 NOTE The display of VA prescriptions dispensed from another [place] or [facility] facility (remote) is limited to active outpatient prescription entries matched to National Drug File at the originating site and may not include some items such as investigational drugs, compounds, etc. NOT INCLUDED IN THIS LIST: Medications self-entered by the patient into personal health records (i.e. [facility]) are NOT included in this list. Non-VA medications documented outside this [place], remote inpatient orders (regardless of status) and remote clinic medications are NOT included in this list. The patient and provider must always discuss medications the patient is taking, regardless of where the medication was dispensed or obtained. OUTPT AMITRIPTYLINE HCL 10MG TAB (Status = Active/Suspended) TAKE ONE TABLET BY MOUTH AT BEDTIME FOR DEPRESSION Rx# [id number] Last Released: 03/24/25 Qty/Days Supply: Rx Expiration Date: 10/16/25 Refills Remainin Indication: FOR DEPRESSION OUTPT BARIATRIC MULTIVITAMINS W/IRON CAP (Status = Active) TAKE 1 CAPSULE BY MOUTH ONCE A DAY FOR VITAMIN SUPPLEMENTATION (NOTE CHANGE IN PRODUCT/DOSE - 1 CAPSULE PER DAY) Rx# [id number] Last Released: 12/24/24 Qty/Days Supply: Rx Expiration Date: 10/14/25 Refills Remainin Indication: FOR VITAMIN SUPPLEMENTATION OUTPT CETIRIZINE HCL 10MG TAB (Status = ) TAKE ONE TABLET BY MOUTH ONCE A DAY NEEDED FOR ALLERGY SYMPTOMS Rx# [id number] Last Released: 01/05/25 Qty/Days Supply: Rx Expiration Date: 04/03/25 Refills Remainin Indication: FOR ALLERGY SYMPTOMS OUTPT DOXYCYCLINE HYCLATE 100MG TAB (Status = ) TAKE ONE TABLET BY MOUTH TWICE A DAY TAKE UNTIL FINISHED. AVOID SUN EXPOSURE WHILE TAKING. LAST OFFICE VISIT:[id number] Rx# [id number] Last Released: 02/04/25 Qty/Days Supply: 17/08 Rx Expiration Date: 03/01/25 Refills Remainin OUTPT ESTRADIOL 2MG TAB (Status = Active/Suspended) TAKE ONE TABLET BY MOUTH ONCE A DAY FOR VASOMOTOR SYMPTOMS IN MENOPAUSE Rx# [id number] Last Released: 03/20/25 Qty/Days Supply: Rx Expiration Date: 10/16/25 Refills Remainin Indication: FOR VASOMOTOR SYMPTOMS IN MENOPAUSE Non-VA GABAPENTIN 100MG CAP TAKE 1 CAPSULE BY MOUTH THREE TIMES A DAY NEEDED VA RX: Non-VA medication recommended by VA provider Indication: FOR POSTHERPETIC NEURALGIA OUTPT HYDROCODONE 5MG/ACETAMINOPHEN 325MG TAB (Status = Discontinued) TAKE 1 TABLET BY MOUTH EVERY 6 HOURS NEEDED FOR PAIN CAUTION: DO NOT EXCEED 4000MG PER DAY ACETAMINOPHEN (APAP) FROM ALL MEDS. Rx# [id number] Last Released: 02/09/25 Qty/Days Supply: 09/30 Rx [...] CALL 911. IF USED, NOTIFY PROVIDER. Rx# [id number] Last Released: 03/04/25 Qty/Days Supply: 11/29 Rx Expiration Date: 02/10/26 Refills Remainin Indication: FOR OPIOID OVERDOSE OUTPT ONDANSETRON 8MG ORAL DISINTEGRATING TAB (Status = Active) TAKE ONE TABLET UNDER THE TONGUE EVERY EIGHT(8) HOURS NEEDED FOR NAUSEA/VOMITING Rx# [id number] Last Released: 04/20/25 Qty/Days Supply: Rx Expiration Date: 02/05/26 Refills Remainin Indication: FOR NAUSEA/VOMITING OUTPT OXYCODONE HCL 5MG TAB (Status = ) TAKE ONE TABLET BY MOUTH EVERY 6 HOURS FOR POST-OPERATIVE PAIN MAY CAUSE CONSTIPATION Rx# [id number] Last Released: 03/18/25 Qty/Days Supply: 17/03 Rx Expiration Date: 04/17/25 Refills Remainin Indication: FOR POST-OPERATIVE PAIN OUTPT PANTOPRAZOLE NA 40MG EC TAB (Status = Active/Suspended) TAKE ONE TABLET BY MOUTH EVERY MORNING BEFORE A MEAL FOR GASTROESOPHAGEAL REFLUX DISEASE TAKE 30 MINUTES BEFORE MEAL(S) Rx# [id number] Last Released: 03/24/25 Qty/Days Supply: Rx Expiration Date: 10/16/25 Refills Remainin Indication: FOR GASTROESOPHAGEAL REFLUX DISEASE OUTPT SULFAMETHOXAZOLE 800/TRIMETH 160MG TAB (Status = ) TAKE 1 TABLET BY MOUTH EVERY 12 HOURS FOR CELLULITIS TAKE WITH WATER/AVOID SUNLIGHT. Rx# [id number] Last Released: 03/10/25 Qty/Days Supply: 11/05 Rx Expiration Date: 04/09/25 Refills Remainin Indication: FOR CELLULITIS OUTPT TRAMADOL HCL 50MG TAB (Status = ) TAKE 1 TABLET BY MOUTH EVERY 4 TO 6 HOURS NEEDED FOR PAIN Rx# [id number] Last Released: 01/26/25 Qty/Days Supply: 27/03 Rx Expiration Date: 02/25/25 Refills Remainin OUTPT TRAMADOL HCL 50MG TAB (Status = ) TAKE 1 TABLET BY MOUTH TWICE DAILY NEEDED FOR PAIN Rx# [id number] Last Released: 03/03/25 Qty/Days Supply: Rx Expiration Date: 03/27/25 Refills Remainin Indication: FOR PAIN OUTPT VENLAFAXINE HCL 150MG 24HR SA CAP (Status = Active/Suspended) TAKE ONE CAPSULE BY MOUTH ONCE A DAY FOR DEPRESSION WITH FOOD. DO NOT ABRUPTLY DISCONTINUE MEDICATION. Rx# [id number] Last Released: 03/24/25 Qty/Days Supply: Rx Expiration Date: 10/16/25 Refills Remainin Indication: FOR DEPRESSION SUPPLIES PHARMACY TERMS AND POSSIBLE PATIENT ACTIONS INPT = CO inpatient order IV = CO intravenous medication OUTPT = CO outpatient prescription PHARMACY POSSIBLE PATIENT TERMS EXPLANATION ACTIONS -------- ---- ACTIVE A prescription that can be If you have refills, filled at the local [place] pharmacy. you may request a refill of this prescription from your [place] pharmacy. CLINIC A medication you received during If you have questions a visit to a [place] clinic or about this medication emergency department. contact your [place] healthcare team. DISCONTINUED A prescription your provider has Contact your CO stopped. It is no longer healthcare team if you available to be sent to you or need more of this picked up at the [facility] pharmacy medication. window. A prescription which is [...] the VA. Or, it may be an jhcx-ibp-nguihsy (OTC), herbal, dietary supplements or sample medication. [...] before this medication now. you run out. Medication list reviewed with Patient Patient/Caregiver reports taking medications as ordered. IS PATIENT TAKING ANY OVER THE COUNTER MEDICATIONS, SUCH VITAMINS OR HERBAL SUPPLEMENTS, INCLUDING ANY MEDICATIONS PRESCRIBED BY ANOTHER PHYSICIAN? No Does patient have any new allergies to report since last visit? NO VITALS: TEMPERATURE: 98.3 F [36.8 C] (05/11/2025 10:04) BP: 117/79 (05/11/2025 10:04) RESP: 18 (05/11/2025 10:04) PULSE: 81 (05/11/2025 10:04) HT: 65 in [165.1 cm] (10/08/2023 13:06) WT: 220 lb [99.79 kg] (05/11/2025 10:04) BMI: 36.7 PAIN ASSESSMENT: (Most Recent Pain Score in Vitals Package: 7 (03/10/2025 18:02) ) The patient indicated that they and [...] chickenpox, or zoster in last 30 days. STRESS: Thank you for your service. Now let us serve you. At the [facility], we strive to provide you with [...] Not At All SPIRITUAL ASSESSMENT: Are there quaker practices or spiritual concerns you want the document processing specialist, your physician, and other health care team members to immediately know about? No Patient advised to call the clinic for any concerns, questions, or symptoms. Patient and/or caregiver verbalized understanding of plan of care. Depression Screening - V: Perform PHQ-2 A PHQ-2 screen was performed. The score was 1 which is a negative screen for depression. Over the past two weeks, how often have you been bothered by the following problems? 1. Little interest or pleasure in doing things Several days 2. Feeling down, depressed, or hopeless Not at all /ward/ CHU Eagle, [facility] Signed: 05/11/2025 10:12 ANGEL DEY [place] [facility]
--- OUTSIDE RECORDS SUMMARY | 2025-05-11 07:08 | XMS_ITS | Encounter Summary ---
Author Name [facility] Address [address] [place] [address] Care Team Providers Care Field Foreman Name Role Phone ADELE ARAMBULA Primary Care Provider Unavail able Selected Encounter This section includes the information on record at [place] for the Encounter. Date/Time Encounter Type Encounter Description Reason Pro vider Source May 11, 2025 12:08 PM Outpatient Encounter TELEPHONE TRIAGE IHE Encounter Template Text not used by [place] Plan of Treatment: Future Appointments (+ 6 months) and Future Tests (+/- 45 days) The Plan of Treatment section includes future care activities for the patient from all [place] treatmentfacilities. This section includes future appointments and future orders which are active, pending or scheduled. Future Appointments This section includes appointments that were scheduled to occur 6 months from the date of the Encounter, up to a maximum of 20 appointments. The data comes from all [place] treatment facilities. Appointment Date/Time Appointment Type Appointme nt Facility Name May 20, 2025 08:00 AM AMBULATORY - MEDICINE [facility] May 29, 2025 02:00 PM AMBULATORY - PSYCHIATRY [facility] Active, Pending, and Scheduled Orders This section includes a listing of several types of active, pending, and scheduled orders, including clinic medications orders, diagnostic test orders, procedure orders and consult orders; where the start date of the order is 45 days before the date of the Encounter or 45 days after the date of theEncounter. The data comes from all [place] treatment facilities. Test Date/Time Test Type Test Details Facility Name May 07, 2025 08:13 AM Consult Order [facility]-GI GENERAL [id number] Cons Evaporator Operator [facility] [facility] [place] [facility] May 07, 2025 01:04 PM Consult Order [facility]-ORTHOPEDICS [id number] Cons Evaporator Operator [facility] [place] [facility] May 11, 2025 10:35 AM Consult Order [facility]-HEMATOLOGY OUTPT [id number] Cons Evaporator Operator [facility] [place] [place] [facility] Lab Results: +/- 30 days of the encounter This section includes the Chemistry and Hematology Lab Results on record with [place] for the patient. Radiology Reports and Pathology Reports are provided separately, in subsequent sections. Lab Results This section contains the Chemistry/Hematology Results that were resulted 30 days before or 30 daysafter the date of the Encounter. Date/Time Source Result Type Result - Unit Interpretation Reference Range Specimen Type Comment May 05, 2025 09:36 AM [facility] IRON PLASMA Specimen Type: PLASMA No comment entered. Ordering Provider: ADELE ARAMBULA Report Released Date/Time: May 05, 2025 09:36 AM Reporting Lab: [place] [facility] [address] [place] [address] Performing Lab: [place] [facility] [address] [place] [address] IRON 24 ug/dL L 50-170 May 05, 2025 09:36 AM [facility] FERRITIN SERUM Specimen Typ e: SERUM No comment entered. Ordering Provider: ADELE ARAMBULA Report Released Date/Time: May 05, 2025 09:36 AM Reporting Lab: [place] [facility] [address] [place] [address] Performing Lab: [place] [facility] [address] [place] [address] FERRITIN 5 ng/mL L 10-204 May 05, 2025 09:36 AM [facility] FOLATE (PB) SERUM Specimen Typ e: SERUM No comment entered. Ordering Provider: ADELE ARAMBULA Report Released Date/Time: May 05, 2025 09:36 AM Reporting Lab: [place] [facility] [address] [place] [address] Performing Lab: [place] [facility] [address] [place] [address] FOLATE (PB) 12.5 ng/mL 7-20 May 05, 2025 09:36 AM [facility] CBC BLOOD Specimen Type: BLOOD No comment entered. Ordering Provider: ADELE ARAMBULA Report Released Date/Time: May 05, 2025 09:36 AM Reporting Lab: [place] [facility] [address] [place] [address] Performing Lab: [place] [facility] [address] [place] [address] WBC 5.5 10*3/uL 3.6-11.2 RBC 4.06 10*6/uL [...] Provider Source May 12, 2025 07:09 PM ADDENDUM: LOCAL TITLE: Addendum STANDARD TITLE: ADDENDUM DATE OF NOTE: MAY 12, 2025@19:09:57 ENTRY DATE: MAY 12, 2025@19:09:58 AUTHOR: ADELE ARAMBULA COSIGNER: URGENCY: STATUS: COMPLETED This was a one time prescription for me, I believe for her foot, and I have not discussed any pain management with her at this time to continue this prescription. Refill request for tramadol denied. /ward/ AMANDA Lazcano-THOMAS Newman Signed: 05/12/2025 19:12 Receipt Acknowledged By: 05/13/2025 10:02 /es/ Lety Matias RN [place] THOMAS, JJP [facility] --- Original Document --- 05/11/25 PHARMACY CONTACT CENTER NOTE: MEDICATION RENEWAL REQUEST-CONTROLLED SUBSTANCE: [facility] contacting [facility]? [place]/Patient Requesting renewal of medication: TRAMADOL HCL 50MG TAB [id number] 03/27/2025 02/25/2025 02/26/2025 0 ADELE [id number] TAKE 1 TABLET BY MOUTH TWICE DAILY NEEDED FOR PAIN Contact via: Phone Please send medication: Mail Disposition: Notification forwarded to provider for review of renewal request. +++++++++++++++++++++++++++ +++++++++++++++++++++++++++ ++++++++++++ Last urine drug screen result: SLT - Lab Tests Selected No data available for: BENZODIAZEPINES (STL) COCAINE METABOLITES BUPRENORPHINE (STL-PB-[place]) BARBITURATES([place]) OPIATES AMPHET/METHAMPHETAMINE METHADONE OXYCODONE ([id number]) THC([place]) CANNABINOIDS Last SPDMP note (1 year): Prog Note DT Title Author Last Syd DT 03/18/2025 STATE PRESCRIPTION DRUG DOMINIQUE FRANCES MONITORING PROGRAM LAST PRIMARY CARE APPOINTMENT Information: Computed Finding: [facility] for [facility] Patient 05/11/2025@10:00 value - ASHLEY-DEEPA PACT JANETTE SASH CLAMP OPERATOR APPOINTMENT DATE/TIME: 05/11/2025@10:00 CLINIC: ANAYELI SAVAGE NP Prog Note DT Title Author Last Syd DT 07/21/2014 CONSENT FOR LONG-TERM OPIOIDS DARLENE GARCIA FOR PAIN /es/ TRAVIS CAMPBELL, carbonizer tester VISN 15 PCC SKEIN TIER Signed: 05/11/2025 12:08 Receipt Acknowledged By: 05/12/2025 19:09 /es/ [facility] 05/13/2025 ADDENDUM STATUS: COMPLETED Attempted to Contact [place] to review message from provider. No answer. Left Vm. /es/ Lety Matias RN [place] [facility], [facility] Signed: 05/13/2025 10:03 ADELE ARAMBULA [facility] May 11, 2025 12:08 PM PHARMACY NOTE: LOCAL TITLE: PHARMACY CONTACT CENTER NOTE STANDARD TITLE: PHARMACY NOTE DATE OF NOTE: MAY 11, 2025@12:08 ENTRY DATE: MAY 11, 2025@12:08:24 AUTHOR: TRAVIS CAMPBELL EXP COSIGNER: URGENCY: STATUS: COMPLETED PHARMACY CONTACT CENTER NOTE Has ADDENDA MEDICATION RENEWAL REQUEST-CONTROLLED SUBSTANCE: Who is contacting the [place]? /Patient Requesting renewal of medication: TRAMADOL HCL 50MG TAB [id number] 30 03/27/2025 02/25/2025 02/26/2025 0 ADELE [id number] TAKE 1 TABLET BY MOUTH TWICE DAILY NEEDED FOR PAIN Contact via: Phone Please send medication: Mail Disposition: Notification forwarded to provider for review of renewal request. +++++++++++++++++++++++++++ +++++++++++++++++++++++++++ ++++++++++++ Last urine drug screen result: SLT - Lab Tests Selected No data available for: BENZODIAZEPINES (STL) COCAINE METABOLITES BUPRENORPHINE (STL-PB-[place]) BARBITURATES([place]) OPIATES AMPHET/METHAMPHETAMINE METHADONE OXYCODONE ([id number]) THC([place]) CANNABINOIDS Last SPDMP note (1 year): Prog Note DT Title Author Last Syd DT 03/18/2025 STATE PRESCRIPTION DRUG FRANCESDOMINIQUE MEDRANO MONITORING PROGRAM LAST PRIMARY CARE APPOINTMENT Information: Computed Finding: [facility]App[facility] for [facility] Patient 05/11/2025@10:00 value - PB-DEEPA PACT [employer] SASH CLAMP OPERATOR [facility] APPOINTMENT DATE/TIME: 05/11/2025@10:00 CLINIC: PB-DEEPA PACT FOXTROT SASH CLAMP OPERATOR [facility] Prog Note DT Title Author Last Syd DT 07/21/2014 CONSENT FOR LONG-TERM OPIOIDS DARLENE GARCIA FOR PAIN /ward/ TRAVIS CAMPBELL CPhT VISBigg 15 PCC SKEIN TIER Signed: 05/11/2025 12:08 Receipt Acknowledged By: 05/12/2025 19:09 /ward/ [facility] 05/12/2025 ADDENDUM STATUS: COMPLETED This was a one time prescription for me, I believe for her foot, and I have not discussed any pain management with her at this time to continue this prescription. Refill request for tramadol denied. /ward/ [facility] Signed: 05/12/2025 19:12 Receipt Acknowledged By: 05/13/2025 10:02 /ward/ Lety Matias RN [place] THOMAS [facility] 05/13/2025 ADDENDUM STATUS: COMPLETED Attempted to Contact [place] to review message from provider. No answer. Left Vm. /ward/ Lety Matias RN [facility], [facility] Signed: 05/13/2025 10:03 TRAVIS CAMPBELL [facility]
[2025-05-13] VITALS (11 sets, daily range): BP systolic 104–124; BP diastolic 66–77; PULSE 52–72; RESP 16–18; TEMP 36.7; O2SAT 95–100; BMI 35.7
--- OUTSIDE RECORDS SUMMARY | 2025-05-13 16:36 | XMS_ITS | Continuity of Care Document ---
Author Name [facility] Organization [facility] Care Team Providers Care Outreach And Education Social Worker Name Role Phone [facility] Unavailable Unavailable Problems Combined list of problems from Department of Defense and Veterans Affairs facilities. It does not include entries that were removed or entered in error. Problem Status Onset Date Problem Type Date of Resolution Comments Source CERVICALGIA Inactive Condition DoD PHARYNGITIS ACUTE Inactive Condition DoD CONTUSION WITH INTACT SKIN SURFACE - HIP Inactive Condition DoD joint pain, localized in the hip Active Condition DoD LUMBAGO Inactive Condition DoD HIP SPRAIN Inactive Condition PENDING ORTHO APPT DoD BURSITIS RIGHT HIP Active Condition DoD UPPER RESPIRATORY INFECTION ACUTE Inactive Condition DoD HIP SPRAIN RIGHT Inactive Condition DoD abdominal pain in the right lower belly (RLQ) Inactive Condition DoD Adjustment disorder with depressed mood Active Condition [place] [facility] Allergic rhinitis Active Condition [place] [facility] Anxiety Active Condition [place] [facility] Arthralgia Active Condition [place] [facility] Asthma Active Condition [place] [facility] Benign hypertension (SNOMED CT 12447508) Active Condition [place] [facility] Cavernous hemangioma of liver Active Condition [place] [place] [facility] Cervicalgia (SNOMED CT 63542657) Active Condition [facility] [place] Chronic rhinitis Active Condition [facility] [place] Chronic sinusitis Active Condition [facility] Cyst of ovary Active Condition [facility] [place] [facility] Depression Active Condition [place] [facility] Exposure to potentially hazardous substance Active [facility] History of hysterectomy for benign disease Active [facility] Hyperlipidemia Active Condition [facility] Obesity (SNOMED CT 799351084) Active Condition [place] [facility] OCD - Obsessive-compulsiv e disorder (SNOMED CT 578363404) Active Condition [place] [facility] Pain in left knee Active Condition [facility] [place] Posttraumatic stress disorder Active Condition [place] [facility] Steatosis of liver Active [place] [facility] Suicide attempt Active [facility] [place] [facility] Supraspinatus tear Active [facility] [place] Varicose veins of lower extremity Active [place] [place] [facility] Acute sinusitis (ICD-9-CM 461.9) Inactive Condition 10/10/2016 [place] [facility] Acute upper respiratory infection Inactive Condition 10/10/2016 [facility] [place] Adjustment Disorder W/Mixed Anxiety & Depressed Mood Inactive Condition 10/10/2016 [place] [facility] Axillary lymphadenopathy Inactive Condition 09/24/2020 [place] [place] [facility] Breast Mass (ICD-9-CM 611.72) Inactive Condition 10/10/[address] [facility] Chantal infection of flexural skin Inactive Condition 10/10/2016 [facility] Contraception (SNOMED CT 30270923) Inactive Condition 10/10/2016 [place] [place] Cough Inactive Condition 10/10/2016 [place] [place] [facility] Depressive Disorder NOS * (ICD-9-CM 311./300.4) Inactive Condition 10/10/2016 [place] [facility] Hematuria Inactive Condition 10/10/2016 [facility] [place] [facility] Hip Pain (ICD-9-CM 719.45) Inactive Condition 10/10/2016 [place] [facility] Intertrigo * (ICD-9-CM 695.89) Inactive Condition 10/10/[address] [facility] Knee: arthralgia * (ICD-9-CM 719.46) Inactive Condition 10/10/2016 [place] [facility] Numbness of hand (SNOMED CT 224687221) Inactive Condition 07/15/2019 [facility] Obsessive compulsive disorder Inactive Condition 10/10/2016 [place] [facility] Obsessive-Compulsiv e Disorder Inactive Condition 10/10/2016 [place] [facility] Pain in joint involving pelvic region and thigh (ICD-9-CM 719.45) Inactive Condition 10/10/2016 [place] [facility] Pain in toe (SNOMED CT 219172384) Inactive Condition 10/10/2016 [place] [place] Pain in wrist Inactive Condition 10/10/2016 [place] [place] [facility] Routine General Medical Examination at a Health Care Facility * (ICD-9-CM V70.0) Inactive Condition 10/10/2016 [place] [facility] Routine Gynecological examination (ICD-9-CM V72.31) Inactive Condition 10/10/[address] [place] [facility] Screening for Alcoholism (ICD-9-CM V79.1) Inactive Condition 10/10/2016 [place] [facility] Screening for Depression (ICD-9-CM V79.0) Inactive Condition 10/10/2016 [place] [facility] Sleep Disorder, Insomnia Type Inactive Condition 10/10/2016 [place] [facility] Tailors bunion Inactive Condition 10/10/2016 [facility] [place] INFLUENZA Inactive Condition 10/10/2016 [facility] Diagnosis: ICD-10-CM D50.9 Iron deficiency anemia, unspecified Active Diagnosis [place] [facility] Diagnosis: ICD-10-CM L03.111 Cellulitis of right axilla Active Diagnosis [place] [facility] Diagnosis: ICD-10-CM S92.351A Disp fx of fifth metatarsal bone, right foot, init Active Diagnosis [place] [facility] Diagnosis: ICD-10-CM L03.031 Cellulitis of right toe Active Diagnosis [place] [facility] Diagnosis: ICD-10-CM N64.4 Mastodynia Active Diagnosis [facility] Diagnosis: ICD-10-CM F43.10 Post-traumatic stress disorder, unspecified Active Diagnosis [facility] Diagnosis: ICD-10-CM M79.601 Pain in right arm Active Diagnosis [place] [facility] Diagnosis: ICD-10-CM M54.2 Cervicalgia Active Diagnosis [facility] Diagnosis: ICD-10-CM K04.90 Unspecified diseases of pulp and periapical tissues [facility] Diagnosis: ICD-10-CM M79.674 Pain in right toe(s) Active Diagnosis [facility] Diagnosis: ICD-10-CM R10.10 Upper abdominal pain, unspecified Active Diagnosis [facility] Diagnosis: ICD-10-CM R55 Syncope and collapse Active Diagnosis [facility] Medications Combined list of outpatient medications from Department of Defense and Veterans Affairs facilities.Medications provided include 1) outpatient medications from the last 15 months, and 2) patient-reported medications. Medication Details Route Status Patient Instructions Prescription Expires Prescription Number Last Dispense Date Ordering Provider Order Date Order Qty Source ACETAMINOPH EN 500MG TAB TAKE TWO TABLETS BY MOUTH EVERY EIGHT(8) HOURS NEEDED FOR PAIN CAUTION: DO NOT EXCEED 4000MG PER DAY ACETAMIN OPHEN (APAP) FROM ALL MEDS. ORAL 02/02/2025 [id number] 5 PATRICIA TUTTLE 2024 100 [place] [facility] AMITRIPTYLI NE HCL 10MG TAB TAKE ONE TABLET BY MOUTH AT BEDTIME FOR DEPRESSI ON ORAL SUSPEND ED 05/12/2026 [id number] 5 Kacey ARAMBULA R [address] [place] [address] AMITRIPTYLI NE HCL 10MG TAB TAKE ONE TABLET BY MOUTH AT BEDTIME FOR DEPRESSI ON ORAL DISCONT INUED 10/16/2025 [id number] 5 Kacey ARAMBULA R [address] [place] [address] BARIATRIC MULTIVITAMI NS W/IRON CAP TAKE 1 CAPSULE BY MOUTH ONCE A DAY FOR VITAMIN SUPPLEME NTATION (NOTE CHANGE IN PRODUCT/ DOSE - 1 CAPSULE PER DAY) ORAL ACTIVE 05/12/2026 [id number] 5 Kacey ARAMBULA R [address] [place] [address] BARIATRIC MULTIVITAMI NS W/IRON CAP TAKE 1 CAPSULE BY MOUTH ONCE A DAY FOR VITAMIN SUPPLEME NTATION (NOTE CHANGE IN PRODUCT/ DOSE - 1 CAPSULE PER DAY) ORAL DISCONT INUED 10/14/2025 [id number] 5 Kacey ARAMBULA R [address] [place] [address] BARIATRIC MULTIVITAMI NS W/IRON CAP TAKE 1 CAPSULE BY MOUTH ONCE A DAY FOR VITAMIN SUPPLEME NTATION (NOTE CHANGE IN PRODUCT/ DOSE - 1 CAPSULE PER DAY) ORAL DISCONT INUED 10/11/2024 [id number] 4 COLBY URBINA G [address] [place] [address] CETIRIZINE HCL 10MG TAB TAKE ONE TABLET BY MOUTH ONCE A DAY NEEDED FOR ALLERGY SYMPTOMS ORAL ACTIVE 08/09/2025 [id number] 5 Kacey ARAMBULA [address] [place] [address] CETIRIZINE HCL 10MG TAB TAKE ONE TABLET BY MOUTH ONCE A DAY NEEDED FOR ALLERGY SYMPTOMS ORAL DISCONT INUED 04/03/2025 [id number] PATRICIA TUTTLE D 2024 90 [place] [facility] CLINDAMYCIN HCL 150MG CAP TAKE THREE CAPSULES BY MOUTH EVERY 6 HOURS FOR SKIN OR SOFT TISSUE INFECTIO N TAKE UNTIL GONE UNLESS OTHERWIS E DIRECTED . ORAL 02/02/2025 [id number] 5 PATRICIA TUTTLE D 2024 120 [place] [facility] DOXYCYCLINE HYCLATE 100MG TAB TAKE ONE TABLET BY MOUTH TWICE A DAY TAKE UNTIL FINISHED . AVOID SUN EXPOSURE WHILE TAKING. LAST OFFICE VISIT:[id number] ORAL 03/01/2025 [id number] 5 NINFA ACOSTA 2024 20 [place] [facility] ESTRADIOL 2 MG ORAL TAB TAKE ONE TABLET BY MOUTH ONCE A DAY FOR VASOMOTO R SYMPTOMS IN MENOPAUS E 04/11/2025 [id number] 4 ADELE ARAMBULA [address] [place] [address] ESTRADIOL 2MG TAB TAKE ONE TABLET BY MOUTH ONCE A DAY FOR VASOMOTO R SYMPTOMS IN MENOPAUS E ORAL SUSPEND ED 05/12/2026 [id number] 5 Kacey ARAMBULA R [address] [place] [address] [facility] ESTRADIOL 2MG TAB TAKE ONE TABLET BY MOUTH ONCE A DAY FOR VASOMOTO R SYMPTOMS IN MENOPAUS E ORAL DISCONT INUED 10/16/2025 [id number] 5 Kacey ARAMBULA R [address] [place] [address] [facility] ESTRADIOL 2MG TAB TAKE ONE TABLET BY MOUTH ONCE A DAY FOR VASOMOTO R SYMPTOMS IN MENOPAUS E ORAL DISCONT INUED BY PROVIDE R 04/11/2025 [id number] 4 Kacey ARAMBULA R [address] [place] [address] FLUTICASONE PROPIONATE 50MCG/SPRAY SOLN,NASAL, 16GM INSTILL 1 SPRAY IN NOSTRIL( S) ONCE A DAY FOR RHINITIS (MUST BE USED DIRECTED FOR MINIMUM OF 21 DAYS TO PROVIDE ADEQUATE BENEFITS ) NASAL 02/02/2025 [id number] 5 PATRICIA TUTTLE 2024 1 [facility] GABAPENTIN (U/D) 100 MG ORAL CAP TAKE ONE CAPSULE BY MOUTH THREE TIMES A DAY FOR NERVE PAIN 04/11/2025 [id number] 4 ADELE ARAMBULA R 2023 270 [facility] GABAPENTIN 100MG CAP TAKE ONE CAPSULE BY MOUTH THREE TIMES A DAY FOR NERVE PAIN ORAL DISCONT INUED BY PROVIDE R 04/11/2025 [id number] 4 Kacey ARAMBULA R 2023 270 [facility] GABAPENTIN 100MG CAP TAKE 1 CAPSULE BY MOUTH THREE TIMES A DAY NEEDED ORAL ACTIVE Kacey ARAMBULA R 2023 [facility] HYDROCODONE 5MG/ACETAMI NOPHEN 325MG TAB TAKE 1 TABLET BY MOUTH EVERY 6 HOURS NEEDED FOR PAIN CAUTION: DO NOT EXCEED 4000MG PER DAY ACETAMIN OPHEN (APAP) FROM ALL MEDS. ORAL DISCONT INUED 03/11/2025 [id number] 5 PATRICIA TUTTLE 2024 12 [facility] LIDOCAINE HCL 2% LIQUID,VISC OUS TAKE 5 ML BY MOUTH FOUR TIMES A DAY NEEDED FOR ORAL PAIN SWISH AND SWALLOW ORAL 09/17/2024 [id number] 4 BANDAR PILLAI S 2023 100 [facility] NALOXONE HCL 4MG/SPRAY SOLN,SPRAY, NASAL USE 1 SPRAY (4MG) INTO ONE NOSTRIL ONLY ONE-TIME FOR OPIOID OVERDOSE DO NOT PRIME NASAL SPRAY. SPRAY ONE DOSE IN ONE NOSTRIL, GIVE ADDITION AL DOSE IF PATIENT DOES NOT START BREATHIN G WITHIN 2-3 MINUTES OR STOPS BREATHIN G AGAIN. CALL 911. IF USED, NOTIFY PROVIDER . NASAL ACTIVE 02/10/2026 [id number] 5 PATRICIA TUTTLE 2024 2 [facility] ONDANSETRON HCL 4MG TAB,ORALLY DISINTEGRAT ING TAKE ONE TABLET UNDER THE TONGUE EVERY EIGHT(8) HOURS NEEDED FOR NAUSEA/V OMITING SUBLIN GUAL DISCONT INUED (EDIT) 04/11/2025 [id number] 4 Kacey ARAMBULA R 2023 30 [facility] ONDANSETRON HCL 8MG TAB,ORALLY DISINTEGRAT ING TAKE ONE TABLET UNDER THE TONGUE EVERY EIGHT(8) HOURS NEEDED FOR NAUSEA/V OMITING SUBLIN GUAL ACTIVE 02/05/2026 [id number] 5 Kacey ARAMBULA R 2024 30 [facility] Ondansetron Hydrochlori de (Zofran ODT Eq.) Tablet Disintegrat ing 4 mg Oral TAKE ONE TABLET UNDER THE TONGUE EVERY EIGHT(8) HOURS NEEDED FOR NAUSEA/V OMITING 04/11/2025 [id number] 4 ADELE ARAMBULA R 2023 30 [facility] n OXYCODONE HCL 5MG TAB TAKE ONE TABLET BY MOUTH EVERY 6 HOURS FOR POST-OPE RATIVE PAIN MAY CAUSE CONSTIPA TION ORAL 04/17/2025 [id number] 5 JIL SUN SE A 2024 20 [place] [facility] pantoprazol e (U/D) 20 MG ORAL TBEC TAKE ONE TABLET BY MOUTH TWICE A DAY FOR GASTROES OPHAGEAL REFLUX DISEASE TAKE 30 MINUTES BEFORE MEAL(S) 04/11/2025 [id number] 4 ADELE ARAMBULA R 2023 180 [facility] PANTOPRAZOL E NA 20MG TAB,EC TAKE ONE TABLET BY MOUTH TWICE A DAY FOR GASTROES OPHAGEAL REFLUX DISEASE TAKE 30 MINUTES BEFORE MEAL(S) ORAL DISCONT INUED BY PROVIDE R 04/11/2025 [id number] 4 Kacey ARAMBULA R 2023 180 [facility] PANTOPRAZOL E NA 40MG TAB,EC TAKE ONE TABLET BY MOUTH EVERY MORNING BEFORE A MEAL FOR GASTROES OPHAGEAL REFLUX DISEASE TAKE 30 MINUTES BEFORE MEAL(S) ORAL SUSPEND ED 05/12/2026 [id number] 5 Kacey ARAMBULA R [address] [place] [address] [facility] PANTOPRAZOL E NA 40MG TAB,EC TAKE ONE TABLET BY MOUTH EVERY MORNING BEFORE A MEAL FOR GASTROES OPHAGEAL REFLUX DISEASE TAKE 30 MINUTES BEFORE MEAL(S) ORAL DISCONT INUED 10/16/2025 [id number] 5 Kacey ARAMBULA R [address] [place] [address] [facility] SULFAMETHOX AZOLE 800MG/TRIME THOPRIM 160MG TAB TAKE 1 TABLET BY MOUTH EVERY 12 HOURS FOR CELLULIT IS TAKE WITH WATER/AV OID SUNLIGHT . ORAL DISCONT INUED BY PROVIDE R 04/09/2025 [id number] 5 BANDAR PILLAI 2024 14 [place] [facility] TRAMADOL HCL 50MG TAB TAKE 1 TABLET BY MOUTH TWICE DAILY NEEDED FOR PAIN ORAL 03/27/2025 [id number] 5 Kacey ARAMBULA R [address] [place] [address] TRAMADOL HCL 50MG TAB TAKE 1 TABLET BY MOUTH EVERY 4 TO 6 HOURS NEEDED FOR PAIN ORAL 02/25/2025 [id number] 5 NINFA ACOSTA D 2024 30 [place] [facility] VENLAFAXINE HCL 150MG 24HR CAP,SA TAKE ONE CAPSULE BY MOUTH ONCE A DAY FOR DEPRESSI ON WITH FOOD. DO NOT ABRUPTLY DISCONTI NUE MEDICATI ON. ORAL SUSPEND ED 10/16/2025 [id number] 5 Kacey ARAMBULA R [address] [place] [address] VENLAFAXINE HCL 150MG 24HR CAP,SA TAKE ONE CAPSULE BY MOUTH ONCE A DAY FOR DEPRESSI ON WITH FOOD. DO NOT ABRUPTLY DISCONTI NUE MEDICATI ON. ORAL DISCONT INUED BY PROVIDE R 04/11/2025 [id number] 4 Kacey ARAMBULA R [address] [place] [address] CB venlafaxine XR (U/D) 150 MG ORAL CP24 TAKE ONE CAPSULE BY MOUTH ONCE A DAY FOR DEPRESSI ON WITH FOOD. DO NOT ABRUPTLY DISCONTI NUE MEDICATI ON. 04/11/2025 [id number] 4 ADELE ARAMBULA 2023 90 [facility] Allergies, Adverse Reactions, Alerts Combined list of allergies from [facility] and [facility] facilities. It does not include entries that were removed or entered in error. Substance Category Reaction Severity Reaction type Status Date Reported Comments Source LATEX GLOVES Propensity to adverse reactions to drug (finding) Eruption, Urticaria active 9 [facility] Oxycodone Drug allergy (disorder) Dyspnea active 6 [facility] OXYCODONE Propensity to adverse reactions to drug (finding) Dyspnea active 6 [facility] PENICILLIN Propensity to adverse reactions to drug (finding) Anaphylaxis active 8 [facility] PENICILLIN Propensity to adverse reactions to drug (finding) active 9 [facility] Penicillins Drug allergy (disorder) Anaphylaxis active 8 [facility] PENICILLINS Drug allergy (disorder) active 9 [facility] Immunizations Combined list of available immunizations from the [facility] and [facility] facilities. 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 [facility] INFLUENZA, INJECTABLE, QUADRIVALENT, PRESERVATIVE FREE 2017 150 complet ed [facility] TETANUS TOXOID, UNSPECIFIED FORMULATION 2013 PATR[facility]IA WEATHERS 112 complet ed [facility] INFLUENZA, UNSPECIFIED FORMULATION 2011 88 complet ed [facility] INFLUENZA, UNSPECIFIED FORMULATION 2010 88 complet ed [facility] INFLUENZA, UNSPECIFIED FORMULATION 2009 88 complet [facility] INFLUENZA, UNSPECIFIED FORMULATION 2008 88 complet [facility] INFLUENZA, UNSPECIFIED FORMULATION 2007 88 complet [facility] Results Combined list of recent chemistry, hematology and other laboratory results from [facility], ranging from 15 months to all on record, depending upon the facility. Order Name Results Value Reference Range Date Interpretation Specimen Comments Source IRON IRON [MASS/VOLUME] IN SERUM OR PLASMA 24 ug/dL 50 - 170 05/05 L Specimen Type: PLASMA No comment entered. Ordering Provider: Kacey ARAMBULA Report Released Date/Time : May 05, 2025 09:36 AM Reporting Lab: [place] [facility] [address] [place] [address] Performin g Lab: [place] [facility] [address] [place] [address] [facility] FOLATE (PB) FOLATE [MASS/VOLUME] IN SERUM OR PLASMA 12.5 ng/mL 7 - 20 05/05 Specimen Type: SERUM No comment entered. Ordering Provider: Kacey ARAMBULA Report Released Date/Time : May 05, 2025 09:36 AM Reporting Lab: [place] [facility] [address] [place] [address] Performin g Lab: [place] [facility] [address] [place] [address] [facility] FERRITIN FERRITIN [MASS/VOLUME] IN SERUM OR PLASMA 5 ng/mL 10 - 204 05/05 L Specimen Type: SERUM No comment entered. Ordering Provider: Kacey ARAMBULA Report Released Date/Time : May 05, 2025 09:36 AM Reporting Lab: [place] [facility] [address] [place] [address] Performin g Lab: [place] [facility] [address] [place] [address] [facility] CBC LEUKOCYTES [#/VOLUME] IN BLOOD BY AUTOMATED COUNT 5.5 10*3/u L 3.6 - 11.2 05/05 Specimen Type: BLOOD No comment entered. Ordering Provider: Kacey ARAMBULA Report Released Date/Time : May 05, 2025 09:36 AM Reporting Lab: [place] [facility] [address] [place] [address] Performin g Lab: [place] [facility] [address] [place] [address] [facility] CBC ERYTHROCYTES [#/VOLUME] IN BLOOD BY AUTOMATED COUNT 4.06 10*6/u L 3.60 - 5.00 05/05 Specimen Type: BLOOD No comment entered. Ordering Provider: Kacey ARAMBULA R Report Released Date/Time : May 05, 2025 09:36 AM Reporting Lab: [place] [facility] [address] [place] [address] Performin g Lab: [place] [facility] [address] [place] [address] [facility] CBC HEMOGLOBIN [MASS/VOLUME] IN BLOOD 9.7 g/dL 11.0 - 14.9 05/05 L Specimen Type: BLOOD No comment entered. Ordering Provider: Kacey ARAMBULA Report Released Date/Time : May 05, 2025 09:36 AM Reporting Lab: [place] [facility] [address] [place] [address] Performin g Lab: [place] [facility] [address] [place] [phone] [facility] CBC HEMATOCRIT [VOLUME FRACTION] OF BLOOD 32.8 32.6 - 43.4 05/05 Specimen Type: BLOOD No comment entered. Ordering Provider: Kacey ARAMBULA R Report Released Date/Time : May 05, 2025 09:36 AM Reporting Lab: [place] [facility] [address] [place] [address] Performin g Lab: [place] [facility] [address] [place] [phone] [facility] CBC MCV [ENTITIC VOLUME] BY AUTOMATED COUNT 80.8 fL 80.0 - 100.0 05/05 Specimen Type: BLOOD No comment entered. Ordering Provider: Kacey ARAMBULA R Report Released Date/Time : May 05, 2025 09:36 AM Reporting Lab: [place] [facility] [address] [place] [address] Performin g Lab: [place] [facility] [address] [place] [address] [facility] CBC MCH [ENTITIC MASS] BY AUTOMATED COUNT 23.9 pg 27.0 - 34.0 05/05 L Specimen Type: BLOOD No comment entered. Ordering Provider: Kacey ARAMBULA Report Released Date/Time : May 05, 2025 09:36 AM Reporting Lab: [place] [facility] [address] [place] [address] Performin g Lab: [place] [facility] [address] [place] [address] [facility] CBC MCHC [MASS/VOLUME] BY AUTOMATED COUNT 29.6 g/dL 33.0 - 36.0 05/05 L Specimen Type: BLOOD No comment entered. Ordering Provider: Kacey ARAMBULA Report Released Date/Time : May 05, 2025 09:36 AM Reporting Lab: [place] [facility] [address] [place] [address] Performin g Lab: [place] [facility] [address] [place] [address] [facility] CBC PLATELETS [#/VOLUME] IN BLOOD BY AUTOMATED COUNT 360 10*3/u L 150 - 400 05/05 Specimen Type: BLOOD No comment entered. Ordering Provider: Kacey ARAMBULA Report Released Date/Time : May 05, 2025 09:36 AM Reporting Lab: [place] [facility] [address] [place] [address] Performin g Lab: [place] [facility] [address] [place] [address] [facility] CBC PLATELET MEAN VOLUME [ENTITIC VOLUME] IN BLOOD BY AUTOMATED COUNT 9.3 fL 7.5 - 11.2 05/05 Specimen Type: BLOOD No comment entered. Ordering Provider: Kacey ARAMBULA R Report Released Date/Time : May 05, 2025 09:36 AM Reporting Lab: [place] [facility] [address] [place] [address] Performin g Lab: [place] [facility] [address] [place] [address] [facility] CBC ERYTHROCYTE DISTRIBUTION WIDTH [RATIO] BY AUTOMATED COUNT 15.4 11.8 - 15.1 05/05 H Specimen Type: BLOOD No comment entered. Ordering Provider: Kacey ARAMBULA R Report Released Date/Time : May 05, 2025 09:36 AM Reporting Lab: [place] [facility] [address] [place] [address] Performin g Lab: [place] [facility] [address] [place] [address] [facility] CBC LYMPHOCYTES/1 00 LEUKOCYTES IN BLOOD BY AUTOMATED COUNT 32.1 05/05 Specimen Type: BLOOD No comment entered. Ordering Provider: Kacey ARAMBULA Report Released Date/Time : May 05, 2025 09:36 AM Reporting Lab: [place] [facility] [address] [place] [address] Performin g Lab: [place] [facility] [address] [place] [address] [facility] CBC MONOCYTES/100 LEUKOCYTES IN BLOOD BY AUTOMATED COUNT 7.5 05/05 Specimen Type: BLOOD No comment entered. Ordering Provider: Kacey ARAMBULA Report Released Date/Time : May 05, 2025 09:36 AM Reporting Lab: [place] [facility] [address] [place] [address] Performin g Lab: [place] [facility] [address] [place] [address] [facility] CBC NEUTROPHILS/1 00 LEUKOCYTES IN BLOOD BY AUTOMATED COUNT 55.5 05/05 Specimen Type: BLOOD No comment entered. Ordering Provider: Kacey ARAMBULA R Report Released Date/Time : May 05, 2025 09:36 AM Reporting Lab: [place] [facility] [address] [place] [address] Performin g Lab: [place] [facility] [address] [place] [address] 8 [facility] CBC EOSINOPHILS/1 00 LEUKOCYTES IN BLOOD BY AUTOMATED COUNT 4.0 05/05 Specimen Type: BLOOD No comment entered. Ordering Provider: Kacey ARAMBULA R Report Released Date/Time : May 05, 2025 09:36 AM Reporting Lab: [place] [facility] [address] [place] [address] 8 [facility]: [place] [facility] [address] [place] [address] 8 [facility] CBC BASOPHILS/100 LEUKOCYTES IN BLOOD BY AUTOMATED COUNT 0.9 05/05 Specimen Type: BLOOD No comment entered. Ordering Provider: Kacey ARAMBULA R Report Released Date/Time : May 05, 2025 09:36 AM Reporting Lab: [place] [facility] [address] [place] [address] 8 [facility]: [place] [facility] [address] [place] [address] 8 [facility] CBC LYMPHOCYTES [#/VOLUME] IN BLOOD BY AUTOMATED COUNT 1.76 10*3/u L 0.77 - 4.50 05/05 Specimen Type: BLOOD No comment entered. Ordering Provider: Kacey ARAMBULA Report Released Date/Time : May 05, 2025 09:36 AM Reporting Lab: [place] [facility] [address] [place] [address] 8 [facility]: [place] [facility] [address] [place] [address] 8 [facility] CBC MONOCYTES [#/VOLUME] IN BLOOD BY AUTOMATED COUNT 0.41 10*3/u L 0.19 - 0.8 05/05 Specimen Type: BLOOD No comment entered. Ordering Provider: Kacey ARAMBULA Report Released Date/Time : May 05, 2025 09:36 AM Reporting Lab: [place] [facility] [address] [place] [address] 8 [facility]: [place] [facility] [address] [place] [address] 8 [facility] CBC NEUTROPHILS [#/VOLUME] IN BLOOD BY AUTOMATED COUNT 3.05 10*3/u L 2.10 - 8.00 05/05 Specimen Type: BLOOD No comment entered. Ordering Provider: Kacey ARAMBULA Report Released Date/Time : May 05, 2025 09:36 AM Reporting Lab: [place] [facility] [address] [place] [address] 8 [facility]: [place] [facility] [address] [place] [address] 8 [facility] CBC EOSINOPHILS [#/VOLUME] IN BLOOD BY AUTOMATED COUNT 0.22 10*3/u L 0.00 - 0.60 05/05 Specimen Type: BLOOD No comment entered. Ordering Provider: Kacey ARAMBULA R Report Released Date/Time : May 05, 2025 09:36 AM Reporting Lab: [place] [facility] [address] [place] [address] 8 [facility]: [place] [facility] [address] [place] [address] 8 [facility] CBC BASOPHILS [#/VOLUME] IN BLOOD BY AUTOMATED COUNT 0.05 10*3/u L 0.00 - 0.20 05/05 Specimen Type: BLOOD No comment entered. Ordering Provider: Kacey ARAMBULA Report Released Date/Time : May 05, 2025 09:36 AM Reporting Lab: [place] [facility] [address] [place] [address] 8 [facility]: [place] [facility] [address] [place] [id number] 8 [facility] CBC IMMATURE GRANULOCYTES/ 100 LEUKOCYTES IN BLOOD BY AUTOMATED COUNT 0.0 05/05 Specimen Type: BLOOD No comment entered. Ordering Provider: Kacey ARAMBULA Report Released Date/Time : May 05, 2025 09:36 AM Reporting Lab: [place] [facility] [address] [place] [address] 8 [facility]: [place] [facility] [address] [place] [address] 8 [facility] CBC IMMATURE GRANULOCYTES [#/VOLUME] IN BLOOD BY AUTOMATED COUNT 0.00 10*3/u L 0.00 - 0.05 05/05 Specimen Type: BLOOD No comment entered. Ordering Provider: Kacey ARAMBULA Report Released Date/Time : May 05, 2025 09:36 AM Reporting Lab: [place] [facility] [address] [place] [address] 8 [facility]: [place] [facility] [address] [place] [address] 8 [facility] COMPREHENSI VE METABOLIC PANEL CREATININE [MASS/VOLUME] IN SERUM OR PLASMA 0.74 mg/dL 0.6 - 1.1 03/13 Specimen Type: PLASMA No comment entered. Ordering Provider: Kacey ARAMBULA R Report Released Date/Time : March 13, 2025 10:10 AM Reporting Lab: [place] [facility] [address] [place] [address] 8 [facility]: [place] [facility] [address] [place] [address] 8 [facility] COMPREHENSI VE METABOLIC PANEL UREA NITROGEN [MASS/VOLUME] IN SERUM OR PLASMA 14 mg/dL 9 - 25 03/13 Specimen Type: PLASMA No comment entered. Ordering Provider: Kacey ARAMBULA Report Released Date/Time : March 13, 2025 10:10 AM Reporting Lab: [place] [facility] [address] [place] [address] 8 [facility]: [place] [facility] [address] [place] [address] 8 [facility] COMPREHENSI VE METABOLIC PANEL GLUCOSE [MASS/VOLUME] IN SERUM OR PLASMA 82 mg/dL 72 - 99 03/13 Specimen Type: PLASMA No comment entered. Ordering Provider: Kacey ARAMBULA Report Released Date/Time : March 13, 2025 10:10 AM Reporting Lab: [place] [facility] [address] [place] [address] 8 [facility]: [place] [facility] [address] [place] [address] 8 [facility] COMPREHENSI VE METABOLIC PANEL SODIUM [MOLES/VOLUME ] IN SERUM OR PLASMA 141 meq/L 136 - 145 03/13 Specimen Type: PLASMA No comment entered. Ordering Provider: Kacey ARAMBULA R Report Released Date/Time : March 13, 2025 10:10 AM Reporting Lab: [place] [facility] [address] [place] [address] 8 [facility]: [place] [facility] [address] [place] [address] 8 [place] [facility] COMPREHENSI VE METABOLIC PANEL POTASSIUM [MOLES/VOLUME ] IN SERUM OR PLASMA 4.5 meq/L 3.5 - 5 03/13 Specimen Type: PLASMA No comment entered. Ordering Provider: Kacey ARAMBULA Report Released Date/Time : March 13, 2025 10:10 AM Reporting Lab: [place] [facility] [address] [place] [address] 8 [facility]: [place] [facility] [address] [place] [address] 8 [facility] COMPREHENSI VE METABOLIC PANEL CHLORIDE [MOLES/VOLUME ] IN SERUM OR PLASMA 107 meq/L 98 - 107 03/13 Specimen Type: PLASMA No comment entered. Ordering Provider: Kacey ARAMBULA Report Released Date/Time : March 13, 2025 10:10 AM Reporting Lab: [place] [facility] [address] [place] [address] 8 [facility] Lab: [place] [facility] [address] [place] [address] 8 [facility] COMPREHENSI VE METABOLIC PANEL CARBON DIOXIDE, TOTAL [MOLES/VOLUME ] IN SERUM OR PLASMA 26 meq/L 22 - 31 03/13 Specimen Type: PLASMA No comment entered. Ordering Provider: Kacey ARAMBULA R Report Released Date/Time : March 13, 2025 10:10 AM Reporting Lab: [place] [facility] [address] [place] [address] 8 [facility] Lab: [place] [facility] [address] [place] [address] 8 [facility] COMPREHENSI VE METABOLIC PANEL CALCIUM [MASS/VOLUME] IN SERUM OR PLASMA 8.8 mg/dL 8.4 - 10.4 03/13 Specimen Type: PLASMA No comment entered. Ordering Provider: Kacey ARAMBULA Report Released Date/Time : March 13, 2025 10:10 AM Reporting Lab: [place] [facility] [address] [place] [address] 8 [facility] g Lab: [place] [facility] [address] [place] [address] 8 [place] [place] [facility] COMPREHENSI VE METABOLIC PANEL PROTEIN [MASS/VOLUME] IN SERUM OR PLASMA 6.7 g/dL 6 - 8.6 03/13 Specimen Type: PLASMA No comment entered. Ordering Provider: Kacey ARAMBULA Report Released Date/Time : March 13, 2025 10:10 AM Reporting Lab: [place] [facility] [address] [place] [address] 8 [facility] Lab: [place] [facility] [address] [place] [address] 8 [facility] COMPREHENSI VE METABOLIC PANEL ALBUMIN [MASS/VOLUME] IN SERUM OR PLASMA 3.9 g/dL 3.4 - 5 03/13 Specimen Type: PLASMA No comment entered. Ordering Provider: Kacey ARAMBULA Report Released Date/Time : March 13, 2025 10:10 AM Reporting Lab: [place] [facility] [address] [place] [address] 8 [facility] Lab: [place] [facility] [address] [place] [address] 8 [facility] COMPREHENSI VE METABOLIC PANEL BILIRUBIN.TOT AL [MASS/VOLUME] IN SERUM OR PLASMA 0.2 mg/dL 0.2 - 1.2 03/13 Specimen Type: PLASMA No comment entered. Ordering Provider: Kacey ARAMBULA Report Released Date/Time : March 13, 2025 10:10 AM Reporting Lab: [place] [facility] [address] [place] [address] 8 [facility]: [place] [facility] [address] [place] [address] 8 [facility] COMPREHENSI VE METABOLIC PANEL ALKALINE PHOSPHATASE [ENZYMATIC ACTIVITY/VOLU ME] IN SERUM OR PLASMA 104 U/L 40 - 150 03/13 Specimen Type: PLASMA No comment entered. Ordering Provider: Kacey ARAMBULA Report Released Date/Time : March 13, 2025 10:10 AM Reporting Lab: [place] [facility] [address] [place] [address] 8 [facility]: [place] [facility] [address] [place] [address] 8 [facility] COMPREHENSI VE METABOLIC PANEL ASPARTATE AMINOTRANSFER ASE [ENZYMATIC ACTIVITY/VOLU ME] IN SERUM OR PLASMA 20 U/L 5 - 34 03/13 Specimen Type: PLASMA No comment entered. Ordering Provider: Kacey ARAMBULA Report Released Date/Time : March 13, 2025 10:10 AM Reporting Lab: [place] [facility] [address] [place] [address] 8 [facility] g Lab: [place] [facility] [address] [place] [address] 8 [facility] COMPREHENSI VE METABOLIC PANEL ALANINE AMINOTRANSFER ASE [ENZYMATIC ACTIVITY/VOLU ME] IN SERUM OR PLASMA 11 U/L 8 - 40 03/13 Specimen Type: PLASMA No comment entered. Ordering Provider: Kacey ARAMBULA Report Released Date/Time : March 13, 2025 10:10 AM Reporting Lab: [place] [facility] [address] [place] [address] 8 [facility] Lab: [place] [facility] [address] [place] [address] 8 [facility] COMPREHENSI VE METABOLIC PANEL GLOMERULAR FILTRATION RATE/1.73 SQ M.PREDICTED [VOLUME RATE/AREA] IN SERUM, PLASMA OR BLOOD BY CREATININE-BA SED FORMULA (CKD-EPI 2020) 104 03/13 Specimen Type: PLASMA No comment entered. Ordering Provider: Kacey ARAMBULA Report Released Date/Time : March 13, 2025 10:10 AM Reporting Lab: [place] [facility] [address] [place] [address] 8 [facility]formin [facility] Lab: [place] [facility] [address] [place] [address] 8 [facility] CBC LEUKOCYTES [#/VOLUME] IN BLOOD BY AUTOMATED COUNT 5.9 10*3/u L 3.6 - 11.2 03/13 Specimen Type: BLOOD No comment entered. Ordering Provider: Kacey ARAMBULA Report Released Date/Time : March 13, 2025 10:10 AM Reporting Lab: [place] [facility] [address] [place] [address] 8 [facility]formin [facility] Lab: [place] [facility] [address] [place] [address] 8 [facility] CBC ERYTHROCYTES [#/VOLUME] IN BLOOD BY AUTOMATED COUNT 4.14 10*6/u L 3.60 - 5.00 03/13 Specimen Type: BLOOD No comment entered. Ordering Provider: Kacey ARAMBULA R Report Released Date/Time : March 13, 2025 10:10 AM Reporting Lab: [place] [facility] [address] [place] [address] 8 [facility] Lab: [place] [facility] [address] [place] [address] 8 [facility] CBC HEMOGLOBIN [MASS/VOLUME] IN BLOOD 10.2 g/dL 11.0 - 14.9 03/13 L Specimen Type: BLOOD No comment entered. Ordering Provider: Kacey ARAMBULA Report Released Date/Time : March 13, 2025 10:10 AM Reporting Lab: [place] [facility] [address] [place] [address] 8 [facility]formin [facility] Lab: [place] [facility] [address] [place] [address] 8 [facility] CBC HEMATOCRIT [VOLUME FRACTION] OF BLOOD 33.7 32.6 - 43.4 03/13 Specimen Type: BLOOD No comment entered. Ordering Provider: Kacey ARAMBULA Report Released Date/Time : March 13, 2025 10:10 AM Reporting Lab: [place] [facility] [address] [place] [address] 8 [facility]: [place] [facility] [address] [place] [address] 8 [facility] CBC MCV [ENTITIC VOLUME] BY AUTOMATED COUNT 81.4 fL 80.0 - 100.0 03/13 Specimen Type: BLOOD No comment entered. Ordering Provider: Kacey ARAMBULA Report Released Date/Time : March 13, 2025 10:10 AM Reporting Lab: [place] [facility] [address] [place] [address] 8 [facility]formin g Lab: [place] [facility] [address] [place] [address] 8 [facility] CBC MCH [ENTITIC MASS] BY AUTOMATED COUNT 24.6 pg 27.0 - 34.0 03/13 L Specimen Type: BLOOD No comment entered. Ordering Provider: Kacey ARAMBULA R Report Released Date/Time : March 13, 2025 10:10 AM Reporting Lab: [place] [facility] [address] [place] [address] 8 [facility]: [place] [facility] [address] [place] [address] 8 [facility] CBC MCHC [MASS/VOLUME] BY AUTOMATED COUNT 30.3 g/dL 33.0 - 36.0 03/13 L Specimen Type: BLOOD No comment entered. Ordering Provider: Kacey ARAMBULA Report Released Date/Time : March 13, 2025 10:10 AM Reporting Lab: [place] [facility] [address] [place] [address] 8 [facility]: [place] [facility] [address] [place] [address] 8 [facility] CBC PLATELETS [#/VOLUME] IN BLOOD BY AUTOMATED COUNT 357 10*3/u L 150 - 400 03/13 Specimen Type: BLOOD No comment entered. Ordering Provider: Kacey ARAMBULA Report Released Date/Time : March 13, 2025 10:10 AM Reporting Lab: [place] [facility] [address] [place] [address] 8 [facility]: [place] [facility] [address] [place] [address] 8 [facility] CBC PLATELET MEAN VOLUME [ENTITIC VOLUME] IN BLOOD BY AUTOMATED COUNT 9.2 fL 7.5 - 11.2 03/13 Specimen Type: BLOOD No comment entered. Ordering Provider: Kacey ARAMBULA R Report Released Date/Time : March 13, 2025 10:10 AM Reporting Lab: [place] [facility] [address] [place] [address] 8 [facility]: [place] [facility] [address] [place] [address] 8 [facility] CBC ERYTHROCYTE DISTRIBUTION WIDTH [RATIO] BY AUTOMATED COUNT 16.1 11.8 - 15.1 03/13 H Specimen Type: BLOOD No comment entered. Ordering Provider: Kacey ARAMBULA Report Released Date/Time : March 13, 2025 10:10 AM Reporting Lab: [place] [facility] [address] [place] [address] 8 [facility]: [place] [facility] [address] [place] [address] 8 [facility] CBC LYMPHOCYTES/1 00 LEUKOCYTES IN BLOOD BY AUTOMATED COUNT 31.1 03/13 Specimen Type: BLOOD No comment entered. Ordering Provider: Kacey ARAMBULA Report Released Date/Time : March 13, 2025 10:10 AM Reporting Lab: [place] [facility] [address] [place] [address] 8 [facility]: [place] [facility] [address] [place] [address] 8 [facility] CBC MONOCYTES/100 LEUKOCYTES IN BLOOD BY AUTOMATED COUNT 6.7 03/13 Specimen Type: BLOOD No comment entered. Ordering Provider: Kacey ARAMBULA Report Released Date/Time : March 13, 2025 10:10 AM Reporting Lab: [place] [facility] [address] [place] [address] 8 [facility]: [place] [facility] [address] [place] [address] 8 [facility] CBC NEUTROPHILS/1 00 LEUKOCYTES IN BLOOD BY AUTOMATED COUNT 57.9 03/13 Specimen Type: BLOOD No comment entered. Ordering Provider: Kacey ARAMBUAL Report Released Date/Time : March 13, 2025 10:10 AM Reporting Lab: [place] [facility] [address] [place] [address] 8 [facility]: [place] [facility] [address] [place] [address] 8 [facility] CBC EOSINOPHILS/1 00 LEUKOCYTES IN BLOOD BY AUTOMATED COUNT 3.4 03/13 Specimen Type: BLOOD No comment entered. Ordering Provider: Kacey ARAMBULA R Report Released Date/Time : March 13, 2025 10:10 AM Reporting Lab: [place] [facility] [address] [place] [address] 8 [facility]: [place] [facility] [address] [place] [address] 8 [facility] CBC BASOPHILS/100 LEUKOCYTES IN BLOOD BY AUTOMATED COUNT 0.7 03/13 Specimen Type: BLOOD No comment entered. Ordering Provider: Kacey ARAMBULA Report Released Date/Time : March 13, 2025 10:10 AM Reporting Lab: [place] [facility] [address] [place] [address] 8 [facility]: [place] [facility] [address] [place] [address] 8 [facility] CBC LYMPHOCYTES [#/VOLUME] IN BLOOD BY AUTOMATED COUNT 1.85 10*3/u L 0.77 - 4.50 03/13 Specimen Type: BLOOD No comment entered. Ordering Provider: Kacey ARAMBULA Report Released Date/Time : March 13, 2025 10:10 AM Reporting Lab: [place] [facility] [address] [place] [address] 8 [facility]: [place] [facility] [address] [place] [address] 8 [facility] CBC MONOCYTES [#/VOLUME] IN BLOOD BY AUTOMATED COUNT 0.40 10*3/u L 0.19 - 0.8 03/13 Specimen Type: BLOOD No comment entered. Ordering Provider: Kacey ARAMBULA Report Released Date/Time : March 13, 2025 10:10 AM Reporting Lab: [place] [facility] [address] [place] [address] 8 [facility]: [place] [facility] [address] [place] [address] 8 [facility] CBC NEUTROPHILS [#/VOLUME] IN BLOOD BY AUTOMATED COUNT 3.44 10*3/u L 2.10 - 8.00 03/13 Specimen Type: BLOOD No comment entered. Ordering Provider: Kacey ARAMBULA Report Released Date/Time : March 13, 2025 10:10 AM Reporting Lab: [place] [facility] [address] [place] [address] 8 [facility]: [place] [facility] [address] [place] [address] 8 [facility] CBC EOSINOPHILS [#/VOLUME] IN BLOOD BY AUTOMATED COUNT 0.20 10*3/u L 0.00 - 0.60 03/13 Specimen Type: BLOOD No comment entered. Ordering Provider: Kacey ARAMBULA R Report Released Date/Time : March 13, 2025 10:10 AM Reporting Lab: [place] [facility] [address] [place] [address] 8 [facility]: [place] [facility] [address] [place] [address] 8 [facility] CBC BASOPHILS [#/VOLUME] IN BLOOD BY AUTOMATED COUNT 0.04 10*3/u L 0.00 - 0.20 03/13 Specimen Type: BLOOD No comment entered. Ordering Provider: Kacey ARAMBULA Report Released Date/Time : March 13, 2025 10:10 AM Reporting Lab: [place] [facility] [address] [place] [address] 8 [facility]: [place] [facility] [address] [place] [address] 8 [facility] CBC IMMATURE GRANULOCYTES/ 100 LEUKOCYTES IN BLOOD BY AUTOMATED COUNT 0.2 03/13 Specimen Type: BLOOD No comment entered. Ordering Provider: Kacey ARAMBULA Report Released Date/Time : March 13, 2025 10:10 AM Reporting Lab: [place] [facility] [address] [place] [address] 8 [facility]: [place] [facility] [address] [place] [address] 8 [facility] CBC IMMATURE GRANULOCYTES [#/VOLUME] IN BLOOD BY AUTOMATED COUNT 0.01 10*3/u L 0.00 - 0.05 03/13 Specimen Type: BLOOD No comment entered. Ordering Provider: Kacey ARAMBULA Report Released Date/Time : March 13, 2025 10:10 AM Reporting Lab: [place] [facility] [address] [place] [address] 8 [facility]: [place] [facility] [address] [place] [address] 8 [facility] CRP C REACTIVE PROTEIN [MASS/VOLUME] IN SERUM OR PLASMA BY HIGH SENSITIVITY METHOD 0.59 mg/dL 0 - 0.5 01/26 H Specimen Type: PLASMA No comment entered. Ordering Provider: Kacey ARAMBULA Report Released Date/Time : Jan 26, 2025 10:55 AM Reporting Lab: [place] [facility] [address] [place] [address] 8 [facility]: [place] [facility] [address] [place] [address] 8 [facility] ESR,ISED-PB ERYTHROCYTE SEDIMENTATION RATE 39 mm/h 0 - 19 01/26 H Specimen Type: BLOOD No comment entered. Ordering Provider: Kacey ARAMBULA Report Released Date/Time : Jan 26, 2025 10:55 AM Reporting Lab: [place] [facility] [address] [place] [address] 8 [facility]: [place] [facility] [address] [place] [address] 8 [facility] COMPREHENSI VE METABOLIC PANEL CREATININE [MASS/VOLUME] IN SERUM OR PLASMA 0.72 mg/dL 0.6 - 1.1 01/26 Specimen Type: PLASMA No comment entered. Ordering Provider: Kacey ARAMBULA R Report Released Date/Time : Jan 26, 2025 10:55 AM Reporting Lab: [place] [facility] [address] [place] [address] 8 [facility]: [place] [facility] [address] [place] [address] 8 [facility] COMPREHENSI VE METABOLIC PANEL UREA NITROGEN [MASS/VOLUME] IN SERUM OR PLASMA 14 mg/dL 9 - 25 01/26 Specimen Type: PLASMA No comment entered. Ordering Provider: Kacey ARAMBULA R Report Released Date/Time : Jan 26, 2025 10:55 AM Reporting Lab: [place] [facility] [address] [place] [address] Performin g Lab: [place] [facility] [address] [place] [address] [place] [facility] COMPREHENSI VE METABOLIC PANEL GLUCOSE [MASS/VOLUME] IN SERUM OR PLASMA 95 mg/dL 72 - 99 01/26 Specimen Type: PLASMA No comment entered. Ordering Provider: Kacey ARAMBULA R Report Released Date/Time : Jan 26, 2025 10:55 AM Reporting Lab: [place] [facility] [address] [place] [address] Performin g Lab: [place] [facility] [address] [place] [address] [facility] COMPREHENSI VE METABOLIC PANEL SODIUM [MOLES/VOLUME ] IN SERUM OR PLASMA 141 meq/L 136 - 145 01/26 Specimen Type: PLASMA No comment entered. Ordering Provider: Kacey ARAMBULA Report Released Date/Time : Jan 26, 2025 10:55 AM Reporting Lab: [place] [facility] [address] [place] [address] Performin g Lab: [place] [facility] [address] [place] [address] [facility] COMPREHENSI VE METABOLIC PANEL POTASSIUM [MOLES/VOLUME ] IN SERUM OR PLASMA 4.1 meq/L 3.5 - 5 01/26 Specimen Type: PLASMA No comment entered. Ordering Provider: Kacey ARAMBULA R Report Released Date/Time : Jan 26, 2025 10:55 AM Reporting Lab: [place] [facility] [address] [place] [address] Performin g Lab: [place] [facility] [address] [place] [address] [facility] COMPREHENSI VE METABOLIC PANEL CHLORIDE [MOLES/VOLUME ] IN SERUM OR PLASMA 108 meq/L 98 - 107 01/26 H Specimen Type: PLASMA No comment entered. Ordering Provider: Kacey ARAMBULA R Report Released Date/Time : Jan 26, 2025 10:55 AM Reporting Lab: [place] [facility] [address] [place] [address] 8 Performin g Lab: [place] [facility] [address] [place] [address] 8 [facility] COMPREHENSI VE METABOLIC PANEL CARBON DIOXIDE, TOTAL [MOLES/VOLUME ] IN SERUM OR PLASMA 23 meq/L 22 - 31 01/26 Specimen Type: PLASMA No comment entered. Ordering Provider: Kacey ARAMBULA Report Released Date/Time : Jan 26, 2025 10:55 AM Reporting Lab: [place] [facility] [address] [place] [address] 8 Performin g Lab: [place] [facility] [address] [place] [address] 8 [facility] COMPREHENSI VE METABOLIC PANEL CALCIUM [MASS/VOLUME] IN SERUM OR PLASMA 8.9 mg/dL 8.4 - 10.4 01/26 Specimen Type: PLASMA No comment entered. Ordering Provider: Kacey ARAMBULA Report Released Date/Time : Jan 26, 2025 10:55 AM Reporting Lab: [place] [facility] [address] [place] [address] 8 Performin g Lab: [place] [facility] [address] [place] [address] 8 [facility] COMPREHENSI VE METABOLIC PANEL PROTEIN [MASS/VOLUME] IN SERUM OR PLASMA 6.8 g/dL 6 - 8.6 01/26 Specimen Type: PLASMA No comment entered. Ordering Provider: Kacey ARAMBULA Report Released Date/Time : Jan 26, 2025 10:55 AM Reporting Lab: [place] [facility] [address] [place] [address] 8 Performin g Lab: [place] [facility] [address] [place] [address] 8 [facility] COMPREHENSI VE METABOLIC PANEL ALBUMIN [MASS/VOLUME] IN SERUM OR PLASMA 3.9 g/dL 3.4 - 5 01/26 Specimen Type: PLASMA No comment entered. Ordering Provider: Kacey ARAMBULA Report Released Date/Time : Jan 26, 2025 10:55 AM Reporting Lab: [place] [facility] [address] [place] [address] 8 Performin g Lab: [place] [facility] [address] [place] [address] 8 [facility] COMPREHENSI VE METABOLIC PANEL BILIRUBIN.TOT AL [MASS/VOLUME] IN SERUM OR PLASMA 0.3 mg/dL 0.2 - 1.2 01/26 Specimen Type: PLASMA No comment entered. Ordering Provider: Kacey ARAMBULA R Report Released Date/Time : Jan 26, 2025 10:55 AM Reporting Lab: [place] [facility] [address] [place] [address] 8 Performin g Lab: [place] [facility] [address] [place] [address] 8 [facility] COMPREHENSI VE METABOLIC PANEL ALKALINE PHOSPHATASE [ENZYMATIC ACTIVITY/VOLU ME] IN SERUM OR PLASMA 101 U/L 40 - 150 01/26 Specimen Type: PLASMA No comment entered. Ordering Provider: Kacey ARAMBULA Report Released Date/Time : Jan 26, 2025 10:55 AM Reporting Lab: [place] [facility] [address] [place] [address] 8 Performin g Lab: [place] [facility] [address] [place] [address] 8 [facility] COMPREHENSI VE METABOLIC PANEL ASPARTATE AMINOTRANSFER ASE [ENZYMATIC ACTIVITY/VOLU ME] IN SERUM OR PLASMA 21 U/L 5 - 34 01/26 Specimen Type: PLASMA No comment entered. Ordering Provider: Kacey ARAMBULA R Report Released Date/Time : Jan 26, 2025 10:55 AM Reporting Lab: [place] [facility] [address] [place] [address] 8 Performin g Lab: [place] [facility] [address] [place] [address] 8 [facility] COMPREHENSI VE METABOLIC PANEL ALANINE AMINOTRANSFER ASE [ENZYMATIC ACTIVITY/VOLU ME] IN SERUM OR PLASMA 14 U/L 8 - 40 01/26 Specimen Type: PLASMA No comment entered. Ordering Provider: Kacey ARAMBULA R Report Released Date/Time : Jan 26, 2025 10:55 AM Reporting Lab: [place] [facility] [address] [place] [address] 8 Performin g Lab: [place] [facility] [address] [place] [address] 8 [facility] COMPREHENSI VE METABOLIC PANEL GLOMERULAR FILTRATION RATE/1.73 SQ M.PREDICTED [VOLUME RATE/AREA] IN SERUM, PLASMA OR BLOOD BY CREATININE-BA SED FORMULA (CKD-EPI 2020) 107 01/26 Specimen Type: PLASMA No comment entered. Ordering Provider: Kacey ARAMBULA R Report Released Date/Time : Jan 26, 2025 10:55 AM Reporting Lab: [place] [facility] [address] [place] [address] 8 Performin g Lab: [place] [facility] [address] [place] [address] 8 [facility] CBC LEUKOCYTES [#/VOLUME] IN BLOOD BY AUTOMATED COUNT 5.2 10*3/u L 3.6 - 11.2 01/26 Specimen Type: BLOOD No comment entered. Ordering Provider: Kacey ARAMBULA R Report Released Date/Time : Jan 26, 2025 10:55 AM Reporting Lab: [place] [facility] [address] [place] [address] 8 Performin g Lab: [place] [facility] [address] [place] [address] 8 [facility] CBC ERYTHROCYTES [#/VOLUME] IN BLOOD BY AUTOMATED COUNT 4.14 10*6/u L 3.60 - 5.00 01/26 Specimen Type: BLOOD No comment entered. Ordering Provider: Kacey ARAMBULA Report Released Date/Time : Jan 26, 2025 10:55 AM Reporting Lab: [place] [facility] [address] [place] [address] 8 Performin g Lab: [place] [facility] [address] [place] [address] 8 [facility] CBC HEMOGLOBIN [MASS/VOLUME] IN BLOOD 10.1 g/dL 11.0 - 14.9 01/26 L Specimen Type: BLOOD No comment entered. Ordering Provider: Kacey ARAMBULA Report Released Date/Time : Jan 26, 2025 10:55 AM Reporting Lab: [place] [facility] [address] [place] [address] 8 Performin g Lab: [place] [facility] [address] [place] [address] 8 [facility] CBC HEMATOCRIT [VOLUME FRACTION] OF BLOOD 34.2 32.6 - 43.4 01/26 Specimen Type: BLOOD No comment entered. Ordering Provider: Kacey ARAMBULA Report Released Date/Time : Jan 26, 2025 10:55 AM Reporting Lab: [place] [facility] [address] [place] [address] 8 Performin g Lab: [place] [facility] [address] [place] [address] 8 [facility] CBC MCV [ENTITIC VOLUME] BY AUTOMATED COUNT 82.6 fL 80.0 - 100.0 01/26 Specimen Type: BLOOD No comment entered. Ordering Provider: Kacey ARAMBULA Report Released Date/Time : Jan 26, 2025 10:55 AM Reporting Lab: [place] [facility] [address] [place] [address] 8 Performin g Lab: [place] [facility] [address] [place] [address] 8 [facility] CBC MCH [ENTITIC MASS] BY AUTOMATED COUNT 24.4 pg 27.0 - 34.0 01/26 L Specimen Type: BLOOD No comment entered. Ordering Provider: Kacey ARAMBULA Report Released Date/Time : Jan 26, 2025 10:55 AM Reporting Lab: [place] [facility] [address] [place] [address] 8 Performin g Lab: [place] [facility] [address] [place] [address] 8 [facility] CBC MCHC [MASS/VOLUME] BY AUTOMATED COUNT 29.5 g/dL 33.0 - 36.0 01/26 L Specimen Type: BLOOD No comment entered. Ordering Provider: Kacey ARAMBULA Report Released Date/Time : Jan 26, 2025 10:55 AM Reporting Lab: [place] [facility] [address] [place] [address] 8 Performin g Lab: [place] [facility] [address] [place] [address] 8 [facility] CBC PLATELETS [#/VOLUME] IN BLOOD BY AUTOMATED COUNT 334 10*3/u L 150 - 400 01/26 Specimen Type: BLOOD No comment entered. Ordering Provider: Kacey ARAMBULA Report Released Date/Time : Jan 26, 2025 10:55 AM Reporting Lab: [place] [facility] [address] [place] [address] 8 Performin g Lab: [place] [facility] [address] [place] [address] 8 [facility] CBC PLATELET MEAN VOLUME [ENTITIC VOLUME] IN BLOOD BY AUTOMATED COUNT 8.8 fL 7.5 - 11.2 01/26 Specimen Type: BLOOD No comment entered. Ordering Provider: Kacey ARAMBULA R Report Released Date/Time : Jan 26, 2025 10:55 AM Reporting Lab: [place] [facility] [address] [place] [address] 8 Performin g Lab: [place] [facility] [address] [place] [address] 8 [facility] CBC ERYTHROCYTE DISTRIBUTION WIDTH [RATIO] BY AUTOMATED COUNT 16.0 11.8 - 15.1 01/26 H Specimen Type: BLOOD No comment entered. Ordering Provider: Kacey ARAMBULA Report Released Date/Time : Jan 26, 2025 10:55 AM Reporting Lab: [place] [facility] [address] [place] [address] 8 Performin g Lab: [place] [facility] [address] [place] [address] 8 [facility] CBC LYMPHOCYTES/1 00 LEUKOCYTES IN BLOOD BY AUTOMATED COUNT 29.3 01/26 Specimen Type: BLOOD No comment entered. Ordering Provider: Kacey ARAMBULA R Report Released Date/Time : Jan 26, 2025 10:55 AM Reporting Lab: [place] [facility] [address] [place] [address] 8 Performin g Lab: [place] [facility] [address] [place] [address] 8 [facility] CBC MONOCYTES/100 LEUKOCYTES IN BLOOD BY AUTOMATED COUNT 7.8 01/26 Specimen Type: BLOOD No comment entered. Ordering Provider: Kacey ARAMBULA Report Released Date/Time : Jan 26, 2025 10:55 AM Reporting Lab: [place] [facility] [address] [place] [address] 8 Performin g Lab: [place] [facility] [address] [place] [address] 8 [facility] CBC NEUTROPHILS/1 00 LEUKOCYTES IN BLOOD BY AUTOMATED COUNT 58.6 01/26 Specimen Type: BLOOD No comment entered. Ordering Provider: Kacey ARAMBULA Report Released Date/Time : Jan 26, 2025 10:55 AM Reporting Lab: [place] [facility] [address] [place] [address] 8 Performin g Lab: [place] [facility] [address] [place] [phone] 8 [facility] CBC EOSINOPHILS/1 00 LEUKOCYTES IN BLOOD BY AUTOMATED COUNT 3.3 01/26 Specimen Type: BLOOD No comment entered. Ordering Provider: Kacey ARAMBULA R Report Released Date/Time : Jan 26, 2025 10:55 AM Reporting Lab: [place] [facility] [address] [place] [address] 8 Performin g Lab: [place] [facility] [address] [place] [phone] 8 [facility] CBC BASOPHILS/100 LEUKOCYTES IN BLOOD BY AUTOMATED COUNT 0.8 01/26 Specimen Type: BLOOD No comment entered. Ordering Provider: Kacey ARAMBULA Report Released Date/Time : Jan 26, 2025 10:55 AM Reporting Lab: [place] [facility] [address] [place] [address] 8 Performin g Lab: [place] [facility] [address] [place] [phone] 8 [facility] CBC LYMPHOCYTES [#/VOLUME] IN BLOOD BY AUTOMATED COUNT 1.51 10*3/u L 0.77 - 4.50 01/26 Specimen Type: BLOOD No comment entered. Ordering Provider: Kacey ARAMBULA Report Released Date/Time : Jan 26, 2025 10:55 AM Reporting Lab: [place] [facility] [address] [place] [address] 8 Performin g Lab: [place] [facility] [address] [place] [address] 8 [facility] CBC MONOCYTES [#/VOLUME] IN BLOOD BY AUTOMATED COUNT 0.40 10*3/u L 0.19 - 0.8 01/26 Specimen Type: BLOOD No comment entered. Ordering Provider: Kacey ARAMBULA Report Released Date/Time : Jan 26, 2025 10:55 AM Reporting Lab: [place] [facility] [address] [place] [address] 8 Performin g Lab: [place] [facility] [address] [place] [phone] 8 [facility] CBC NEUTROPHILS [#/VOLUME] IN BLOOD BY AUTOMATED COUNT 3.03 10*3/u L 2.10 - 8.00 01/26 Specimen Type: BLOOD No comment entered. Ordering Provider: Kacey ARAMBULA R Report Released Date/Time : Jan 26, 2025 10:55 AM Reporting Lab: [place] [facility] [address] [place] [address] 8 Performin g Lab: [place] [facility] [address] [place] [phone] 8 [facility] CBC EOSINOPHILS [#/VOLUME] IN BLOOD BY AUTOMATED COUNT 0.17 10*3/u L 0.00 - 0.60 01/26 Specimen Type: BLOOD No comment entered. Ordering Provider: Kacey ARAMBULA Report Released Date/Time : Jan 26, 2025 10:55 AM Reporting Lab: [place] [facility] [address] [place] [address] 8 Performin g Lab: [place] [facility] [address] [place] [address] 8 [facility] CBC BASOPHILS [#/VOLUME] IN BLOOD BY AUTOMATED COUNT 0.04 10*3/u L 0.00 - 0.20 01/26 Specimen Type: BLOOD No comment entered. Ordering Provider: Kacey ARAMBULA Report Released Date/Time : Jan 26, 2025 10:55 AM Reporting Lab: [place] [facility] [address] [place] [address] 8 Performin g Lab: [place] [facility] [address] [place] [address] 8 [facility] CBC IMMATURE GRANULOCYTES/ 100 LEUKOCYTES IN BLOOD BY AUTOMATED COUNT 0.2 01/26 Specimen Type: BLOOD No comment entered. Ordering Provider: Kacey ARAMBULA Report Released Date/Time : Jan 26, 2025 10:55 AM Reporting Lab: [place] [facility] [address] [place] [address] 8 Performin g Lab: [place] [facility] [address] [place] [address] 8 [facility] CBC IMMATURE GRANULOCYTES [#/VOLUME] IN BLOOD BY AUTOMATED COUNT 0.01 10*3/u L 0.00 - 0.05 01/26 Specimen Type: BLOOD No comment entered. Ordering Provider: Kacey ARAMBULA Report Released Date/Time : Jan 26, 2025 10:55 AM Reporting Lab: [place] [facility] [address] [place] [address] 8 Performin g Lab: [place] [facility] [address] [place] [address] 8 [facility] Vital Signs Combined list of inpatient and outpatient Vital Signs from Department of Defense and Veterans Affairs, ranging from 12 months to all on record, depending upon the facility. Vital Sign Value Date Comments Source SYSTOLIC BLOOD PRESSURE 117 05/11/2025 10:04:13 [facility] DIASTOLIC BLOOD PRESSURE 79 05/11/2025 10:04:13 [facility] PULSE OXIMETRY 99 % 05/11/2025 10:04:13 [facility] WEIGHT 220 05/11/2025 10:04:13 [facility] BMI 37 kg/m2 05/11/2025 10:04:13 [facility] TEMPERATURE 98.3 05/11/2025 10:04:13 [facility] PULSE 81 05/11/2025 10:04:13 [place] [facility] RESPIRATION 18 05/11/2025 10:04:13 [facility] SYSTOLIC BLOOD PRESSURE 121 03/10/2025 18:02:00 [place] [facility] DIASTOLIC BLOOD PRESSURE 84 03/10/2025 18:02:00 [place] [facility] PULSE OXIMETRY 100 03/10/2025 18:02:00 [place] [facility] WEIGHT 222.4 03/10/2025 18:02:00 [place] [facility] BMI 37 kg/m2 03/10/2025 18:02:00 [place] [facility] PAIN 7 03/10/2025 18:02:00 [place] [facility] TEMPERATURE 97.7 03/10/2025 18:02:00 [place] [facility] PULSE 82 03/10/2025 18:02:00 [place] [facility] RESPIRATION 16 03/10/2025 18:02:00 [place] [facility] SYSTOLIC BLOOD PRESSURE 106 02/09/2025 10:38:00 [place] [facility] DIASTOLIC BLOOD PRESSURE 66 02/09/2025 10:38:00 [place] [facility] PULSE OXIMETRY 98 02/09/2025 10:38:00 [place] [facility] PAIN 6 02/09/2025 10:38:00 [place] [facility] TEMPERATURE 97.8 02/09/2025 10:38:00 [place] [facility] PULSE 87 02/09/2025 10:38:00 [place] [facility] RESPIRATION 16 02/09/2025 10:38:00 [place] [facility] SYSTOLIC BLOOD PRESSURE 124 01/03/2025 10:53:00 [place] [facility] DIASTOLIC BLOOD PRESSURE 84 01/03/2025 10:53:00 [place] [facility] PULSE OXIMETRY 99 01/03/2025 10:53:00 [place] [facility] WEIGHT 210.0 01/03/2025 10:53:00 [place] [facility] BMI 35 kg/m2 01/03/2025 10:53:00 [place] [facility] PAIN 7 01/03/2025 10:53:00 [place] [facility] TEMPERATURE 97.3 01/03/2025 10:53:00 [place] [facility] PULSE 65 01/03/2025 10:53:00 [place] [facility] RESPIRATION 16 01/03/2025 10:53:00 [place] [facility] SYSTOLIC BLOOD PRESSURE 117 11/24/2024 15:51:27 [place] [facility] DIASTOLIC BLOOD PRESSURE 71 11/24/2024 15:51:27 [place] [facility] PULSE OXIMETRY 99 11/24/2024 15:51:27 [facility] [place] [facility] WEIGHT 217.2 11/24/2024 15:51:27 [place] [facility] BMI 36 kg/m2 11/24/2024 15:51:27 [place] [facility] TEMPERATURE 98 11/24/2024 15:51:27 [place] [facility] PULSE 59 11/24/2024 15:51:27 [facility] RESPIRATION 18 11/24/2024 15:51:27 [facility] Encounters Combined list of: 1) Encounters from Department of Veterans Affairs facilities going backup to the last 18 months, not all [place] inpatient encounters are included; 2) Encounters from the Department of Defense facilities going backup to 280 months. Location Location Details Encounter Type Encounter Number Reason For Visit Attending Provider ADM Date DC Date Status Disposition Source [facility] OUTPATIENT [id number] hip pain TUAN BAILEY O 04/02 Released w/o Limitations [facility]) OUTPATIENT [id number] f/u right side of hip TUAN BAILEY O 04/09 Returned to Duty [facility]) OUTPATIENT [id number] f/u x-ray of right hip TUAN BAILEY O 04/14 Returned to Duty [facility] h([facility]) OUTPATIENT [id number] f/u right hip PONCE HENDRIX 04/25 Returned to Duty [facility] OUTPATIENT [id number] f/u right hip side PONCE HENDRIX L 05/08 Returned to Duty [facility] h([facility]) OUTPATIENT [id number] f/u right hip side PONCE HENDRIX L 05/13 Returned to Duty [facility]) OUTPATIENT [id number] profile JONO HARRIS R 06/04 Returned to Duty [facility]) [facility]) OUTPATIENT [id number] DICTATI ON FOR MEDICAL BOARD JONO HARRIS R 06/10 Returned to Duty [facility] OUTPATIENT [id number] common cold symptom s TUAN BAILEY O 06/23 Released w/o Limitations [facility] OUTPATIENT [id number] neck pain LEOTUAN SULLIVAN O 07/21 Released w/o Limitations [facility] Outpatient Encounter [id number] 11/16 [facility] OFF/OP EST FEBRUARY X REQ PHY/QHP [id number] Diagnos is: ICD-10- CM R55 Syncope and collaps e AMY HENDERSON 12/19 [facility] [place] [facility] Outpatient Encounter [id number] 12/24 [place] [facility] Outpatient Encounter [id number] 01/22 [facility] Outpatient Encounter [id number] 01/29 [facility] Outpatient Encounter [id number] 01/30 [facility] En[facility] [id number] FEBRUARY,HALEY E 01/30 [facility]/P EST LOW 20 MIN [id number] Diagnos is: ICD-10- CM R10.10 Upper abdomin al pain, unspeci fied BANDAR ARAMBULAINE R 02/03 [facility] Outpatient Encounter [id number] 02/05 [facility] Outpatient Encounter [id number] 02/17 [facility] PSYTX W PT 60 MINUTES [id number] Diagnos is: ICD-10- CM F43.10 Post-tr aumatic stress disorde r, unspeci fied AZAEL PUTNAM P 02/17 [facility] Outpatient Encounter [id number] 02/19 [facility] Outpatient Encounter [id number] 02/24 [facility] PSYCH DIAGNOSTIC EVALUATION [id number] Diagnos is: ICD-10- CM F43.10 Post-tr aumatic stress disorde r, unspeci AZAEL Recinos P 02/24 [facility] Outpatient Encounter [id number] MARIELLA ROSALES C 02/25 [facility] Outpatient Encounter [id number] 02/28 [facility] [place] [facility] Outpatient Encounter [id number] 02/28 [place] [facility] Outpatient Encounter [id number] 03/06 [facility] [place] [facility] Outpatient Encounter [id number] 03/10 [place] [facility] Outpatient Encounter [id number] 03/18 [place] [facility] Outpatient Encounter [id number] 03/19 [facility] Outpatient Encounter [id number] 04/08 [facility] PSYTX W PT 45 MINUTES [id number] Diagnos is: ICD-10- CM F43.10 Post-tr aumatic stress disorde r, unspeci AZAEL Recinos P 04/08 [facility] [place] Outpatient Encounter [id number] KAREN MAHAN CIA 04/10 [facility] En[facility] [id number] 04/10 [facility] Out[facility] Encounter [id number] 04/11 [facility] Outpatient Encounter [id number] 04/30 [facility] Outpatient Encounter [id number] BHARATHI ROCHE M 05/06 [facility] Outpatient Encounter [id number] 05/22 [facility] [place] [facility] Outpatient Encounter [id number] 05/22 [place] [facility] [place] [facility] Outpatient Encounter [id number] 040 05/22 [place] Outpatient Encounter [id number] 05/23 [facility] PSYTX W PT 60 MINUTES [id number] Diagnos is: ICD-10- CM F43.10 Post-tr aumatic stress disorde r, unspeci fied AZAEL PUTNAM P 05/28 [facility] OFF/OP EST FEBRUARY X REQ PHY/QHP [id number] Diagnos is: ICD-10- CM M79.674 Pain in right toe(s) CUSTRED,TO RRI J 06/03 [facility]patient Encounter [id number] 06/05 [facility] [place] Outpatient Encounter [id number] [id number] 07/03 [place] [place] Outpatient Encounter [id number] [id number] 07/04 [place] [facility] Outpatient Encounter [id number] [id number] 07/09 [facility] Outpatient Encounter [id number] [id number] 07/09 [facility] [place] Outpatient Encounter [id number] [id number] 07/21 [place] [facility] PSYTX W PT 45 MINUTES [id number] Diagnos is: ICD-10- CM F43.10 Post-tr aumatic stress disorde r, unspeci fied AZAEL PUTNAM P 07/25 [facility] Outpatient Encounter [id number] 07/28 [facility] Outpatient Encounter [id number] 08/05 [facility] Outpatient Encounter [id number] [id number] JADE HERNANDEZ N 08/15 [facility] Outpatient Encounter [id number] 08/18 [facility] [place] [facility] OFFICE O/P EST LOW 20 MIN [id number] Diagnos is: ICD-10- CM 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 OLAF PILLAI S 08/18 [place] [facility] OFF/OP EST MAY X REQ PHY/QHP [id number] Diagnos is: ICD-10- CM M54.2 Cervica lgia CUSTRED,TO RRI J 08/25 [facility] Outpatient Encounter [id number] 09/01 [facility] PSYTX W PT 60 MINUTES [id number] [id number] Diagnos is: ICD-10- CM F43.10 Post-tr aumatic stress disorde r, unspeci fiAZAEL Daley P 09/01 [facility] [place] [facility] Outpatient Encounter [id number] [id number] 09/01 [place] [place] Outpatient Encounter [id number] [id number] 09/19 [place] [facility] [place] Outpatient Encounter [id number] [id number] 09/23 [facility] [facility] Outpatient Encounter [id number] [id number] BANDAR ARAMBULA R 09/24 [facility] OFFICE O/P EST MOD 30 MIN [id number] Diagnos is: ICD-10- CM M79.601 Pain in right arm BANDAR ARAMBULA R 09/24 [facility] Outpatient Encounter [id number] [id number] 09/29 [facility] [place] [facility] Outpatient Encounter [id number] [id number] 09/29 [place] [facility] Outpatient Encounter [id number] [id number] 10/03 [facility] [place] [facility] Outpatient Encounter [id number] [id number] 10/10 [place] [facility] Outpatient Encounter [id number] [id number] HAMIDA LUGO L 10/14 [facility] Outpatient Encounter [id number] [id number] 10/16 [facility] Outpatient Encounter [id number] [id number] 10/24 [facility] Outpatient Encounter [id number] [id number] 11/06 [facility] Outpatient Encounter [id number] [id number] 11/11 [facility] Outpatient Encounter [id number] [id number] 11/17 [facility] Outpatient Encounter [id number] [id number] 11/18 [facility] PSYTX W PT 60 MINUTES [id number] [id number] Diagnos is: ICD-10- CM F43.10 Post-tr aumatic stress disorde r, unspeci AZAEL Recinos P 11/24 [facility] Outpatient Encounter [id number] [id number] BANDAR ARAMBULA R 11/24 [facility] OFFICE O/P EST MOD 30 MIN [id number] [id number] Diagnos is: ICD-10- CM N64.4 Mastody batool BANDAR ARAMBULA R 11/24 [facility] Outpatient Encounter [id number] [id number] 12/04 [facility] Outpatient Encounter [id number] [id number] 12/08 [facility] Outpatient Encounter [id number] [id number] 12/09 [facility] Outpatient Encounter [id number] [id number] 12/09 [facility] Outpatient Encounter [id number] [id number] 12/10 [facility] Outpatient Encounter [id number] [id number] 12/11 [facility] Outpatient Encounter [id number] [id number] 12/16 [facility] Outpatient Encounter [id number] [id number] 12/18 [facility] Outpatient Encounter [id number] [id number] 12/23 [facility] Outpatient Encounter [id number] [id number] 12/24 [facility] Outpatient Encounter [id number] [id number] 12/31 [facility] Outpatient Encounter [id number] [id number] 01/03 [facility] [place] [facility] OFFICE O/P EST LOW 20 MIN [id number] [id number] Diagnos is: ICD-10- CM L03.031 Celluli tis of right toe JUANITO TUTTLE Ankur 01/03 [facility] Outpatient Encounter [id number] [id number] 01/06 [facility] Outpatient Encounter [id number] [id number] 01/19 [facility] Outpatient Encounter [id number] [id number] 01/26 [facility] Outpatient Encounter [id number] [id number] 01/27 [facility] Outpatient Encounter [id number] [id number] 01/30 [place] [facility] Outpatient Encounter [id number] [id number] 02/02 [facility] Outpatient Encounter [id number] [id number] 02/04 [facility] CEDRICK OBANDO [facility] Outpatient Encounter [id number] 02/07 [facility] Outpatient Encounter [id number] [id number] BANDAR ARAMBULA 02/09 [facility] CEDRICK OBANDO [facility] Outpatient Encounter [id number] CHRISTIN MILLS 02/09 [facility] [facility] Outpatient Encounter [id number] [id number] 02/09 [facility] OFFICE O/P EST LOW 20 MIN [id number] Diagnos is: ICD-10- CM S92.351 A Disp fx of fifth metatar [place] bone, right foot, init MARRYJUANITO CLARK D 02/09 [place] [facility] Outpatient Encounter [id number] [id number] 02/13 [place] [facility] Outpatient Encounter [id number] [id number] Diaz DEY 02/24 [facility] Outpatient Encounter [id number] [id number] 03/10 [facility] EST LOW 20 MIN [id number] [id number] Diagnos is: ICD-10- CM L03.111 Celluli tis of right axilla OLAF PILLAI S 03/10 [facility] Outpatient Encounter [id number] [id number] 03/13 [facility] Outpatient Encounter [id number] [id number] 03/17 [facility] Outpatient Encounter [id number] [id number] 03/18 [facility] Outpatient Encounter [id number] [id number] EDITH CLEMENTS RET 04/10 [place] [facility] [place] [facility] SYNCH AUDIO-ONLY EST SF 10 [id number] Diagnos is: ICD-10- CM D50.9 Iron deficie ncy anemia, unspeci fiJORGE Garcia J 04/10 [place] [facility] [place] [facility] Outpatient Encounter [id number] [id number] 04/10 [place] [facility] [place] [facility] Outpatient Encounter [id number] [id number] 04/14 [place] [facility] Outpatient Encounter [id number] [id number] 04/15 [facility] [id number] [id number] 05/06 [facility] Outpatient Encounter [id number] [id number] 1 05/07 [facility] En[facility] [id number] [id number] 05/08 [facility] Encounter [id number] [id number] 05/08 [facility] Outpatient Encounter [id number] [id number] 05/11 [facility] En[facility] [id number] BANDAR ARAMBULA 05/11 [facility] En[facility] [id number] [id number] 05/[address] [facility] Procedures Combined list of: 1) Procedures from Department of [facility] facilities going back up to thelast 18 months, not all VA non-surgical procedures are included; 2) All procedures from the Department of Defense facilities. Procedure Procedure Type Code Date Perfomer Comments Sour e NONINVASIVE EAR OR PULSE OXIMETRY FOR OXYGEN SATURATION; SINGLE DETERMINATION 08/11/2002 [facility] CYTPATH TBS C/VAG MANUAL 04/16/2002 [facility] MENINGOCOCCAL POLYSACCHARIDE VACCINE, SEROGROUPS A, C, Y, W-135, QUADRIVALENT (MPSV4), FOR SUBCUTANEOUS USE 04/16/2002 [facility] Social History Combined list of available smoking, tobacco, and other social history from Department of Defense and Veterans Affairs facilities. Social History Type Response Date Comment Sourc e Tobacco smoking status NHIS VA-TOBACCO NEVER USED 02/04/2024 [facility] History of tobacco use VA-TOBACCO NEVER USED 11[facility]03/2022 [facility] History of tobacco use VA-TOBACCO NEVER USED 09/29/2021 [facility] History of tobacco use VA-TOBACCO NEVER USED 10/27/2020 [facility] History of tobacco use VA-TOBACCO NEVER USED 08/27/2019 [facility] History of tobacco use VA-TOBACCO NEVER USED 09/17/2018 [facility] History of tobacco use LIFETIME NON-USER OF TOBACCO 01/06/2011 [facility] History of tobacco use LIFETIME NON-USER OF TOBACCO 09/09/2009 [facility] History of tobacco use LIFETIME NON-USER OF TOBACCO 09/14/2008 [facility] This section is an empty social history section. [facility] Plan of Care List of future care activities from Department of Veterans Affairs facilities. Additional future care activities may be listed in the Assessment and Plan section. Date/Time Care Activity Care Activity Detail Facili ty 05/20/2025 AMBULATORY - MEDICINE AMBULATORY - MEDICI ESTELA MENDOZA [facility]
--- OUTSIDE RECORDS SUMMARY | 2025-05-13 16:37 | XMS_ITS | Patient Health Record ---
Author Organization [facility] Address [address] [place] [address] Care Team Providers Care Senior National Account Manager Name Role Phone [facility] Val RAYMUNDO Primary Care Provid er Unavailable Sundar Milian Unavailable [phone] Reason For Referral Reason cervicalgia Diagnosis 1 DDD (degenerative di sc disease), cervical (M50.30) Referring Provider First Name Val Referring Provider Last Name [facility] Referring Provider Speciality Nurse Prac titioner Referred Organization [facility] Referred Provider Sundar Milian Referred Address [address],[place], [place],[address], Referral Priority Routine Reason Eval and treat with physical therapy for neck and mid/upper back pain BIW-TIW x 4-6 weeks [facility] Diagnosis 1 Cervical spondylosis (M47.812) Diagnosis 2 Cervicalgia (M54.2) Diagnosis 3 Thoracic spine pain (M54.6) Referral Organization [facility] [place] Referring Provider First Name Sundar Referring Provider Last Name Maicol Referring Provider Speciality Neurosurge ry Referred Provider [facility] Referred Provider Specialty Physical The rapist Referral Priority Routine Problems Problem Type SNOMED Code ICD Code Onset Dates Problem Status W/U Status Risk Notes Problem Cervicalgia (85903512) Cervicalgia (M54.2) Active confirmed Problem Degenerative cervical disc (M50.30) Active confirmed Problem Cervical spondylosis (814602587) Cervical spondylosis (M47.812) Active confirmed Vital Signs Heart Rate 102 /min 01/27/2025 Temperature 97.4 degrees Fahrenheit 01/27/2025 Respiratory Rate 20 /min 01/27/2025 Height-cm 165.1 cm 01/27/2025 Oximetry 98 % 01/27/2025 Blood pressure diastolic 68 mm Hg 01/27/2025 Weight-kg 94.8 kg 01/27/2025 Height 65 in 01/27/2025 Blood pressure systolic 128 mm Hg 01/27/2025 Weight 209 lbs 01/27/2025 BMI 34.78 kg/m2 01/27/2025 Encounters Encounter Location Date Provider Diagnosis [facility] [place] [address] [place] [address] 01/27/2025 Sundar Milian Cervicalgia M54.2 ; Cervical spondylosis M47.812 ; Thoracic spine pain M54.6 ; Degenerative cervical disc M50.30 and Paraspinal muscle spasm M62.830 Assessments Encounter Date Diagnosis (ICD Code) Assessment Notes Treatment Notes Treatment Clinical Notes Section Notes 01/27/2025 Cervicalgia (ICD-10 - M54.2) 01/27/2025 Cervical spondylosis (ICD-10 - M47.812) The patient's symptoms and clinical findings were reviewed. The patient is having neck and mid/upper back pain. The cervical MRI was reviewed and discussed with the patient. There are areas of disc bulging and disc degeneration but no impingement noted. The patient was reassured there is nothing of emanate concern in the cervical spine. I do not have imaging of the thoracic spine for review. We can get thoracic imaging if needed. I explained to the patient when there is pain in the thoracic area, it is always most likely muscle related or referred pain from the cervical or lumbar spine. The patient states she has recently lost weight and is going for a breast reduction soon, this may improve some of her symptoms. I recommended a referral to physical therapy for neck and mid/upper back pain, and proceed with the breast reduction. I suggested the patient start Methocarbamol 750 mg PO every 6 hours as needed for muscle spasms. I will see her back for a follow-up next month, and we will re-evaluate at that time. If the patient is still having problems I will order additional imaging. The patient is in agreement to the plan. ROS reviewed I Michelle Sepulveda LPN am scribing for, and in the presence of Sundar Milian MD. I, Sundar Milian, personally performed the services described in this documentation, as scribed by Michelle Sepulveda LPN in my presence, and it is both accurate and complete. 01/27/2025 Thoracic spine pain (ICD-10 - M54.6) 01/27/2025 Degenerative cervical disc (ICD-10 - M50.30) 01/27/2025 Paraspinal muscle spasm (ICD-10 - M62.830) Start Methocarbamol 750 MG Tablet, 1 tablet Orally every 6 hrs for 7 days , D: 28 Tablet , R: 0 Start: 01/27/2025 Stop: 02/03/2025 Plan Of Treatment Pending Test Test Name Order Date ABORh 65174, 86424 10/30/2019 Antibody Screen 29803 10/30/2019 Basic Metabolic Panel (BMP) 11417 2019 CBC w\o Diff 14510 10/30/2019 Insurance Providers Payer Name Payer Address Payer Phone Subscriber Number Group Number Insured Name Patient Relationship to Insured Coverage Start Date Coverage End Date [employer] [address] [place] [phone] [id number] Arely Gallegos Self - patient is the insured
--- OUTSIDE RECORDS SUMMARY | 2025-05-13 16:37 | XMS_ITS | Data Portability ---
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 Before then will call us if her HRT is not working. Not available 09/21/2023 18:38:09 09/27/2023 09/27/2023 Will RTC in 4 weeks for speculum exam/6 wk pp check. Before then will call us if her HRT is not working. [email or web address] Not available 09/27/2023 17:08:22 Plan of Treatment Reminders Order Date Submit Date Provider Last Modified By Organization Details Last Modified Time Details Appointments None recorded. Lab culture, urine 2022 023 CARLOS ALBERTO [facility], [address], [address], [place], [address], 3 06:21:32 Referral None recorded. Procedures None recorded. Surgeries None recorded. Imaging MAMMO, screening, digital, bilateral 2022 023 [email or web address] [facility] (Radiology), [address], [place], [address], 4 10:56:28 Medication Orders Macrobid 100 mg capsule 2022 023 [facility], [address] [place], [address], 3 17:08:51 estradiol 2 mg tablet [email or web address] [facility], [address] [place], [address], 3 12:38:12 Patient TargetsNo targets recorded. Patient InstructionsNo instructions recorded. Reason for Referral None Reported. Results Created Date Observation Date Name Description Value Unit Range Abnormal Flag Note LastModifiedBy Organization Detail LastModifiedTime 09/19/2009/22/2023 CULTU RE, URINE specimen source URINE - VOID Not Available [facility]) [address] [place] [address] [address], [place], [address], 09/22/2023 06:21:31 09/19/2009/22/2023 CULTU RE, URINE culture, urine SEE BELOW See Micro biolo gy Repor t Not Available [facility] ([facility]) [address] [place] [address] Dr Oliveira, [place], [address], 09/22/2023 06:21:31 09/19/2009/22/2023 CULTU RE, URINE escherichia coli 50,000 -100,0 00 CFU/ML ESCHER ICHIA COLI Not Available [facility] ([facility]) [address] [place] [address] Dr Oliveira, [place], [address], 09/22/2023 06:21:31 09/19/20 23 09/22/2023 CULTU RE, URINE sensitivity panel SEE BELOW ___ Organ ism E. coli Antib iotic INTER P ___ Amika aissatou S Ampic illin S Aztre onam S Cefaz leslie S Cefep sherry S Cefox itin S Cefta zidim e S Ceftr iaxon e S Cefur oxime S Cipro floxa aissatou S Ertap enem S Genta micin S Imipe nem S Levof loxac in S Merop enem S Nitro furan toin S Piper acill in/Ta zo S Tetra cycli ne R Tobra mycin S Trime th/Adame lfa S __ S=CONSTANZA CEPTI BLE I=INT ERMED IATE R=RES ISTAN T Not Available [facility] ([facility]) [address] [facility] [address], [place], [address], 09/22/2023 06:21:31 07/30/20 23 07/30/2023 [email or web address] No observ ation record ed. [email or web address] [facility]- [place] [address], [place], [address], 07/30/2023 15:25:31 09/06/20 23 09/06/2023 elect gianna carr am No observ ation record ed. [email or web address] [facility] [address], [place], [address], 09/07/2023 11:50:32 Result Notes None recorded. Procedures Surgical History Date Name Laterality Status Provider Name and Address Organization Details Recorded Time 09/27/20 23 TOTAL HYSTERECTOMY, LAPAROSCOPIC, WITH BILATERAL SALPINGO-OOPHORECTO MY (SURG) completed Lissa Monsivais [facility] 10/04/2023 08:13:30 cholecystectomy completed [facility] 07/30/2023 10:27:24 section completed [facility] 07/30/2023 10:27:30 Gastric bypass for obesity completed [facility] 07/30/2023 10:27:38 procedure on wrist completed [facility] 07/30/2023 10:28:08 excision of bunion completed [facility] 07/30/2023 10:28:28 dilation and curettage completed [facility] 07/30/2023 10:29:02 tonsilectomy/adenoi ds completed [facility] 07/30/2023 10:29:09 total hysterectomy with removal of both tubes and ovaries completed Sabrina Candelaria [facility] 09/27/2023 16:23:10 Imaging Results None recorded. Procedure Notes None recorded. Medical Equipment None Reported. Allergies Allergen ID Allergen Name Allergen Category Reaction Reaction Severity Criticality Documentation Date Start Date Code Code System Note Provider Name and Address Organization Details Recorded Time 50686 Product containin g penicilli n (product) medicatio n anaphylax is Not available high 07/30/2023 935165 0941 SNOMED [facility] 10:22:02 54360 Latex (substanc e) environme nt,medica tion photosens itivity mild Not available 08/06/2023 13792 8007 SNOMED sensi Pio burroughs [place] [facility] 3 10:55:40 Medications Name Sig Start Date Stop Date Status Note LastModified by Organization Details LastModified Time venlafaxine ER 75 mg capsule,ext ended release 24 hr TAKE 1 CAPSULE BY MOUTH ONCE DAILY 09/19 completed Not Available Not Available Not Available estradiol 0.1 mg/24 hr semiweekly transdermal patch Apply 1 patch every week by transderm al route as directed. 09/19 completed Not Available Not Available Not Available venlafaxine ER 150 mg capsule,ext ended release 24 hr Take 1 capsule every day by oral route. active Not Available Not Available No t Available ciprofloxac in 500 mg tablet TAKE 1 TABLET BY MOUTH TWICE DAILY FOR 10 DAYS active Not Available Not Available No t Available sulfamethox azole 800 mg-trimetho prim 160 mg tablet TAKE 1 TABLET BY MOUTH TWICE DAILY FOR 10 DAYS active Not Available Not Available No t Available Macrobid 100 mg capsule Take 1 capsule every 12 hours by oral route for 5 days. 09/27 completed Not Available Not Available Not Available amitriptyli ne 10 mg tablet Take 1 tablet every day by oral route. active Not Available Not Available No t Available lidocaine HCl 2 % mucosal solution APPLY TO AFFECTED MUCOSAL AREA FOUR TIMES DAILY NEEDED FOR PAIN active Not Available Not Available No t Available omeprazole 20 mg capsule,del ayed release Take 1 capsule every day by oral route. active Not Available Not Available No t Available estradiol 2 mg tablet Take 1 tablet every day by oral route as directed. 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 09/19 completed Not Available Not Available Not Available estradiol 0.1 mg/24 hr weekly transdermal patch APPLY 1 PATCH TOPICALLY ONCE A WEEK 09/27 completed Not Available Not Available Not Available Vitals Date Recorded Body height Oxygen saturation Oxygen saturation in Arterial blood by Pulse oximetry Heart rate Body temperature Body mass index (BMI) Body weight Systolic And Diastolic Provider Name and Address Organization Details Last Updated DateTime 3 166.37 cm 96 % 96 % 59 /min 97.5 [degF] 34.3 kg/m2 04989.9 1 g 118/82 mm[Hg] Linh Hoyos [facility] 3 10:30:53 Date Recorded Body height Oxygen saturation Oxygen saturation in Arterial blood by Pulse oximetry Heart rate Body temperature Body mass index (BMI) Body weight Systolic And Diastolic Provider Name and Address Organization Details Last Updated DateTime 3 166.37 cm 98 % 98 % 80 /min 97.2 [degF] 34.5 kg/m2 01137.5 g 128/76 mm[Hg] Sabrina Candelaria [facility] 3 10:54:11 Date Recorded Body height Oxygen saturation Oxygen saturation in Arterial blood by Pulse oximetry Heart rate Body mass index (BMI) Body weight Body temperature Systolic And Diastolic Provider Name and Address Organization Details Last Updated DateTime 3 166.37 cm 98 % 98 % 70 /min 34.5 kg/m2 37651.5 g 97.9 [degF] 122/78 mm[Hg] Chana Powell [facility] 3 11:28:19 Date Recorded Body height Body mass index (BMI) Body weight Body temperature Oxygen saturation Oxygen saturation in Arterial blood by Pulse oximetry Heart rate Systolic And Diastolic Provider Name and Address Organization Details Last Updated DateTime 3 166.37 cm 34.1 kg/m2 32938.2 1 g 97.2 [degF] 98 % 98 % 63 /min 108/76 mm[Hg] Naima Gill [facility] 3 11:04:05 Date Recorded Body height Body mass index (BMI) Body weight Body temperature Heart rate Oxygen saturation Oxygen saturation in Arterial blood by Pulse oximetry Systolic And Diastolic Provider Name and Address Organization Details Last Updated DateTime 3 166.37 cm 33.8 kg/m2 10547.0 3 g 97.6 [degF] 77 /min 99 % 99 % 126/80 mm[Hg] Sabrina Candelaria [facility] 16:21:13 Social History Question Answer Notes LastModified by Organizat ion Details LastModified Time Tobacco Smoking Status Never Smoker Linh Hoyos [facility], [facility] 07/30/2023 10:26:16 Do You Have An Advance Directive? No Information not available 08/06/2023 Is Blood Transfusion Acceptable In An Emergency? Yes Information not available 08/06/2023 What Is Your Level Of Caffeine Consumption? Heavy [email or web address] Information not available 07/30/2023 Have You Been To An Area Known To Be High Risk For COVID-19? No Information not available 08/06/2023 Are You Deaf Or Do You Have Serious Difficulty Hearing? No [email or web address] Information not available 07/30/2023 What Type Of Diet Are You Following? REGULAR Gastric Bypass [email or web address] Information not available 07/30/2023 What Is The Highest Grade Or Level Of School You Have Completed Or The Highest Degree You Have Received? [id number] [email or web address] Information not available 07/30/2023 What Was The Date Of Your Most Recent Tobacco Screening? 09/27/2023 Information not available 09/27/2023 How Many Children Do You Have? 4 [email or web address] Information not available 07/30/2023 What Is Your Relationship Status? [email or web address] Information not available 07/30/2023 Do You Use Your Seat Belt Or Car Seat Routinely? Yes Information not available 08/06/2023 Are You Sexually Active? Yes [email or web address] Information not available 07/30/2023 Sex: Female Functional Status Question Answer Note LastModified by Organizat ion Details LastModified Time Do you use any illicit or recreational drugs? No Information not available 07/30/2023 Do you or have you ever used any other forms of tobacco or nicotine? No Information not available 07/30/2023 What is your level of alcohol consumption? Occasional [email or web address] Information not available 07/30/2023 Are you currently employed? Yes Information not available 07/30/2023 Are you able to walk? 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 Moderate [email or web address] Information not available 07/30/2023 Mental Status None recorded. Family History Relationship Description Onset Age of this Age Resolved Age Notes LastModified by Organization Details LastModified Time Mother Hypertensive disorder [email or web address] Not available 11/2022 10:25:44 Medical History Condition Response Other N Gout N Blood Diseases N Kidney Stones N Hyperthyroidism N Blood Transfusion N COPD N Depression N Incontinence N Edema N Endocrine Disorders N Anxiety Disorder N Muscle, Joint, or Bone Problems N Obesity N Vision or Eye Problems N Arthritis N Auditory Hallucinations N Infertility N Cancer N Stroke N Varicosities N Fibromyalgia N Headaches N Kidney Disease N Abnormal Bleeding N Reproductive System Problems N Ear or Hearing Problems N Hospitalizations N Learning Disorder N Eating Disorder N Skin Problems N MRSA exposure N Constipation N Urinary Problems N Brain Injury N Visual Hallucinations N Tuberculosis N AIDS/HIV N Back Problems N Asthma N GERD/Reflux N Hepatitis N Pulmonary Embolism N Chronic Ear Infections N Chicken Pox N Autism Spectrum Disorder (ASD) N Thrombophilias N Thyroid Disease N Breast Cancer N Lung Disease N Hypothyroidism N Developmental or Behavioral Disorders N Defects or Inherited Disease N Breast Problem N Difficulty Swallowing N Anesthesia Complications N Deep Vein Thrombosis N Meniere's disease N Hearing Loss N Head Injury/Concussion N Congenital Anomalies N Abnormal Pap Smear N Endometriosis N Bladder or Kidney Problems N High Cholesterol N Liver Disease N Nervous System Disorder N Psychiatric/Mental Health Condition N Schizophrenia N Allergies/Hayfever N Parkinson's Disease N COMMERCIAL COUNSEL Surgery N GI Problems N ADD/ADHD N Anemia N Colon Polyps N ENT Surgery N Heart Attack (UT) N Diabetes N Ovarian Cancer N Bedwetting N Seizures/Epilepsy N Amnesia N Congestive Heart Failure (CHF) N Eczema N Abuse/Domestic Violence N Dementia N Diverticulitis N Cardiovascular N Back Surgery N Tourette Syndrome N Hypertension N Pre-Eclampsia N COMMERCIAL COUNSEL Procedure N Osteoporosis N Gynecological History Statement/Question Response Abnormal Pap N Patient reports last mammogram Flow Heavy Date of LMP 08/24/2023 Patient reports last colonoscopy Patient reports last pap STIs/STDs N Duration of Flow (days) 5 Current Control Method Tubal Ligat ion Age at First Child 23 Frequency of Cycle (Q days) 28 Sexually Active? Y Control at End of Visit Sterilizat ion Menses Monthly Y Sexual Problems? N LMP Definite Desired Control Method Sterilizati on Obstetrics History GPAL:G 6 P 4 0 2 4 Type Value Full Term 4 Spontaneous 2 Living 4 Total 6 Past Encounters Encounter ID Performer Location Encounter Start Date Encounter Closed Date Diagnosis/Indication Diagnosis SNOMED-CT Code Diagnosis ICD10 Code Diagnosis Note [id number] Princess Celaya MD [facility]- [place] [address] [place] [id number] 07/30/2023 09:38:55 07/30/2023 12:24:22 Obesity 001430921 E66.9 BMI 34.3Recomm end reduction in BMI to below 30 [facility]. Diet education 51831958 Z71.3 Discussed and recommende d healthy dietary habits. Exercises education, guidance, and counseling 674595782 Z71.82 Discussed and recommende d exercise activity for health. Hypertensi on screening 993546700 Z13.6 BP 118/82 on intake today. Dysmenorrhea 782187085 N 94.6 SEE ABOVE. History of bariatric surgical procedure 770626519 Z98.84 Gastric bypass for obesity. History of tubal ligation 291026418 Z98.51 At the time of her emergency CS. Screening for malignant neoplasm of breast 245227093 Z12.39 Sending for mammo screening, last mammo was longer than 1 year ago. Menorrhagia 933365083 N9 2.0 Heavy, painful menstrual periods have been present for the past year. Periods last 3-4 days heavily and cause her to change a super pad every 45 minutes or so. She declines having an ablation, she has already had a tubal and does not desire more children. She does desire a hysterecto my for retirement management .Obtain all recent [place] records. 10: 10cm uterus and mutliple small fibroids. Will RTC in 1 WK for possible pre op hysterecto my. Uterine leiomyoma 242562 05 D25.9 PER PT, at [place] ER.US to be done this afternoon. [id number] Princess Celaya MD [facility]- [place] [address] [place] [id number] 08/06/2023 10:42:33 08/06/2023 15:41:32 Menorrhagia 155296291 N92.0 Heavy, painful menstrual periods have been present for the past year. Periods last 3-4 days heavily and cause her to change a super pad every 45 minutes or so. She declines having an ablation, she has already had a tubal and does not desire more children. 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 and 07/30 pelvic US showed 10cm uterus and mutliple small fibroids.R isks, benefits, alternativ es, indication s of procedure discussed with patient including but not limited to bleeding, blood transfusio n (with transfusio n risks - viral or bacterial infection, reaction), damage to surroundin g organs, infection, need to go back to OR during postoperat ethel period or afterward, scarring, functional limitation s, no improvemen t in symptoms, DVT/PE and anesthesia . She voiced understand ing and wishes to proceed. Dysmenorrhea 710064096 N 94.6 SEE ABOVE. Uterine leiomyoma 570870 05 D25.9 From [place] ER.07/30 pelvic US shows 10cm uterus and mutliple small fibroids. History of tubal ligation 624816893 Z98.51 At the time of her emergency CS. History of bariatric surgical procedure 271155344 Z98.84 Gastric bypass for obesity. Obesity 476450933 E66.9 BMI 34.5Recomm end reduction in BMI to below 30 [facility]. Diet education 92504941 Z71.3 Discussed and recommende d healthy dietary habits. Exercises education, guidance, and counseling 632847782 Z71.82 Discussed and recommende d exercise activity for health. Hypertensi on screening 317582608 Z13.6 BP 128/76 on intake today. Influenza vaccination declined 522228281 Z28.21 DECLINED. [id number] Princess Celaya MD [facility]- [place] [address] [id number] 09/03/2023 10:38:32 09/04/2023 09:45:48 Menorrhagia 452914620 N92.0 Heavy, painful menstrual periods have been present for the past year. Periods last 3-4 days heavily and cause her to change a super pad every 45 minutes or so. She declines having an ablation, she has already had a tubal and does not desire more children. She does desire a TLH w/ BSO for retirement management , even with knowledge that it may be difficult to control her menopausal symptoms.1 pelvic exam is - uterus mobile but tender and boggy. and 07/30 pelvic US showed 10cm uterus and mutliple small fibroids.R isks, benefits, alternativ es, indication s of procedure discussed with patient including but not limited to bleeding, blood transfusio n (with transfusio n risks - viral or bacterial infection, reaction), damage to surroundin g organs, infection, need to go back to OR during postoperat ethel period or afterward, scarring, functional limitation s, no improvemen t in symptoms, DVT/PE and anesthesia . She voiced understand ing and wishes to proceed. Dysmenorrhea 907151843 N 94.6 SEE ABOVE. Unable to take NSAIDS due to hx of gastric bypass. Uterine leiomyoma 778088 05 D25.9 From [place] ER.07/30 pelvic US shows 10cm uterus and mutliple small fibroids. History of tubal ligation 930056130 Z98.51 At the time of her emergency CS. History of bariatric surgical procedure 167478986 Z98.84 Gastric bypass for obesity. Obesity 804950466 E66.9 BMI 34.5Recomm end reduction in BMI to below 30 PLACIDO. Diet education 52658963 Z71.3 Discussed and recommende d healthy dietary habits for health. Exercises education, guidance, and counseling 638007795 Z71.82 Discussed and recommende d regular exercise as needed for health. Hypertensi on screening 013885162 Z13.6 BP 122/78 on intake today. [id number] Princess Celaya MD [facility]- [place] [address] [id number] 09/19/2023 10:27:16 09/19/2023 12:50:38 Postoperative visit 269266401 Z09 2 week post op incision check after TLH BSO - performed on 09/06/23. Incision CDI. Obesity 574740262 E66.9 BMI 34.1Recomm end reduction in BMI to below 30 PLACIDO. Diet education 15763274 Z71.3 Discussed and recommende d healthy dietary habits for health. Hypertensi on screening 870133265 Z13.6 BP 108/76 on intake today. Dysuria 73389383 R30.0 AWAIT RESULTS of culture. Sending Macrobid to treat. Diarrhea 16042430 R19.7 Present for the past x1 week. Declines medication s at this time, will call if she changes her mind. Hormone re placement therapy 123590228 Z79.890 [facility] BSO - performed on 09/06/23. PT requests to switch from the patch to the pill. [id number] Nataliia RICARDO MD [facility] DS- [place] [address] [place] [address] 09/27/2023 16:08:46 09/27/2023 17:13:26 Hormone replacement therapy 895034251 Z79.890 TL BSO - performed on 09/06/23. PT requests to switch from the patch to the pill. Obesity 707439233 E66.9 BMI 33.8Recomm end reduction in BMI to below 30 PLACIDO. Diet education 81755976 Z71.3 Discussed and recommende d healthy dietary habits for health. Hypertensi on screening 827645344 Z13.6 BP 128/70 on intake today. Removal of suture 644638 01 Z48.02 Suture extrusion noted, trimmed to nonpalpabl eIncision appears to be healing wellDiscus sed keeping wound bed moist to improve healing, okay for VaselineWo und care reviewedRe commend covering to protect from clothing Health Concerns Section Related Observation LastModified by Organization Detai ls LastModified Time None Recorded Concern Status LastModified by Organization Details LastModified Time None Recorded Advance Directives Directive N: Payers Insurance Date Sequence Insurance Name Policy Number Policy Dyer Covered Member ID Dyer Member ID Guarantor Name 05/05/2025 1 () Arely Gallegos [id number] Arely Gallegos 05/05/2025 [employer] [facility] [place] [facility] Arely Gallegos [id number] Arely Gallegos 05/05/2025 1 [facility] () Arely Gallegos [id number] Arely Gallegos Notes Date Note Type Note Provider Name and Address Organization Details Recorded Time 07/30/2023 text/html NEW PATIENT, referred by the [place]: Arely is a 43 y/o female presenting to clinic today with complaints of menorrhagia & dysmenorrhea. She reports going to the ER, she had a pelvic CT scan performed and she was told she had uterine fibroids and ovarian cysts. PT is experiencing heavy, painful periods with large clots not controlled with OTC meds. She is going through a super pad every 45-60 minutes during her menstrual periods. Recently has had full panel blood work done at [place] a month ago including TSH which she states was WNL.She also reports having a stone in her bile duct - she has an appt in August for consult on this. Princess Celaya MD [address] [place] [address], [phone], [facility] 07/31/2023 21:29:18 08/06/2023 text/html Arely is a 43 y/o female presenting to clinic today for hysterectomy pre-op. PT declines flu vaccine today. Heavy, painful menstrual periods have been present for the past year. Periods last 3-4 days and cause her to change a super pad every 45 minutes or so. Bleeds through clothes, onto bed, etc. She declines having an ablation due to the risks with it, she has already had a tubal and does not desire more children. She desires a TLH w/ BSO for retirement management. Princess Celaya MD [address] [place] [address], [phone], [facility] 08/06/2023 13:05:16 09/03/2023 text/html Arely is a 43 y/o female presenting to clinic today for PRE-OP for TLH BSO - scheduled for 09/06/2023. PT denies any new complaints or concerns at this time.Heavy, painful menstrual periods have been present for the past year. Periods last 3-4 days heavily and cause her to change a super pad every 45 minutes or so. She declines having an ablation, she has already had a tubal and does not desire more children. She does desire a TLH w/ BSO for retirement management.Risks, benefits, alternatives, indications of procedure discussed with patient including but not limited to bleeding, blood transfusion (with transfusion risks--viral or bacterial infection, reaction), damage to surrounding organs, infection, need to go back to OR during postoperative period or afterward, scarring, functional limitations, no improvement in symptoms, DVT/PE and anesthesia. She voiced understanding and wishes to proceed. Princess Celaya MD [address], [phone], [facility] 09/04/2023 20:43:55 09/19/2023 text/html Arely is a 43 y/o female presenting to clinic today for 2 week post op incision check after TLH BSO - performed on 09/06/23. She c/o dysuria that started x1 week ago. PT also reports diarrhea for the past week as well.Main c/o is vasomotor sx not being helped much by the patch. Would like to try HRT pills instead.No other problems recently. Feels much better than immediately postop. Princess Celaya MD [address], [phone], [facility] 09/21/2023 18:38:51 09/27/2023 text/html Arely is a 43 y/o in clinic for incision check following total hysterectomy on 09/06/23. Pt states the internal stitches are trying to 'come out'. Pt noticed the discomfort and itching yesterday. Denies drainage or redness. States is getting caught on her pants. States this has happened before with a shoulder surgery.Otherwise, she reports she is healing well and has no other complaints or concerns PAM JONAS CNM [address], [phone], [facility] 09/27/2023 17:11:11 OBGyn Episode No OBEpisode recorded.
--- OUTSIDE RECORDS SUMMARY | 2025-05-13 16:38 | XMS_ITS | Encounter Summary ---
Author Organization [facility] Address [address] [place] [address] Care Team Providers Care Weir Fisherman Name Role Phone Clinicpcvimal, Alona Retana Primary Care Pr ovider Reason for Visit * Reason Onset Date Comments MEDICATION REFILL 10/04/2022 Encounter Details Date Type Department Care Team (Late st Contact Info) Description 10/04/2022 Refill [facility] 2N ORTHOPEDICS [address] [place] [id number] Miguelito Wang, DO [address] [place] [address] MEDICATION REFILL Social History Tobacco Use Types Packs/Day Years Used Date Smoking Tobacco: Never Smokeless Tobacco: Never Alcohol Use Standard Drinks/Week Comments Yes 0 (1 standard drink = 0.6 oz pur e alcohol) rare Hunger Vital Sign Answer Date Recorded Within the past 12 months, y ou worried that your food would run out before you got the money to buy more. Never true 03/21/20 22 Within the past 12 months, t he food you bought just didn't last and you didn't have money to get more. 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 No / Unsure 09/12/2022 12:51 PM DISTRICT WIRE CHIEF documented as of this encounter Functional Status * Is person deaf or have serious hearing difficulty? Answer Date of Assessment Author No 03/21/2022 1:01 PM Armaan Ureña RN * Is person blind or have serious difficulty seeing? Answer Date of Assessment Author No 03/21/2022 1:01 PM Sa nara Ureña RN * Does person have serious difficulty walking/climbing stairs? Answer Date of Assessment Author No 03/21/2022 1:01 PM Sa nara Ureña RN * Does person have difficulty dressing/bathing? Answer Date of Assessment Author No 03/21/2022 1:01 PM Sa nara Ureña RN * Does person have difficulty doing errands alone? Answer Date of Assessment Author No 03/21/2022 1:01 PM Sa nara Ureña RN documented as of this encounter Mental Status * Does person have difficulty concentrating/remembering/making decisions? Answer Entry Date Author No 03/21/2022 1:01 PM Sa nara Ureña RN documented in this encounter Plan of Treatment Not on file documented as of this encounter Visit Diagnoses Not on filedocumented in this encounter Care Teams Weir Fisherman Relationship Specialty Start Date End Date Clinicpcp, Alona Retana [address] [place] [phone] PCP - [facility] 02/13/22 documented as of this encounter
--- OUTSIDE RECORDS SUMMARY | 2025-05-13 16:38 | XMS_ITS | Clinical Summary ---
Author Organization [facility] Address [address] [place] [address] Care Team Providers Care Catch Basin Cleaner Name Role Phone Clinicpcvimal, Alona Retana Primary Care Pr ovider Source Comments [facility] Affiliates and Associated Physician Practices is amultiple site organization consisting of ambulatory clinics and hospital sitesin [place], [place], [place] and [place]. This disclosure is being madepursuant to the Care Everywhere program and may not contain all information available regarding this patient. Last updated 18.[facility] Allergies Active Allergy Reactions Criticality Noted Date Comments Latex Rash Medium 03/15/2022 Penicillins Anaphylaxis High 01/12/2022 Patient recalls that she took penicillin in 2006 - [facility], PharmD, 03/22/22 Skin Adhesives Rash Medium 03/15/2022 Medications * Be aware that medications may not be up to date on this document. Alwaysverify current medications with the patient. cetirizine (ZyrTEC) 10 MG tablet TAKE 1 TABLET BY MOUTH ONCE DAILY NEEDED FOR ALLERGIES 2 Active ondansetron, disintegrating, (Zofran ODT) 4 MG tablet DISSOLVE 1 TABLET IN MOUTH EVERY 6 HOURS NEEDED FOR NAUSEA AND VOMITING 60 tablet 2 Active venlafaxine (Effexor) 37.5 MG tablet Take 1 (one) tablet by mouth 3 times daily with meals Active pantoprazole EC (Protonix) 20 MG tablet Take 1 (one) tablet by mouth 2 times daily 60 tablet 4 Active Active Problems Problem Noted Date Diagnosed Date Morbid obesity 03/21/2022 Family History Medical History Relation Name Comments Hypertension Father Relation Name Status Comments Father Social History Tobacco Use Types Packs/Day Years Used Date Smoking Tobacco: Never Smokeless Tobacco: Never Tobacco Cessation:Counseling Given: Not Answered Alcohol Use Standard Drinks/Week Comments Yes 0 (1 standard drink = 0.6 oz pur e alcohol) rare Hunger Vital Sign Answer Date Recorded Within the past 12 months, y ou worried that your food would run out before you got the money to buy more. Never true 03/21/20 Within the past 12 months, t he food you bought just didn't last and you didn't have money to get more. 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 Gender Identity Not on file Sexual Orientation Not on file Last Filed Vital Signs Vital Sign Reading Time Taken Comments Blood Pressure 112/76 03/28/2023 11:09 AM CDT Pulse 62 03/28/2023 11:09 AM CDT Temperature 36.8 C (98.2 F) 03/28/2022 9:18 AM CDT Respiratory Rate 16 03/22/2022 11:27 AM CDT Oxygen Saturation 97% 03/28/2023 11:09 AM CDT Inhaled Oxygen Concentration - - Weight 95.7 kg (211 lb) 03/28/2023 11:09 AM CDT Height 167.6 cm (5' 6 ) 03/28/2023 11:09 AM CDT Body Mass Index 34.06 03/28/2023 11:09 AM CDT Plan of Treatment Health Maintenance Due Date Last Done Comments LIPID TESTING 1980 MAMMOGRAM 1980 HIV SCREENING 1997 HEPATITIS C SCREENING 06/04/2000 DTAP/TDAP/TD VACCINES (1 - Tdap) 2001 HEPATITIS B VACCINE (1 of 3 - 19+ 3-dose series) 2001 PAP SMEAR 2003 HPV VACCINE (1 - 3-dose SCDM series) 2009 COVID-19 VACCINE (2023-2 5 season) 2024 DEPRESSION SCREENING 10/29/2024 SCREENING FOR DIABETES 03/22/2025 2, 03/15/2022 INFLUENZA VACCINE (#1) 2025 ZOSTER VACCINE (1 of 2) 2032 HIB VACCINE Aged Out No longer eligi ble based on patient's age to complete this topic MENINGOCOCCAL (Group B) VACCINE SHARED DECISION-MAKING Aged Out No longer eligible based on patient's age to complete this topic MENINGOCOCCAL GROUPS A/C/Y/W VACCINE Aged Out No longer eligible b ased on patient's age to complete this topic PNEUMOCOCCAL VACCINE Aged Out No long er eligible based on patient's age to complete this topic Procedures Procedure Name Priority Date/Time Associated Diagnosis Comments BASIC METABOLIC PANEL (CALCIUM TOTAL) AM Draw 03/22/2022 4:33 AM CDT from Last 3 Months or Most Recently Relevant to Health Maintenance Results * (ABNORMAL) BASIC METABOLIC PANEL (CALCIUM TOTAL) (03/22/2022 4:33 AM CDT) Glucose 101 70 - 105 mg/dL 03/22/2022 5:24 AM CDT [facility] Sodium 137 136 - 145 mmol/L 03/22/2022 5:24 AM CDT [facility] Potassium 4.0 3.5 - 5.1 mmol/L 03/22/2022 5:24 AM [facility] Chloride 109(H) 98 - 107 mmol/L 03/22/2022 5:24 AM CDT [facility] CO2 19(L) 23 - 31 mmol/L 03/22/2022 5:24 AM CDT [facility] Calcium 8.8 8.4 - 10.4 mg/dL 03/22/2022 5:24 AM T [facility] Anion Gap 9 8 - 18 mmol/L 03/22/2022 5:24 AM CDT [facility] BUN 9 7 - 18.7 mg/dL 03/22/2022 5:24 AM [facility] Creatinine 0.78 0.57 - 1.11 mg/dL 03/22/2022 5:24 AM [facility] eGFR by CKD-EPI >90 >=90 mL/min/1.7 3 m2 03/22/2022 5:24 AM [facility] Blood BLOOD SPECIMEN / Unknown Lab Venipuncture / Unknown 03/22/2022 4:33 AM CDT 03/22/2022 5:00 AM CDT Miguelito Wang DO LAB - CHEMISTRY ORDERABLES Final Result [facility] [address] [place] [phone] from Last 3 Months or Most Recently Relevant to Health Maintenance Insurance [facility] [place] MEDICAID HOME STATE HE[employer] PLAN Advance Directives * Full Code (Latest Code Status on File) Date Activated Date Inactivated Comments 03/21/2022 12:58 PM 03/22/2022 4:36 PM Care Teams Catch Basin Cleaner Relationship Specialty Start Date End Date Clinic[facility]ona [address] [place] [address] [facility] 02/13/22
--- OUTSIDE RECORDS SUMMARY | 2025-05-13 16:38 | XMS_ITS | Patient Health Record ---
Author Organization [facility] Address [address] [place] [place] [phone] Care Team Providers Care Senior Technical Program Manager Name Role Phone Non [facility] Provider, Provider Primary Care P wanda Unavailable POC, [facility] Unavailable Reason For Referral No Information Plan Of Treatment No Information Insurance Providers Payer Name Payer Address Payer Phone Subscriber Number Group Number Insured Name Patient Relationship to Insured Coverage Start Date Coverage End Date [facility] [address] [place] [address] Arely Gallegos Self - patient is the insured
--- OUTSIDE RECORDS SUMMARY | 2025-05-13 16:39 | XMS_ITS | Clinical Summary ---
Author Organization [facility] Address [address] [place] [address] Care Team Providers Care Marine Specialist Name Role Phone Unavailable Primary Care Provider Unavailabl e Allergies Active Allergy Reactions Criticality Noted Date Comments Penicillins Anaphylaxis High 05/25/2021 Medications FLUoxetine (PROzac) 20 mg capsule Take 40 mg by mouth daily. Active methylPREDNISo lone (MEDROL DOSPACK) 4 mg Tablets, Dose Pack Take 1 Tablet (4 mg) by mouth see administration instructions. 21 Tablet 2 Active Active Problems No known active problems Encounters Date Type Department Care Team Description 04/14/2025 External Device Data [facility]CTION Provider, Abstract 03/24/2025 External Device Data [facility] Provider, Abstract 03/19/2025 External Device Data [facility] Provider, Abstract 03/19/2025 External Device Data [facility] Provider, Abstract 03/18/2025 3:35 PM CDT - 03/18/2025 11:59 PM CDT Hospital Encounter [facility] [address] [place] [phone] Graeme Burrell MD Discharge Disposition: Home or Self Care from Last 3 Months Social History Tobacco Use Types Packs/Day Years Used Date Smoking Tobacco: Never Smokeless Tobacco: Never Comments Unknown Sex and Gender Information Value Date Recorded Sex Assigned at Not on file Legal Sex 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 Gender Identity Not on file Sexual Orientation Not on file Last Filed Vital Signs Vital Sign Reading Time Taken Comments Blood Pressure 131/86 02/03/2022 3:03 PM CDT Provider Notified Pulse 82 02/03/2022 3:03 PM CDT Temperature - - Respiratory Rate - - Oxygen Saturation - - Inhaled Oxygen Concentration - - Weight 140.6 kg (310 lb) 02/03/2022 3:0 3 PM CDT Height 167.6 cm (5' 6 ) 02/03/2022 3:03 PM CDT Body Mass Index 50.04 02/03/2022 3:03 PM CDT Plan of Treatment Health Maintenance Due Date Last Done Comments Pre-Diabetes and Diabetes Screening 1980 HEPATITIS B VACCINES (1 of 3 - 19+ 3-dose series) 2001 BREAST CANCER SCREENING 2022 INFLUENZA VACCINE (#1) 2025 08/14/2018 DTAP/TDAP/TD VACCINES (2 - T d or Tdap) 04/12/2030 04/12/2020 HPV VACCINES Aged Out No longer eligi ble based on patient's age to complete this topic Procedures Procedure Name Priority Date/Time Associated Diagnosis Comments PATHOLOGY Pathology 03/18/2025 9:28 AM CDT Macromastia from Last 3 Months Results * PATHOLOGY (03/18/2025 9:28 AM CDT) CASE REPORT Surgical Pathology Report Case: [id number] Authorizing Provider: Graeme Burrell MD Collected: 03/18/2025 09:28 AM Ordering Location: [facility] Received: 03/19/2025 11:08 AM Services [address] Pathologist: Ida Rodriguez MBBS Specimens: A) - Breast, right, R breast tissue 502g B) - Breast, left, L breast tissue 598g 03/20/2025 12:03 PM CDT [facility] FINAL DIAGNOSIS A. BREAST, LABELED R BREAST TISSUE , REDUCTION MAMMOPLASTY (502 GRAMS): - Benign skin and breast tissue. B. BREAST, LABELED L BREAST TISSUE , REDUCTION MAMMOPLASTY (598 GRAMS): - Benign skin and breast tissue. 03/20/2025 12:03 PM CDT [facility] at 1203 CDT GROSS DESCRIPTION A. Received in a formalin-filled container labeled with Arely Gallegos, 1980, and R breast tissue , is a 502 g 17.0 x 12.8 x 3.5 cm aggregate of yellow lobulated fibroadipose tissue and attached pink-gates unremarkable skin. The fragments are serially sectioned to reveal yellow lobulated fibroadipose tissue with white fibrous bands running throughout. Cadd Technician sections are submitted per cassette summary. Cassette summary: A1: Represent section of fibroadipose tissue A2: Cadd Technician section of fibroadipose tissue and attached skin HMO B. Received in a formalin-filled container labeled with Arely Gallegos, 1980, and L breast tissue, is a 598 g 23.5 x 14.5 x 3 cm aggregate of yellow lobulated fibroadipose tissue attached and detached pink-gates unremarkable skin. The fragments are serially sectioned to reveal yellow lobulated fibroadipose tissue with white fibrous bands running throughout signs and displays sales representative sections are submitted per cassette summary. Cassette summary: B1: Cadd Technician section of fibroadipose tissue B2: Cadd Technician section of fibroadipose tissue and attached skin ECM 03/20/2025 12:[address] [facility] MICROSCOPIC DESCRIPTION Microscopic evaluation substantiates the diagnosis captioned above. 03/20/2025 12:[address] [facility] OPERATIVE PROCEDURE BILATERAL BREAST REDUCTION 03/20/2025 12:[address] [facility] CLINICAL INFORMATION N62 - Macromastia [ICD-10-CM] 03/20/2025 12:[address] [facility] Tissue LEFT BREAST STRUCTURE / Unknown 03/18/2025 9:28 AM CDT 03/19/2025 11:08 AM CDT Tissue specimen (specimen) LEFT BREAST STRUCTURE / Unknown 03/18/2025 9:28 AM CDT 03/19/2025 11:08 AM CDT Graeme Burrell MD PATHOLOGY/CYTOLOGY ORDERABLES Fi nal Result [facility] [email or web address]] [id number] [address] [place] [address] from Last 3 Months [place] [employer] [employer]
--- NOTE | 2025-05-13 16:45 | ECG_ITS ---
[facility] Test Date: 2025-05-13 Pat Name: Arely Gallegos Department: Room: Gender: Female Die Developer: : 1980 Requested By: Damien Bhatt Order Number: [id number] Heath MD: Cezar Tesfaye M.D. Measurements Intervals [place] Rate: 58 P: 51 [place]: 145 QRS: 24 QRSD: 89 T: 39 QT: 390 QTc: 386 Interpretive Statements SINUS BRADYCARDIA Compared to ECG 01/31/2024 00:13:10 Sinus rhythm no longer present Electronically Signed On 05-13-2025 16:46:22 CDT by Cezar Tesfaye M.D. [email or web address]
[2025-05-13 19:23] LABS: Hematocrit 31.4 % (36-47); Hemoglobin 9.10 g/dL (11.27-16.99); Mean Corpuscular HGB Conc 29.0 g/dL (30-55); Mean Corpuscular Hemoglobin 23.6 pg (27-33); Mean Corpuscular Volume 81.3 fl (85-98); Nucleated Red Blood Cells % 0 %; Platelet Count 252 10^3/cmm (157-399); Red Blood Count 3.86 10^6/uL (3.85-5.65); White Blood Count 6.34 10^3/uL (3.29-11.43)
--- NOTE | 2025-05-13 19:45 | ECG_ITS ---
[facility] Test Date: 2025-05-13 Pat Name: Arely Gallegos Department: Room: Gender: Female Ict Support Technicians: : 1980 Requested By: Megha Urbina Order Number: [id number] Joe MD: Cezar Tesfaye M.D. Measurements Intervals [place] Rate: 53 P: 51 [place]: 155 QRS: 29 QRSD: 90 T: 42 QT: 411 QTc: 386 Interpretive Statements SINUS BRADYCARDIA Compared to ECG 05/13/2025 16:45:10 No significant changes Electronically Signed On 05-16-2025 14:14:32 CDT by Cezar Tesfaye M.D. [email or web address]
[2025-05-13 19:51] LABS: HCG, Serum Qual Negative (Negative)
[2025-05-13 20:03] LABS: Alanine Aminotransferase 11 U/L (0-33); Albumin Level 3.6 g/dL (3.5-5.2); Alkaline Phosphatase 107 U/L (35-105); Anion Gap 16.9 (5-19); Aspartate Amino Transferase 14 U/L (0-32); Blood Urea Nitrogen 14 mg/dL (6-20); Calcium 8.6 mg/dL (8.5-10.5); Carbon Dioxide 22 mmol/L (22-29); Chloride 105 mmol/L (98-107); Creatinine Clr Calc Pharmacy 120.9979; Globulin 2.9 g/dL (1.3-4.6); Glucose 85 mg/dL (65-115); Osmolality Calculated 290 mOsm/kg (285-295); Potassium 3.9 mmol/L (3.5-5.1); Sodium 140 mmol/L (136-145); Total Protein 6.5 g/dL (6.6-8.7)
--- NOTE | 2025-05-13 21:58 | ED_ITS ---
HPI - Syncope 2 General: Chief Complaint: Syncope Stated Complaint: [facility] Time Seen by Provider: 05/13/25 18:24 History of Present Illness: 44-year-old female patient presents to 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 Patient denies any fever. Patient denies any abdominal pain or urinary symptoms. Related Data Home Medications ?Medication ?Instructions ?Recorded ?Confirmed gabapentin 100 mg capsule 100 mg PO DAILY 09/17/2403/22 Previous Rx's ?Medication ?Instructions ?Recorded estradiol 2 mg tablet 2 mg PO DAILY #90 tabs 09/17 ondansetron 8 mg disintegrating 8 mg PO BID PRN nausea and 09/17/24 tablet vomiting #30 tabs pantoprazole 40 mg tablet,delayed 40 mg PO DAILY #30 t abs 09/17/24 release (Protonix) venlafaxine 150 mg 150 mg PO DAILY 30 days #30 caps 09/17/24 capsule,extended release 24 hr tramadol 50 mg tablet 50 mg PO Q6H PRN pain #20 ta bs 12/11/24 Allergies Allergy/AdvReac Type Severity Reaction Status Date / Time latex Allergy Unknown Verified 05/13/25 16:38 Penicillins Allergy ALGY-Hives Verified 05/13/25 16:38 morphine (From Duramorph AdvReac Severe ALGY-Difficulty Verified 05/13/25 16:38 (PF)) Breathing codeine AdvReac Unknown Verified 05/13/25 16:39 hydrocodone AdvReac Unknown Verified 05/13/25 16:39 oxycodone AdvReac Unknown Verified 05/13/25 16:39 Review of Systems 2 General: Reports: 10 or more systems reviewed and unremarkable except in HPI and below PFSH ED 2 PFSH: Medical History (Updated 05/13/25 @ 22:04 by Megha Urbina NP) GERD (gastroesophageal reflux disease) History of shoulder dystocia Urolithiasis Surgical History History of total hysterectomy History of open reduction and internal fixation (ORIF) procedure Left forearm at [place] Status post laparoscopic cholecystectomy (04/18/21) History of 07/2020 S/P ureteral stent placement 2006 History of elbow surgery 2006- [place] [facility] of [place]lectomy 1993- Performed in [facility] H/O shoulder surgery 2016- Performed in [facility] Left shoulder History of incision and drainage I&D of vulvar abscess, marsupialization procudure. 03/28/2012-Dx: right vulvar abscess [place] Dr Garcia [place] [facility] [place] H/O dilation and curettage 2002-Performed at [facility] in [place], [place] H/O foot surgery 2014- Performed in [facility] H/O wisdom tooth extraction 2000- Performed [facility] Family History Mother Depression Alcoholic Hypertension Father Hypertension Heart disease Social History Smoking and tobacco/nicotine status: never used tobacco/nicotine Alcohol intake: unknown Substance/Drug Use: never Do you think of yourself as: Straight/Heterosexual Physical Exam 2 Const: COMMON NORMALS: no acute distress, patient oriented x3, no limitations and alert ORIENTATION/CONSCIOUSNESS: Yes oriented to person and Yes oriented to place HENMT: COMMON NORMALS: normocephalic and atraumatic HEAD & SCALP: n ormocephalic and atraumatic Eye: COMMON NORMALS: Equal, round and reactive pupils present, EOMs intact bilaterally and conjunctivae normal (pale) CONJUNCTIVA: Yes conjunctivae normal (pale) PUPIL: Yes Equal, round and reactive pupils present Neck/C-Spine: COMMON NORMALS: full ROM, no lymphadenopathy, supple, no meningeal signs and no JVD Chest: COMMONS NORMALS: normal inspection of the chest and normal palpation of entire chest wall Resp: COMMON NORMALS: normal respiratory effort, No retractions and clear to auscultation bilaterally AUSCULTATION: clear to auscultation bilaterally Cardio: COMMON NORMALS: no JVD, regular rate (donald) and regular rhythm R ATE: regular rate (donald) RHYTHM: regular rhythm GI: COMMON NORMALS: Normal to inspection, nondistended, normoactive bowel sounds present, Soft to palpation and non-tender PALPATION: Yes Soft to palpation : COMMON NORMALS: Yes no CVA tenderness BLADDER/KIDNEY EXAM: Yes no CVA tenderness Back/Pelvis: COMMON NORMALS: no CVA tenderness, thoracic and lumbar spine normal to inspection, no thoracic nor lumbar tenderness and thoraco-lumbar ROM normal Neuro: COMMON NORMALS: patient oriented x3, CN's II-XII intact bilaterally, moves all extremities, no focal motor deficits, no sensory deficits noted and gait normal SENSORIUM/ORIENTATION: Yes alert, Yes oriented to person and Yes oriented to place MENINGEAL SIGNS: Yes no meningeal signs Psych: COMMON NORMALS: mental status grossly normal, Normal thought process present, cooperative, normal affect and speech normal SPEECH: Yes normal speech THOUGHT PROCESS: Normal thought process present Course 2 Vital Signs: Vital signs: Vital Signs Temperature 98.1 F 05/13/25 16:32 Pulse Rate 59 L 05/13/25 21:00 Respiratory Rate 18 05/13/25 16:32 Blood Pressure 107/77 05/13/25 21:30 Pulse Oximetry 97 05/13/25 21:30 Oxygen Delivery Me thod Room Air 05/13/25 21:30 MDM - Syncope Medical Decision Making 44-year-old female patient presents to the emergency department complaining of syncopal episode multiple times over the last few days patient states that she was seen by the [facility] and they sent her her here for evaluation patient states that she was told that she was anemic and had a hemoglobin of 8.6 and they 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 Patient denies any fever. Patient denies any abdominal pain or urinary symptoms. Patient is well-appearing nontoxic in no acute distress. Patient's labs are reassuring patient's hemoglobin is 9.1 which seems to have stabilized from her previous lab finding patient's chest x-ray is negative for any acute findings. Patient's EKG shows sinus bradycardia with a ventricular rate of 53 bpm patient is afebrile. Patient has not have any episodes of syncope while she was here in the emergency department as her vital signs of remained stable. I discussed sending patient home with meclizine and having her follow-up with her primary care physician patient states she does not feel comfortable going home given her multiple syncopal episodes I called and discussed this with Dr. Day hospitalist who is agreed to admit her for observation at this time. Patient's orthostatics are negative patient received 1 L of normal saline. Lab Data 05/13/25 19:08 05/13/25 19:08 Laboratory Results WBC 6.34 10^3/uL (3.29-11.43) 05/13/25 19:08 RBC 3.86 10^6/uL (3.85-5.65) 05/13/25 19:08 Hgb 9.10 g/dL (11.27-16.99) L 05/13/25 19:08 Hct 31.4 % (36-47) L 05/13/25 19:08 MCV 81.3 fl (85-98) L 05/13/25 19:08 MCH 23.6 pg (27-33) L 05/13/25 19:08 MCHC 29.0 g/dL (30-55) L 05/13/25 19:08 RDW 15.7 % (12.1-15.1) H 05/13/25 19:08 Plt Count 252 10^3/cmm (157-399) 05/13/25 19:08 MPV 9.1 fL (7.4-10.4) 05/13/25 19:08 Neut % (Auto) 55.4 % 05/13/25 19:08 Lymph % (Auto) 33.9 % 05/13/25 19:08 [place] % (Auto) 6.9 % 05/13/25 19:08 Eos % (Auto) 3.0 % 05/13/25 19:08 Baso % (Auto) 0.6 % 05/13/25 19:08 Neut # (Auto) 3.51 10^3/uL (1.8-7.7) 05/13/25 19:08 Lymph # (Auto) 2.2 10^3/uL (0.8-4.8) 05/13/25 19:08 [place] # (Auto) 0.4 10^3/uL (0.2-0.9) 05/13/25 19:08 Eos # (Auto) 0.2 10^3/uL (0.0-0.8) 05/13/25 19:08 Baso # (Auto) 0.0 10^3/uL (0.0-0.1) 05/13/25 19:08 Nucleated RBC % (auto) 0 % 05/13/25 19:08 Nucleated RBCs # 0.0 /100WBC 05/13/25 19:08 Sodium 140 mmol/L (136-145) 05/13/25 19:08 Potassium 3.9 mmol/L (3.5-5.1) 05/13/25 19:08 Chloride 105 mmol/L (98-107) 05/13/25 19:08 Carbon Dioxide 22 mmol/L (22-29) 05/13/25 19:08 Anion Gap 16.9 (5-19) 05/13/25 19:08 BUN 14 mg/dL (6-20) 05/13/25 19:08 Creatinine 0.7 mg/dL (0.5-0.9) 05/13/25 19:08 GFR Calculation 91.8 mL/min (90-130) 05/13/25 19:08 Glucose 85 mg/dL (65-115) 05/13/25 19:08 Calculated Osmolality 290 mOsm/kg (285-295) 05/13/25 19:08 Calcium 8.6 mg/dL (8.5-10.5) 05/13/25 19:08 Total Bilirubin 0.2 mg/dL (0.15-1.2) 05/13/25 19:08 AST 14 U/L (0-32) 05/13/25 19:08 ALT 11 U/L (0-33) 05/13/25 19:08 Alkaline Phosphatase 107 U/L (35-105) H 05/13/25 19:08 Total Protein 6.5 g/dL (6.6-8.7) L 05/13/25 19:08 Albumin 3.6 g/dL (3.5-5.2) 05/13/25 19:08 Globulin 2.9 g/dL (1.3-4.6) 05/13/25 19:08 HCG, Qual Negative (Negative) 05/13/25 19:08 All radiology interpretation(s) finalized by discharge Discharge Plan Discharge Patient Disposition: Admitted As Inpatient Clinical Impression: Syncope Qualifiers: Syncope type: unspecified Qualified Code(s): R55 - Syncope and collapse Condition: Stable Coding Level of Care Code ED [employer] Manager for Refugio Medrano
--- NOTE | 2025-05-13 22:12 | PC.NURSE ---
pt has a wound to left lower left breast, pt states she does a wet to dry dressing, this nurse did wound care and placed a wet to dry dressing to left breast.
[2025-05-14] VITALS (9 sets, daily range): BP systolic 90–124; BP diastolic 54–85; PULSE 55–71; RESP 16–18; TEMP 36.6–36.8; O2SAT 49–98; BMI 35.9
--- NOTE | 2025-05-14 00:23 | PM.HP ---
Providers/Chief Complaint Primary Care Provider: AMANDA Lazcano Chief Complaint: [facility] History of Present Illness 44-year-old female with a history of anemia, carpal tunnel syndrome s/p surgery, anxiety, depression, neuropathy, and GERD who presents after a syncopal episode yesterday. She reports she was changing bed sheets, which involved bending and twisting, when she experienced the abrupt onset of shortness of breath, lightheadedness, and dizziness, culminating in a loss of consciousness. She fell onto the bed and believes she was unconscious for approximately one to two minutes. The event was witnessed by her [id number] daughter. She denies any loss of bowel or bladder control. Upon regaining consciousness, she felt groggy but was able to get up. Since the event, she has had persistent lightheadedness and dizziness, described as a room-spinning sensation (vertigo), which is exacerbated by turning her head in any direction. She denies blurry vision, numbness, or tingling in her extremities. She reports some intermittent, non-exertional chest tightness associated with her episodes of dyspnea, but denies true chest pain. Of note, she has a history of gastric bypass surgery and takes bariatric vitamins three times daily as well as iron supplements, though she feels these have not adequately addressed her anemia. She denies any dark stools. She is s/p hysterectomy. Lab work from last night showed a hemoglobin of 9.1 and hematocrit of 31.4, which is a decline from 10.1 in January 2025 and 12.3 in 2022. Her MCV was 81, MCH 23, MCHC 29, and RDW 15.7. Electrolytes and renal function were WNL. Her LFTs are now normal, with the exception of a mildly elevated alkaline phosphatase at 107. A test was negative. Review of Systems General: Reports: 10 or more systems reviewed and unremarkable except in HPI and below Medications/Allergies Home Medications ?Medication ?Instructions ?Recorded ?Confirmed ?Last Taken ?Type estradiol 2 mg tablet 2 mg PO DAILY #90 tabs 09/17/24 12/31/24 12/17/24 Rx gabapentin 100 mg capsule 100 mg PO DAILY 09/17/24 12/31/24 12/17/24 History ondansetron 8 mg disintegrating 8 mg PO BID PRN nausea and 09/17/24 12/31/24 12/17/24 Rx tablet vomiting #30 tabs pantoprazole 40 mg tablet,delayed 40 mg PO DAILY #30 tabs 09/17/24 12/31/24 12/17/24 Rx release (Protonix) venlafaxine 150 mg 150 mg PO DAILY 30 days #30 caps 09/17/24 12/31/24 12/17/24 Rx capsule,extended release 24 hr tramadol 50 mg tablet 50 mg PO Q6H PRN pain #20 tabs 12/11/24 12/31/24 12/16/24 Rx Allergies Allergy/AdvReac Type Severity Reaction Status Date / Time latex Allergy Unknown Verified 05/13/25 16:38 Penicillins Allergy ALGY-Hives Verified 05/13/25 16:38 morphine (From Duramorph AdvReac Severe ALGY-Difficulty Verified 05/13/25 16:38 (PF)) Breathing codeine AdvReac Unknown Verified 05/13/25 16:39 hydrocodone AdvReac Unknown Verified 05/13/25 16:39 oxycodone AdvReac Unknown Verified 05/13/25 16:39 PFSH Acute PFSH: Medical History (Updated 05/14/25 @ 04:32 by Isabella Thomason MD) GERD (gastroesophageal reflux disease) History of shoulder dystocia Urolithiasis Surgical History History of total hysterectomy History of open reduction and internal fixation (ORIF) procedure Left forearm at [place] Status post laparoscopic cholecystectomy (04/18/21) History of 07/2020 S/P ureteral stent placement 2006 History of elbow surgery 2006- [place] [facility] of tonsillectomy 1993- Performed in [facility] H/O shoulder surgery 2016- Performed in [facility] Left shoulder History of incision and drainage I&D of vulvar abscess, marsupialization procudure. 03/28/2012-Dx: right vulvar abscess [place] Dr [place] [facility] [place], [place] H/O dilation and curettage 2002-Performed at [facility] in [place], [place] H/O foot surgery 2014- Performed in [facility] H/O wisdom tooth extraction 2000- Performed [facility] Family History Mother Depression Alcoholic Hypertension Father Hypertension Heart disease Social History Smoking and tobacco/nicotine status: never used tobacco/nicotine Alcohol intake: unknown Substance/Drug Use: never Do you think of yourself as: Straight/Heterosexual Vitals/I&O/Wt Last Vital Signs Temp 98.1 F 05/13/25 16:32 Pulse 63 05/13/25 23:46 Resp 16 05/13/25 23:46 BP 112/67 05/13/25 23:46 Pulse Ox 96 05/13/25 23:46 O2 Del Method Room Air 05/13/25 23:46 Weight last 48 hrs Weight 97.522 kg Physical Exam Narrative: General: Reports feeling lightheaded and dizzy with head movement. HEENT: Grossly unremarkable CV: RRR, no obvious murmurs Respiratory:CTABL Abdomen: Soft, NT, ND Neuro: No focal deficits Extremities: no edema Data 05/13/25 19:08 05/13/25 19:08 A&P Assessment and plan 1. Syncope: 2. Anemia: Plan: Impression: 44-year-old female with a complex medical history including chronic anemia, gastric bypass, and anxiety presents with syncope. # Syncope The syncopal episode appears to be multifactorial, potentially related to orthostasis from her underlying anemia or a vestibular process given the prominent vertigo with head movement. The episode was preceded by lightheadedness, dizziness, and SOB while physically active. Absence of focal neurologic deficits makes a CVA less likely. Plan: Obtain an echocardiogram in the morning to assess cardiac function and rule out a cardiogenic source. Further evaluation will be determined based on echocardiogram results and clinical course. Orthostatic vitals PT consult May consider brain imaging # Anemia Presents with a chronic microcytic anemia with Hgb of 9.1, down from 10.1 in January 2025. This is in the context of a history of gastric bypass surgery, which predisposes her to malabsorption. She takes iron-containing bariatric vitamins but her anemia persists. The etiology is likely iron deficiency, though other causes have not been ruled out. Plan: Obtain iron studies to confirm the etiology. Consider IV iron replacement based on the results. Chronic Problems # GERD Continue pantoprazole 40 mg daily. # Neuropathy Continue gabapentin 100 mg PRN. # Anxiety/Depression Continue Effexor 150 mg daily. # Hormone Replacement Continue estradiol as prescribed. Hx of hysterectomy #DVT prophylaxis SCD PDMP PDMP Reviewed: Not Reviewed Attestations Medical Necessity Statement*: Less than 2 midnight stay Coding Level of Care Code Acute Code for Chg Fwd Diagnoses Syncope R55 Anemia D64.9
[2025-05-14] MEDS: ondansetron 2 mg/ML SDV 2 mL 4 MG IVP (15:16)
[2025-05-14] MEDS: venlafaxine ER (24HR) 150 mg Capsule PO (15:42)
--- NOTE | 2025-05-14 16:38 | P.PN_ITS ---
Subjective 2 Subjective: 44-year-old female comes in wi th episode of passing out. She was changing the sheets on a twin bed for her daughter and lifted the bed but states this is not really heavy and she does it all the time felt lightheaded and passed out she thinks for 1 to 2 minutes. 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 She states another time was when she got up out of bed and felt dizzy couple times when she got off the toilet and often when she closed her eyes in the shower. She states that if she walks into a dark room she has balance problems. She states that sometimes she has dizziness and other times she has room spinning like vertigo. Patient gives a history of increasing sensitivity to caffeine and cannot tolerate high amounts. She reports headaches that are severe and migrainous she reports sleep disorder and had previously been on's CPAP but was 320 pounds at the time before her gastric bypass. That said she was told that she had central apnea. Patient with heart rate as low as 52 here is been going on for many years and she has found heart rates as low as the 40s from her watch. She is active but does not train cardiovascular exercise is not a runner Vitals/I&O/Wt Last Vital Signs Temp 98.1 F 05/14/25 16:00 Pulse 64 05/14/25 16:32 Resp 18 05/14/25 16:00 BP 122/76 05/14/25 16:32 Pulse Ox 97 05/14/25 16:00 O2 Del Method Room Air 05/14/25 16:00 05/14/25 05/14/25 05/14/25 06:59 14:59 22:59 Intake Total 1000 / 1000 50 / 50 Balance 1000 / 1000 50 / 50 Weight last 48 hrs Weight 99.337 kg Weight 99.337 kg Weight 97.522 kg Physical Exam 2 Narrative: General well-developed well-nourished female in no acute cardiopulmonary stress Pupils equally round and reactive to light accommodation CV regular rate and rhythm Lungs clear to auscultation bilaterally Mood and affect normal Data 05/13/25 19:08 05/13/25 19:08 A&P Assessment and plan 1. Syncope: Patient has signs and symptoms suspicious for Chiari malformation 1 with the sleep disorder, balance problems, sensitivity to caffeine, migraines, passing out and bradycardia to the 50s. Will proceed with MRI of the brain starting off with just the brain and's cervical cord. Will also check a dimer as PE is on the differential. If brain MRI does not find Chiari malformation will proceed with echo to look for structural abnormality and then proceed with Holter monitor outpatient. 2. Anemia: Patient has had iron deficiency anemia and looks like she has iron deficiency anemia now. Will check iron levels 3. Bradycardia: Patient had a gastric bypass 3 years ago. She has had bradycardia since 2020 which was before the bypass. Will check orthostatic blood pressures, TSH Plan: #DVT prophylaxis SCD PDMP PDMP Reviewed: Not Reviewed Attestations 2 Medical Necessity Statement*: Patient with constellation of symptoms suspicious for Chiari malformation 1 will be monitored in the hospital overnight with MRI of the brain Coding Level of Care Code Acute Code for Chg Fwd Diagnoses Syncope R55 Syncope type: unspecified Anemia D64.9 Bradycardia R00.1 Time Spent (min) 40 Comment Extended care
[2025-05-14 17:02] LABS: Iron 18 ug/dL (37-145); Magnesium 2.3 mg/dL (1.7-2.3); Thyroid Stimulating Hormone 2.14 uIU/mL (0.27-4.20); Total Iron Binding Capacity 388 mcg/dl; Unsaturated Iron Binding 370 ug/dL (112-347)
[2025-05-14] MEDS: AMITRIPTYLINE 10 MG PO (23:31)
--- NOTE | 2025-05-14 23:40 | PC.NURSE ---
Home Amitriptyline Patient's brought in patient RX bottle of Amitriptyline from home. This nurse was holding patient bottle at the top and reviewing the medication with telepharmacy on the phone. Patient bottle came open and fell to the floor, witnessed by Gladys Layton LPN. This nurse immediately picked up bottle and resecured lid. Tablets that were on the floor were swept up and counted by this nurse and Gladys Layton LPN. Count of Amitriptyline 10mg tabs that fell into floor is 106. supervisor steno pool Bailee Savage RN notified. 106 count of tablets that fell on the floor were disposed of, witnessed by Gladys Layton LPN and Bailee Savage RN. Patient notified of this event and verbalizes understanding. Nurse manager money CHU Trejo notified by this nurse.
[2025-05-15] VITALS: BP 109/66; PULSE 69; RESP 17; TEMP 36.5; O2SAT 98
[2025-05-15 04:00] VITALS: BP 106/59; PULSE 89; RESP 16; TEMP 36.8; O2SAT 95
[2025-05-15 05:08] LABS: Hematocrit 30.8 % (36-47); Hemoglobin 9.00 g/dL (11.27-16.99); Mean Corpuscular HGB Conc 29.2 g/dL (30-55); Mean Corpuscular Hemoglobin 23.4 pg (27-33); Mean Corpuscular Volume 80.2 fl (85-98); Nucleated Red Blood Cells % 0 %; Platelet Count 236 10^3/cmm (157-399); Red Blood Count 3.84 10^6/uL (3.85-5.65); White Blood Count 5.12 10^3/uL (3.29-11.43)
[2025-05-15 05:31] LABS: Anion Gap 15.0 (5-19); Blood Urea Nitrogen 13 mg/dL (6-20); Calcium 8.7 mg/dL (8.5-10.5); Carbon Dioxide 26 mmol/L (22-29); Chloride 105 mmol/L (98-107); Creatinine Clr Calc Pharmacy 122.1978; Glucose 80 mg/dL (65-115); Osmolality Calculated 293 mOsm/kg (285-295); Potassium 4.0 mmol/L (3.5-5.1); Sodium 142 mmol/L (136-145)
[2025-05-15 05:59] VITALS: BP 103/60; BP 105/62; BP 108/73; PULSE 59; PULSE 76
[2025-05-15 07:55] VITALS: BP 104/63; BP 112/64; BP 126/91; PULSE 67; PULSE 78; PULSE 79; RESP 16; TEMP 36.9; O2SAT 97
--- NOTE | 2025-05-15 08:00 | MR_ITS ---
WS: [id number] MRI BRAIN WITHOUT CONTRAST HISTORY: Suspected Chiari I malformation COMPARISON: None available. TECHNIQUE: Diffusion imaging, multiplanar T1, T2 and FLAIR imaging obtained. No evidence for acute infarct or hemorrhage. Auguste-white matter differentiation is normal. No remote or acute infarcts or volume loss. Ventricles and extra-axial spaces are normal. Minimal ectopia the cerebellar tonsils. No Chiari malformation. Visualized sella turcica is normal. Small caliber pituitary gland. Dural venous sinuses and [place] demonstrate no abnormality on this unenhanced studies. Normal flow voids. Paranasal sinuses: Clear. Mastoid air cells: Normal. Calvarium and scalp: Intact. MR/MR head wo con* [id number] IMPRESSION: 1. Unremarkable noncontrast MRI brain. 2. No acute infarct. Normal diffusion imaging. 3. No Chiari malformation. Minimal cerebellar ectopia.
[2025-05-15] MEDS: venlafaxine ER (24HR) 150 mg Capsule PO (08:38)
--- NOTE | 2025-05-15 09:18 | USCV_ITS ---
Arely Gallegos Age: 44 Gender: F : 1980 Exam Date: 05/15/2025 14:59 Ordering Phys: Osvaldo García MD Technologist: Exam Location: [facility] [place] Indication: cp BP: 100 / 68 HR: 81 Rhythm: Sinus Technical Quality: Adequate MEASUREMENTS (Male / Female) Normal Values 2D ECHO LV Diastolic Diameter PLAX 4.9 cm 4.2 - 5.9 / 3.9 - 5.3 cm IVS Diastolic Thickness 1.2 cm 0.6 - 1.0 / 0.6 - 0.9 cm IVS Systolic Thickness 1.5 cm LVPW Diastolic Thickness 1.3 cm 0.6 - 1.0 / 0.6 - 0.9 cm LVPW Systolic Thickness 2.2 cm LVOT Diameter 2.2 cm LV Ejection Fraction 2D Teich 67.0 % LV Ejection Fraction MOD 4C 62.6 % LV Ejection Fraction MOD 2C 60.1 % LV Ejection Fraction 2C AL 61.4 % LA Diameter 3.0 cm RA Systolic Volume 4C AL 44.9 ml RA Systolic Volume 4C MOD 44.6 ml Aorta at Sinotubular Diameter 3.3 cm IVC Diameter 1.7 cm M-MODE LA Ao Ratio MM 1.2 AV Cusp Separation MM 2.0 cm DOPPLER AV Peak Velocity 107.0 cm/s LVOT Peak Velocity 70.0 cm/s AV Area Cont Eq vti 2.7 cm squared AV Area Cont Eq pk 2.4 cm squared MV Peak Velocity 108.0 cm/s MV Area PHT 3.5 cm squared Mitral E to A Ratio 1.4 TV Peak Velocity 164.0 cm/s TR Peak Velocity 177.0 cm/s TR Peak Gradient 12.5 mmHg TV Peak E Velocity 89.0 cm/s PV Peak Velocity 95.0 cm/s FINDINGS Left Ventricle Left ankle is normal in size. LV systolic function is normal with EF of 55-60%. No regional wall motion abnormalities are seen. Right Ventricle Normal in size and function Right Atrium Normal in size Left Atrium Normal in size Mitral Valve Structurally normal mitral valve. Trace mitral regurgitation. Aortic Valve Structurally normal aortic valve. No significant stenosis or regurgitation. Tricuspid Valve Insufficient TR jet to calculate RVSP Pulmonic Valve Not well visualized Pericardium Normal Aorta Normal in size IVC Appears to be normal CONCLUSIONS LV systolic function is normal with EF of 55-60% Trace mitral regurgitation Romaine Huizar MD (Electronically Signed) Final Date: 18 May 2025 12:50 S
--- NOTE | 2025-05-15 11:20 | P.DS_ITS ---
Discharge Providers Date of Admission: 05/13/25 23:35 Date of Discharge: May 15, 2025 Attending Provider at Admission: Isabella Thomason Attending Provider at Discharge: Osvaldo García MD Primary Care Provider: AMANDA Lazcano Diagnoses at Discharge Discharge Diagnosis 1. Syncope: Details from hospital stay: MRI negative for Chiari malformation 1, inpatient telemetry showed bradycardia but not significant pauses to require a pacemaker echocardiogram to be done today prior to discharge and patient will have 14-day event monitor. Stop amitriptyline as that may be contributing to syncope 2. Iron deficiency anemia: Details from hospital stay: Iron sucrose 500 mg IV given over 4 hours. Follow-up with Dr. Henriquez for repeat EGD and first-time colonoscopy 3. Bradycardia: Details from hospital stay: See event monitor plan above Reason for Visit Reason for Visit: [facility]- [facility] Brief History: 44-year-old female with a history of ane abby, carpal tunnel syndrome s/p surgery, anxiety, depression, neuropathy, and GERD who presents after a syncopal episode yesterday. She reports she was changing bed sheets, which involved bending and twisting, when she experienced the abrupt onset of shortness of breath, lightheadedness, and dizziness, culminating in a loss of consciousness. She fell onto the bed and believes she was unconscious for approximately one to two minutes. The event was witnessed by her [id number] daughter. She denies any loss of bowel or bladder control. Upon regaining consciousness, she felt groggy but was able to get up. Since the event, she has had persistent lightheadedness and dizziness, described as a room-spinning sensation (vertigo), which is exacerbated by turning her head in any direction. She denies blurry vision, numbness, or tingling in her extremities. She reports some intermittent, non- exertional chest tightness associated with her episodes of dyspnea, but denies true chest pain. Of note, she has a history of gastric bypass surgery and takes bariatric vitamins three times daily as well as iron supplements, though she feels these have not adequately addressed her anemia. She denies any dark stools. She is s/p hysterectomy. Lab work from last night showed a hemoglobin of 9.1 and hematocrit of 31.4, which is a decline from 10.1 in January 2025 and 12.3 in 2022. Her MCV was 81, MCH 23, MCHC 29, and RDW 15.7. Electrolytes and renal function were WNL. Her LFTs are now normal, with the exception of a mildly elevated alkaline phosphatase at 107. A test was negative. Hospital Course Hospital Course 44-year-old female comes in with episode of passing out. She was changing the sheets on a twin bed for her daughter and lifted the bed but states this is not really heavy and she does it all the time felt lightheaded and passed out she thinks for 1 to 2 minutes. 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 She states another time was when she got up out of bed and felt dizzy couple times when she got off the toilet and often when she closed her eyes in the shower. She states that if she walks into a dark room she has balance problems. She states that sometimes she has dizziness and other times she has room spinning like vertigo. Patient gives a history of increasing sensitivity to caffeine and cannot tolerate high amounts. She reports headaches that are severe and migrainous she reports sleep disorder and had previously been on's CPAP but was 320 pounds at the time before her gastric bypass. That said she was told that she had central apnea. Patient with heart rate as low as 52 here is been going on for many years and she has found heart rates as low as the 40s from her watch. She is active but does not train cardiovascular exercise is not a runner She had heart rates slow but no significant pauses here. She is sent home on a event monitor for 14 days. I stopped the amitriptyline. The constellation of symptoms including headache, dizziness, ataxia, central apnea, bradycardia were suspicious for Chiari type I malformation so an MRI was done but that did not show Chiari malformation 1. This does not rule out other types of Chiari malformation but type I is the most likely associated with the bradycardia central apnea ataxia and passing out The patient's iron came backLow at 18 with percent sat 4.6% so she was given 500 mg of iron sucrose. She was awaiting [place] approval to start that outpatient. She should continue with outpatient infusions. She tells me that she took oral iron but it did not work and her doctor told her to stop it because it was useless patient has had a hysterectomy and does not have periods she has had an EGD whic h showed ulcers but is on PPI. She is following up with Dr. Florence deutsch for colonoscopy Physical Exam Narrative: General well-developed well-nourished female in no acute cardiopulmonary distress she is moderately obese CV regular rate and rhythm Lungs clear to auscultation bilaterally Abdomen positive bowel sounds soft nontender Discharge Data Studies Completed and Pending Completed Studies During Hospitalization Category Date Time Status MR head wo con* [id number] Urgent MRI 05/15/25 08:00 Completed Pending at discharge Category Date Time Status Basic Metabolic Panel AM LABS Lab 05/16/25 04:00 Ordered Basic Metabolic Panel AM LABS Lab 05/17/25 04:00 Ordered CV. echo complete* [id number] Routine Ultrasound 05/15/25 09:18 Ordered Radiology Impressions Head MRI 05/15/25 08:00 IMPRESSION: 1. Unremarkable noncontrast MRI brain. 2. No acute infarct. Normal diffusion imaging. 3. No Chiari malformation. Minimal cerebellar ectopia. Laboratory Results WBC 5.12 10^3/uL (3.29-11.43) 05/15/25 04:41 RBC 3.84 10^6/uL (3.85-5.65) L 05/15/25 04:41 Hgb 9.00 g/dL (11.27-16.99) L 05/15/25 04:41 Hct 30.8 % (36-47) L 05/15/25 04:41 MCV 80.2 fl (85-98) L 05/15/25 04:41 MCH 23.4 pg (27-33) L 05/15/25 04:41 MCHC 29.2 g/dL (30-55) L 05/15/25 04:41 RDW 15.6 % (12.1-15.1) H 05/15/25 04:41 Plt Count 236 10^3/cmm (157-399) 05/15/25 04:41 MPV 9.2 fL (7.4-10.4) 05/15/25 04:41 Neut % (Auto) 47.7 % 05/15/25 04:41 Lymph % (Auto) 39.6 % 05/15/25 04:41 Jenkins % (Auto) 8.0 % 05/15/25 04:41 Eos % (Auto) 3.7 % 05/15/25 04:41 Baso % (Auto) 0.8 % 05/15/25 04:41 Neut # (Auto) 2.44 10^3/uL (1.8-7.7) 05/15/25 04:41 Lymph # (Auto) 2.0 10^3/uL (0.8-4.8) 05/15/25 04:41 Jenkins # (Auto) 0.4 10^3/uL (0.2-0.9) 05/15/25 04:41 Eos # (Auto) 0.2 10^3/uL (0.0-0.8) 05/15/25 04:41 Baso # (Auto) 0.0 10^3/uL (0.0-0.1) 05/15/25 04:41 Nucleated RBC % (auto) 0 % 05/15/25 04:41 Nucleated RBCs # 0.0 /100WBC 05/15/25 04:41 D-Dimer 0.32 ug/mLFEU (0-0.59) 05/14/25 18:05 Sodium 142 mmol/L (136-145) 05/15/25 04:41 Potassium 4.0 mmol/L (3.5-5.1) 05/15/25 04:41 Chloride 105 mmol/L (98-107) 05/15/25 04:41 Carbon Dioxide 26 mmol/L (22-29) 05/15/25 04:41 Anion Gap 15.0 (5-19) 05/15/25 04:41 BUN 13 mg/dL (6-20) 05/15/25 04:41 Creatinine 0.7 mg/dL (0.5-0.9) 05/15/25 04:41 GFR Calculation 91.8 mL/min (90-130) 05/15/25 04:41 Glucose 80 mg/dL (65-115) 05/15/25 04:41 Calculated Osmolality 293 mOsm/kg (285-295) 05/15/25 04:41 Calcium 8.7 mg/dL (8.5-10.5) 05/15/25 04:41 Phosphorus 3.2 mg/dL (2.5-4.5) 05/13/25 19:08 Magnesium 2.3 mg/dL (1.7-2.3) 05/13/25 19:08 Iron 18 ug/dL (37-145) L 05/13/25 19:08 TIBC 388 mcg/dl 05/13/25 19:08 % Saturation 4.6 % (20-50) L 05/13/25 19:08 Unsat Iron Binding 370 ug/dL (112-347) H 05/13/25 19:08 Total Bilirubin 0.2 mg/dL (0.15-1.2) 05/13/25 19:08 AST 14 U/L (0-32) 05/13/25 19:08 ALT 11 U/L (0-33) 05/13/25 19:08 Alkaline Phosphatase 107 U/L (35-105) H 05/13/25 19:08 Total Protein 6.5 g/dL (6.6-8.7) L 05/13/25 19:08 Albumin 3.6 g/dL (3.5-5.2) 05/13/25 19:08 Globulin 2.9 g/dL (1.3-4.6) 05/13/25 19:08 TSH 2.14 uIU/mL (0.27-4.20) 05/13/25 19:08 HCG, Qual Negative (Negative) 05/13/25 19:08 Vitals Last Vital Signs Temp 98.4 F 05/15/25 07:55 Pulse 67 05/15/25 07:55 Resp 16 05/15/25 07:55 BP 104/63 05/15/25 07:55 Pulse Ox 97 05/15/25 07:55 O2 Del Method Room Air 05/15/25 07:55 Discharge Plan Discharge Patient Disposition: Home Condition: Stable Prescriptions: Continued venlafaxine 150 mg capsule,extended release 24hr 150 mg PO DAILY 30 Days Qty: 30 5RF pantoprazole [Protonix] 40 mg tablet,delayed release (DR/EC) 40 mg PO DAILY Qty: 30 5RF gabapentin 100 mg capsule 100 mg PO DAILY Dose Instruction: TAKE 1 CAPSULE BY MOUTH THREE TIMES DAILY ondansetron 8 mg tablet,disintegrating 8 mg PO BID PRN (Reason: nausea and vomiting) Qty: 30 0RF estradiol 2 mg tablet 2 mg PO DAILY Qty: 90 1RF cetirizine [Zyrtec] 10 mg Tablet 10 mg PO DAILY Discontinued amitriptyline 10 mg tablet 10 mg PO BEDTIME Other Ambulatory Orders: MCT/Event Monitor 14 Days (Routine) Timeframe: 20250515 Facility: [facility] - Location: Radiology Ordered By: Osvaldo García Referrals: Val Rossi FNP [Primary Care Provider, Nurse Practitioner] Discharge Diet: Usual diet Discharge Activity: Resume usual activity Patient Instructions: Patient Portal & Rosalio Instructions Activity Restrictions/Additional Instructions: Follow-up with the [place] for further iron infusions Take oral iron if tolerated Follow-up with Dr. Carmichael for EGD and colonoscopy Continue PPI Stop amitriptyline as that can cause orthostatic hypotension and syncope Discharge Attestations Time Spent in Discharge Care*: greater than 30 min Time Spent in Smoking Cessation: Not a smoker Status at Discharge: Cognitive status at discharge: cognitively intact , Behavioral status at discharge: cooperative , Quality Metrics Clinical Quality Measures [ No reported AMI, CVA or VTE this stay] Coding Level of Care Code 01055 Diagnoses Syncope R55 Iron deficiency anemia D50.9 Bradycardia R00.1 Time Spent (min) 40
[2025-05-15 11:57] VITALS: BP 107/60; PULSE 71; RESP 15; TEMP 36.7; O2SAT 96
--- NOTE | 2025-05-15 16:23 | PC.SOCIAL ---
Faxed the [facility] paperwork.
[2025-05-15 17:10] VITALS: BP 103/70; PULSE 66; RESP 18; TEMP 37; O2SAT 97
== END 2025-05-15 16:22 | disposition home or self-care (01) | DRG 812 ==
LOC: ER 22:04 → MEDSURG 05-14 01:24
PROVIDERS: Emergency Medicine; Admitting Provider Hospitalist; Emergency Provider Registered Nurse; PCP Nurse Practitioner; Visit Provider Internal Medicine
DX: D50.9 Iron deficiency anemia, unspecified (principal); R00.1 Bradycardia, unspecified; F41.9 Anxiety disorder, unspecified; K21.9 Gastro-esophageal reflux disease without esophagitis; G62.9 Polyneuropathy, unspecified; F32.A Depression, unspecified; Z98.84 Bariatric surgery status; Z79.890 Hormone replacement therapy
CPT/HCPCS: 36415; 70551; 80048; 80053; 83540; 83550; 83735; 84100; 84443; 84703; 85025; 85378; 93005; 93306; 96372; 99285; J1756; J1885; J2405; J7030; J7050; J8499; J9999

== ENCOUNTER → 2025-05-20 09:47 | Outpatient (BNVA) | payer OTHER, SELFPAY | PROVIDERS: PCP Nurse Practitioner; Visit Provider Physician Assistant | DX: M77.11 Lateral epicondylitis, right elbow (principal); Z09 Encounter for follow-up examination after completed treatment for conditions other than malignant neoplasm | CPT/HCPCS: 20600; 99212; 99213; J3301; J3490; J9999 ==

== ENCOUNTER 2025-05-25 15:17 | Oncology outpatient (recurring) (ONCR) | payer OTHER, SELFPAY ==
[2025-05-25] MEDS: ferric derisomaltose 1,000 MG in sodium chloride 0.9% (100 ml) 100 ML 330 MG IV (16:12)
[2025-05-25 16:48] VITALS: BP 115/77; PULSE 65; RESP 16; TEMP 36.1; O2SAT 97
== END 2025-05-28 23:59 | disposition home or self-care (01) ==
PROVIDERS: PCP Nurse Practitioner; Visit Provider Internal Medicine Medical Oncology
DX: D50.9 Iron deficiency anemia, unspecified (principal); Z79.899 Other long term (current) drug therapy; Z98.84 Bariatric surgery status
CPT/HCPCS: 96365; 99204; J1437

== ENCOUNTER 2025-07-13 15:39 | Outpatient (CLI) | payer OTHER, SELFPAY ==
--- NOTE | 2025-07-13 15:47 | MM_ITS ---
WS: [id number] BILATERAL 3D TOMOSYNTHESIS DIGITAL SCREENING MAMMOGRAPHY WITH CAD CLINICAL INFORMATION: SCREEN HISTORY: Screening mammogram. No current complaints. History of breast reduction COMPARISON: 2023 TECHNIQUE: Bilateral CC and MLO views. FINDINGS: Scattered fibroglandular densities bilaterally. No suspicious focal mass, asymmetry, calcifications, or architectural distortion. No evidence of malignancy. MM/MM [facility] tomosynthesis [id number] IMPRESSION: DENSITY: There are scattered areas of fibroglandular density. BI-RADS: 1 - Negative. FOLLOW UP: 1 Year Follow-up Recommend return to annual screening mammography.
== END 2025-07-13 15:40 | disposition home or self-care (01) ==
LOC: RAD 15:40
PROVIDERS: PCP Nurse Practitioner; Visit Provider Nurse Practitioner
DX: Z12.31 Encounter for screening mammogram for malignant neoplasm of breast (principal)
CPT/HCPCS: 77063; 77067

== ENCOUNTER → 2025-07-15 15:02 | Outpatient (BNVA) | payer OTHER, SELFPAY | PROVIDERS: PCP Nurse Practitioner; Visit Provider Physician Assistant | DX: M77.11 Lateral epicondylitis, right elbow (principal); G56.31 Lesion of radial nerve, right upper limb | CPT/HCPCS: 73080; 99213 ==

== ENCOUNTER 2025-07-20 14:55 | Oncology outpatient (recurring) (ONCR) | payer OTHER, SELFPAY ==
[2025-07-20 15:18] LABS: Hematocrit 37.3 % (36-47); Hemoglobin 12.00 g/dL (11.27-16.99); Mean Corpuscular HGB Conc 32.2 g/dL (30-55); Mean Corpuscular Hemoglobin 28.0 pg (27-33); Mean Corpuscular Volume 86.9 fl (85-98); Nucleated Red Blood Cells % 0 %; Platelet Count 274 10^3/cmm (157-399); Red Blood Count 4.29 10^6/uL (3.85-5.65); White Blood Count 6.94 10^3/uL (3.29-11.43)
[2025-07-20 15:41] LABS: Alanine Aminotransferase 16 U/L (0-33); Albumin Level 4.0 g/dL (3.5-5.2); Alkaline Phosphatase 106 U/L (35-105); Anion Gap 14.3 (5-19); Aspartate Amino Transferase 16 U/L (0-32); Blood Urea Nitrogen 20 mg/dL (6-20); Calcium 8.9 mg/dL (8.5-10.5); Carbon Dioxide 24 mmol/L (22-29); Chloride 105 mmol/L (98-107); Creatinine Clr Calc Pharmacy 123.3249; Ferritin 96 ng/mL (15-150); Globulin 2.7 g/dL (1.3-4.6); Glucose 71 mg/dL (65-115); Iron 61 ug/dL (37-145); Osmolality Calculated 289 mOsm/kg (285-295); Potassium 4.3 mmol/L (3.5-5.1); Sodium 139 mmol/L (136-145); Total Iron Binding Capacity 271 mcg/dl; Total Protein 6.7 g/dL (6.6-8.7); Unsaturated Iron Binding 210 ug/dL (112-347)
[2025-07-20 15:55] LABS: Vitamin B12 1234 pg/mL (232-1245)
== END 2025-07-28 23:59 | disposition home or self-care (01) ==
PROVIDERS: PCP Nurse Practitioner; Visit Provider Internal Medicine Medical Oncology
DX: D50.9 Iron deficiency anemia, unspecified (principal); U07.1 COVID-19; Z98.84 Bariatric surgery status; Z79.899 Other long term (current) drug therapy
CPT/HCPCS: 36415; 80053; 82607; 82728; 82746; 83010; 83540; 83550; 85025; 99213

== ENCOUNTER → 2025-08-03 09:16 | Outpatient (BNVA) | payer OTHER, SELFPAY | PROVIDERS: PCP Nurse Practitioner; Visit Provider Podiatrist Foot & Ankle Surgery | DX: M79.671 Pain in right foot (principal); S92.354K Nondisplaced fracture of fifth metatarsal bone, right foot, subsequent encounter for fracture with nonunion; X58.XXXD Exposure to other specified factors, subsequent encounter | CPT/HCPCS: 73630; 99204 ==

== ENCOUNTER 2025-08-05 15:43 | Oncology outpatient (recurring) (ONCR) | payer OTHER, SELFPAY ==
--- NOTE | 2025-08-05 16:00 | MR_ITS ---
WS: [id number] MRI RIGHT ELBOW WITHOUT CONTRAST. COMPARISON: Radiographs 07/15/2025 Multiplanar, multisequence imaging is performed without contrast. History: RIGHT elbow pain. Prior history of ulnar nerve surgery. Abnormal signal in the common extensor tendon at the insertion to the lateral humeral epicondyle. Fluid signal consistent with a partial tear of the radial collateral ligament and the common extensor tendon. There is mild thickening and intermediate signal in the common extensor tendon. There is marrow edema in the lateral humeral epicondyle at the insertion site of the radial collateral ligament and common extensor tendon. No fracture identified. Multiple well-circumscribed osseous fragments along the medial epicondyle from a prior injury. The ulnar collateral ligament has undergone prior surgery. The ulnar collateral ligament is very small caliber but otherwise appears to be intact. There is no associated marrow edema along the course of the ulnar collateral ligament. No joint effusion. Biceps tendon, brachialis and radiobrachialis tendons are normal. No muscle atrophy or edema. Triceps tendon is intact. MR/MR elbow RT wo con* [id number] IMPRESSION: 1. Partial tear involving the radial collateral ligament and the adjacent comm on extensor tendon. Additional tendinopathy in the common extensor tendon at th e humeral epicondyle. 2. Marrow edema in the lateral humeral epicondyle at the insertion site of the radial collateral ligament and common extensor tendon. 3. Multiple well-circumscribed osseous fragments along the medial epicondyle f rom a prior trauma. 4. No joint effusion.
== END 2025-08-28 23:59 | disposition home or self-care (01) ==
LOC: ONCMED 15:45
PROVIDERS: PCP Nurse Practitioner; Visit Provider Internal Medicine Medical Oncology
DX: M77.10 Lateral epicondylitis, unspecified elbow (principal); G56.31 Lesion of radial nerve, right upper limb; M25.521 Pain in right elbow; M67.823 Other specified disorders of tendon, right elbow; R60.0 Localized edema; R93.6 Abnormal findings on diagnostic imaging of limbs
CPT/HCPCS: 73221

== ENCOUNTER → 2025-09-02 14:55 | Outpatient (BNVA) | payer OTHER, SELFPAY | PROVIDERS: PCP Nurse Practitioner; Visit Provider Student in an Organized Health Care Education/Training Program | DX: S53.20XA Traumatic rupture of unspecified radial collateral ligament, initial encounter (principal); X58.XXXA Exposure to other specified factors, initial encounter; M77.11 Lateral epicondylitis, right elbow | CPT/HCPCS: 99213 ==

== ENCOUNTER 2025-09-11 06:52 | Day surgery (SDC) | payer OTHER, SELFPAY ==
[2025-09-11] VITALS (8 sets, daily range): BP systolic 98–126; BP diastolic 60–91; PULSE 70–83; RESP 12–18; TEMP 36–36.7; O2SAT 95–99; BMI 34.1
--- NOTE | 2025-09-11 | XR_ITS ---
WS: [id number] XR foot RT 2V [id number] REASON FOR EXAM: Open reduction internal fixation right fifth metatarsal frac FINDINGS: Small plate and screw fixation of horizontal fracture through the tubercle at the base of the fifth metatarsal. Surgical appliances are intact and in proper position and alignment. Fracture fragments are in good apposition and alignment. XR/XR foot RT 2V [id number] IMPRESSION: Fifth metatarsal fracture with internal fixation without abnormality.
--- NOTE | 2025-09-11 06:20 | P.HP_ITS ---
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 Miller fracture of the fifth metatarsal: The patient sustained a Miller fracture of the fifth metatarsal on February 08, 2025, after stepping incorrectly while visiting [place], [place]. Initial treatment included immobilization in a CAM boot, but the patient continues to experience significant pain, especially when barefoot. The fracture has not healed, as confirmed by imaging, and the patient reports that the pain is exacerbated by prolonged standing and walking. The patient has been using custom orthotics, but they have not provided significant relief. The patient has a hi story of a previous surgery on the foot, which involved excision of a bone segment, but details of this surgery are unclear. Review of Systems General: Reports: 10 or more systems reviewed and unremarkable except in HPI and below Const: Denies: fever(s) or chills Eyes: Denies: change in vision Card: Denies: chest pain or palpitations Resp: Denies: dyspnea or productive cough GI: Denies: abdominal pain, nausea or vomiting : Denies: flank pain Musc: Reports: extremity pain, joint pain, joint stiffness, limited range of motion and deformity Skin/Breast: Reports: skin tenderness; Denies: rash Neuro: Reports: difficulty walking; Denies: numbness in extremities, sensory changes or frequent falls Psych: Denies: suicidal ideation Jasper/Lymph: Denies: easy bruising Medications/Allergies Home Medications ?Medication ?Instructions ?Recorded ?Confirmed ?Last Taken ?Type estradiol 2 mg tablet 2 mg PO DAILY #90 tabs 09/1709/10/25 09/10/25 Rx gabapentin 100 mg capsule 100 mg PO DAILY 09/17/2409/10/25 History ondansetron 8 mg disintegrating 8 mg PO BID PRN nausea and 09/17/24 09/10/25 12/17/24 Rx tablet vomiting #30 tabs pantoprazole 40 mg tablet,delayed 40 mg PO DAILY #30 t abs 09/17/24 09/10/25 09/10/25 Rx release (Protonix) cetirizine 10 mg tablet (Zyrtec) 10 mg PO DAILY 0709/10/25 09/10/25 History venlafaxine 225 mg tablet,extended 225 mg PO DAILY 09/10/25 09/10/25 History release 24 hr Allergies Allergy/AdvReac Type Severity Reaction Status Date / Time latex Allergy ALGY-Bliste Verified 09/10/25 09:54 r Penicillins Allergy ALGY-Anaphy Verified 09/10/25 09:54 laxis morphine (From Duramorph AdvReac Severe ALGY-Difficulty Verified 09/02/25 07:42 (PF)) Breathing codeine AdvReac ALGY-Difficulty Verified 09/10/25 09:54 Breathing hydrocodone AdvReac ALGY-Difficulty Verified 09/10/25 09:55 Breathing oxycodone AdvReac ALGY-Difficulty Verified 09/10/25 09:55 Breathing PFSH PFSH: Medical History (Updated 09/11/25 @ 06:22 by Mann Curtis DPM) Bradycardia GERD (gastroesophageal reflux disease) History of shoulder dystocia Urolithiasis Surgical History History of total hysterectomy History of open reduction and internal fixation (ORIF) procedure Left forearm at [place] Status post laparoscopic cholecystectomy (04/18/21) History of 07/2020 S/P ureteral stent placement 2006 History of elbow surgery 2006- Performed at [facility] History of tonsillectomy 1993- Performed in [facility] H/O shoulder surgery 2015- Performed in [facility] Left shoulder History of incision and drainage I&D of vulvar abscess, marsupialization procudure. 03/28/2012-Dx: right vulvar abscess Performed by Dr Garcia at [facility] in [place], [place] H/O dilation and curettage 2002-Performed at [facility] in [place], [place] H/O foot surgery 2014- Performed in [facility] H/O wisdom tooth extraction 2000- Performed [facility] Family History Mother Depression Alcoholic Hypertension Father Hypertension Heart disease Social History Smoking and tobacco/nicotine status: never used tobacco/nicotine Alcohol intake: unknown Substance/Drug Use: never Do you think of yourself as: Straight/Heterosexual Dietary Habits: Caffeine: Yes Physical Exam Narrative: EXAM NARRATIVE: Pain to palpation of right fifth metatarsal base. No gross deformity or acute dislocation. Const: COMMON NORMALS: no acute distress, patient oriented x3 and alert HENMT: COMMON NORMALS: normocephalic HEAD & SCALP: normocephalic Eye: COMMON NORMALS: Equal, round and reactive pupils present, EOMs intact bilaterally and conjunctivae normal CONJUNCTIVA: Yes conjunctivae normal PUPIL: Yes Equal, round and reactive pupils present Chest: CHEST: Yes Symmetrical chest wall rise Resp: COMMON NORMALS: normal respiratory effort, No use of accessory muscles and clear to auscultation bilaterally EFFORT & INSPECTION: Yes able to speak in complete sentences and Yes symmetric chest movement AUSCULTATION: clear to auscultation bilaterally Cardio: COMMON NORMALS: regular rate, regular rhythm, No murmurs present (Cardio) and Peripheral pulses 2+ throughout RATE: regular rate RHYTHM: regular rhythm PERIPHERAL PULSES: Peripheral pulses 2+ throughout Extremity: COMMON NORMALS: capillary refill normal and no calf tenderness NARRATIVE EXTREMITY EXAM: Edema to the right lateral forefoot. GENERAL: Yes edema LEFT LOWER EXTREMITY: Yes ankle joint (No pain at lateral collateral ankle ligaments. Negative anterior drawer.) Left ankle: Yes inspection (No abrasion or laceration), Yes palpation (Pain to palpation medial and lateral malleolus.), Yes ROM (Guarded secondary to pain), Yes neurovascular exam (Dorsalis pedis and posterior tibial arteries palpable) and Yes other and Yes foot & digits OTHER: Pain to palpation right fifth metatarsal base, no pain to palpation at right Lisfranc ligament. Pain with dorsiflexion and eversion right foot. Neuro: COMMON NORMALS: patient oriented x3 SENSORIUM/ORIENTATION: Yes alert OTHER: Protective sensation intact to light touch of the right foot. Psych: COMMON NORMALS: mental status grossly normal and cooperative Skin: COMMON NORMALS: no wounds NARRATIVE SKIN EXAM: No laceration, abrasion or fracture blister to the right foot. Ecchymosis right lateral forefoot. GENERAL SKIN EXAM: no erythema TRAUMA: no lacerations HAIR: general thinning A&P Assessment and plan 1. Closed fracture of base of fifth metatarsal bone of right foot at metaphyseal-diaphyseal junction with delayed healing, subsequent encounter: Plan: Assessment & Plan 1. 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 Assessment and Plan 45-year-old female with a history of a Miller fracture of the fifth metatarsal presenting with persistent pain and nonunion. The fracture has not healed, likely due to the anatomical challenges associated with the fifth metatarsal, including limited blood supply and tendon pull. The patient has been compliant with orthotic use and immobilization, yet continues to experience significant discomfort, indicating a symptomatic nonunion. 1. Miller Fracture Of The Fifth Metatarsal The plan includes surgical intervention to address the nonunion, with options including a single screw fixation or a hook plate, depending on intraoperative findings. The patient will undergo outpatient surgery with sedation and local anesthesia, followed by a period of non-weightbearing for six weeks. Postoperative pain management will include the use of Exparel for extended numbness and Tylenol for pain control, given the patient's allergies and sensitivities to other analgesics. - Schedule surgery for a Sunday that works for you. - Plan for six weeks of non-weightbearing after surgery. - Use Tylenol for pain management post-surgery. The decision to proceed with surgical intervention is based on the persistent pain and nonunion of the Miller fracture, which has not responded to conservative management. The anatomical challenges of the fifth metatarsal, including limited blood supply and tendon pull, contribute to the nonunion. Surgical options include a single screw fixation or a hook plate, with the choice dependent on intraoperative findings. Postoperative care will focus on pain management with Xperol and Tylenol, considering the patient's allergies and sensitivities. I reviewed at length with the patient, the risks, potential complications, benefits, alternatives, expectations, and typical outcomes associated with the surgery. The risks and potential complications were explained in detail, including but not limited to infection, wound dehiscence or soft tissue complications, bleeding and hematoma, chronic edema, neuritis or nerve damage p roducing numbness or chronic pain, CRPS, failure to relieve pain or worsening pain, thick / painful / unsightly scar, limited motion / stiffness, malposition, delayed union, malunion, or nonunion, fracture, reaction to implants, anesthetic complications, venous thromboembolism, and deformity recurrence. I discussed the notion of no regrets with the patient as it pertains to complications and outcomes. The patient seemed to understand the nature of the proposed care and required convalescence. They asked appropriate questions, answered to their satisfaction. They are aware no guarantees can be made as to a satisfactory outcome and they understand there may be other possible unforeseen complications or outcomes not listed here that will be treated accordingly if they arise. There were no written or implied guarantees given to the patient. They gave informed consent to proceed. Local MAC versus LMA per anesthesia preference, gurney, supine, mini C arm, small power, Start, 30 minutes PDMP PDMP Reviewed: Not Reviewed Coding Level of Care Code Acute Code for Chg Fwd Diagnoses Closed fracture of base of fifth metatarsal bone of right foot at metaphyseal- diaphyseal junction with delayed healing, subsequent encounter S99.191G Encounter type: subsequent encounter Fracture type: closed Laterality: right Fracture healing: with delayed healing
--- NOTE | 2025-09-11 07:26 | P.ANESASSM_ITS ---
Pre-Anesthetic Assessment Height/Weight: Height 5 ft 5 in Preop Diagnosis: Right fifth metatarsal fracture Operation Date: 09/11/25 08:30 Proposed Procedures p ORIF right fifth Metatarsal(Right) - Mann Curtis DPM Was Beta Jakub taken within 24 hours: N/A Was Clonidine taken within 24 hours: N/A Social No alcohol and No tobacco Exam alert, oriented x 3, clear to auscultation bilaterally and regular rate & rhythm Airway Submandibular: within normal limits Cervical ROM: within normal limits Mallampati: Class I Dentition: full Anesthetic Plan ASA status: 2 Anesthesia: MAC Other: No prior issues with anesthesia NPO since yesterday evening History of GERD on Protonix States that she had prior JOLYNN but has since lost some weight and does not need CPAP anymore Denies any cardiac or pulmonary issues EKG sinus rhythm METs greater than 4 Plan for MAC anesthetic with local via surgeon Medications/Allergies Home Medications ?Medication ?Instructions ?Recorded ?Confirmed ?Last Taken ?Type estradiol 2 mg tablet 2 mg PO DAILY #90 tabs 09/1709/10/25 09/11/25 04:00 Rx gabapentin 100 mg capsule 100 mg PO DAILY 09/17/2409/11/25 04:00 History ondansetron 8 mg disintegrating 8 mg PO BID PRN nausea and 09/17/24 09/11/25 09/10/25 Rx tablet vomiting #30 tabs pantoprazole 40 mg tablet,delayed 40 mg PO DAILY #30 t abs 09/17/24 09/10/25 09/11/25 04:00 Rx release (Protonix) cetirizine 10 mg tablet (Zyrtec) 10 mg PO DAILY 09/10/25 09/11/25 04:00 History venlafaxine 225 mg tablet,extended 225 mg PO DAILY 09/10/25 09/11/25 04:00 History release 24 hr Allergies Allergy/AdvReac Type Severity Reaction Status Date / Time latex Allergy ALGY-Bliste Verified 09/10/25 09:54 r Penicillins Allergy ALGY-Anaphy Verified 09/10/25 09:54 laxis morphine (From Duramorph AdvReac Severe ALGY-Difficulty Verified 09/02/25 07:42 (PF)) Breathing codeine AdvReac ALGY-Difficulty Verified 09/10/25 09:54 Breathing hydrocodone AdvReac ALGY-Difficulty Verified 09/10/25 09:55 Breathing oxycodone AdvReac ALGY-Difficulty Verified 09/10/25 09:55 Breathing PFSH Anesthesia Medical History (Updated 09/11/25 @ 06:22 by Mann Curtis DPM) Bradycardia GERD (gastroesophageal reflux disease) History of shoulder dystocia Urolithiasis Surgical History History of total hysterectomy History of open reduction and internal fixation (ORIF) procedure Left forearm at [place] Status post laparoscopic cholecystectomy (04/18/21) History of 07/2020 S/P ureteral stent placement 2006 History of elbow surgery 2006- [place] [facility] History of tonsillectomy 1993- Performed in [facility] H/O shoulder surgery 2015- Performed in [facility] Left shoulder History of incision and drainage I&D of vulvar abscess, marsupialization procudure. 03/28/2012-Dx: right vulvar abscess Performed by Dr Garcia at [facility] in [place], [place] H/O dilation and curettage 2002-Performed at [facility] in [place], [place] H/O foot surgery 2014- Performed in [facility] H/O wisdom tooth extraction 2000- Performed [facility] Family History Mother Depression Alcoholic Hypertension Father Hypertension Heart disease Social History Smoking and tobacco/nicotine status: never used tobacco/nicotine Alcohol intake: unknown Substance/Drug Use: never Do you think of yourself as: Straight/Heterosexual Data Anesthesia Cardiac Studies: Echocardiogram 05/15/25 Cardiac Event Monitor 05/15/25
--- NOTE | 2025-09-11 08:07 | P.HPUD_ITS ---
Surgery/Procedure H&P Update DATE OF PROCEDURE: September 11, 2025 DATE H&P PERFORMED: 09/11/25 H&P UPDATE INFORMATION: I have reviewed H&P completed within last 30 days, I have examined patient prior to procedure, No changes to prior documentation, H&P is in [facility] EMR on date indicated and Risks and benefits of the procedure reviewed PREOP DIAGNOSIS: Right fifth metatarsal fracture PLANNED PROCEDURE: Operation Date: 09/11/25 08:30 Proposed Procedures p ORIF right fifth Metatarsal(Right) - Mann Curtis DPM
[2025-09-11] MEDS: BUPivacaine 0.5% INJ 30 mL 10 ML INJECTION (08:45)
[2025-09-11] MEDS: BUPivacaine liposome 13.3 mg/mL SDV 20 mL 266 MG INFILTRATI (08:45)
--- NOTE | 2025-09-11 09:04 | W.PM.BPON ---
Date of Procedure: 01/11/24 Surgeon: Mann Curtis DPM Aviation Electrician(s): Watson Procedure(s) performed: Open reduction internal fixation right fifth metatarsal fracture Findings of the procedure(s): Right fifth metatarsal fracture Estimated blood loss: 2 mL Specimen(s) removed: No specimens Post-operative diagnosis: Right fifth metatarsal fracture
--- NOTE | 2025-09-11 09:05 | P.OP_ITS ---
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 CPT code 51271 Implants: Monroe fifth metatarsal base hook plate with 2.5 mm locking screws, 3-0 Vicryl, 4-0 Vicryl, 4-0 nylon Specimens removed/disposition: no specimens removed Pathology: No pathology Surgeon: Mann Curtis DPM Automated Cutting Machine Operator: MEÑO Estimated blood loss: 2 21 IV fluids: See intraoperative documentation Urine output: no urine output Complications: No complications Findings: Right fifth metatarsal base fracture Brief History: Imaging: X-rays confirm nonunion of the Miller fracture of the fifth metatarsal. Assessment and Plan 45-year-old female with a history of a Miller fracture of the fifth metatarsal presenting with persistent pain and nonunion. The fracture has not healed, likely due to the anatomical challenges associated with the fifth metatarsal, including limited blood supply and tendon pull. The patient has been compliant with orthotic use and immobilization, yet continues to experience significant discomfort, indicating a symptomatic nonunion. Procedure: Under mild sedation the patient was brought to the operating room and remained on the gurney in supine position. A timeout was performed. Anesthesia was then administered by the anesthesia service. Local anesthesia injected by myself consisting of 40 cc of one-to-one mixture 0.5% Marcaine plain and Exparel in a proximal reverse Schofield block fashion to the right foot. Well-padded pneumatic tourniquet applied to the right ankle. The right lower extremity was then scrubbed, prepped and draped utilizing normal aseptic technique. Right foot and ankle were exanguinated with an Esmarch bandage and tourniquet inflated to 250 mmHg. Attention was directed to the dorsal lateral aspect of the right foot where fifth metatarsal was palpated including fifth metatarsal base directly over the proximal mid diaphysis of the right fifth metatarsal coursing proximal to the base curvilinear incision was made through skin with dissection carried down to the layer of the fracture utilizing a combination of sharp and blunt technique. Care was taken to retract and preserve neurovascular and tendinous structures. All bleeders were ligated and cauterized as necessary. Fracture was identified curettaged of fibrous nonunion down to fresh healthy bleeding bone followed by saline flush and fixation utilizing standard AO technique with a Monroe fifth met base fracture hook plate with 2.5 mm locking screws x 4 with excellent bony apposition and compression noted at the fracture site and hardware not violating adjacent joints or structures confirmed with AP oblique and lateral view with mini C arm. The incision was then irrigated with saline solution and closed in a layered fashion with periosteum and deep tissues reapproximated with 3-0 Vicryl, subcutaneous tissue reapproximated with 4-0 Vicryl and skin with 4-0 nylon. Incision dressed with Xeroform, 4 x 4 gauze, Kerlix, Rehan wrap and a cam boot was applied to the right lower extremity followed by deflation of the tourniquet which demonstrated a prompt hyperemic response to the distal digits of the right foot. Patient tolerated the procedure and anesthesia well and was transferred to the PACU with vital signs stable and vascular status intact. Following a period of postoperative monitoring to be discharged home without ho id care instructions and scheduled follow-up.
--- NOTE | 2025-09-11 10:05 | ANE.PACU2 ---
Inpatient post-anesthesia follow up: Airway intact: Yes Vital signs: Temperature 97.3 F Pulse Rate 70 Respiratory Rate 18 Blood Pressure 117/76 Pulse Oximetry 99 Oxygen Delivery Me thod Room Air Oxygen Flow Rate Fraction of Inspir ed Oxygen Hydration adequate: Yes Nausea and vomiting: No Pain level: 1 Mental status: Baseline
== END 2025-09-11 10:07 | disposition home or self-care (01) ==
PROVIDERS: PCP Nurse Practitioner; Visit Provider Podiatrist Foot & Ankle Surgery
PROC: (CPT 28485; principal; 2025-09-11 08:30)
DX: S92.354D Nondisplaced fracture of fifth metatarsal bone, right foot, subsequent encounter for fracture with routine healing (principal); W18.49XD Other slipping, tripping and stumbling without falling, subsequent encounter; K21.9 Gastro-esophageal reflux disease without esophagitis; G47.33 Obstructive sleep apnea (adult) (pediatric); R00.1 Bradycardia, unspecified
CPT/HCPCS: 28485; 73620; 76000; C1713; E0114; J0666; J2250; J2704; J3010; J3490; J7030

== ENCOUNTER → 2025-09-28 10:33 | Outpatient (BNVA) | payer OTHER, SELFPAY | PROVIDERS: PCP Nurse Practitioner; Visit Provider Podiatrist Foot & Ankle Surgery | DX: Z98.890 Other specified postprocedural states (principal) | CPT/HCPCS: 73630; 99024 ==

== ENCOUNTER 2025-10-19 11:07 | Oncology outpatient (recurring) (ONCR) | payer OTHER, SELFPAY ==
[2025-10-19 11:25] LABS: Hematocrit 40.4 % (36-47); Hemoglobin 13.40 g/dL (11.27-16.99); Mean Corpuscular HGB Conc 33.2 g/dL (30-55); Mean Corpuscular Hemoglobin 29.8 pg (27-33); Mean Corpuscular Volume 90.0 fl (85-98); Nucleated Red Blood Cells % 0 %; Platelet Count 274 10^3/cmm (157-399); Red Blood Count 4.49 10^6/uL (3.85-5.65); White Blood Count 6.37 10^3/uL (3.29-11.43)
[2025-10-19 11:44] LABS: Alanine Aminotransferase 15 U/L (0-33); Albumin Level 4.0 g/dL (3.5-5.2); Alkaline Phosphatase 105 U/L (35-105); Anion Gap 13.6 (5-19); Aspartate Amino Transferase 18 U/L (0-32); Blood Urea Nitrogen 13 mg/dL (6-20); Calcium 8.8 mg/dL (8.5-10.5); Carbon Dioxide 26 mmol/L (22-29); Chloride 107 mmol/L (98-107); Ferritin 147 ng/mL (15-150); Globulin 2.6 g/dL (1.3-4.6); Glucose 73 mg/dL (65-115); Iron 81 ug/dL (37-145); Osmolality Calculated 295 mOsm/kg (285-295); Potassium 3.6 mmol/L (3.5-5.1); Sodium 143 mmol/L (136-145); Total Iron Binding Capacity 225 mcg/dl; Total Protein 6.6 g/dL (6.6-8.7); Unsaturated Iron Binding 144 ug/dL (112-347)
== END 2025-10-28 23:59 | disposition home or self-care (01) ==
PROVIDERS: PCP Nurse Practitioner; Visit Provider Internal Medicine Medical Oncology
DX: D50.9 Iron deficiency anemia, unspecified (principal); Z98.84 Bariatric surgery status
CPT/HCPCS: 36415; 80053; 82728; 83540; 83550; 85025; 99213

== ENCOUNTER → 2025-10-26 13:33 | Outpatient (BNVA) | payer OTHER, SELFPAY | PROVIDERS: PCP Nurse Practitioner; Visit Provider Podiatrist Foot & Ankle Surgery | DX: S99.191G Other physeal fracture of right metatarsal, subsequent encounter for fracture with delayed healing (principal); Z98.890 Other specified postprocedural states; X58.XXXD Exposure to other specified factors, subsequent encounter | CPT/HCPCS: 73630; 99024 ==